=== PATIENT | female | born 1935 ===

== ENCOUNTER 2016-08-30 06:34 | Day surgery (SDC) | payer MEDICARE, BC ==
[2016-08-30 06:53] VITALS: BMI 18.1
[2016-08-30 07:32] VITALS: RESP 16; TEMP 98.9
[2016-08-30] MEDS ORDERED: Propofol 10 mg/ml Inj (20 ML) ONE (07:58)
--- NOTE | 2016-08-30 08:19 | CP.SDSHP ---
Same Day Surgery H & P - History Proposed Procedure: colonoscopy Pre-Op Diagnosis: change in bowels, wt loss - Previous Medical/Surgical History Cardiac: Hypertension Endocrine/Metabolic: Diabetes Comments: panc CA - Allergies Allergies: Allergies ciprofloxacin [From Cipro] Allergy (Severe, Verified 04/15/16 12:33) ANAPHYLAXIS ciprofloxacin HCl [From Cipro] Allergy (Severe, Verified 04/15/16 12:33) ANAPHYLAXIS Sulfa (Sulfonamide Antibiotics) Allergy (Severe, Verified 04/15/16 12:33) ANAPHYLAXIS - Physical Exam Vital Signs: Vital Signs 08/30/16 08/30/16 07:18 08:06 Temperature 98.9 F 98.9 F Pulse Rate 90 90 Respiratory 16 16 Rate Blood Pressure 160/89 H 160/89 H O2 Sat by Pulse 100 100 Oximetry Mental Status: Alert & Oriented x3 Neuro: WNL Heart: WNL Lungs: WNL GI: WNL - {Optional Preform as Required} Abdomen: WNL - Impression Impression: change in bowels, wt loss Pt. Evaluated Today:Candidate for Anesthesia & Procedure: Yes - Date & Time Date: 08/30/16 Time: 08:18 Short Stay Discharge - Short Stay Discharge Admitting Diagnosis/Reason for Visit: CHANGE IN BOWEL HABITS Disposition: HOME/ ROUTINE
[2016-08-30 09:19] VITALS: O2SAT 98
[2016-08-30 09:24] VITALS: BP 118/79; PULSE 76
== END 2016-08-30 09:50 | disposition home or self-care (01) ==
LOC: C.ENDO 06:34
PROVIDERS: ATTEND Internal Medicine Gastroenterology
DX: D12.7 Benign neoplasm of rectosigmoid junction (principal); D12.5 Benign neoplasm of sigmoid colon; K64.8 Other hemorrhoids
CPT/HCPCS: 45380; 45385; 82948; 87045; 87177; 87209; 87230; 88305; J2704

== ENCOUNTER 2017-03-11 19:42 | Inpatient (IN) | payer MEDICARE, BC ==
[2017-03-11 19:55] VITALS: BMI 20.3
[2017-03-11 20:23] LABS: BASO # 0.2 K/uL (0.0-0.2); BASO % 1.8 % (0.0-2.0); EOS # 0.2 K/uL (0.0-0.7); EOS % 1.5 % (0.0-4.0); HEMATOCRIT 35.8 % (34.0-47.0); LYMPH # 0.7 K/uL (1.0-4.3); LYMPH % 5.9 % (20.0-40.0); MEAN CELL VOLUME 97.8 fL (81.0-99.0); MEAN CORPUSCULAR HEMOGLOBIN 31.9 pg (27.0-31.0); MEAN CORPUSCULAR HGB CONC 32.7 g/dL (33.0-37.0); MEAN PLATELET VOLUME 9.8 fL (7.2-11.7); MONO # 0.5 K/uL (0.0-0.8); MONO % 3.7 % (0.0-10.0); PLATELET COUNT 234 K/uL (130-400); RED CELL DISTRIBUTION WIDTH 15.7 % (11.5-14.5); WHITE BLOOD COUNT 12.4 K/uL (4.8-10.8)
[2017-03-11 20:29] LABS: POTASSIUM 3.9 mmol/L (3.6-5.2)
[2017-03-11 20:31] LABS: ALB/GLOB RATIO 1.1 (1.0-2.1); BILIRUBIN,TOTAL 0.3 mg/dL (0.2-1.3); TOTAL PROTEIN 7.1 g/dL (6.3-8.3)
[2017-03-11 20:32] LABS: CALCIUM 9.2 mg/dl (8.6-10.4)
--- NOTE | 2017-03-11 20:32 | CT ---
EXAM: CT Head Without Intravenous Contrast EXAM DATE/TIME: 03/11/2017 7:55 PM CLINICAL HISTORY: 81 years old, female; Injury or trauma and signs and symptoms; Fall; Initial encounter; Abrasion; Head, generalized; Weakness, extremity; Left; Additional info: Stroke alert TECHNIQUE: Axial computed tomography images of the head/brain without intravenous contrast. All CT scans at this facility use one or more dose reduction techniques, viz.: automated exposure control; ma/kV adjustment per patient size (including targeted exams where dose is matched to indication; i.e. head); or iterative reconstruction technique. COMPARISON: MR - BRAIN WITHOUT CONTRAST 2013-08-28 13:14 FINDINGS: Brain: There is a right temporoparietal parenchymal hemorrhage with vasogenic edema in the temporal and parietal lobes.. Hemorrhage measures at least 6 x 3.5 cm. There is right subarachnoid and subdural hemorrhage. There is effacement of the right lateral ventricle. There is 12 mm midline shift to the left at the level of the third ventricle. Subdural hemorrhage measures 3.8 mm in the right frontal region, image 31 series 3 There is effacement of sulci and gyri on the right. There is prominence of the left lateral ventricle and fourth ventricles. There is prominence of the sulci and gyri in the cerebellum and left.There is decrease attenuation in periventricular white matter. There is decreased attenuation in left occipital white matter Ventricles: See above. Bones: Cranial vault is intact. Soft tissues: unremarkable Sinuses: There is no acute sinusitis. Ears and mastoids: Middle ears and mastoids are unremarkable. Orbits: There are no acute orbital abnormalities. IMPRESSION: Large right temporoparietal parenchymal hemorrhage with white matter/vasogenic edema, mass effect and 12 mm midline shift to the left; associated subarachnoid and subdural hemorrhage on the right; underlying atrophy and small vessel disease; probable ischemic changes in the left occipital lobe Followup suggested to exclude underlying neoplasm
[2017-03-11 20:33] LABS: INR 0.9
--- NOTE | 2017-03-11 20:45 | C.PDOC ---
History Of Present Illness 81 /yo female hx of pancreatic cancer and HTN (?), brought in by EMS awake with left sided weakness. As per patient her last known well time was yesterday morning after she got up for breakfast. Patient then recalled having a headache and falling, but was found in her closet at home. As per neighbor, patient was found lock in her closet door with the closet door having to be removed. Patient presents to the ER awake and speaking but with left sided weakness. Head CT shows a large parietal bleed on the right side with midline shift. Dr. Mckee contacted and recommends admitting the patient to ICU. Patient reports Right sided headache. Denies nausea or vomiting. No chest pain or SOB. Time Seen by Provider: 03/11/17 19:56 Chief Complaint (Nursing): Weakness/Neurological Deficit History Per: Patient, Other (Best friend ("better than family"). Neighbor) History/Exam Limitations: clinical condition Onset/Duration Of Symptoms: Hrs Current Symptoms Are (Timing): Still Present Fall Associated With With Symptoms: Yes Severity: Severe Recent travel outside of the [place]: No Additional History Per: EMS, Prior Records - Symptoms Of CVA Character Of Deficits: Left: Weakness, Arm: Weakness, Leg: Weakness Past Medical History Reviewed: Historical Data, Nursing Documentation, Vital Signs Vital Signs: Last Vital Signs Temp 98.3 F 03/11/17 19:53 Pulse 67 03/11/17 21:27 Resp 16 03/11/17 21:27 BP 166/81 H 03/11/17 21:27 Pulse Ox 100 03/11/17 21:32 - Medical History PMH: Cardia Arrhythmia (A FIB), Colonic Polyps, Fractures (LEFT ARM), Gall Bladder Disease, HTN, Hypothyroidism, Osteoporosis, Pancreatitis, Chronic Kidney Disease Surgical History: Cholecystectomy, Endoscopy - [facility] Procedures COLONOSCOPY (01/20/04) DX ULTRASOUND-HEART (09/09/12) DX ULTRASOUND-URINARY (11/04/12) ENDO RECTUM POLYPECTOMY (03/06/02) PERCUTAN NEEDLE BIOPSY OF KIDNEY (11/04/12) Family History: States: Unknown Family Hx - Social History Hx Alcohol Use: No Hx Substance Use: No - Immunization History Hx Tetanus Toxoid Vaccination: No Hx Influenza Vaccination: Yes Hx Pneumococcal Vaccination: No Review Of Systems Except As Marked, All Systems Reviewed And Found Negative. Cardiovascular: Negative for: Chest Pain Respiratory: Negative for: Shortness of Breath Gastrointestinal: Negative for: Nausea, Vomiting Neurological: Positive for: Weakness (left sided upper and lower extremity weakness), Headache (Right sided) Physical Exam - Physical Exam Appears: Non-toxic, Other (Elderly, frail, cachetic) Skin: Warm, Dry Eye(s): bilateral: PERRL Neck: Supple Respiratory: Normal Breath Sounds, No Rales, No Rhonchi, No Wheezing Gastrointestinal/Abdominal: Soft, Other (scaphoid abdomen. ) Neurological/Psych: No Normal Motor (Left upper and lower weakness 1/5. Right extremities normal.), Other (No facial droop.) ED Course And Treatment - Laboratory Results Result Diagrams: 03/11/17 20:16 03/11/17 20:16 ECG Rhythm: Sinus Rhythm Interpretation Of ECst degree AV Block Rate From EC O2 Sat by Pulse Oximetry: 100 (RA) Pulse Ox Interpretation: Normal NIHSS Stroke Scale - Date/Time Evaluation Performed Date Performed: 03/11/17 Time Performed: 19:45 When Was NIHSS Performed: Baseline - How Severe is the Stoke Level of Consciousness: 1=Drowsy LOC to Questions: 0=Both comments correct LOC to commands: 0=Obeys both correctly Best Gaze: 0=Normal Visual: 0=No visual loss Facial: 0=Normal Motor Arm - Left: 2=Falls before 10 sec Motor Arm - Right: 0=No drift Motor Leg - Left: 4=No movement Motor Leg - Right: 0=No drift Limb Ataxia: 0=Absent Sensory: 0=Normal Best Language: 0=No aphasia Dysarthia: 0=Normal articulation Extinction & Inattention (Neglect): 0=Normal, no object Score: 7 Severity Of Stroke: 5-15= Moderate Stroke (hemmorhagic) Medical Decision Making Medical Decision Making: Plans: * Blood labs * CT Head w/o contrast * EKG * IV fluids * Admit Disposition Discussed With : Jordi Bedolla Counseled Patient/Family Regarding: Studies Performed, Diagnosis - Disposition Disposition: HOSPITALIZED Disposition Time: 20:43 Condition: CRITICAL - Clinical Impression Clinical Impression: Intracranial hemorrhage - Scribe Statement The provider has reviewed the documentation as recorded by the Scribe Maycol eubanks All medical record entries made by the Scribe were at my direction and personally dictated by me. I have reviewed the chart and agree that the record accurately reflects my personal performance of the history, physical exam, medical decision making, and the department course for this patient. I have also personally directed, reviewed, and agree with the discharge instructions and disposition. Decision To Admit - Pt Status Changed To: Hospital Disposition Of: Inpatient - Admit Certification Admit to Inpatient:: After my assessment, the patient will require hospitalization for at least two midnights. This is because of the severity of symptoms shown, intensity of services needed, and/or the medical risk in this patient being treated as an outpatient. - InPatient: Physician Admission Certification: I certify that this patient requires 2 or more midnights of care for the following reason:: ICH - . Bed Request Type: ICU Patient Diagnosis: Intracranial hemorrhage
[2017-03-11 20:47] LABS: TROPONIN I 0.055 ng/mL (0.00-0.120)
--- NOTE | 2017-03-11 21:09 | CP.PCM.CON ---
History of Present Illness - History of Present Illness History of Present Illness: Attending: Gibran Wyatt MD PCP: Connor Stephenson MD Reason for Consult: Critical Care management Chief Complaint: Left side weakness The patient was seen and examined in the ED HPI: The hx was obtained partly from the patient and after review of the medical records. She is an 81 years old female who lives alone, with hx of Pancreatic Cancer, CKD and DM, brought awake and with left side weakness to the ED by EMS, after being found on the floor in her closet. The patient recalled having breakfast yesterday, developed headache and felt herself falling. She was found in a closed closet on the floor. In the ED the patient had clear speech referring right side headache. The Head CT showing a large intracraneal bleed with a midline shift to the left. PMH: HTN; A Fib; Colonic Polyps; Fx of the left Arm; Hypothyroidism; DM II; CKD ; Lung nodule; Ca of left kidney and pancreatic head; Pancreatitis; Cataract; Glaucoma PSH: Cholecystectomy; Cataract surgery; Partial Left Nephrectomy; Excision of head of Pancreas; SH: No illegal drug use; No alcohol; Never smoked; Live alone FH: States: Unknown Family Hx Allergies: Cipro; Sulfa Medication: Reviewed Review of Systems - Review of Systems Review of Systems: Review of system is limited because the patient is very lethargic. - Constitutional Constitutional: Headache, Lethargy. absent: Fever - EENT Nose/Mouth/Throat: absent: Epistaxis, Nasal Congestion - Cardiovascular Cardiovascular: Leg Edema. absent: Dyspnea - Respiratory Respiratory: absent: Dyspnea, Wheezing, Chest Congestion Past Patient History - Infectious Disease Hx of Infectious Diseases: None - Past Medical History & Family History Past Medical History?: Yes - Past Social History Smoking Status: Never Smoked Chewing Tobacco Use: No Cigar Use: No Alcohol: None Drugs: Denies Home Situation {Lives}: Alone - CARDIAC Hx Cardia Arrhythmia: Yes (A FIB) Hx Hypertension: Yes - PULMONARY Hx Respiratory Disorders: Yes (H/O LUNG NODULES) - NEUROLOGICAL Hx Neurological Disorder: No - HEENT Hx HEENT Problems: Yes Hx Cataracts: Yes Hx Glaucoma: Yes - RENAL Hx Chronic Kidney Disease: Yes - ENDOCRINE/METABOLIC Hx Hypothyroidism: Yes - HEMATOLOGICAL/ONCOLOGICAL Hx Blood Disorders: Yes Hx Cancer: Yes (L KIDNEY, HEAD OF PANCREAS) - INTEGUMENTARY Hx Dermatological Problems: No - MUSCULOSKELETAL/RHEUMATOLOGICAL Hx Fractures: Yes (LEFT ARM) Hx Osteoporosis: Yes - GASTROINTESTINAL Hx Gall Bladder Disease: Yes Hx Pancreatitis: Yes - GENITOURINARY/GYNECOLOGICAL Hx Genitourinary Disorders: No - PSYCHIATRIC Hx Substance Use: No - SURGICAL HISTORY Hx Cholecystectomy: Yes Other/Comment: Partial left nephrectomy and exision of head of pancreas - ANESTHESIA Hx Anesthesia: Yes Hx Anesthesia Reactions: No Hx Malignant Hyperthermia: No Meds Allergies/Adverse Reactions: Allergies Allergy/AdvReac Type Severity Reaction Status Date / Time ciprofloxacin [From Cipro] Allergy Severe ANAPHYLAXIS Verified 03/11/17 19:59 Sulfa (Sulfonamide Allergy Severe ANAPHYLAXIS Verified 03/11/17 19:59 Antibiotics) Physical Exam - Constitutional Appears: No Acute Distress - Head Exam Head Exam: ATRAUMATIC, NORMAL INSPECTION, NORMOCEPHALIC - Eye Exam Additional comments: Patient maintain eyes closed, Pupils 3cm responding sluggish to light - ENT Exam ENT Exam: Mucous Membranes Dry, Normal Exam, Normal External Ear Exam - Neck Exam Neck exam: Positive for: Full Rom, Normal Inspection. Negative for: Lymphadenopathy, Tenderness - Respiratory Exam Respiratory Exam: Clear to Auscultation Bilateral. absent: Rales, Rhonchi, Wheezes - Cardiovascular Exam Additional comments: S1 S2 regular with some irregularities. no gallops nor murmurs. - GI/Abdominal Exam GI & Abdominal Exam: Hypoactive Bowel Sounds, Normal Bowel Sounds, Soft. absent : Mass, Organomegaly, Tenderness - Rectal Exam Rectal Exam: Deferred - Extremities Exam Additional comments: Bilateral lower extremity edema 2+. pedal dorsalis full, palpable at both feet. - Back Exam Back exam: NORMAL INSPECTION. absent: CVA tenderness (L), CVA tenderness (R) - Neurological Exam Additional comments: Lethargic, answer questions with quiet Clear speech, Oriented, mild left facial droop, Motor strength 1/5 at left upper extremity with 0/5 at left lower extremity. Motor tone conserved at the left side of th4e body. - Psychiatric Exam Additional comments: Lethargic patient - Skin Skin Exam: Dry, Intact Additional comments: Right hip with hematoma 2cm th3e longest diameter. Results - Vital Signs Recent Vital Signs: Last Vital Signs Temp 98.3 F 03/11/17 19:53 Pulse 70 03/11/17 20:30 Resp 12 03/11/17 20:30 BP 158/82 H 10/30/17 20:30 Pulse Ox 100 03/11/17 21:00 - Labs Result Diagrams: 03/11/17 20:16 03/11/17 20:16 Labs: Laboratory Results - last 24 hr 03/11/17 03/11/17 03/11/17 20:16 20:16 20:16 WBC 12.4 H RBC 3.67 L Hgb 11.7 Hct 35.8 MCV 97.8 MCH 31.9 H MCHC 32.7 L RDW 15.7 H Plt Count 234 MPV 9.8 Neut % (Auto) 87.1 H Lymph % (Auto) 5.9 L [place] % (Auto) 3.7 Eos % (Auto) 1.5 Baso % (Auto) 1.8 Neut # 10.8 H Lymph # 0.7 L [place] # 0.5 Eos # 0.2 Baso # 0.2 PT 9.8 INR 0.9 APTT 29 Sodium 137 Potassium 3.9 Chloride 107 Carbon Dioxide 20 L Anion Gap 14 BUN 59 H Creatinine 2.4 H Est GFR ( Amer) 23 Est GFR (Non-Af Amer) 19 Random Glucose 189 H Hemoglobin A1c Calcium 9.2 Total Bilirubin 0.3 AST 59 H ALT 74 H Alkaline Phosphatase 115 Troponin I 0.0550 NT-Pro-B Natriuret Pep 3690 H Total Protein 7.1 Albumin 3.7 Globulin 3.4 Albumin/Globulin Ratio 1.1 Triglycerides 102 Cholesterol 143 LDL Cholesterol Direct 57 HDL Cholesterol 76 H 03/11/17 20:16 WBC RBC Hgb Hct MCV MCH MCHC RDW Plt Count MPV Neut % (Auto) Lymph % (Auto) [place] % (Auto) Eos % (Auto) Baso % (Auto) Neut # Lymph # [place] # Eos # Baso # PT INR APTT Sodium Potassium Chloride Carbon Dioxide Anion Gap BUN Creatinine Est GFR ( Amer) Est GFR (Non-Af Amer) Random Glucose Hemoglobin A1c 6.1 Calcium Total Bilirubin AST ALT Alkaline Phosphatase Troponin I NT-Pro-B Natriuret Pep Total Protein Albumin Globulin Albumin/Globulin Ratio Triglycerides Cholesterol LDL Cholesterol Direct HDL Cholesterol - EKG Data EKG comments: Sinus Rhythm 71/min with 1st degree AV block - Imaging and Cardiology Chest x-ray Status: Image reviewed by me Additional comment: No infiltrate No acute changes CT scan - head Status: Image reviewed by me, Report reviewed by me Additional comment: Large right Temperoparietal Parenchymal Hemorrhage with edema, mass effect and 12 cm midline shift to the left. Associated Subarachnoid and Subdural Hemorrhage Assessment & Plan - Assessment and Plan (Free Text) Assessment: #. Hemorrhagic CVA #. CKD #. Leukocytosis #. DM II with hyperglycemia #. HTN #. Hypothyroidism Plan: 81 years old female who lives alone, with hx of Pancreatic Cancer, CKD and DM, brought awake and with left side weakness to the ED by EMS, after being found on the floor in her closet. In the ED the patient had clear speech. The Head CT showing a large intracraneal bleed with a midline shift to the left. #. Hemorrhagic CVA CT Head Large right Temperoparietal Parenchymal Hemorrhage with edema, mass effect and 12 cm midline shift to the left. Associated Subarachnoid and Subdural Hemorrhage - Consult Neurosurgery Dr Mckee - Consult Dr Torres Neurology - Neuro checks - Elevate bed to 30degrees - Mannitol 20% 500mls Q6hrs - Repeat Head CT in 8 hours #. CKD - IV Fluid NS - Follow Renal labs #. Neutrophylic Leukocytosis reactive - Follow CBC #. DM II with hyperglycemia - Regular insulin sliding scale according to Accucheck - HbA1c #. HTN - Treat SBP>140 - IV Metoprolol #. Hypothyroidism - Synthroid IV #. Stress ulcer Prophylaxis with Pantoprazole #. DVT Prophylaxis with SCD #. Code Status: Full - Date & Time Date: 03/11/17 Time: 21:09
--- NOTE | 2017-03-11 23:42 | CP.PCM.HP ---
History of Present Illness - History of Present Illness History of Present Illness: 81 /yo female hx of pancreatic cancer and HTN (?), brought in by EMS awake with left sided weakness. As per patient her last known well time was yesterday morning after she got up for breakfast. Patient then recalled having a headache and falling, but was found in her closet at home. As per neighbor, patient was found lock in her closet door with the closet door having to be removed. Patient presents to the ER awake and speaking but with left sided weakness. Head CT shows a large parietal bleed on the right side with midline shift. Dr. Mckee contacted and recommends admitting the patient to ICU. Patient reports Right sided headache Present on Admission - Present on Admission Any Indicators Present on Admission: No Review of Systems - Review of Systems All systems: reviewed and no additional remarkable complaints except Past Patient History - Infectious Disease Hx of Infectious Diseases: None - Past Medical History & Family History Past Medical History?: Yes - Past Social History Smoking Status: Never Smoked Chewing Tobacco Use: No Cigar Use: No Alcohol: None Drugs: Denies Home Situation {Lives}: Alone - CARDIAC Hx Cardia Arrhythmia: Yes (A FIB) Hx Hypertension: Yes - PULMONARY Hx Respiratory Disorders: Yes (H/O LUNG NODULES) - NEUROLOGICAL Hx Neurological Disorder: No - HEENT Hx HEENT Problems: Yes Hx Cataracts: Yes Hx Glaucoma: Yes - RENAL Hx Chronic Kidney Disease: Yes - ENDOCRINE/METABOLIC Hx Hypothyroidism: Yes - HEMATOLOGICAL/ONCOLOGICAL Hx Blood Disorders: Yes Hx Cancer: Yes (L KIDNEY, HEAD OF PANCREAS) - INTEGUMENTARY Hx Dermatological Problems: No - MUSCULOSKELETAL/RHEUMATOLOGICAL Hx Fractures: Yes (LEFT ARM) Hx Osteoporosis: Yes - GASTROINTESTINAL Hx Gall Bladder Disease: Yes Hx Pancreatitis: Yes - GENITOURINARY/GYNECOLOGICAL Hx Genitourinary Disorders: No - PSYCHIATRIC Hx Substance Use: No - SURGICAL HISTORY Hx Cholecystectomy: Yes Other/Comment: Partial left nephrectomy and exision of head of pancreas - ANESTHESIA Hx Anesthesia: Yes Hx Anesthesia Reactions: No Hx Malignant Hyperthermia: No Meds Allergies/Adverse Reactions: Allergies Allergy/AdvReac Type Severity Reaction Status Date / Time ciprofloxacin [From Cipro] Allergy Severe ANAPHYLAXIS Verified 03/11/17 19:59 Sulfa (Sulfonamide Allergy Severe ANAPHYLAXIS Verified 03/11/17 19:59 Antibiotics) Physical Exam - Eye Exam Eye Exam: EOMI - ENT Exam ENT Exam: Mucous Membranes Dry - Neck Exam Neck exam: Positive for: Full Rom - Respiratory Exam Respiratory Exam: NORMAL BREATHING PATTERN - Cardiovascular Exam Cardiovascular Exam: +S1, +S2, +S4 - GI/Abdominal Exam GI & Abdominal Exam: Normal Bowel Sounds. absent: Tenderness - Extremities Exam Extremities exam: Negative for: calf tenderness, joint swelling - Neurological Exam Additional comments: [POWER 1/5 ON LEFT SIDE REFLEX DOWN Results - Vital Signs Recent Vital Signs: Last Vital Signs Temp 97.9 F 03/11/17 22:29 Pulse 80 03/11/17 23:00 Resp 13 03/11/17 23:00 BP 170/88 H 03/11/17 22:03 Pulse Ox 100 03/11/17 23:00 - Labs Result Diagrams: 03/12/17 06:20 03/12/17 06:20 Labs: Laboratory Results - last 24 hr 03/11/17 03/11/17 03/11/17 20:16 20:16 20:16 WBC 12.4 H RBC 3.67 L Hgb 11.7 Hct 35.8 MCV 97.8 MCH 31.9 H MCHC 32.7 L RDW 15.7 H Plt Count 234 MPV 9.8 Neut % (Auto) 87.1 H Lymph % (Auto) 5.9 L [place] % (Auto) 3.7 Eos % (Auto) 1.5 Baso % (Auto) 1.8 Neut # 10.8 H Lymph # 0.7 L [place] # 0.5 Eos # 0.2 Baso # 0.2 PT 9.8 INR 0.9 APTT 29 Sodium 137 Potassium 3.9 Chloride 107 Carbon Dioxide 20 L Anion Gap 14 BUN 59 H Creatinine 2.4 H Est GFR ( Amer) 23 Est GFR (Non-Af Amer) 19 Random Glucose 189 H Hemoglobin A1c Calcium 9.2 Total Bilirubin 0.3 AST 59 H ALT 74 H Alkaline Phosphatase 115 Troponin I 0.0550 NT-Pro-B Natriuret Pep 3690 H Total Protein 7.1 Albumin 3.7 Globulin 3.4 Albumin/Globulin Ratio 1.1 Triglycerides 102 Cholesterol 143 LDL Cholesterol Direct 57 HDL Cholesterol 76 H Blood Type Antibody Screen 03/11/17 03/11/17 20:16 20:16 WBC RBC Hgb Hct MCV MCH MCHC RDW Plt Count MPV Neut % (Auto) Lymph % (Auto) [place] % (Auto) Eos % (Auto) Baso % (Auto) Neut # Lymph # [place] # Eos # Baso # PT INR APTT Sodium Potassium Chloride Carbon Dioxide Anion Gap BUN Creatinine Est GFR ( Amer) Est GFR (Non-Af Amer) Random Glucose Hemoglobin A1c 6.1 Calcium Total Bilirubin AST ALT Alkaline Phosphatase Troponin I NT-Pro-B Natriuret Pep Total Protein Albumin Globulin Albumin/Globulin Ratio Triglycerides Cholesterol LDL Cholesterol Direct HDL Cholesterol Blood Type B POSITIVE Antibody Screen Negative Assessment & Plan (1) Intracranial hemorrhage Status: Acute
[2017-03-11] MEDS ORDERED: (Novolin R) Insulin Human Regular 100 units/ml vial SC SCH (23:45)
[2017-03-12 00:02] LABS: EOSINOPHIL 1 % (0-4); NEUTROPHIL 85 % (50-75); REACTIVE LYMPHOCYTES 5 % (0-0); TOTAL CELLS COUNTED 100
[2017-03-12] MEDS: (Novolin R) Insulin Human Regular 100 units/ml vial SC SCH ×4 (00:25→18:23)
[2017-03-12 06:28] LABS: BASO % 0.2 % (0.0-2.0); HEMATOCRIT 32.1 % (34.0-47.0); LYMPH # 0.4 K/uL (1.0-4.3); LYMPH % 2.7 % (20.0-40.0); MEAN CELL VOLUME 97.2 fL (81.0-99.0); MEAN CORPUSCULAR HEMOGLOBIN 31.9 pg (27.0-31.0); MEAN CORPUSCULAR HGB CONC 32.9 g/dL (33.0-37.0); MONO # 0.3 K/uL (0.0-0.8); MONO % 2.1 % (0.0-10.0); PLATELET COUNT 224 K/uL (130-400); RED CELL DISTRIBUTION WIDTH 15.5 % (11.5-14.5); WHITE BLOOD COUNT 13.6 K/uL (4.8-10.8)
[2017-03-12 06:36] LABS: INR 0.9
[2017-03-12] MEDS ORDERED: Metoprolol 1 mg/ml Inj IVP STA (06:37)
[2017-03-12 06:56] LABS: CALCIUM 8.1 mg/dl (8.6-10.4); PHOSPHOROUS 3.5 mg/dL (2.5-4.5)
[2017-03-12 06:58] LABS: POTASSIUM 3.5 mmol/L (3.6-5.2)
[2017-03-12] MEDS: SODIUM CHLORIDE 0.9% IVP SCH (06:59)
[2017-03-12] MEDS: LEVOTHYROXINE IVP SCH (06:59)
[2017-03-12 07:14] LABS: THYROID STIMULATING HORMONE 4.34 mIU/L (0.46-4.68)
[2017-03-12] MEDS ORDERED: niCARdipine IV 25 MG in Sodium Chloride 0.9% 240 ML IV SCH (07:45)
[2017-03-12] MEDS ORDERED: Labetalol 25mg/5ml Syringe IVP STA (07:45)
[2017-03-12] MEDS ORDERED: Labetalol 25mg/5ml Syringe ONE (07:49)
[2017-03-12] MEDS ORDERED: Etomidate 20 mg/10ml Inj IV ONE (08:16)
[2017-03-12] MEDS ORDERED: Propofol 10 mg/ml Inj (20 ML) IV ONE (08:22)
--- NOTE | 2017-03-12 08:24 | RAD ---
HISTORY: stroke COMPARISON: 02/23/2016 FINDINGS: LUNGS: Hyperinflation suggestive for COPD and or emphysematous changes. Biapical pleural thickening with upper lobe granulomatous changes. Scattered nodular densities throughout the right lung. No gross focal infiltrate or effusion. PLEURA: No significant pleural effusion identified, no pneumothorax apparent. CARDIOVASCULAR: Normal. OSSEOUS STRUCTURES: No significant abnormalities. VISUALIZED UPPER ABDOMEN: Normal. OTHER FINDINGS: None. IMPRESSION: Hyperinflation suggestive for COPD and or emphysematous changes. Biapical pleural thickening with upper lobe granulomatous changes. Scattered nodular densities throughout the right lung. No gross focal infiltrate or effusion.
[2017-03-12] MEDS ORDERED: Succinylcholine Chloride 20 mg/ml Syr (5 ml) IV ONE (08:30)
[2017-03-12] MEDS: Propofol 10 mg/ml 1,000 MG/100 ML VIAL IV PRN (08:35)
[2017-03-12 08:43] LABS: NEUTROPHIL 91 % (50-75); TOTAL CELLS COUNTED 100
--- NOTE | 2017-03-12 08:44 | RAD ---
HISTORY: intubated COMPARISON: 03/11/2017 FINDINGS: LUNGS: No active pulmonary disease. PLEURA: No significant pleural effusion identified, no pneumothorax apparent. CARDIOVASCULAR: Normal heart size. ET tube present with tip 2.0 cm above tracheal brooke. OSSEOUS STRUCTURES: No significant abnormalities. VISUALIZED UPPER ABDOMEN: Normal. OTHER FINDINGS: None. IMPRESSION: ET tube positioned 2.0 cm above tracheal brooke.
--- NOTE | 2017-03-12 08:47 | RAD ---
PROCEDURE: Right Hip Radiographs. HISTORY: Fall with right hip contusion COMPARISON: None. FINDINGS: BONES: Normal. No fracture. JOINTS: Normal. SOFT TISSUES: Normal. OTHER FINDINGS: None. IMPRESSION: Normal radiographs of right hip.
[2017-03-12] MEDS: niCARdipine IV 25 MG in Sodium Chloride 0.9% 240 ML IV SCH ×4 (09:02→23:57)
[2017-03-12 09:08] LABS: ABG MECHANICAL RATE 20; ARTERIAL BLOOD HGB O2 SAT 96.7 % (95.0-98.0); ATERIAL BLOOD GAS PEEP 5; CARBOXYHEMOGLOBIN 2.2 % (0.5-1.5); DRAW SITE LF; HHB 0.2 % (0.0-5.0)
[2017-03-12] MEDS ORDERED: Levothyroxine 200 mcg (0.2 mg) Inj IVP SCH (10:00)
[2017-03-12] MEDS ORDERED: Absorbable Gelatin Sponge Size 100 ONE (10:33)
[2017-03-12] MEDS ORDERED: Bacitracin Ointment 30 GM TUBE ONE (10:33)
[2017-03-12] MEDS ORDERED: Bacitracin 50,000 UNIT in Sodium Chloride 0.9% Irrig 1,000 ML IR SCH (10:35)
[2017-03-12] MEDS ORDERED: Thrombin Topical 5,000 IU Spray Kit ONE (10:48)
[2017-03-12] MEDS ORDERED: ceFAZolin IV 2 gm in Dextrose 0 GM/0 ML BAG IVPB ONE (10:48)
[2017-03-12] MEDS ORDERED: Lidocaine 1%/Epinephrine 1:100000 30 ml vial IJ ONE (10:54)
[2017-03-12] MEDS ORDERED: Sodium Chloride 0.9% 1,000 ML IV ONE (11:02)
[2017-03-12] MEDS ORDERED: Vancomycin 1 gm/D5W 200 ml 1 GM/200 ML BAG IVPB ONE (11:23)
--- NOTE | 2017-03-12 11:25 | CP.CCUPN ---
<Rosaura Paz - Last Filed: 03/12/17 15:52> CCU Subjective - Physician Review Subjective (Free Text): Patient seen and examined at bedside. Patient intubated this am and therefore ROS unobtainable. CCU Objective - Vital Signs / Intake & Output Vital Signs (Last 4 hours): Vital Signs Temp Pulse Resp BP Pulse Ox 03/12/17 10:30 82 18 146/85 99 03/12/17 10:00 84 18 108/53 L 100 03/12/17 09:00 86 19 170/89 H 100 03/12/17 08:00 96.4 F L 84 21 170/100 H 99 Intake and Output (Last 8hrs): Intake & Output 03/11/17 03/12/17 03/12/17 22:59 06:59 14:59 Intake Total 1100 295.3 Output Total 2530 400 Balance -1430 -104.7 Weight 97 lb 6 oz 87 lb 6.4 oz Intake: Intake, IV Amount 1100 295.3 Right Distal Port Forearm 600 225 Right Forearm 500 70.3 Output: Urine 2530 400 Urethral ([place]) 2530 400 Other: # Bowel Movements 1 - Physical Exam Head: Positive for: Normocephalic Pupils: Positive for: Sluggish Mouth: Positive for: Dry Respiratory/Chest: Positive for: Good Air Exchange Cardiovascular: Positive for: Normal S1, S2 Lower Extremity: Positive for: Edema - Medications Active Medications: Active Medications Generic Name Dose Route Start Last Admin Trade Name Freq PRN Reason Stop Dose Admin Mannitol 500 mls @ 500 mls/hr 03/11/17 22:30 03/12/17 05:07 Mannitol IV 500 mls/hr Q6H HALLE Administration Levothyroxine Sodium 25 mcg/ 2.5 mls @ 0 mls/hr 03/12/17 06:30 03/12/17 06:59 Sodium Chloride IVP 1.25 mls/hr DAILY@0630 HALLE Administration UD Propofol 1,000 mg in 100 mls @ 1.189 mls/hr 03/12/17 08:24 03/12/17 08:35 Diprivan IV 5 mcg/kg/min .Q24H PRN 1.189 mls/hr TITRATE PER MD ORDER Administration Protocol 5 MCG/KG/MIN Nicardipine HCl 25 mg/ Sodium 250 mls @ 50 mls/hr 10/31/17 08:49 03/12/17 09: 02 Chloride IV 5 mg/hr .Q5H HALLE 50 mls/hr Protocol Administration 5 MG/HR Potassium Chloride 20 meq in 100 mls @ 50 mls/hr 03/12/17 09:37 Potassium Chloride 20 Meq/100 Ml IVPB 03/12/17 11:36 ONCE ONE Bacitracin 50,000 unit/ Sodium 1,000 mls @ 1,000 mls/hr 03/12/17 10:35 Chloride IR 03/12/17 11:34 .Q1H HALLE Insulin Human Regular 0 unit 03/12/17 12:00 Novolin R SC Q6 HALLE Protocol Metoprolol Tartrate 5 mg 03/12/17 12:00 Lopressor IVP Q6 HALLE Pantoprazole Sodium 40 mg 03/12/17 10:00 03/12/17 09:41 Protonix Inj IVP 40 mg DAILY HALLE Administration - Patient Studies Lab Studies: Lab Studies 03/12/17 03/12/17 03/12/17 Range/Units 08:50 06:20 06:20 WBC (4.8-10.8) K/uL RBC (3.80-5.20) Mil/uL Hgb (11.0-16.0) g/dL Hct (34.0-47.0) % MCV (81.0-99.0) fL MCH (27.0-31.0) pg MCHC (33.0-37.0) g/dL RDW (11.5-14.5) % Plt Count (130-400) K/uL MPV (7.2-11.7) fL Neut % (Auto) (50.0-75.0) % Lymph % (Auto) (20.0-40.0) % [place] % (Auto) (0.0-10.0) % Eos % (Auto) (0.0-4.0) % Baso % (Auto) (0.0-2.0) % Neut # (1.8-7.0) K/uL Lymph # (1.0-4.3) K/uL [place] # (0.0-0.8) K/uL Eos # (0.0-0.7) K/uL Baso # (0.0-0.2) K/uL Neutrophils % (Manual) (50-75) % Band Neutrophils % (0-2) % Lymphocytes % (Manual) (20-40) % Reactive Lymphs % (0-0) % Monocytes % (Manual) (0-10) % Eosinophils % (Manual) (0-4) % Toxic Granulation Platelet Estimate (NORMAL) Anisocytosis (manual) Rouleaux PT 10.2 (9.7-12.2) SECONDS INR 0.9 APTT 27 (21-34) SECONDS Puncture Site Lf pCO2 25 L (35-45) mm/Hg pO2 501 H (80-100) mm/Hg HCO3 21.3 (21-28) mmol/L ABG pH 7.46 H (7.35-7.45) ABG Total CO2 18.6 L (22-28) mmol/L ABG O2 Saturation 99.8 H (95-98) % ABG Base Excess -4.6 L (-2.0-3.0) mmol/L ABG Hemoglobin 11.6 L (11.7-17.4) g/dL ABG Carboxyhemoglobin 2.2 H (0.5-1.5) % POC ABG HHb (Measured) 0.2 (0.0-5.0) % ABG Methemoglobin 1.0 (0.0-3.0) % Jean Test Na A-a O2 Difference 181.0 mm/Hg Respiratory Index 0.4 Hgb O2 Saturation 96.7 (95.0-98.0) % Mechanical Rate 20 FiO2 100.0 % Tidal Volume 450 PEEP 5 Sodium (132-148) mmol/L Potassium (3.6-5.2) mmol/L Chloride (98-107) mmol/L Carbon Dioxide (22-30) mmol/L Anion Gap (10-20) BUN (7-17) mg/dL Creatinine (0.7-1.2) mg/dL Est GFR ( Amer) Est GFR (Non-Af Amer) POC Glucose (mg/dL) (65-110) mg/dL Random Glucose (65-105) mg/dL Hemoglobin A1c (4.2-6.5) % Serum Osmolality 346 H (272-300) mosm/kg Calcium (8.6-10.4) mg/dl Phosphorus (2.5-4.5) mg/dL Magnesium (1.6-2.3) mg/dL Total Bilirubin (0.2-1.3) mg/dL AST (14-36) U/L ALT (9-52) U/L Alkaline Phosphatase (38-126) U/L Troponin I (0.00-0.120) ng/mL NT-Pro-B Natriuret Pep (0-900) pg/mL Total Protein (6.3-8.3) g/dL Albumin (3.5-5.0) g/dL Globulin (2.2-3.9) gm/dL Albumin/Globulin Ratio (1.0-2.1) Triglycerides (0-149) mg/dL Cholesterol (0-199) mg/dL LDL Cholesterol Direct (0-129) mg/dL HDL Cholesterol (30-70) mg/dL TSH 3rd Generation (0.46-4.68) mIU/L Blood Type Antibody Screen 03/12/17 03/12/17 03/12/17 Range/Units 06:20 06:20 06:20 WBC 13.6 H (4.8-10.8) K/uL RBC 3.30 L (3.80-5.20) Mil/uL Hgb 10.5 L (11.0-16.0) g/dL Hct 32.1 L (34.0-47.0) % MCV 97.2 (81.0-99.0) fL MCH 31.9 H (27.0-31.0) pg MCHC 32.9 L (33.0-37.0) g/dL RDW 15.5 H (11.5-14.5) % Plt Count 224 (130-400) K/uL MPV 10.0 (7.2-11.7) fL Neut % (Auto) 95.0 H (50.0-75.0) % Lymph % (Auto) 2.7 L (20.0-40.0) % [place] % (Auto) 2.1 (0.0-10.0) % Eos % (Auto) 0.0 (0.0-4.0) % Baso % (Auto) 0.2 (0.0-2.0) % Neut # 12.9 H (1.8-7.0) K/uL Lymph # 0.4 L (1.0-4.3) K/uL [place] # 0.3 (0.0-0.8) K/uL Eos # 0.0 (0.0-0.7) K/uL Baso # 0.0 (0.0-0.2) K/uL Neutrophils % (Manual) 91 H (50-75) % Band Neutrophils % 4 H (0-2) % Lymphocytes % (Manual) 4 L (20-40) % Reactive Lymphs % (0-0) % Monocytes % (Manual) 1 (0-10) % Eosinophils % (Manual) (0-4) % Toxic Granulation Platelet Estimate Normal (NORMAL) Anisocytosis (manual) Slight Rouleaux PT (9.7-12.2) SECONDS INR APTT (21-34) SECONDS Puncture Site pCO2 (35-45) mm/Hg pO2 (80-100) mm/Hg HCO3 (21-28) mmol/L ABG pH (7.35-7.45) ABG Total CO2 (22-28) mmol/L ABG O2 Saturation (95-98) % ABG Base Excess (-2.0-3.0) mmol/L ABG Hemoglobin (11.7-17.4) g/dL ABG Carboxyhemoglobin (0.5-1.5) % POC ABG HHb (Measured) (0.0-5.0) % ABG Methemoglobin (0.0-3.0) % Jean Test A-a O2 Difference mm/Hg Respiratory Index Hgb O2 Saturation (95.0-98.0) % Mechanical Rate FiO2 % Tidal Volume PEEP Sodium 130 L (132-148) mmol/L Potassium 3.5 L (3.6-5.2) mmol/L Chloride 101 (98-107) mmol/L Carbon Dioxide 17 L (22-30) mmol/L Anion Gap 16 (10-20) BUN 45 H (7-17) mg/dL Creatinine 2.2 H (0.7-1.2) mg/dL Est GFR ( Amer) 26 Est GFR (Non-Af Amer) 21 POC Glucose (mg/dL) (65-110) mg/dL Random Glucose 171 H (65-105) mg/dL Hemoglobin A1c 6.3 (4.2-6.5) % Serum Osmolality (272-300) mosm/kg Calcium 8.1 L (8.6-10.4) mg/dl Phosphorus 3.5 (2.5-4.5) mg/dL Magnesium 2.0 (1.6-2.3) mg/dL Total Bilirubin (0.2-1.3) mg/dL AST (14-36) U/L ALT (9-52) U/L Alkaline Phosphatase (38-126) U/L Troponin I (0.00-0.120) ng/mL NT-Pro-B Natriuret Pep (0-900) pg/mL Total Protein (6.3-8.3) g/dL Albumin (3.5-5.0) g/dL Globulin (2.2-3.9) gm/dL Albumin/Globulin Ratio (1.0-2.1) Triglycerides (0-149) mg/dL Cholesterol (0-199) mg/dL LDL Cholesterol Direct (0-129) mg/dL HDL Cholesterol (30-70) mg/dL TSH 3rd Generation 4.34 (0.46-4.68) mIU/L Blood Type Antibody Screen 03/12/17 03/12/17 03/11/17 Range/Units 05:41 00:18 20:16 WBC (4.8-10.8) K/uL RBC (3.80-5.20) Mil/uL Hgb (11.0-16.0) g/dL Hct (34.0-47.0) % MCV (81.0-99.0) fL MCH (27.0-31.0) pg MCHC (33.0-37.0) g/dL RDW (11.5-14.5) % Plt Count (130-400) K/uL MPV (7.2-11.7) fL Neut % (Auto) (50.0-75.0) % Lymph % (Auto) (20.0-40.0) % [place] % (Auto) (0.0-10.0) % Eos % (Auto) (0.0-4.0) % Baso % (Auto) (0.0-2.0) % Neut # (1.8-7.0) K/uL Lymph # (1.0-4.3) K/uL [place] # (0.0-0.8) K/uL Eos # (0.0-0.7) K/uL Baso # (0.0-0.2) K/uL Neutrophils % (Manual) (50-75) % Band Neutrophils % (0-2) % Lymphocytes % (Manual) (20-40) % Reactive Lymphs % (0-0) % Monocytes % (Manual) (0-10) % Eosinophils % (Manual) (0-4) % Toxic Granulation Platelet Estimate (NORMAL) Anisocytosis (manual) Rouleaux PT (9.7-12.2) SECONDS INR APTT (21-34) SECONDS Puncture Site pCO2 (35-45) mm/Hg pO2 (80-100) mm/Hg HCO3 (21-28) mmol/L ABG pH (7.35-7.45) ABG Total CO2 (22-28) mmol/L ABG O2 Saturation (95-98) % ABG Base Excess (-2.0-3.0) mmol/L ABG Hemoglobin (11.7-17.4) g/dL ABG Carboxyhemoglobin (0.5-1.5) % POC ABG HHb (Measured) (0.0-5.0) % ABG Methemoglobin (0.0-3.0) % Jean Test A-a O2 Difference mm/Hg Respiratory Index Hgb O2 Saturation (95.0-98.0) % Mechanical Rate FiO2 % Tidal Volume PEEP Sodium (132-148) mmol/L Potassium (3.6-5.2) mmol/L Chloride (98-107) mmol/L Carbon Dioxide (22-30) mmol/L Anion Gap (10-20) BUN (7-17) mg/dL Creatinine (0.7-1.2) mg/dL Est GFR ( Amer) Est GFR (Non-Af Amer) POC Glucose (mg/dL) 211 H 82 (65-110) mg/dL Random Glucose (65-105) mg/dL Hemoglobin A1c (4.2-6.5) % Serum Osmolality (272-300) mosm/kg Calcium (8.6-10.4) mg/dl Phosphorus (2.5-4.5) mg/dL Magnesium (1.6-2.3) mg/dL Total Bilirubin (0.2-1.3) mg/dL AST (14-36) U/L ALT (9-52) U/L Alkaline Phosphatase (38-126) U/L Troponin I (0.00-0.120) ng/mL NT-Pro-B Natriuret Pep (0-900) pg/mL Total Protein (6.3-8.3) g/dL Albumin (3.5-5.0) g/dL Globulin (2.2-3.9) gm/dL Albumin/Globulin Ratio (1.0-2.1) Triglycerides (0-149) mg/dL Cholesterol (0-199) mg/dL LDL Cholesterol Direct (0-129) mg/dL HDL Cholesterol (30-70) mg/dL TSH 3rd Generation (0.46-4.68) mIU/L Blood Type B POSITIVE Antibody Screen Negative 03/11/17 03/11/17 03/11/17 Range/Units 20:16 20:16 20:16 WBC (4.8-10.8) K/uL RBC (3.80-5.20) Mil/uL Hgb (11.0-16.0) g/dL Hct (34.0-47.0) % MCV (81.0-99.0) fL MCH (27.0-31.0) pg MCHC (33.0-37.0) g/dL RDW (11.5-14.5) % Plt Count (130-400) K/uL MPV (7.2-11.7) fL Neut % (Auto) (50.0-75.0) % Lymph % (Auto) (20.0-40.0) % [place] % (Auto) (0.0-10.0) % Eos % (Auto) (0.0-4.0) % Baso % (Auto) (0.0-2.0) % Neut # (1.8-7.0) K/uL Lymph # (1.0-4.3) K/uL [place] # (0.0-0.8) K/uL Eos # (0.0-0.7) K/uL Baso # (0.0-0.2) K/uL Neutrophils % (Manual) (50-75) % Band Neutrophils % (0-2) % Lymphocytes % (Manual) (20-40) % Reactive Lymphs % (0-0) % Monocytes % (Manual) (0-10) % Eosinophils % (Manual) (0-4) % Toxic Granulation Platelet Estimate (NORMAL) Anisocytosis (manual) Rouleaux PT 9.8 (9.7-12.2) SECONDS INR 0.9 APTT 29 (21-34) SECONDS Puncture Site pCO2 (35-45) mm/Hg pO2 (80-100) mm/Hg HCO3 (21-28) mmol/L ABG pH (7.35-7.45) ABG Total CO2 (22-28) mmol/L ABG O2 Saturation (95-98) % ABG Base Excess (-2.0-3.0) mmol/L ABG Hemoglobin (11.7-17.4) g/dL ABG Carboxyhemoglobin (0.5-1.5) % POC ABG HHb (Measured) (0.0-5.0) % ABG Methemoglobin (0.0-3.0) % Jean Test A-a O2 Difference mm/Hg Respiratory Index Hgb O2 Saturation (95.0-98.0) % Mechanical Rate FiO2 % Tidal Volume PEEP Sodium 137 (132-148) mmol/L Potassium 3.9 (3.6-5.2) mmol/L Chloride 107 (98-107) mmol/L Carbon Dioxide 20 L (22-30) mmol/L Anion Gap 14 (10-20) BUN 59 H (7-17) mg/dL Creatinine 2.4 H (0.7-1.2) mg/dL Est GFR ( Amer) 23 Est GFR (Non-Af Amer) 19 POC Glucose (mg/dL) (65-110) mg/dL Random Glucose 189 H (65-105) mg/dL Hemoglobin A1c 6.1 (4.2-6.5) % Serum Osmolality (272-300) mosm/kg Calcium 9.2 (8.6-10.4) mg/dl Phosphorus (2.5-4.5) mg/dL Magnesium (1.6-2.3) mg/dL Total Bilirubin 0.3 (0.2-1.3) mg/dL AST 59 H (14-36) U/L ALT 74 H (9-52) U/L Alkaline Phosphatase 115 (38-126) U/L Troponin I 0.0550 (0.00-0.120) ng/mL NT-Pro-B Natriuret Pep 3690 H (0-900) pg/mL Total Protein 7.1 (6.3-8.3) g/dL Albumin 3.7 (3.5-5.0) g/dL Globulin 3.4 (2.2-3.9) gm/dL Albumin/Globulin Ratio 1.1 (1.0-2.1) Triglycerides 102 (0-149) mg/dL Cholesterol 143 (0-199) mg/dL LDL Cholesterol Direct 57 (0-129) mg/dL HDL Cholesterol 76 H (30-70) mg/dL TSH 3rd Generation (0.46-4.68) mIU/L Blood Type Antibody Screen 03/11/17 Range/Units 20:16 WBC 12.4 H (4.8-10.8) K/uL RBC 3.67 L (3.80-5.20) Mil/uL Hgb 11.7 (11.0-16.0) g/dL Hct 35.8 (34.0-47.0) % MCV 97.8 (81.0-99.0) fL MCH 31.9 H (27.0-31.0) pg MCHC 32.7 L (33.0-37.0) g/dL RDW 15.7 H (11.5-14.5) % Plt Count 234 (130-400) K/uL MPV 9.8 (7.2-11.7) fL Neut % (Auto) 87.1 H (50.0-75.0) % Lymph % (Auto) 5.9 L (20.0-40.0) % [place] % (Auto) 3.7 (0.0-10.0) % Eos % (Auto) 1.5 (0.0-4.0) % Baso % (Auto) 1.8 (0.0-2.0) % Neut # 10.8 H (1.8-7.0) K/uL Lymph # 0.7 L (1.0-4.3) K/uL [place] # 0.5 (0.0-0.8) K/uL Eos # 0.2 (0.0-0.7) K/uL Baso # 0.2 (0.0-0.2) K/uL Neutrophils % (Manual) 85 H (50-75) % Band Neutrophils % 1 (0-2) % Lymphocytes % (Manual) 5 L (20-40) % Reactive Lymphs % 5 H (0-0) % Monocytes % (Manual) 3 (0-10) % Eosinophils % (Manual) 1 (0-4) % Toxic Granulation Present Platelet Estimate Normal (NORMAL) Anisocytosis (manual) Slight Rouleaux Slight PT (9.7-12.2) SECONDS INR APTT (21-34) SECONDS Puncture Site pCO2 (35-45) mm/Hg pO2 (80-100) mm/Hg HCO3 (21-28) mmol/L ABG pH (7.35-7.45) ABG Total CO2 (22-28) mmol/L ABG O2 Saturation (95-98) % ABG Base Excess (-2.0-3.0) mmol/L ABG Hemoglobin (11.7-17.4) g/dL ABG Carboxyhemoglobin (0.5-1.5) % POC ABG HHb (Measured) (0.0-5.0) % ABG Methemoglobin (0.0-3.0) % Jean Test A-a O2 Difference mm/Hg Respiratory Index Hgb O2 Saturation (95.0-98.0) % Mechanical Rate FiO2 % Tidal Volume PEEP Sodium (132-148) mmol/L Potassium (3.6-5.2) mmol/L Chloride (98-107) mmol/L Carbon Dioxide (22-30) mmol/L Anion Gap (10-20) BUN (7-17) mg/dL Creatinine (0.7-1.2) mg/dL Est GFR ( Amer) Est GFR (Non-Af Amer) POC Glucose (mg/dL) (65-110) mg/dL Random Glucose (65-105) mg/dL Hemoglobin A1c (4.2-6.5) % Serum Osmolality (272-300) mosm/kg Calcium (8.6-10.4) mg/dl Phosphorus (2.5-4.5) mg/dL Magnesium (1.6-2.3) mg/dL Total Bilirubin (0.2-1.3) mg/dL AST (14-36) U/L ALT (9-52) U/L Alkaline Phosphatase (38-126) U/L Troponin I (0.00-0.120) ng/mL NT-Pro-B Natriuret Pep (0-900) pg/mL Total Protein (6.3-8.3) g/dL Albumin (3.5-5.0) g/dL Globulin (2.2-3.9) gm/dL Albumin/Globulin Ratio (1.0-2.1) Triglycerides (0-149) mg/dL Cholesterol (0-199) mg/dL LDL Cholesterol Direct (0-129) mg/dL HDL Cholesterol (30-70) mg/dL TSH 3rd Generation (0.46-4.68) mIU/L Blood Type Antibody Screen Laboratory Results - last 24 hr 03/11/17 03/11/17 03/11/17 20:16 20:16 20:16 WBC 12.4 H RBC 3.67 L Hgb 11.7 Hct 35.8 MCV 97.8 MCH 31.9 H MCHC 32.7 L RDW 15.7 H Plt Count 234 MPV 9.8 Neut % (Auto) 87.1 H Lymph % (Auto) 5.9 L [place] % (Auto) 3.7 Eos % (Auto) 1.5 Baso % (Auto) 1.8 Neut # 10.8 H Lymph # 0.7 L [place] # 0.5 Eos # 0.2 Baso # 0.2 Neutrophils % (Manual) 85 H Band Neutrophils % 1 Lymphocytes % (Manual) 5 L Reactive Lymphs % 5 H Monocytes % (Manual) 3 Eosinophils % (Manual) 1 Toxic Granulation Present Platelet Estimate Normal Anisocytosis (manual) Slight Rouleaux Slight PT 9.8 INR 0.9 APTT 29 Puncture Site pCO2 pO2 HCO3 ABG pH ABG Total CO2 ABG O2 Saturation ABG Base Excess ABG Hemoglobin ABG Carboxyhemoglobin POC ABG HHb (Measured) ABG Methemoglobin Jean Test A-a O2 Difference Respiratory Index Hgb O2 Saturation Mechanical Rate FiO2 Tidal Volume PEEP Sodium 137 Potassium 3.9 Chloride 107 Carbon Dioxide 20 L Anion Gap 14 BUN 59 H Creatinine 2.4 H Est GFR ( Amer) 23 Est GFR (Non-Af Amer) 19 POC Glucose (mg/dL) Random Glucose 189 H Hemoglobin A1c Serum Osmolality Calcium 9.2 Phosphorus Magnesium Total Bilirubin 0.3 AST 59 H ALT 74 H Alkaline Phosphatase 115 Troponin I 0.0550 NT-Pro-B Natriuret Pep 3690 H Total Protein 7.1 Albumin 3.7 Globulin 3.4 Albumin/Globulin Ratio 1.1 Triglycerides 102 Cholesterol 143 LDL Cholesterol Direct 57 HDL Cholesterol 76 H TSH 3rd Generation Blood Type Antibody Screen 03/11/17 03/11/17 03/12/17 20:16 20:16 00:18 WBC RBC Hgb Hct MCV MCH MCHC RDW Plt Count MPV Neut % (Auto) Lymph % (Auto) [place] % (Auto) Eos % (Auto) Baso % (Auto) Neut # Lymph # [place] # Eos # Baso # Neutrophils % (Manual) Band Neutrophils % Lymphocytes % (Manual) Reactive Lymphs % Monocytes % (Manual) Eosinophils % (Manual) Toxic Granulation Platelet Estimate Anisocytosis (manual) Rouleaux PT INR APTT Puncture Site pCO2 pO2 HCO3 ABG pH ABG Total CO2 ABG O2 Saturation ABG Base Excess ABG Hemoglobin ABG Carboxyhemoglobin POC ABG HHb (Measured) ABG Methemoglobin Jean Test A-a O2 Difference Respiratory Index Hgb O2 Saturation Mechanical Rate FiO2 Tidal Volume PEEP Sodium Potassium Chloride Carbon Dioxide Anion Gap BUN Creatinine Est GFR ( Amer) Est GFR (Non-Af Amer) POC Glucose (mg/dL) 82 Random Glucose Hemoglobin A1c 6.1 Serum Osmolality Calcium Phosphorus Magnesium Total Bilirubin AST ALT Alkaline Phosphatase Troponin I NT-Pro-B Natriuret Pep Total Protein Albumin Globulin Albumin/Globulin Ratio Triglycerides Cholesterol LDL Cholesterol Direct HDL Cholesterol TSH 3rd Generation Blood Type B POSITIVE Antibody Screen Negative 03/12/17 03/12/17 03/12/17 05:41 06:20 06:20 WBC 13.6 H RBC 3.30 L Hgb 10.5 L Hct 32.1 L MCV 97.2 MCH 31.9 H MCHC 32.9 L RDW 15.5 H Plt Count 224 MPV 10.0 Neut % (Auto) 95.0 H Lymph % (Auto) 2.7 L [place] % (Auto) 2.1 Eos % (Auto) 0.0 Baso % (Auto) 0.2 Neut # 12.9 H Lymph # 0.4 L [place] # 0.3 Eos # 0.0 Baso # 0.0 Neutrophils % (Manual) 91 H Band Neutrophils % 4 H Lymphocytes % (Manual) 4 L Reactive Lymphs % Monocytes % (Manual) 1 Eosinophils % (Manual) Toxic Granulation Platelet Estimate Normal Anisocytosis (manual) Slight Rouleaux PT INR APTT Puncture Site pCO2 pO2 HCO3 ABG pH ABG Total CO2 ABG O2 Saturation ABG Base Excess ABG Hemoglobin ABG Carboxyhemoglobin POC ABG HHb (Measured) ABG Methemoglobin Jean Test A-a O2 Difference Respiratory Index Hgb O2 Saturation Mechanical Rate FiO2 Tidal Volume PEEP Sodium 130 L Potassium 3.5 L Chloride 101 Carbon Dioxide 17 L Anion Gap 16 BUN 45 H Creatinine 2.2 H Est GFR ( Amer) 26 Est GFR (Non-Af Amer) 21 POC Glucose (mg/dL) 211 H Random Glucose 171 H Hemoglobin A1c Serum Osmolality Calcium 8.1 L Phosphorus 3.5 Magnesium 2.0 Total Bilirubin AST ALT Alkaline Phosphatase Troponin I NT-Pro-B Natriuret Pep Total Protein Albumin Globulin Albumin/Globulin Ratio Triglycerides Cholesterol LDL Cholesterol Direct HDL Cholesterol TSH 3rd Generation 4.34 Blood Type Antibody Screen 03/12/17 03/12/17 03/12/17 06:20 06:20 06:20 WBC RBC Hgb Hct MCV MCH MCHC RDW Plt Count MPV Neut % (Auto) Lymph % (Auto) [place] % (Auto) Eos % (Auto) Baso % (Auto) Neut # Lymph # [place] # Eos # Baso # Neutrophils % (Manual) Band Neutrophils % Lymphocytes % (Manual) Reactive Lymphs % Monocytes % (Manual) Eosinophils % (Manual) Toxic Granulation Platelet Estimate Anisocytosis (manual) Rouleaux PT 10.2 INR 0.9 APTT 27 Puncture Site pCO2 pO2 HCO3 ABG pH ABG Total CO2 ABG O2 Saturation ABG Base Excess ABG Hemoglobin ABG Carboxyhemoglobin POC ABG HHb (Measured) ABG Methemoglobin Jean Test A-a O2 Difference Respiratory Index Hgb O2 Saturation Mechanical Rate FiO2 Tidal Volume PEEP Sodium Potassium Chloride Carbon Dioxide Anion Gap BUN Creatinine Est GFR ( Amer) Est GFR (Non-Af Amer) POC Glucose (mg/dL) Random Glucose Hemoglobin A1c 6.3 Serum Osmolality 346 H Calcium Phosphorus Magnesium Total Bilirubin AST ALT Alkaline Phosphatase Troponin I NT-Pro-B Natriuret Pep Total Protein Albumin Globulin Albumin/Globulin Ratio Triglycerides Cholesterol LDL Cholesterol Direct HDL Cholesterol TSH 3rd Generation Blood Type Antibody Screen 03/12/17 08:50 WBC RBC Hgb Hct MCV MCH MCHC RDW Plt Count MPV Neut % (Auto) Lymph % (Auto) [place] % (Auto) Eos % (Auto) Baso % (Auto) Neut # Lymph # [place] # Eos # Baso # Neutrophils % (Manual) Band Neutrophils % Lymphocytes % (Manual) Reactive Lymphs % Monocytes % (Manual) Eosinophils % (Manual) Toxic Granulation Platelet Estimate Anisocytosis (manual) Rouleaux PT INR APTT Puncture Site Lf pCO2 25 L pO2 501 H HCO3 21.3 ABG pH 7.46 H ABG Total CO2 18.6 L ABG O2 Saturation 99.8 H ABG Base Excess -4.6 L ABG Hemoglobin 11.6 L ABG Carboxyhemoglobin 2.2 H POC ABG HHb (Measured) 0.2 ABG Methemoglobin 1.0 Jean Test Na A-a O2 Difference 181.0 Respiratory Index 0.4 Hgb O2 Saturation 96.7 Mechanical Rate 20 FiO2 100.0 Tidal Volume 450 PEEP 5 Sodium Potassium Chloride Carbon Dioxide Anion Gap BUN Creatinine Est GFR ( Amer) Est GFR (Non-Af Amer) POC Glucose (mg/dL) Random Glucose Hemoglobin A1c Serum Osmolality Calcium Phosphorus Magnesium Total Bilirubin AST ALT Alkaline Phosphatase Troponin I NT-Pro-B Natriuret Pep Total Protein Albumin Globulin Albumin/Globulin Ratio Triglycerides Cholesterol LDL Cholesterol Direct HDL Cholesterol TSH 3rd Generation Blood Type Antibody Screen EKG/Cardiology Studies: Cardiology / EKG Studies 03/11/17 19:59 ELECTROCARDIOGRAM Stat Comment: Mode Of Transportation: PORTABLE Reason For Exam: left sided weakness Fingerstick Blood Sugar Results: 211 Review of Systems - Review of Systems Systems not reviewed;Unavailable: Intubated Critical Care Progress Note - Nutrition Nutrition: Nutrition Category Date Time Status NPO Diet [DIET] Diets 03/11/17 Dinner Active Assessment/Plan - Assessment and Plan (Free Text) Assessment: 81 years old female who lives alone, with hx of Pancreatic Cancer, CKD and DM, brought awake and with left side weakness to the ED by EMS, after being found on the floor in her closet. The Head CT showing a large intracranial bleed with a midline shift to the left. Patient intubated. Neuro: intracranial bleed, POD#0 s/p right parietal craniotomy evacuation of hematoma Head CT (03/11): large right temporoparietal parenchymal hemorrhage with white matter vasogenic edema, mass effect and 12 mm midline shift to left, associated subarachnoid and subdural hemorrhage on the right Dr. Torres, neurology consulted Propofol for intubation Dr. Mckee (neurosurg) performed right parietal craniotomy evacuation of hematoma today Cardio: htn Metoprolol 5mg ivp q6h 1 dose labetolol 10 mg ivp given Nicardipine drip Pulm: intubated Endo: hx DMII, hypothyroidism accuchecks HgA1C: 6.3 Lipid panel: Triglycerides; 102, cholesterol 143, LDL 57, HDL 76 R ISS Synthroid 25mcg Renal: CKD -monitor labs Heme: Hx pancreatic cancer Prophylaxis: DVT: SCDs, contraindication to chemical prophylaxis due to intracranial bleed GI: Protonix 40 mg daily <Matt Alexis S - Last Filed: 03/12/17 17:52> CCU Objective - Vital Signs / Intake & Output Vital Signs (Last 4 hours): Vital Signs Temp Pulse Resp BP Pulse Ox 03/12/17 17:00 80 19 177/87 H 99 03/12/17 16:00 99.4 F 79 19 168/87 H 98 03/12/17 15:00 88 21 166/83 H 99 03/12/17 14:16 87 19 165/89 H 98 Intake and Output (Last 8hrs): Intake & Output 03/12/17 03/12/17 03/12/17 06:59 14:59 22:59 Intake Total 1100 377.5 14.4 Output Total 2530 1100 Balance -1430 -722.5 14.4 Weight 87 lb 6.4 oz Intake: IV 0 0 Intake, IV Amount 1100 377.5 14.4 Left Forearm 75 Right Distal Port Forearm 600 225 Right Forearm 500 77.5 14.4 Output: Urine 2530 1100 Urethral ([place]) 2530 400 Other: # Bowel Movements 1 - Medications Active Medications: Active Medications Generic Name Dose Route Start Last Admin Trade Name Freq PRN Reason Stop Dose Admin Levothyroxine Sodium 25 mcg/ 2.5 mls @ 0 mls/hr 03/12/17 06:30 03/12/17 06:59 Sodium Chloride IVP 1.25 mls/hr DAILY@0630 HALLE Administration UD Propofol 1,000 mg in 100 mls @ 1.189 mls/hr 03/12/17 08:24 03/12/17 15:39 Diprivan IV 20.17 mcg/kg/min .Q24H PRN 4.8 mls/hr TITRATE PER MD ORDER Titration Protocol 5 MCG/KG/MIN Nicardipine HCl 25 mg/ Sodium 250 mls @ 50 mls/hr 03/12/17 08:49 03/12/17 14: 25 Chloride IV Not Given .Q5H HALLE Protocol 5 MG/HR Insulin Human Regular 0 unit 03/12/17 12:00 03/12/17 13:03 Novolin R SC 2 unit Q6 HALLE Administration Protocol Metoprolol Tartrate 5 mg 03/12/17 12:00 03/12/17 13:02 Lopressor IVP 5 mg Q6 HALLE Administration Pantoprazole Sodium 40 mg 03/12/17 10:00 03/12/17 09:41 Protonix Inj IVP 40 mg DAILY HALLE Administration - Patient Studies Lab Studies: Lab Studies 03/12/17 03/12/17 03/12/17 Range/Units 12:46 08:50 06:20 WBC (4.8-10.8) K/uL RBC (3.80-5.20) Mil/uL Hgb (11.0-16.0) g/dL Hct (34.0-47.0) % MCV (81.0-99.0) fL MCH (27.0-31.0) pg MCHC (33.0-37.0) g/dL RDW (11.5-14.5) % Plt Count (130-400) K/uL MPV (7.2-11.7) fL Neut % (Auto) (50.0-75.0) % Lymph % (Auto) (20.0-40.0) % [place] % (Auto) (0.0-10.0) % Eos % (Auto) (0.0-4.0) % Baso % (Auto) (0.0-2.0) % Neut # (1.8-7.0) K/uL Lymph # (1.0-4.3) K/uL [place] # (0.0-0.8) K/uL Eos # (0.0-0.7) K/uL Baso # (0.0-0.2) K/uL Neutrophils % (Manual) (50-75) % Band Neutrophils % (0-2) % Lymphocytes % (Manual) (20-40) % Reactive Lymphs % (0-0) % Monocytes % (Manual) (0-10) % Eosinophils % (Manual) (0-4) % Toxic Granulation Platelet Estimate (NORMAL) Anisocytosis (manual) Rouleaux PT 10.2 (9.7-12.2) SECONDS INR 0.9 APTT 27 (21-34) SECONDS Puncture Site Lf pCO2 25 L (35-45) mm/Hg pO2 501 H (80-100) mm/Hg HCO3 21.3 (21-28) mmol/L ABG pH 7.46 H (7.35-7.45) ABG Total CO2 18.6 L (22-28) mmol/L ABG O2 Saturation 99.8 H (95-98) % ABG Base Excess -4.6 L (-2.0-3.0) mmol/L ABG Hemoglobin 11.6 L (11.7-17.4) g/dL ABG Carboxyhemoglobin 2.2 H (0.5-1.5) % POC ABG HHb (Measured) 0.2 (0.0-5.0) % ABG Methemoglobin 1.0 (0.0-3.0) % Jean Test Na A-a O2 Difference 181.0 mm/Hg Respiratory Index 0.4 Hgb O2 Saturation 96.7 (95.0-98.0) % Mechanical Rate 20 FiO2 100.0 % Tidal Volume 450 PEEP 5 Sodium (132-148) mmol/L Potassium (3.6-5.2) mmol/L Chloride (98-107) mmol/L Carbon Dioxide (22-30) mmol/L Anion Gap (10-20) BUN (7-17) mg/dL Creatinine (0.7-1.2) mg/dL Est GFR ( Amer) Est GFR (Non-Af Amer) POC Glucose (mg/dL) 232 H (65-110) mg/dL Random Glucose (65-105) mg/dL Hemoglobin A1c (4.2-6.5) % Serum Osmolality (272-300) mosm/kg Calcium (8.6-10.4) mg/dl Phosphorus (2.5-4.5) mg/dL Magnesium (1.6-2.3) mg/dL Total Bilirubin (0.2-1.3) mg/dL AST (14-36) U/L ALT (9-52) U/L Alkaline Phosphatase (38-126) U/L Troponin I (0.00-0.120) ng/mL NT-Pro-B Natriuret Pep (0-900) pg/mL Total Protein (6.3-8.3) g/dL Albumin (3.5-5.0) g/dL Globulin (2.2-3.9) gm/dL Albumin/Globulin Ratio (1.0-2.1) Triglycerides (0-149) mg/dL Cholesterol (0-199) mg/dL LDL Cholesterol Direct (0-129) mg/dL HDL Cholesterol (30-70) mg/dL TSH 3rd Generation (0.46-4.68) mIU/L Blood Type Antibody Screen 03/12/17 03/12/17 03/12/17 Range/Units 06:20 06:20 06:20 WBC 13.6 H (4.8-10.8) K/uL RBC 3.30 L (3.80-5.20) Mil/uL Hgb 10.5 L (11.0-16.0) g/dL Hct 32.1 L (34.0-47.0) % MCV 97.2 (81.0-99.0) fL MCH 31.9 H (27.0-31.0) pg MCHC 32.9 L (33.0-37.0) g/dL RDW 15.5 H (11.5-14.5) % Plt Count 224 (130-400) K/uL MPV 10.0 (7.2-11.7) fL Neut % (Auto) 95.0 H (50.0-75.0) % Lymph % (Auto) 2.7 L (20.0-40.0) % [place] % (Auto) 2.1 (0.0-10.0) % Eos % (Auto) 0.0 (0.0-4.0) % Baso % (Auto) 0.2 (0.0-2.0) % Neut # 12.9 H (1.8-7.0) K/uL Lymph # 0.4 L (1.0-4.3) K/uL [place] # 0.3 (0.0-0.8) K/uL Eos # 0.0 (0.0-0.7) K/uL Baso # 0.0 (0.0-0.2) K/uL Neutrophils % (Manual) 91 H (50-75) % Band Neutrophils % 4 H (0-2) % Lymphocytes % (Manual) 4 L (20-40) % Reactive Lymphs % (0-0) % Monocytes % (Manual) 1 (0-10) % Eosinophils % (Manual) (0-4) % Toxic Granulation Platelet Estimate Normal (NORMAL) Anisocytosis (manual) Slight Rouleaux PT (9.7-12.2) SECONDS INR APTT (21-34) SECONDS Puncture Site pCO2 (35-45) mm/Hg pO2 (80-100) mm/Hg HCO3 (21-28) mmol/L ABG pH (7.35-7.45) ABG Total CO2 (22-28) mmol/L ABG O2 Saturation (95-98) % ABG Base Excess (-2.0-3.0) mmol/L ABG Hemoglobin (11.7-17.4) g/dL ABG Carboxyhemoglobin (0.5-1.5) % POC ABG HHb (Measured) (0.0-5.0) % ABG Methemoglobin (0.0-3.0) % Jean Test A-a O2 Difference mm/Hg Respiratory Index Hgb O2 Saturation (95.0-98.0) % Mechanical Rate FiO2 % Tidal Volume PEEP Sodium (132-148) mmol/L Potassium (3.6-5.2) mmol/L Chloride (98-107) mmol/L Carbon Dioxide (22-30) mmol/L Anion Gap (10-20) BUN (7-17) mg/dL Creatinine (0.7-1.2) mg/dL Est GFR ( Amer) Est GFR (Non-Af Amer) POC Glucose (mg/dL) (65-110) mg/dL Random Glucose (65-105) mg/dL Hemoglobin A1c 6.3 (4.2-6.5) % Serum Osmolality 346 H (272-300) mosm/kg Calcium (8.6-10.4) mg/dl Phosphorus (2.5-4.5) mg/dL Magnesium (1.6-2.3) mg/dL Total Bilirubin (0.2-1.3) mg/dL AST (14-36) U/L ALT (9-52) U/L Alkaline Phosphatase (38-126) U/L Troponin I (0.00-0.120) ng/mL NT-Pro-B Natriuret Pep (0-900) pg/mL Total Protein (6.3-8.3) g/dL Albumin (3.5-5.0) g/dL Globulin (2.2-3.9) gm/dL Albumin/Globulin Ratio (1.0-2.1) Triglycerides (0-149) mg/dL Cholesterol (0-199) mg/dL LDL Cholesterol Direct (0-129) mg/dL HDL Cholesterol (30-70) mg/dL TSH 3rd Generation (0.46-4.68) mIU/L Blood Type Antibody Screen 03/12/17 03/12/17 03/12/17 Range/Units 06:20 05:41 00:18 WBC (4.8-10.8) K/uL RBC (3.80-5.20) Mil/uL Hgb (11.0-16.0) g/dL Hct (34.0-47.0) % MCV (81.0-99.0) fL MCH (27.0-31.0) pg MCHC (33.0-37.0) g/dL RDW (11.5-14.5) % Plt Count (130-400) K/uL MPV (7.2-11.7) fL Neut % (Auto) (50.0-75.0) % Lymph % (Auto) (20.0-40.0) % [place] % (Auto) (0.0-10.0) % Eos % (Auto) (0.0-4.0) % Baso % (Auto) (0.0-2.0) % Neut # (1.8-7.0) K/uL Lymph # (1.0-4.3) K/uL [place] # (0.0-0.8) K/uL Eos # (0.0-0.7) K/uL Baso # (0.0-0.2) K/uL Neutrophils % (Manual) (50-75) % Band Neutrophils % (0-2) % Lymphocytes % (Manual) (20-40) % Reactive Lymphs % (0-0) % Monocytes % (Manual) (0-10) % Eosinophils % (Manual) (0-4) % Toxic Granulation Platelet Estimate (NORMAL) Anisocytosis (manual) Rouleaux PT (9.7-12.2) SECONDS INR APTT (21-34) SECONDS Puncture Site pCO2 (35-45) mm/Hg pO2 (80-100) mm/Hg HCO3 (21-28) mmol/L ABG pH (7.35-7.45) ABG Total CO2 (22-28) mmol/L ABG O2 Saturation (95-98) % ABG Base Excess (-2.0-3.0) mmol/L ABG Hemoglobin (11.7-17.4) g/dL ABG Carboxyhemoglobin (0.5-1.5) % POC ABG HHb (Measured) (0.0-5.0) % ABG Methemoglobin (0.0-3.0) % Jean Test A-a O2 Difference mm/Hg Respiratory Index Hgb O2 Saturation (95.0-98.0) % Mechanical Rate FiO2 % Tidal Volume PEEP Sodium 130 L (132-148) mmol/L Potassium 3.5 L (3.6-5.2) mmol/L Chloride 101 (98-107) mmol/L Carbon Dioxide 17 L (22-30) mmol/L Anion Gap 16 (10-20) BUN 45 H (7-17) mg/dL Creatinine 2.2 H (0.7-1.2) mg/dL Est GFR ( Amer) 26 Est GFR (Non-Af Amer) 21 POC Glucose (mg/dL) 211 H 82 (65-110) mg/dL Random Glucose 171 H (65-105) mg/dL Hemoglobin A1c (4.2-6.5) % Serum Osmolality (272-300) mosm/kg Calcium 8.1 L (8.6-10.4) mg/dl Phosphorus 3.5 (2.5-4.5) mg/dL Magnesium 2.0 (1.6-2.3) mg/dL Total Bilirubin (0.2-1.3) mg/dL AST (14-36) U/L ALT (9-52) U/L Alkaline Phosphatase (38-126) U/L Troponin I (0.00-0.120) ng/mL NT-Pro-B Natriuret Pep (0-900) pg/mL Total Protein (6.3-8.3) g/dL Albumin (3.5-5.0) g/dL Globulin (2.2-3.9) gm/dL Albumin/Globulin Ratio (1.0-2.1) Triglycerides (0-149) mg/dL Cholesterol (0-199) mg/dL LDL Cholesterol Direct (0-129) mg/dL HDL Cholesterol (30-70) mg/dL TSH 3rd Generation 4.34 (0.46-4.68) mIU/L Blood Type Antibody Screen 03/11/17 03/11/17 03/11/17 Range/Units 20:16 20:16 20:16 WBC (4.8-10.8) K/uL RBC (3.80-5.20) Mil/uL Hgb (11.0-16.0) g/dL Hct (34.0-47.0) % MCV (81.0-99.0) fL MCH (27.0-31.0) pg MCHC (33.0-37.0) g/dL RDW (11.5-14.5) % Plt Count (130-400) K/uL MPV (7.2-11.7) fL Neut % (Auto) (50.0-75.0) % Lymph % (Auto) (20.0-40.0) % [place] % (Auto) (0.0-10.0) % Eos % (Auto) (0.0-4.0) % Baso % (Auto) (0.0-2.0) % Neut # (1.8-7.0) K/uL Lymph # (1.0-4.3) K/uL [place] # (0.0-0.8) K/uL Eos # (0.0-0.7) K/uL Baso # (0.0-0.2) K/uL Neutrophils % (Manual) (50-75) % Band Neutrophils % (0-2) % Lymphocytes % (Manual) (20-40) % Reactive Lymphs % (0-0) % Monocytes % (Manual) (0-10) % Eosinophils % (Manual) (0-4) % Toxic Granulation Platelet Estimate (NORMAL) Anisocytosis (manual) Rouleaux PT (9.7-12.2) SECONDS INR APTT (21-34) SECONDS Puncture Site pCO2 (35-45) mm/Hg pO2 (80-100) mm/Hg HCO3 (21-28) mmol/L ABG pH (7.35-7.45) ABG Total CO2 (22-28) mmol/L ABG O2 Saturation (95-98) % ABG Base Excess (-2.0-3.0) mmol/L ABG Hemoglobin (11.7-17.4) g/dL ABG Carboxyhemoglobin (0.5-1.5) % POC ABG HHb (Measured) (0.0-5.0) % ABG Methemoglobin (0.0-3.0) % Jean Test A-a O2 Difference mm/Hg Respiratory Index Hgb O2 Saturation (95.0-98.0) % Mechanical Rate FiO2 % Tidal Volume PEEP Sodium 137 (132-148) mmol/L Potassium 3.9 (3.6-5.2) mmol/L Chloride 107 (98-107) mmol/L Carbon Dioxide 20 L (22-30) mmol/L Anion Gap 14 (10-20) BUN 59 H (7-17) mg/dL Creatinine 2.4 H (0.7-1.2) mg/dL Est GFR ( Amer) 23 Est GFR (Non-Af Amer) 19 POC Glucose (mg/dL) (65-110) mg/dL Random Glucose 189 H (65-105) mg/dL Hemoglobin A1c 6.1 (4.2-6.5) % Serum Osmolality (272-300) mosm/kg Calcium 9.2 (8.6-10.4) mg/dl Phosphorus (2.5-4.5) mg/dL Magnesium (1.6-2.3) mg/dL Total Bilirubin 0.3 (0.2-1.3) mg/dL AST 59 H (14-36) U/L ALT 74 H (9-52) U/L Alkaline Phosphatase 115 (38-126) U/L Troponin I 0.0550 (0.00-0.120) ng/mL NT-Pro-B Natriuret Pep 3690 H (0-900) pg/mL Total Protein 7.1 (6.3-8.3) g/dL Albumin 3.7 (3.5-5.0) g/dL Globulin 3.4 (2.2-3.9) gm/dL Albumin/Globulin Ratio 1.1 (1.0-2.1) Triglycerides 102 (0-149) mg/dL Cholesterol 143 (0-199) mg/dL LDL Cholesterol Direct 57 (0-129) mg/dL HDL Cholesterol 76 H (30-70) mg/dL TSH 3rd Generation (0.46-4.68) mIU/L Blood Type B POSITIVE Antibody Screen Negative 03/11/17 03/11/17 Range/Units 20:16 20:16 WBC 12.4 H (4.8-10.8) K/uL RBC 3.67 L (3.80-5.20) Mil/uL Hgb 11.7 (11.0-16.0) g/dL Hct 35.8 (34.0-47.0) % MCV 97.8 (81.0-99.0) fL MCH 31.9 H (27.0-31.0) pg MCHC 32.7 L (33.0-37.0) g/dL RDW 15.7 H (11.5-14.5) % Plt Count 234 (130-400) K/uL MPV 9.8 (7.2-11.7) fL Neut % (Auto) 87.1 H (50.0-75.0) % Lymph % (Auto) 5.9 L (20.0-40.0) % [place] % (Auto) 3.7 (0.0-10.0) % Eos % (Auto) 1.5 (0.0-4.0) % Baso % (Auto) 1.8 (0.0-2.0) % Neut # 10.8 H (1.8-7.0) K/uL Lymph # 0.7 L (1.0-4.3) K/uL [place] # 0.5 (0.0-0.8) K/uL Eos # 0.2 (0.0-0.7) K/uL Baso # 0.2 (0.0-0.2) K/uL Neutrophils % (Manual) 85 H (50-75) % Band Neutrophils % 1 (0-2) % Lymphocytes % (Manual) 5 L (20-40) % Reactive Lymphs % 5 H (0-0) % Monocytes % (Manual) 3 (0-10) % Eosinophils % (Manual) 1 (0-4) % Toxic Granulation Present Platelet Estimate Normal (NORMAL) Anisocytosis (manual) Slight Rouleaux Slight PT 9.8 (9.7-12.2) SECONDS INR 0.9 APTT 29 (21-34) SECONDS Puncture Site pCO2 (35-45) mm/Hg pO2 (80-100) mm/Hg HCO3 (21-28) mmol/L ABG pH (7.35-7.45) ABG Total CO2 (22-28) mmol/L ABG O2 Saturation (95-98) % ABG Base Excess (-2.0-3.0) mmol/L ABG Hemoglobin (11.7-17.4) g/dL ABG Carboxyhemoglobin (0.5-1.5) % POC ABG HHb (Measured) (0.0-5.0) % ABG Methemoglobin (0.0-3.0) % Jean Test A-a O2 Difference mm/Hg Respiratory Index Hgb O2 Saturation (95.0-98.0) % Mechanical Rate FiO2 % Tidal Volume PEEP Sodium (132-148) mmol/L Potassium (3.6-5.2) mmol/L Chloride (98-107) mmol/L Carbon Dioxide (22-30) mmol/L Anion Gap (10-20) BUN (7-17) mg/dL Creatinine (0.7-1.2) mg/dL Est GFR ( Amer) Est GFR (Non-Af Amer) POC Glucose (mg/dL) (65-110) mg/dL Random Glucose (65-105) mg/dL Hemoglobin A1c (4.2-6.5) % Serum Osmolality (272-300) mosm/kg Calcium (8.6-10.4) mg/dl Phosphorus (2.5-4.5) mg/dL Magnesium (1.6-2.3) mg/dL Total Bilirubin (0.2-1.3) mg/dL AST (14-36) U/L ALT (9-52) U/L Alkaline Phosphatase (38-126) U/L Troponin I (0.00-0.120) ng/mL NT-Pro-B Natriuret Pep (0-900) pg/mL Total Protein (6.3-8.3) g/dL Albumin (3.5-5.0) g/dL Globulin (2.2-3.9) gm/dL Albumin/Globulin Ratio (1.0-2.1) Triglycerides (0-149) mg/dL Cholesterol (0-199) mg/dL LDL Cholesterol Direct (0-129) mg/dL HDL Cholesterol (30-70) mg/dL TSH 3rd Generation (0.46-4.68) mIU/L Blood Type Antibody Screen Laboratory Results - last 24 hr 03/11/17 03/11/17 03/11/17 20:16 20:16 20:16 WBC 12.4 H RBC 3.67 L Hgb 11.7 Hct 35.8 MCV 97.8 MCH 31.9 H MCHC 32.7 L RDW 15.7 H Plt Count 234 MPV 9.8 Neut % (Auto) 87.1 H Lymph % (Auto) 5.9 L [place] % (Auto) 3.7 Eos % (Auto) 1.5 Baso % (Auto) 1.8 Neut # 10.8 H Lymph # 0.7 L [place] # 0.5 Eos # 0.2 Baso # 0.2 Neutrophils % (Manual) 85 H Band Neutrophils % 1 Lymphocytes % (Manual) 5 L Reactive Lymphs % 5 H Monocytes % (Manual) 3 Eosinophils % (Manual) 1 Toxic Granulation Present Platelet Estimate Normal Anisocytosis (manual) Slight Rouleaux Slight PT 9.8 INR 0.9 APTT 29 Puncture Site pCO2 pO2 HCO3 ABG pH ABG Total CO2 ABG O2 Saturation ABG Base Excess ABG Hemoglobin ABG Carboxyhemoglobin POC ABG HHb (Measured) ABG Methemoglobin Jean Test A-a O2 Difference Respiratory Index Hgb O2 Saturation Mechanical Rate FiO2 Tidal Volume PEEP Sodium 137 Potassium 3.9 Chloride 107 Carbon Dioxide 20 L Anion Gap 14 BUN 59 H Creatinine 2.4 H Est GFR ( Amer) 23 Est GFR (Non-Af Amer) 19 POC Glucose (mg/dL) Random Glucose 189 H Hemoglobin A1c Serum Osmolality Calcium 9.2 Phosphorus Magnesium Total Bilirubin 0.3 AST 59 H ALT 74 H Alkaline Phosphatase 115 Troponin I 0.0550 NT-Pro-B Natriuret Pep 3690 H Total Protein 7.1 Albumin 3.7 Globulin 3.4 Albumin/Globulin Ratio 1.1 Triglycerides 102 Cholesterol 143 LDL Cholesterol Direct 57 HDL Cholesterol 76 H TSH 3rd Generation Blood Type Antibody Screen 03/11/17 03/11/17 03/12/17 20:16 20:16 00:18 WBC RBC Hgb Hct MCV MCH MCHC RDW Plt Count MPV Neut % (Auto) Lymph % (Auto) [place] % (Auto) Eos % (Auto) Baso % (Auto) Neut # Lymph # [place] # Eos # Baso # Neutrophils % (Manual) Band Neutrophils % Lymphocytes % (Manual) Reactive Lymphs % Monocytes % (Manual) Eosinophils % (Manual) Toxic Granulation Platelet Estimate Anisocytosis (manual) Rouleaux PT INR APTT Puncture Site pCO2 pO2 HCO3 ABG pH ABG Total CO2 ABG O2 Saturation ABG Base Excess ABG Hemoglobin ABG Carboxyhemoglobin POC ABG HHb (Measured) ABG Methemoglobin Jean Test A-a O2 Difference Respiratory Index Hgb O2 Saturation Mechanical Rate FiO2 Tidal Volume PEEP Sodium Potassium Chloride Carbon Dioxide Anion Gap BUN Creatinine Est GFR ( Amer) Est GFR (Non-Af Amer) POC Glucose (mg/dL) 82 Random Glucose Hemoglobin A1c 6.1 Serum Osmolality Calcium Phosphorus Magnesium Total Bilirubin AST ALT Alkaline Phosphatase Troponin I NT-Pro-B Natriuret Pep Total Protein Albumin Globulin Albumin/Globulin Ratio Triglycerides Cholesterol LDL Cholesterol Direct HDL Cholesterol TSH 3rd Generation Blood Type B POSITIVE Antibody Screen Negative 03/12/17 03/12/17 03/12/17 05:41 06:20 06:20 WBC 13.6 H RBC 3.30 L Hgb 10.5 L Hct 32.1 L MCV 97.2 MCH 31.9 H MCHC 32.9 L RDW 15.5 H Plt Count 224 MPV 10.0 Neut % (Auto) 95.0 H Lymph % (Auto) 2.7 L [place] % (Auto) 2.1 Eos % (Auto) 0.0 Baso % (Auto) 0.2 Neut # 12.9 H Lymph # 0.4 L [place] # 0.3 Eos # 0.0 Baso # 0.0 Neutrophils % (Manual) 91 H Band Neutrophils % 4 H Lymphocytes % (Manual) 4 L Reactive Lymphs % Monocytes % (Manual) 1 Eosinophils % (Manual) Toxic Granulation Platelet Estimate Normal Anisocytosis (manual) Slight Rouleaux PT INR APTT Puncture Site pCO2 pO2 HCO3 ABG pH ABG Total CO2 ABG O2 Saturation ABG Base Excess ABG Hemoglobin ABG Carboxyhemoglobin POC ABG HHb (Measured) ABG Methemoglobin Jean Test A-a O2 Difference Respiratory Index Hgb O2 Saturation Mechanical Rate FiO2 Tidal Volume PEEP Sodium 130 L Potassium 3.5 L Chloride 101 Carbon Dioxide 17 L Anion Gap 16 BUN 45 H Creatinine 2.2 H Est GFR ( Amer) 26 Est GFR (Non-Af Amer) 21 POC Glucose (mg/dL) 211 H Random Glucose 171 H Hemoglobin A1c Serum Osmolality Calcium 8.1 L Phosphorus 3.5 Magnesium 2.0 Total Bilirubin AST ALT Alkaline Phosphatase Troponin I NT-Pro-B Natriuret Pep Total Protein Albumin Globulin Albumin/Globulin Ratio Triglycerides Cholesterol LDL Cholesterol Direct HDL Cholesterol TSH 3rd Generation 4.34 Blood Type Antibody Screen 03/12/17 03/12/17 03/12/17 06:20 06:20 06:20 WBC RBC Hgb Hct MCV MCH MCHC RDW Plt Count MPV Neut % (Auto) Lymph % (Auto) [place] % (Auto) Eos % (Auto) Baso % (Auto) Neut # Lymph # [place] # Eos # Baso # Neutrophils % (Manual) Band Neutrophils % Lymphocytes % (Manual) Reactive Lymphs % Monocytes % (Manual) Eosinophils % (Manual) Toxic Granulation Platelet Estimate Anisocytosis (manual) Rouleaux PT 10.2 INR 0.9 APTT 27 Puncture Site pCO2 pO2 HCO3 ABG pH ABG Total CO2 ABG O2 Saturation ABG Base Excess ABG Hemoglobin ABG Carboxyhemoglobin POC ABG HHb (Measured) ABG Methemoglobin Jean Test A-a O2 Difference Respiratory Index Hgb O2 Saturation Mechanical Rate FiO2 Tidal Volume PEEP Sodium Potassium Chloride Carbon Dioxide Anion Gap BUN Creatinine Est GFR ( Amer) Est GFR (Non-Af Amer) POC Glucose (mg/dL) Random Glucose Hemoglobin A1c 6.3 Serum Osmolality 346 H Calcium Phosphorus Magnesium Total Bilirubin AST ALT Alkaline Phosphatase Troponin I NT-Pro-B Natriuret Pep Total Protein Albumin Globulin Albumin/Globulin Ratio Triglycerides Cholesterol LDL Cholesterol Direct HDL Cholesterol TSH 3rd Generation Blood Type Antibody Screen 03/12/17 03/12/17 08:50 12:46 WBC RBC Hgb Hct MCV MCH MCHC RDW Plt Count MPV Neut % (Auto) Lymph % (Auto) [place] % (Auto) Eos % (Auto) Baso % (Auto) Neut # Lymph # [place] # Eos # Baso # Neutrophils % (Manual) Band Neutrophils % Lymphocytes % (Manual) Reactive Lymphs % Monocytes % (Manual) Eosinophils % (Manual) Toxic Granulation Platelet Estimate Anisocytosis (manual) Rouleaux PT INR APTT Puncture Site Lf pCO2 25 L pO2 501 H HCO3 21.3 ABG pH 7.46 H ABG Total CO2 18.6 L ABG O2 Saturation 99.8 H ABG Base Excess -4.6 L ABG Hemoglobin 11.6 L ABG Carboxyhemoglobin 2.2 H POC ABG HHb (Measured) 0.2 ABG Methemoglobin 1.0 Jean Test Na A-a O2 Difference 181.0 Respiratory Index 0.4 Hgb O2 Saturation 96.7 Mechanical Rate 20 FiO2 100.0 Tidal Volume 450 PEEP 5 Sodium Potassium Chloride Carbon Dioxide Anion Gap BUN Creatinine Est GFR ( Amer) Est GFR (Non-Af Amer) POC Glucose (mg/dL) 232 H Random Glucose Hemoglobin A1c Serum Osmolality Calcium Phosphorus Magnesium Total Bilirubin AST ALT Alkaline Phosphatase Troponin I NT-Pro-B Natriuret Pep Total Protein Albumin Globulin Albumin/Globulin Ratio Triglycerides Cholesterol LDL Cholesterol Direct HDL Cholesterol TSH 3rd Generation Blood Type Antibody Screen EKG/Cardiology Studies: Cardiology / EKG Studies 03/11/17 19:59 ELECTROCARDIOGRAM Stat Comment: Mode Of Transportation: PORTABLE Reason For Exam: left sided weakness Critical Care Progress Note - Nutrition Nutrition: Nutrition Category Date Time Status NPO Diet [DIET] Diets 03/11/17 Dinner Active Attending/Attestation - Attestation I have personally seen and examined this patient.: Yes I have fully participated in the care of the patient.: Yes I have reviewed all pertinent clinical information: Yes Notes (Text): 03/12/17 17:49 Patient seen and examined in the intensive care unit. Case discussed with house staff in the morning rounds. Patient intubated in the morning for worsening mental status large intracranial bleed, POD#0 s/p right parietal craniotomy evacuation of hematoma Continue patient on ventilatory support
[2017-03-12] MEDS: Thrombin Topical 5,000 IU Spray Kit ONE ×2 (11:49→13:07)
--- NOTE | 2017-03-12 12:22 | CT ---
PROCEDURE: CT HEAD WITHOUT CONTRAST. HISTORY: Follow up cerebrtal Hemorrhage COMPARISON: None available. TECHNIQUE: Axial computed tomography images were obtained through the head/brain without intravenous contrast. Radiation dose: Total exam DLP = 2014.67 mGy-cm. This CT exam was performed using one or more of the following dose reduction techniques: Automated exposure control, adjustment of the mA and/or kV according to patient size, and/or use of iterative reconstruction technique. FINDINGS: HEMORRHAGE: Large acute intracranial hemorrhage right temporal parietal occipital. This measures approximately 3.8 x 7.6 cm in the axial plane, comparing to 3.8 x 6.6 cm on examination of the previous day (03/11/2017). BRAIN: This measures 5.5 cm craniocaudal. There is extensive surrounding vasogenic edema. There is mass effect with midline shift towards the left by approximately 10-11 mm. This has increased slightly from the prior examination of 03/11/2017. On that examination, there was approximately 8 mm midline shift. There is minimal subarachnoid hemorrhage as on prior examination. There is probable subdural hemorrhage over the right tentorium. There is no evidence of downward herniation. The perimesencephalic cisterns are preserved. There is no tonsillar herniation. There is effacement of body of the right lateral ventricle. There is encephalomalacia in the medial left occipital lobe, likely the result of prior insult such as infarction. This is unchanged. There is no evidence of acute infarct. VENTRICLES: As above. No evidence of hydrocephalus. No change in size of left lateral ventricle. CALVARIUM: Unremarkable. PARANASAL SINUSES: Unremarkable as visualized. No significant inflammatory changes. MASTOID AIR CELLS: Unremarkable as visualized. No inflammatory changes. OTHER FINDINGS: None. IMPRESSION: Slight increase in size of right temporoparietal occipital acute hemorrhage. Minimal subarachnoid hemorrhage and subdural hemorrhage as on previous examination. Midline shift towards the left slightly increased from prior examination, now approximately 11 mm. No evidence of downward herniation. 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 Right
[2017-03-12] MEDS: Metoprolol 1 mg/ml Inj IVP SCH ×3 (13:02→23:08)
--- NOTE | 2017-03-12 14:24 | CP.PCM.PN ---
Subjective - Date & Time of Evaluation Date of Evaluation: 03/12/17 Time of Evaluation: 14:23 - Subjective Subjective: PT INTUBATED NO ROS EXAM SAME Objective - Vital Signs/Intake and Output Vital Signs (last 24 hours): Temp Pulse Resp BP Pulse Ox 95 F L 88 89 H 165/89 H 98 03/12/17 13:15 03/12/17 13:45 03/12/17 14:16 03/12/17 14:16 03/12/17 14:16 Intake and Output: 03/12/17 03/12/17 11:59 23:59 Intake Total 1395.3 82.2 Output Total 2580 700 Balance -1184.7 -617.8 - Medications Medications: Current Medications Mannitol (Mannitol) 500 mls @ 500 mls/hr IV Q6H [facility] Last Admin: 03/12/17 05:07 Dose: 500 mls/hr Levothyroxine Sodium 25 mcg/ (Sodium Chloride) 2.5 mls @ 0 mls/hr IVP DAILY@ 0630 [facility] PRN Reason: UD Last Admin: 03/12/17 06:59 Dose: 1.25 mls/hr Propofol (Diprivan) 1,000 mg in 100 mls @ 1.189 mls/hr IV .Q24H PRN; Protocol; 5 MCG/KG/MIN PRN Reason: TITRATE PER MD ORDER Last Titration: 03/12/17 13:04 Dose: 10.08 mcg/kg/min, 2.4 mls/hr Nicardipine HCl 25 mg/ Sodium (Chloride) 250 mls @ 50 mls/hr IV .Q5H [facility]; 5 MG/ HR PRN Reason: Protocol Last Admin: 03/12/17 09:02 Dose: 5 mg/hr, 50 mls/hr Insulin Human Regular (Novolin R) 0 unit SC Q6 [facility] PRN Reason: Protocol Last Admin: 03/12/17 13:03 Dose: 2 unit Metoprolol Tartrate (Lopressor) 5 mg IVP Q6 [facility] Last Admin: 03/12/17 13:02 Dose: 5 mg Pantoprazole Sodium (Protonix Inj) 40 mg IVP DAILY [facility] Last Admin: 03/12/17 09:41 Dose: 40 mg - Labs Labs: 03/12/17 06:20 03/12/17 06:20 PT 10.2 SECONDS (9.7-12.2) 03/12/17 06:20 INR 0.9 03/12/17 06:20 APTT 27 SECONDS (21-34) 03/12/17 06:20 Assessment and Plan (1) Intracranial hemorrhage Status: Acute
[2017-03-13] MEDS: (Novolin R) Insulin Human Regular 100 units/ml vial SC SCH ×4 (00:40→18:00)
--- NOTE | 2017-03-13 02:20 | CON ---
DATE: NEUROLOGY CONSULTATION REASON FOR CONSULTATION: Temporoparietal hemorrhage. HISTORY OF PRESENT ILLNESS: The patient is an 81-year-old female who has been asked for evaluation of temporoparietal hemorrhage. The patient was brought to the emergency room with left-sided weakness. The patient apparently was fine yesterday morning experiencing some headache and then fell. She was found inside the closet, the door was locked. The patient is unable to give history at the present because of the patient's current mental status. The patient had a CT scan of the head done which shows right temporoparietal hemorrhage with midline shift. The patient had repeat CT scan of the head done which shows worsening of the hemorrhage as well as the patient became lethargic that is why the patient had craniotomy done today. REVIEW OF SYSTEM: Unable to obtain because of the patient's current condition. However, there is no cough and no sputum production. PAST MEDICAL HISTORY: Includes hypertension and pancreatic cancer, hypothyroidism, depression, and diabetes mellitus. MEDICATIONS AT HOME: Include Carafate, Synthroid, Celexa, Lanoxin, and Januvia. ALLERGIES: CIPROFLOXACIN AND SULFA ANTIBIOTICS. SOCIAL HISTORY: The patient is a nonsmoker, nonalcoholic, and does not use any illicit drugs. FAMILY HISTORY: Noncontributory. PHYSICAL EXAMINATION: GENERAL: The patient is an elderly female, lying on the bed, in no acute distress. VITAL SIGNS: Her blood pressure is 165/89, heart rate is 88 per minute, breathing at a rate of 16 per minute and temperature is 95 degree Fahrenheit. HEENT: Head is normocephalic. A bandage is noted on the right parietal lesion at the site of craniotomy scar. NECK: Supple. There are no carotid bruits. LUNGS: Clear. CARDIOVASCULAR: S1 and S2 audible. No murmurs. ABDOMEN: Soft and nontender. Bowel sounds are present. NEUROLOGIC: Mental status: The patient is lethargic, opens eyes minimally. She is not following commands. Cranial nerve examination: Pupils are 3 mm bilaterally reactive to light. Positive doll's eye. There is no obvious facial asymmetry. Motor examination: Tone is decreased on the left side with left-sided hemiparesis. Power on the left arm 0/5 and power on the lower extremities 1/5. She is spontaneously moving her right side. Reflexes are 1+ and symmetrical. Plantars are upgoing on the left and downgoing on the right side. Gait is untested. LABORATORY DATA: Reviewed shows WBC of 13.6, hemoglobin 10.5, hematocrit of 32.1, and platelets of 224. Sodium is 130, potassium is 3.5, chloride is 101, carbon dioxide is 17, BUN of 45, creatinine of 2.2, and glucose of 171. DIAGNOSTIC DATA: She had CT scan of the head done last night, which showed large right temporoparietal parenchymal hemorrhage with white matter vasogenic edema mass effect and 12 mm midline shift to the left associated subarachnoid hemorrhage and subdural hemorrhage on the right underlying atrophy and small vessel disease. She had a repeat CT scan of the head done this morning, which showed slight increase in size of the right temporoparietal occipital acute hemorrhage, minimal subarachnoid hemorrhage and subdural hemorrhage as on previous exam. IMPRESSION: 1. Cerebrovascular accident with right temporal parietal hemorrhage, status post craniotomy for evacuation of hematoma. 2. Left-sided hemiparesis secondary to above. 3. Respiratory failure. RECOMMENDATIONS: 1. The patient to have an electroencephalogram once the bandage for craniotomy scar is removed. 2. The patient will require MRI of the brain with contrast once she is more stable to look for any underlying pathology responsible for the hemorrhage. 3. The patient's head of the bed to be kept elevated to 30 degrees. 4. The patient to be started on physical therapy. 5. Please continue supportive care and other treatment. Thank you for the opportunity to participate in the care of this patient. David Torres MD
[2017-03-13 06:11] LABS: ABG ALLEN TEST POS; ABG MECHANICAL RATE 20; ARTERIAL BLOOD GAS MODE PRVC; ARTERIAL BLOOD HGB O2 SAT 95.9 % (95.0-98.0); ATERIAL BLOOD GAS PEEP 5; CARBOXYHEMOGLOBIN 2.4 % (0.5-1.5); DRAW SITE RR; HHB 0.5 % (0.0-5.0); METHEMOGLOBIN 1.2 % (0.0-3.0)
[2017-03-13] MEDS: LEVOTHYROXINE IVP SCH (06:14)
[2017-03-13] MEDS: SODIUM CHLORIDE 0.9% IVP SCH (06:14)
[2017-03-13] MEDS: Metoprolol 1 mg/ml Inj IVP SCH ×4 (06:14→23:26)
[2017-03-13] MEDS: Propofol 10 mg/ml 1,000 MG/100 ML VIAL IV PRN (06:15)
[2017-03-13] MEDS: niCARdipine IV 25 MG in Sodium Chloride 0.9% 240 ML IV SCH (06:23)
--- NOTE | 2017-03-13 06:36 | OP ---
PROCEDURE DATE: 03/12/2017 PREOPERATIVE DIAGNOSIS: Large extending right frontoparietal intraparenchymal hemorrhage. POSTOPERATIVE DIAGNOSIS: Large extending right frontoparietal intraparenchymal hemorrhage. PROCEDURE: Right parietal craniotomy, subtotal evacuation of hematoma. SURGEON: Zach Allen MD TYPE OF ANESTHESIA: General endotracheal. ESTIMATED BLOOD LOSS: 75 mL. COMPLICATIONS: None. JUSTIFICATION: The patient presented to the hospital with a stroke, was found to have a moderate to large size deep intraparenchymal hemorrhage. She actually was talking, following commands, moving her left side. She worsened this morning, was required intubation. New CT showed significant expansion of the hematoma and she was brought urgently to the operating room. DESCRIPTION OF PROCEDURE: The right parietal temporal region was hair clipped, scrubbed, painted, and draped in the usual sterile fashion. The patient has been positioned with a donut, head elevated and turned maximally to the left. A lazy S type incision was traced out. This was infiltrated with 1% lidocaine. After prepping and draping, the incision was made with a #10 blade, knife and carried down to the level of the calvarium. Self-retaining retractors were placed. Regional Manager was used to make two mary holes in the anterior, posterior exposure. The flap was then elevated with a craniotome. A blue bulging dura was immediately encountered, this was opened in a cruciate fashion. The clot almost immediately delivered itself, some of them were collected in a Lukens trap. A significant amount of clots were removed with a suction technique. There was some copious arterial bleeding from the cortical surface, that was controlled with bipolar cautery. When I began to encounter normal white matter on most of the olson, I stopped the decompression. It was expected that nothing close to the entire hematoma would be removed. As the patient was still withdrawing her left side somewhat i.e. to give her the best chance recovering some left-sided function and not removing any normal brain tissue. The brain had bipolar relapsed at this point in time. Hemostasis within the cavity was assured with bipolar cautery followed by thrombinated Gelfoam and lining it with a Surgicel. It was filled with liquid thrombin, which was documented to be clear upon closure. The cortical surface was lying with Surgicel as well. No attempt was made to close the dura. A layer of solid Gelfoam was placed in the peridural space. The flap was re-fixated using CranioFix plates. The wound was irrigated with antibiotic solution. Galea was closed using interrupted inverted 3-0 Vicryl. The skin closed with harshil, bacitracin ointment and a self-adhering dressing was placed. No attempt was made to arouse or extubate the patient. She was brought in a stable fashion with 3 mm pupils to directly back to the ICU. Zach Allen MD
[2017-03-13 06:39] LABS: BASO # 0.1 K/uL (0.0-0.2); BASO % 0.2 % (0.0-2.0); HEMATOCRIT 35.1 % (34.0-47.0); LYMPH # 0.7 K/uL (1.0-4.3); LYMPH % 2.1 % (20.0-40.0); MEAN CORPUSCULAR HEMOGLOBIN 31.4 pg (27.0-31.0); MEAN CORPUSCULAR HGB CONC 31.6 g/dL (33.0-37.0); MEAN PLATELET VOLUME 10.6 fL (7.2-11.7); MONO # 2.4 K/uL (0.0-0.8); MONO % 7.5 % (0.0-10.0); PLATELET COUNT 219 K/uL (130-400)
[2017-03-13 06:50] LABS: POTASSIUM 3.7 mmol/L (3.6-5.2)
[2017-03-13 06:52] LABS: ALB/GLOB RATIO 1.1 (1.0-2.1); BILIRUBIN,TOTAL 0.7 mg/dL (0.2-1.3); PHOSPHOROUS 3.9 mg/dL (2.5-4.5); TOTAL PROTEIN 6.2 g/dL (6.3-8.3)
[2017-03-13 06:53] LABS: CALCIUM 8.5 mg/dl (8.6-10.4); MAGNESIUM 2.2 mg/dL (1.6-2.3)
[2017-03-13 06:54] LABS: MEAN CELL VOLUME 99.4 fL (81.0-99.0); WHITE BLOOD COUNT 32.4 K/uL (4.8-10.8)
[2017-03-13 08:23] LABS: NEUTROPHIL 77 % (50-75); TOTAL CELLS COUNTED 100
[2017-03-13] MEDS ORDERED: Vancomycin 1 gm/NS 200 ml 1 GM/200 ML BAG IVPB STA (08:49)
[2017-03-13] MEDS ORDERED: Cefepime IV 1 gm in Dextrose 1 GM/50 ML BAG IVPB SCH (09:00)
[2017-03-13] MEDS ORDERED: Sodium Chloride 0.9% 250 ML IV ONE ×2 (09:28→10:15)
--- NOTE | 2017-03-13 10:08 | RAD ---
HISTORY: intubated COMPARISON: 03/12/2017 FINDINGS: LUNGS: No active pulmonary disease. PLEURA: No significant pleural effusion identified, no pneumothorax apparent. CARDIOVASCULAR: Normal heart size. ET tube unchanged. OSSEOUS STRUCTURES: No significant abnormalities. VISUALIZED UPPER ABDOMEN: Normal. OTHER FINDINGS: None. IMPRESSION: No active disease.
[2017-03-13] MEDS: Cefepime IV 1 gm in Dextrose 1 GM/50 ML BAG IVPB SCH (10:29)
[2017-03-13] MEDS: Sodium Chloride 0.9% 1,000 ML IV SCH ×2 (10:30→19:37)
[2017-03-13] MEDS ORDERED: Digoxin 500 mcg/2ml (0.5 mg/2ml) Inj IVP ONE (10:37)
[2017-03-13 10:55] VITALS: PULSE 118
[2017-03-13 11:38] LABS: RBC URINE 8 /hpf (0-3); URINE BACTERIA RARE (<OCC); URINE BILIRUBIN NEGATIVE (NEGATIVE); URINE BLOOD 2+ (NEGATIVE); URINE COLOR Yellow (YELLOW); URINE GLUCOSE (UA) 1+ mg/dL (Normal); URINE KETONE NEGATIVE (NEGATIVE); URINE LEUKOCYTE ESTERASE NEG Leu/uL (Negative); URINE PROTEIN 3+ mg/dL (NEGATIVE); URINE UROBILINOGEN NORMAL mg/dL (0.2-1.0); WBC CLUMPS FEW /hpf; WBC URINE 103 /hpf (0-5)
[2017-03-13 12:06] LABS: VENOUS BLOOD GAS BASE EXCESS -6.8 mmol/L (0.0-2.0); VENOUS BLOOD GAS PCO2 31 mmHg (40-60); VENOUS BLOOD PH 7.36 (7.32-7.43)
[2017-03-13] MEDS ORDERED: Sodium Chloride 0.9% 500 ML IV ONE (12:09)
--- NOTE | 2017-03-13 12:53 | CARD ---
APPROVED REPORT EKG Measurement Heart [id number] <Conclusion> Sinus rhythm with 1st degree AV block ST & T wave abnormality, consider inferior ischemia Abnormal ECG
--- NOTE | 2017-03-13 12:57 | CP.CCUPN ---
<Rosaura Paz - Last Filed: 03/13/17 17:23> CCU Subjective - Physician Review Subjective (Free Text): Patient seen and examined at bedside. Patient intubated this am and therefore ROS unobtainable. POD#1 s/p right parietal craniotomy, subtotal evacuation of hematoma. CCU Objective - Vital Signs / Intake & Output Intake and Output (Last 8hrs): Intake & Output 03/12/17 03/13/17 03/13/17 22:59 06:59 14:59 Intake Total 62.5 197.8 2.4 Output Total 875 280 30 Balance -812.5 -82.2 -27.6 Weight 87 lb 8 oz Intake: IV 0 150 Intake, IV Amount 62.5 47.8 2.4 Right Forearm 62.5 47.8 2.4 Output: Urine 875 280 30 Urethral ([place]) 875 280 30 Other: # Bowel Movements 1 - Physical Exam Head: Positive for: Normocephalic Pupils: Positive for: Sluggish Mouth: Positive for: Dry Respiratory/Chest: Positive for: Good Air Exchange Cardiovascular: Positive for: Normal S1, S2 Lower Extremity: Positive for: Edema - Medications Active Medications: Active Medications Generic Name Dose Route Start Last Admin Trade Name Freq PRN Reason Stop Dose Admin Levothyroxine Sodium 25 mcg/ 2.5 mls @ 0 mls/hr 03/12/17 06:30 03/13/17 06:14 Sodium Chloride IVP 1.25 mls/hr DAILY@0630 HALLE Administration UD Propofol 1,000 mg in 100 mls @ 1.189 mls/hr 03/12/17 08:24 03/13/17 06:18 Diprivan IV 10 mcg/kg/min .Q24H PRN 2.379 mls/hr TITRATE PER MD ORDER Titration Protocol 5 MCG/KG/MIN Cefepime HCl 1 gm in 50 mls @ 100 mls/hr 03/13/17 10:30 03/13/17 10:29 Maxipime Iv 1 Gm Premix IVPB 100 mls/hr Q24H HALLE Administration Sodium Chloride 1,000 mls @ 125 mls/hr 03/13/17 09:30 Sodium Chloride 0.9% IV .Q8H HALLE Insulin Human Regular 0 unit 03/12/17 12:00 03/13/17 06:15 Novolin R SC Not Given Q6 [facility] Protocol Metoprolol Tartrate 5 mg 03/12/17 12:00 03/13/17 06:14 Lopressor IVP 5 mg Q6 HALLE Administration Pantoprazole Sodium 40 mg 03/12/17 10:00 03/13/17 10:08 Protonix Inj IVP 40 mg DAILY HALLE Administration - Patient Studies Lab Studies: Lab Studies 03/13/17 03/13/17 03/13/17 Range/Units 11:55 11:20 06:30 WBC (4.8-10.8) K/uL RBC (3.80-5.20) Mil/uL Hgb (11.0-16.0) g/dL Hct (34.0-47.0) % MCV (81.0-99.0) fL MCH (27.0-31.0) pg MCHC (33.0-37.0) g/dL RDW (11.5-14.5) % Plt Count (130-400) K/uL MPV (7.2-11.7) fL Neut % (Auto) (50.0-75.0) % Lymph % (Auto) (20.0-40.0) % [place] % (Auto) (0.0-10.0) % Eos % (Auto) (0.0-4.0) % Baso % (Auto) (0.0-2.0) % Neut # (1.8-7.0) K/uL Lymph # (1.0-4.3) K/uL [place] # (0.0-0.8) K/uL Eos # (0.0-0.7) K/uL Baso # (0.0-0.2) K/uL Neutrophils % (Manual) (50-75) % Band Neutrophils % (0-2) % Lymphocytes % (Manual) (20-40) % Monocytes % (Manual) (0-10) % Platelet Estimate (NORMAL) Anisocytosis (manual) Puncture Site pCO2 (35-45) mm/Hg pO2 24 L (80-100) mm/Hg HCO3 (21-28) mmol/L ABG pH (7.35-7.45) ABG Total CO2 (22-28) mmol/L ABG O2 Saturation (95-98) % ABG Base Excess (-2.0-3.0) mmol/L ABG Hemoglobin (11.7-17.4) g/dL ABG Carboxyhemoglobin (0.5-1.5) % POC ABG HHb (Measured) (0.0-5.0) % ABG Methemoglobin (0.0-3.0) % Jean Test VBG pH 7.36 (7.32-7.43) VBG pCO2 31 L (40-60) mmHg VBG HCO3 18.1 mmol/L VBG Total CO2 18.5 L (22-28) mmol/L VBG O2 Sat (Calc) 42.3 (40-65) % VBG Base Excess -6.8 L (0.0-2.0) mmol/L VBG Potassium 3.8 (3.6-5.2) mmol/L A-a O2 Difference mm/Hg Respiratory Index Hgb O2 Saturation (95.0-98.0) % Glucose 131 H (65-105) mg/dl Lactate 2.0 (0.7-2.1) mmol/L Vent Mode Mechanical Rate FiO2 40.0 % Tidal Volume PEEP 5 Crit Value Called To Dr salgado Crit Value Called By Zach da silva shooter's helper Crit Value Read Back Y Blood Gas Notified Time 1205 Sodium 142.0 137 (132-148) mmol/L Potassium 3.7 (3.6-5.2) mmol/L Chloride 112.0 H 106 (98-107) mmol/L Carbon Dioxide 17 L (22-30) mmol/L Anion Gap 18 (10-20) BUN 56 H (7-17) mg/dL Creatinine 4.6 H (0.7-1.2) mg/dL Est GFR ( Amer) 11 Est GFR (Non-Af Amer) 9 POC Glucose (mg/dL) (65-110) mg/dL Random Glucose 110 H (65-105) mg/dL Calcium 8.5 L (8.6-10.4) mg/dl Phosphorus 3.9 (2.5-4.5) mg/dL Magnesium 2.2 (1.6-2.3) mg/dL Total Bilirubin 0.7 (0.2-1.3) mg/dL AST 44 H D (14-36) U/L ALT 62 H (9-52) U/L Alkaline Phosphatase 128 H (38-126) U/L Total Protein 6.2 L (6.3-8.3) g/dL Albumin 3.2 L (3.5-5.0) g/dL Globulin 3.0 (2.2-3.9) gm/dL Albumin/Globulin Ratio 1.1 (1.0-2.1) Venous Blood Potassium 3.8 (3.6-5.2) mmol/L Urine Color Yellow (YELLOW) Urine Clarity Hazy (Clear) Urine pH 5.0 (5.0-8.0) Ur Specific [place] 1.030 (1.003-1.030) Urine Protein 3+ H (NEGATIVE) mg/dL Urine Glucose (UA) 1+ (Normal) mg/dL Urine Ketones Negative (NEGATIVE) mg/dL Urine Blood 2+ H (NEGATIVE) Urine Nitrate Negative (NEGATIVE) Urine Bilirubin Negative (NEGATIVE) Urine Urobilinogen Normal (0.2-1.0) mg/dL Ur Leukocyte Esterase Neg (Negative) Peter/uL Urine WBC (Auto) 103 H (0-5) /hpf Urine RBC (Auto) 8 H (0-3) /hpf Urine WBC Clumps (Auto) Few H (NONE) /hpf Ur Squamous Epith Cells 1 (0-5) /hpf Urine Bacteria Rare (<OCC) 03/13/17 03/13/17 03/13/17 Range/Units 06:30 05:20 04:56 WBC 32.4 H D (4.8-10.8) K/uL RBC 3.53 L (3.80-5.20) Mil/uL Hgb 11.1 (11.0-16.0) g/dL Hct 35.1 (34.0-47.0) % MCV 99.4 H D (81.0-99.0) fL MCH 31.4 H (27.0-31.0) pg MCHC 31.6 L (33.0-37.0) g/dL RDW 16.0 H (11.5-14.5) % Plt Count 219 (130-400) K/uL MPV 10.6 (7.2-11.7) fL Neut % (Auto) 90.2 H (50.0-75.0) % Lymph % (Auto) 2.1 L (20.0-40.0) % [place] % (Auto) 7.5 (0.0-10.0) % Eos % (Auto) 0.0 (0.0-4.0) % Baso % (Auto) 0.2 (0.0-2.0) % Neut # 29.2 H (1.8-7.0) K/uL Lymph # 0.7 L (1.0-4.3) K/uL [place] # 2.4 H (0.0-0.8) K/uL Eos # 0.0 (0.0-0.7) K/uL Baso # 0.1 (0.0-0.2) K/uL Neutrophils % (Manual) 77 H (50-75) % Band Neutrophils % 16 H* (0-2) % Lymphocytes % (Manual) 4 L (20-40) % Monocytes % (Manual) 3 (0-10) % Platelet Estimate Normal (NORMAL) Anisocytosis (manual) Slight Puncture Site Rr pCO2 23 L (35-45) mm/Hg pO2 181 H (80-100) mm/Hg HCO3 20.6 L (21-28) mmol/L ABG pH 7.47 H (7.35-7.45) ABG Total CO2 17.4 L (22-28) mmol/L ABG O2 Saturation 99.5 H (95-98) % ABG Base Excess -5.6 L (-2.0-3.0) mmol/L ABG Hemoglobin 10.0 L (11.7-17.4) g/dL ABG Carboxyhemoglobin 2.4 H (0.5-1.5) % POC ABG HHb (Measured) 0.5 (0.0-5.0) % ABG Methemoglobin 1.2 (0.0-3.0) % Jean Test Pos VBG pH (7.32-7.43) VBG pCO2 (40-60) mmHg VBG HCO3 mmol/L VBG Total CO2 (22-28) mmol/L VBG O2 Sat (Calc) (40-65) % VBG Base Excess (0.0-2.0) mmol/L VBG Potassium (3.6-5.2) mmol/L A-a O2 Difference 75.0 mm/Hg Respiratory Index 0.4 Hgb O2 Saturation 95.9 (95.0-98.0) % Glucose (65-105) mg/dl Lactate (0.7-2.1) mmol/L Vent Mode Prvc Mechanical Rate 20 FiO2 40.0 % Tidal Volume 450 PEEP 5 Crit Value Called To Crit Value Called By Crit Value Read Back Blood Gas Notified Time Sodium (132-148) mmol/L Potassium (3.6-5.2) mmol/L Chloride (98-107) mmol/L Carbon Dioxide (22-30) mmol/L Anion Gap (10-20) BUN (7-17) mg/dL Creatinine (0.7-1.2) mg/dL Est GFR ( Amer) Est GFR (Non-Af Amer) POC Glucose (mg/dL) 110 (65-110) mg/dL Random Glucose (65-105) mg/dL Calcium (8.6-10.4) mg/dl Phosphorus (2.5-4.5) mg/dL Magnesium (1.6-2.3) mg/dL Total Bilirubin (0.2-1.3) mg/dL AST (14-36) U/L ALT (9-52) U/L Alkaline Phosphatase (38-126) U/L Total Protein (6.3-8.3) g/dL Albumin (3.5-5.0) g/dL Globulin (2.2-3.9) gm/dL Albumin/Globulin Ratio (1.0-2.1) Venous Blood Potassium (3.6-5.2) mmol/L Urine Color (YELLOW) Urine Clarity (Clear) Urine pH (5.0-8.0) Ur Specific [place] (1.003-1.030) Urine Protein (NEGATIVE) mg/dL Urine Glucose (UA) (Normal) mg/dL Urine Ketones (NEGATIVE) mg/dL Urine Blood (NEGATIVE) Urine Nitrate (NEGATIVE) Urine Bilirubin (NEGATIVE) Urine Urobilinogen (0.2-1.0) mg/dL Ur Leukocyte Esterase (Negative) Peter/uL Urine WBC (Auto) (0-5) /hpf Urine RBC (Auto) (0-3) /hpf Urine WBC Clumps (Auto) (NONE) /hpf Ur Squamous Epith Cells (0-5) /hpf Urine Bacteria (<OCC) 03/12/17 03/12/17 03/12/17 Range/Units 23:57 18:23 12:46 WBC (4.8-10.8) K/uL RBC (3.80-5.20) Mil/uL Hgb (11.0-16.0) g/dL Hct (34.0-47.0) % MCV (81.0-99.0) fL MCH (27.0-31.0) pg MCHC (33.0-37.0) g/dL RDW (11.5-14.5) % Plt Count (130-400) K/uL MPV (7.2-11.7) fL Neut % (Auto) (50.0-75.0) % Lymph % (Auto) (20.0-40.0) % [place] % (Auto) (0.0-10.0) % Eos % (Auto) (0.0-4.0) % Baso % (Auto) (0.0-2.0) % Neut # (1.8-7.0) K/uL Lymph # (1.0-4.3) K/uL [place] # (0.0-0.8) K/uL Eos # (0.0-0.7) K/uL Baso # (0.0-0.2) K/uL Neutrophils % (Manual) (50-75) % Band Neutrophils % (0-2) % Lymphocytes % (Manual) (20-40) % Monocytes % (Manual) (0-10) % Platelet Estimate (NORMAL) Anisocytosis (manual) Puncture Site pCO2 (35-45) mm/Hg pO2 (80-100) mm/Hg HCO3 (21-28) mmol/L ABG pH (7.35-7.45) ABG Total CO2 (22-28) mmol/L ABG O2 Saturation (95-98) % ABG Base Excess (-2.0-3.0) mmol/L ABG Hemoglobin (11.7-17.4) g/dL ABG Carboxyhemoglobin (0.5-1.5) % POC ABG HHb (Measured) (0.0-5.0) % ABG Methemoglobin (0.0-3.0) % Jean Test VBG pH (7.32-7.43) VBG pCO2 (40-60) mmHg VBG HCO3 mmol/L VBG Total CO2 (22-28) mmol/L VBG O2 Sat (Calc) (40-65) % VBG Base Excess (0.0-2.0) mmol/L VBG Potassium (3.6-5.2) mmol/L A-a O2 Difference mm/Hg Respiratory Index Hgb O2 Saturation (95.0-98.0) % Glucose (65-105) mg/dl Lactate (0.7-2.1) mmol/L Vent Mode Mechanical Rate FiO2 % Tidal Volume PEEP Crit Value Called To Crit Value Called By Crit Value Read Back Blood Gas Notified Time Sodium (132-148) mmol/L Potassium (3.6-5.2) mmol/L Chloride (98-107) mmol/L Carbon Dioxide (22-30) mmol/L Anion Gap (10-20) BUN (7-17) mg/dL Creatinine (0.7-1.2) mg/dL Est GFR ( Amer) Est GFR (Non-Af Amer) POC Glucose (mg/dL) 129 H 153 H 232 H (65-110) mg/dL Random Glucose (65-105) mg/dL Calcium (8.6-10.4) mg/dl Phosphorus (2.5-4.5) mg/dL Magnesium (1.6-2.3) mg/dL Total Bilirubin (0.2-1.3) mg/dL AST (14-36) U/L ALT (9-52) U/L Alkaline Phosphatase (38-126) U/L Total Protein (6.3-8.3) g/dL Albumin (3.5-5.0) g/dL Globulin (2.2-3.9) gm/dL Albumin/Globulin Ratio (1.0-2.1) Venous Blood Potassium (3.6-5.2) mmol/L Urine Color (YELLOW) Urine Clarity (Clear) Urine pH (5.0-8.0) Ur Specific [place] (1.003-1.030) Urine Protein (NEGATIVE) mg/dL Urine Glucose (UA) (Normal) mg/dL Urine Ketones (NEGATIVE) mg/dL Urine Blood (NEGATIVE) Urine Nitrate (NEGATIVE) Urine Bilirubin (NEGATIVE) Urine Urobilinogen (0.2-1.0) mg/dL Ur Leukocyte Esterase (Negative) Peter/uL Urine WBC (Auto) (0-5) /hpf Urine RBC (Auto) (0-3) /hpf Urine WBC Clumps (Auto) (NONE) /hpf Ur Squamous Epith Cells (0-5) /hpf Urine Bacteria (<OCC) Laboratory Results - last 24 hr 03/12/17 03/12/17 03/12/17 12:46 18:23 23:57 WBC RBC Hgb Hct MCV MCH MCHC RDW Plt Count MPV Neut % (Auto) Lymph % (Auto) [place] % (Auto) Eos % (Auto) Baso % (Auto) Neut # Lymph # [place] # Eos # Baso # Neutrophils % (Manual) Band Neutrophils % Lymphocytes % (Manual) Monocytes % (Manual) Platelet Estimate Anisocytosis (manual) Puncture Site pCO2 pO2 HCO3 ABG pH ABG Total CO2 ABG O2 Saturation ABG Base Excess ABG Hemoglobin ABG Carboxyhemoglobin POC ABG HHb (Measured) ABG Methemoglobin Jean Test VBG pH VBG pCO2 VBG HCO3 VBG Total CO2 VBG O2 Sat (Calc) VBG Base Excess VBG Potassium A-a O2 Difference Respiratory Index Hgb O2 Saturation Glucose Lactate Vent Mode Mechanical Rate FiO2 Tidal Volume PEEP Crit Value Called To Crit Value Called By Crit Value Read Back Blood Gas Notified Time Sodium Potassium Chloride Carbon Dioxide Anion Gap BUN Creatinine Est GFR ( Amer) Est GFR (Non-Af Amer) POC Glucose (mg/dL) 232 H 153 H 129 H Random Glucose Calcium Phosphorus Magnesium Total Bilirubin AST ALT Alkaline Phosphatase Total Protein Albumin Globulin Albumin/Globulin Ratio Venous Blood Potassium Urine Color Urine Clarity Urine pH Ur Specific [place] Urine Protein Urine Glucose (UA) Urine Ketones Urine Blood Urine Nitrate Urine Bilirubin Urine Urobilinogen Ur Leukocyte Esterase Urine WBC (Auto) Urine RBC (Auto) Urine WBC Clumps (Auto) Ur Squamous Epith Cells Urine Bacteria 03/13/17 03/13/17 03/13/17 04:56 05:20 06:30 WBC 32.4 H D RBC 3.53 L Hgb 11.1 Hct 35.1 MCV 99.4 H D MCH 31.4 H MCHC 31.6 L RDW 16.0 H Plt Count 219 MPV 10.6 Neut % (Auto) 90.2 H Lymph % (Auto) 2.1 L [place] % (Auto) 7.5 Eos % (Auto) 0.0 Baso % (Auto) 0.2 Neut # 29.2 H Lymph # 0.7 L [place] # 2.4 H Eos # 0.0 Baso # 0.1 Neutrophils % (Manual) 77 H Band Neutrophils % 16 H* Lymphocytes % (Manual) 4 L Monocytes % (Manual) 3 Platelet Estimate Normal Anisocytosis (manual) Slight Puncture Site Rr pCO2 23 L pO2 181 H HCO3 20.6 L ABG pH 7.47 H ABG Total CO2 17.4 L ABG O2 Saturation 99.5 H ABG Base Excess -5.6 L ABG Hemoglobin 10.0 L ABG Carboxyhemoglobin 2.4 H POC ABG HHb (Measured) 0.5 ABG Methemoglobin 1.2 Ejan Test Pos VBG pH VBG pCO2 VBG HCO3 VBG Total CO2 VBG O2 Sat (Calc) VBG Base Excess VBG Potassium A-a O2 Difference 75.0 Respiratory Index 0.4 Hgb O2 Saturation 95.9 Glucose Lactate Vent Mode Prvc Mechanical Rate 20 FiO2 40.0 Tidal Volume 450 PEEP 5 Crit Value Called To Crit Value Called By Crit Value Read Back Blood Gas Notified Time Sodium Potassium Chloride Carbon Dioxide Anion Gap BUN Creatinine Est GFR ( Amer) Est GFR (Non-Af Amer) POC Glucose (mg/dL) 110 Random Glucose Calcium Phosphorus Magnesium Total Bilirubin AST ALT Alkaline Phosphatase Total Protein Albumin Globulin Albumin/Globulin Ratio Venous Blood Potassium Urine Color Urine Clarity Urine pH Ur Specific [place] Urine Protein Urine Glucose (UA) Urine Ketones Urine Blood Urine Nitrate Urine Bilirubin Urine Urobilinogen Ur Leukocyte Esterase Urine WBC (Auto) Urine RBC (Auto) Urine WBC Clumps (Auto) Ur Squamous Epith Cells Urine Bacteria 03/13/17 03/13/17 03/13/17 06:30 11:20 11:55 WBC RBC Hgb Hct MCV MCH MCHC RDW Plt Count MPV Neut % (Auto) Lymph % (Auto) [place] % (Auto) Eos % (Auto) Baso % (Auto) Neut # Lymph # [place] # Eos # Baso # Neutrophils % (Manual) Band Neutrophils % Lymphocytes % (Manual) Monocytes % (Manual) Platelet Estimate Anisocytosis (manual) Puncture Site pCO2 pO2 24 L HCO3 ABG pH ABG Total CO2 ABG O2 Saturation ABG Base Excess ABG Hemoglobin ABG Carboxyhemoglobin POC ABG HHb (Measured) ABG Methemoglobin Jean Test VBG pH 7.36 VBG pCO2 31 L VBG HCO3 18.1 VBG Total CO2 18.5 L VBG O2 Sat (Calc) 42.3 VBG Base Excess -6.8 L VBG Potassium 3.8 A-a O2 Difference Respiratory Index Hgb O2 Saturation Glucose 131 H Lactate 2.0 Vent Mode Mechanical Rate FiO2 40.0 Tidal Volume PEEP 5 Crit Value Called To Dr salgado Crit Value Called By Zach da silva shooter's helper Crit Value Read Back Y Blood Gas Notified Time 1205 Sodium 137 142.0 Potassium 3.7 Chloride 106 112.0 H Carbon Dioxide 17 L Anion Gap 18 BUN 56 H Creatinine 4.6 H Est GFR ( Amer) 11 Est GFR (Non-Af Amer) 9 POC Glucose (mg/dL) Random Glucose 110 H Calcium 8.5 L Phosphorus 3.9 Magnesium 2.2 Total Bilirubin 0.7 AST 44 H D ALT 62 H Alkaline Phosphatase 128 H Total Protein 6.2 L Albumin 3.2 L Globulin 3.0 Albumin/Globulin Ratio 1.1 Venous Blood Potassium 3.8 Urine Color Yellow Urine Clarity Hazy Urine pH 5.0 Ur Specific [place] 1.030 Urine Protein 3+ H Urine Glucose (UA) 1+ Urine Ketones Negative Urine Blood 2+ H Urine Nitrate Negative Urine Bilirubin Negative Urine Urobilinogen Normal Ur Leukocyte Esterase Neg Urine WBC (Auto) 103 H Urine RBC (Auto) 8 H Urine WBC Clumps (Auto) Few H Ur Squamous Epith Cells 1 Urine Bacteria Rare Fingerstick Blood Sugar Results: 110 Critical Care Progress Note - Nutrition Nutrition: Nutrition Category Date Time Status NPO Diet [DIET] Diets 03/11/17 Dinner Active Assessment/Plan - Assessment and Plan (Free Text) Assessment: 81 years old female who lives alone, with hx of Pancreatic Cancer, CKD and DM, brought awake and with left side weakness to the ED by EMS, after being found on the floor in her closet. The Head CT showing a large intracranial bleed with a midline shift to the left. Patient intubated. POD#1 s/p right parietal craniotomy, subtotal evacuation of hematoma. Neuro: intracranial bleed, POD#1 s/p right parietal craniotomy, subtotal evacuation of hematoma Head CT (03/11): large right temporoparietal parenchymal hemorrhage with white matter vasogenic edema, mass effect and 12 mm midline shift to left, associated subarachnoid and subdural hemorrhage on the right Head CT (03/12): slight increase in size of right temporoparietal occipital acute hemorrhage. Minimal subarachnoid hemorrhage and subdural hemorrhage as on previous exam. Midline shift towards the left slightly increase from prior examination, 11mm. No evidence of downward herniation. 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 Dr. Torres, neurology consulted Propofol for intubation left dense paralysis Dr. Mckee (neurosurg) performed right parietal craniotomy evacuation of hematoma yesterday Head CT (03/13): s/p right temporoparietal craniotomy with moderate residual intraparenchymal hemorrhage identified at the right temporal lobe predominantly and minimally involving the inferior right parietal lobe. Local edema remains prominent exerting mass effect causing 15mm leftward shift and effacement of the 3rd and right lateral ventricles as well as the right cerebral sulci. Mild to moderate right pneumocephaly identified. Minimal right subdural hematoma. Mild mass effect exerted at the right cerebral peduncle with the brainstem below this level unremarkable Cardio: htn Metoprolol 5mg ivp q6h 1 dose labetolol 10 mg ivp given Pulm: intubated Endo: hx DMII, hypothyroidism accuchecks HgA1C: 6.3 Lipid panel: Triglycerides; 102, cholesterol 143, LDL 57, HDL 76 R ISS Synthroid 25mcg Renal: PAXTON on CKD BUN/ Cr: 56/4.6 increased from 45/2.2 Dr. Odom consulted, help appreciated Heme: Hx pancreatic cancer ID: bands increased to 16, wbc 32.4 -f/u blood, urine, sputum cultures, u/a -Maxipime 1q q24h -Vanco 1gm 1 dose given today -Lactate: 2 -Dr. Torres consulted, help appreciated Prophylaxis: DVT: SCDs, contraindication to chemical prophylaxis due to intracranial bleed GI: Protonix 40 mg daily NS @ 125 cc/hr <Matt Salgado - Last Filed: 03/13/17 17:42> CCU Objective - Vital Signs / Intake & Output Intake and Output (Last 8hrs): Intake & Output 03/13/17 03/13/17 03/13/17 06:59 14:59 22:59 Intake Total 197.8 1147.0 127.4 Output Total 280 58 15 Balance -82.2 1089.0 112.4 Weight 87 lb 8 oz Intake: IV 150 Intake, IV Amount 47.8 1147.0 127.4 Right Distal Port Forearm 1135 125 Right Forearm 47.8 12.0 2.4 Output: Urine 280 58 15 Urethral ([place]) 280 58 15 Other: # Bowel Movements 1 - Medications Active Medications: Active Medications Generic Name Dose Route Start Last Admin Trade Name Freq PRN Reason Stop Dose Admin Levothyroxine Sodium 25 mcg/ 2.5 mls @ 0 mls/hr 03/12/17 06:30 03/13/17 06:14 Sodium Chloride IVP 1.25 mls/hr DAILY@0630 HALLE Administration UD Propofol 1,000 mg in 100 mls @ 1.189 mls/hr 03/12/17 08:24 03/13/17 06:18 Diprivan IV 10 mcg/kg/min .Q24H PRN 2.379 mls/hr TITRATE PER MD ORDER Titration Protocol 5 MCG/KG/MIN Cefepime HCl 1 gm in 50 mls @ 100 mls/hr 03/13/17 10:30 03/13/17 10:29 Maxipime Iv 1 Gm Premix IVPB 100 mls/hr Q24H HALLE Administration Sodium Chloride 1,000 mls @ 125 mls/hr 03/13/17 09:30 03/13/17 10:30 Sodium Chloride 0.9% IV 125 mls/hr .Q8H HALLE Administration Insulin Human Regular 0 unit 03/12/17 12:00 03/13/17 12:00 Novolin R SC Not Given Q6 HALLE Protocol Metoprolol Tartrate 5 mg 03/12/17 12:00 03/13/17 13:27 Lopressor IVP 5 mg Q6 HALLE Administration Pantoprazole Sodium 40 mg 03/12/17 10:00 03/13/17 10:08 Protonix Inj IVP 40 mg DAILY HALLE Administration - Patient Studies Lab Studies: Microbiology Studies 03/12/17 00:34 MRSA Culture (Admit) - Final Naris MRSA NOT DETECTED 03/13/17 11:30 Gram Stain - Final Trachasp Lab Studies 03/13/17 03/13/17 03/13/17 Range/Units 12:54 11:55 11:20 WBC (4.8-10.8) K/uL RBC (3.80-5.20) Mil/uL Hgb (11.0-16.0) g/dL Hct (34.0-47.0) % MCV (81.0-99.0) fL MCH (27.0-31.0) pg MCHC (33.0-37.0) g/dL RDW (11.5-14.5) % Plt Count (130-400) K/uL MPV (7.2-11.7) fL Neut % (Auto) (50.0-75.0) % Lymph % (Auto) (20.0-40.0) % [place] % (Auto) (0.0-10.0) % Eos % (Auto) (0.0-4.0) % Baso % (Auto) (0.0-2.0) % Neut # (1.8-7.0) K/uL Lymph # (1.0-4.3) K/uL [place] # (0.0-0.8) K/uL Eos # (0.0-0.7) K/uL Baso # (0.0-0.2) K/uL Neutrophils % (Manual) (50-75) % Band Neutrophils % (0-2) % Lymphocytes % (Manual) (20-40) % Monocytes % (Manual) (0-10) % Platelet Estimate (NORMAL) Anisocytosis (manual) Puncture Site pCO2 (35-45) mm/Hg pO2 24 L (80-100) mm/Hg HCO3 (21-28) mmol/L ABG pH (7.35-7.45) ABG Total CO2 (22-28) mmol/L ABG O2 Saturation (95-98) % ABG Base Excess (-2.0-3.0) mmol/L ABG Hemoglobin (11.7-17.4) g/dL ABG Carboxyhemoglobin (0.5-1.5) % POC ABG HHb (Measured) (0.0-5.0) % ABG Methemoglobin (0.0-3.0) % Jean Test VBG pH 7.36 (7.32-7.43) VBG pCO2 31 L (40-60) mmHg VBG HCO3 18.1 mmol/L VBG Total CO2 18.5 L (22-28) mmol/L VBG O2 Sat (Calc) 42.3 (40-65) % VBG Base Excess -6.8 L (0.0-2.0) mmol/L VBG Potassium 3.8 (3.6-5.2) mmol/L A-a O2 Difference mm/Hg Respiratory Index Hgb O2 Saturation (95.0-98.0) % Glucose 131 H (65-105) mg/dl Lactate 2.0 (0.7-2.1) mmol/L Vent Mode Mechanical Rate FiO2 40.0 % Tidal Volume PEEP 5 Crit Value Called To Dr salgado Crit Value Called By Zach da silva shooter's helper Crit Value Read Back Y Blood Gas Notified Time 1205 Sodium 142.0 (132-148) mmol/L Potassium (3.6-5.2) mmol/L Chloride 112.0 H (98-107) mmol/L Carbon Dioxide (22-30) mmol/L Anion Gap (10-20) BUN (7-17) mg/dL Creatinine (0.7-1.2) mg/dL Est GFR ( Amer) Est GFR (Non-Af Amer) POC Glucose (mg/dL) 143 H (65-110) mg/dL Random Glucose (65-105) mg/dL Calcium (8.6-10.4) mg/dl Phosphorus (2.5-4.5) mg/dL Magnesium (1.6-2.3) mg/dL Total Bilirubin (0.2-1.3) mg/dL AST (14-36) U/L ALT (9-52) U/L Alkaline Phosphatase (38-126) U/L Total Protein (6.3-8.3) g/dL Albumin (3.5-5.0) g/dL Globulin (2.2-3.9) gm/dL Albumin/Globulin Ratio (1.0-2.1) Venous Blood Potassium 3.8 (3.6-5.2) mmol/L Urine Color Yellow (YELLOW) Urine Clarity Hazy (Clear) Urine pH 5.0 (5.0-8.0) Ur Specific [place] 1.030 (1.003-1.030) Urine Protein 3+ H (NEGATIVE) mg/dL Urine Glucose (UA) 1+ (Normal) mg/dL Urine Ketones Negative (NEGATIVE) mg/dL Urine Blood 2+ H (NEGATIVE) Urine Nitrate Negative (NEGATIVE) Urine Bilirubin Negative (NEGATIVE) Urine Urobilinogen Normal (0.2-1.0) mg/dL Ur Leukocyte Esterase Neg (Negative) Peter/uL Urine WBC (Auto) 103 H (0-5) /hpf Urine RBC (Auto) 8 H (0-3) /hpf Urine WBC Clumps (Auto) Few H (NONE) /hpf Ur Squamous Epith Cells 1 (0-5) /hpf Urine Bacteria Rare (<OCC) 03/13/17 03/13/17 03/13/17 Range/Units 06:30 06:30 05:20 WBC 32.4 H D (4.8-10.8) K/uL RBC 3.53 L (3.80-5.20) Mil/uL Hgb 11.1 (11.0-16.0) g/dL Hct 35.1 (34.0-47.0) % MCV 99.4 H D (81.0-99.0) fL MCH 31.4 H (27.0-31.0) pg MCHC 31.6 L (33.0-37.0) g/dL RDW 16.0 H (11.5-14.5) % Plt Count 219 (130-400) K/uL MPV 10.6 (7.2-11.7) fL Neut % (Auto) 90.2 H (50.0-75.0) % Lymph % (Auto) 2.1 L (20.0-40.0) % [place] % (Auto) 7.5 (0.0-10.0) % Eos % (Auto) 0.0 (0.0-4.0) % Baso % (Auto) 0.2 (0.0-2.0) % Neut # 29.2 H (1.8-7.0) K/uL Lymph # 0.7 L (1.0-4.3) K/uL [place] # 2.4 H (0.0-0.8) K/uL Eos # 0.0 (0.0-0.7) K/uL Baso # 0.1 (0.0-0.2) K/uL Neutrophils % (Manual) 77 H (50-75) % Band Neutrophils % 16 H* (0-2) % Lymphocytes % (Manual) 4 L (20-40) % Monocytes % (Manual) 3 (0-10) % Platelet Estimate Normal (NORMAL) Anisocytosis (manual) Slight Puncture Site pCO2 (35-45) mm/Hg pO2 (80-100) mm/Hg HCO3 (21-28) mmol/L ABG pH (7.35-7.45) ABG Total CO2 (22-28) mmol/L ABG O2 Saturation (95-98) % ABG Base Excess (-2.0-3.0) mmol/L ABG Hemoglobin (11.7-17.4) g/dL ABG Carboxyhemoglobin (0.5-1.5) % POC ABG HHb (Measured) (0.0-5.0) % ABG Methemoglobin (0.0-3.0) % Jean Test VBG pH (7.32-7.43) VBG pCO2 (40-60) mmHg VBG HCO3 mmol/L VBG Total CO2 (22-28) mmol/L VBG O2 Sat (Calc) (40-65) % VBG Base Excess (0.0-2.0) mmol/L VBG Potassium (3.6-5.2) mmol/L A-a O2 Difference mm/Hg Respiratory Index Hgb O2 Saturation (95.0-98.0) % Glucose (65-105) mg/dl Lactate (0.7-2.1) mmol/L Vent Mode Mechanical Rate FiO2 % Tidal Volume PEEP Crit Value Called To Crit Value Called By Crit Value Read Back Blood Gas Notified Time Sodium 137 (132-148) mmol/L Potassium 3.7 (3.6-5.2) mmol/L Chloride 106 (98-107) mmol/L Carbon Dioxide 17 L (22-30) mmol/L Anion Gap 18 (10-20) BUN 56 H (7-17) mg/dL Creatinine 4.6 H (0.7-1.2) mg/dL Est GFR ( Amer) 11 Est GFR (Non-Af Amer) 9 POC Glucose (mg/dL) 110 (65-110) mg/dL Random Glucose 110 H (65-105) mg/dL Calcium 8.5 L (8.6-10.4) mg/dl Phosphorus 3.9 (2.5-4.5) mg/dL Magnesium 2.2 (1.6-2.3) mg/dL Total Bilirubin 0.7 (0.2-1.3) mg/dL AST 44 H D (14-36) U/L ALT 62 H (9-52) U/L Alkaline Phosphatase 128 H (38-126) U/L Total Protein 6.2 L (6.3-8.3) g/dL Albumin 3.2 L (3.5-5.0) g/dL Globulin 3.0 (2.2-3.9) gm/dL Albumin/Globulin Ratio 1.1 (1.0-2.1) Venous Blood Potassium (3.6-5.2) mmol/L Urine Color (YELLOW) Urine Clarity (Clear) Urine pH (5.0-8.0) Ur Specific [place] (1.003-1.030) Urine Protein (NEGATIVE) mg/dL Urine Glucose (UA) (Normal) mg/dL Urine Ketones (NEGATIVE) mg/dL Urine Blood (NEGATIVE) Urine Nitrate (NEGATIVE) Urine Bilirubin (NEGATIVE) Urine Urobilinogen (0.2-1.0) mg/dL Ur Leukocyte Esterase (Negative) Peter/uL Urine WBC (Auto) (0-5) /hpf Urine RBC (Auto) (0-3) /hpf Urine WBC Clumps (Auto) (NONE) /hpf Ur Squamous Epith Cells (0-5) /hpf Urine Bacteria (<OCC) 03/13/17 03/12/17 03/12/17 Range/Units 04:56 23:57 18:23 WBC (4.8-10.8) K/uL RBC (3.80-5.20) Mil/uL Hgb (11.0-16.0) g/dL Hct (34.0-47.0) % MCV (81.0-99.0) fL MCH (27.0-31.0) pg MCHC (33.0-37.0) g/dL RDW (11.5-14.5) % Plt Count (130-400) K/uL MPV (7.2-11.7) fL Neut % (Auto) (50.0-75.0) % Lymph % (Auto) (20.0-40.0) % [place] % (Auto) (0.0-10.0) % Eos % (Auto) (0.0-4.0) % Baso % (Auto) (0.0-2.0) % Neut # (1.8-7.0) K/uL Lymph # (1.0-4.3) K/uL [place] # (0.0-0.8) K/uL Eos # (0.0-0.7) K/uL Baso # (0.0-0.2) K/uL Neutrophils % (Manual) (50-75) % Band Neutrophils % (0-2) % Lymphocytes % (Manual) (20-40) % Monocytes % (Manual) (0-10) % Platelet Estimate (NORMAL) Anisocytosis (manual) Puncture Site Rr pCO2 23 L (35-45) mm/Hg pO2 181 H (80-100) mm/Hg HCO3 20.6 L (21-28) mmol/L ABG pH 7.47 H (7.35-7.45) ABG Total CO2 17.4 L (22-28) mmol/L ABG O2 Saturation 99.5 H (95-98) % ABG Base Excess -5.6 L (-2.0-3.0) mmol/L ABG Hemoglobin 10.0 L (11.7-17.4) g/dL ABG Carboxyhemoglobin 2.4 H (0.5-1.5) % POC ABG HHb (Measured) 0.5 (0.0-5.0) % ABG Methemoglobin 1.2 (0.0-3.0) % Jean Test Pos VBG pH (7.32-7.43) VBG pCO2 (40-60) mmHg VBG HCO3 mmol/L VBG Total CO2 (22-28) mmol/L VBG O2 Sat (Calc) (40-65) % VBG Base Excess (0.0-2.0) mmol/L VBG Potassium (3.6-5.2) mmol/L A-a O2 Difference 75.0 mm/Hg Respiratory Index 0.4 Hgb O2 Saturation 95.9 (95.0-98.0) % Glucose (65-105) mg/dl Lactate (0.7-2.1) mmol/L Vent Mode Prvc Mechanical Rate 20 FiO2 40.0 % Tidal Volume 450 PEEP 5 Crit Value Called To Crit Value Called By Crit Value Read Back Blood Gas Notified Time Sodium (132-148) mmol/L Potassium (3.6-5.2) mmol/L Chloride (98-107) mmol/L Carbon Dioxide (22-30) mmol/L Anion Gap (10-20) BUN (7-17) mg/dL Creatinine (0.7-1.2) mg/dL Est GFR ( Amer) Est GFR (Non-Af Amer) POC Glucose (mg/dL) 129 H 153 H (65-110) mg/dL Random Glucose (65-105) mg/dL Calcium (8.6-10.4) mg/dl Phosphorus (2.5-4.5) mg/dL Magnesium (1.6-2.3) mg/dL Total Bilirubin (0.2-1.3) mg/dL AST (14-36) U/L ALT (9-52) U/L Alkaline Phosphatase (38-126) U/L Total Protein (6.3-8.3) g/dL Albumin (3.5-5.0) g/dL Globulin (2.2-3.9) gm/dL Albumin/Globulin Ratio (1.0-2.1) Venous Blood Potassium (3.6-5.2) mmol/L Urine Color (YELLOW) Urine Clarity (Clear) Urine pH (5.0-8.0) Ur Specific [place] (1.003-1.030) Urine Protein (NEGATIVE) mg/dL Urine Glucose (UA) (Normal) mg/dL Urine Ketones (NEGATIVE) mg/dL Urine Blood (NEGATIVE) Urine Nitrate (NEGATIVE) Urine Bilirubin (NEGATIVE) Urine Urobilinogen (0.2-1.0) mg/dL Ur Leukocyte Esterase (Negative) [place]/uL Urine WBC (Auto) (0-5) /hpf Urine RBC (Auto) (0-3) /hpf Urine WBC Clumps (Auto) (NONE) /hpf Ur Squamous Epith Cells (0-5) /hpf Urine Bacteria (<OCC) Laboratory Results - last 24 hr 03/12/17 03/12/17 03/13/17 18:23 23:57 04:56 WBC RBC Hgb Hct MCV MCH MCHC RDW Plt Count MPV Neut % (Auto) Lymph % (Auto) [place] % (Auto) Eos % (Auto) Baso % (Auto) Neut # Lymph # [place] # Eos # Baso # Neutrophils % (Manual) Band Neutrophils % Lymphocytes % (Manual) Monocytes % (Manual) Platelet Estimate Anisocytosis (manual) Puncture Site Rr pCO2 23 L pO2 181 H HCO3 20.6 L ABG pH 7.47 H ABG Total CO2 17.4 L ABG O2 Saturation 99.5 H ABG Base Excess -5.6 L ABG Hemoglobin 10.0 L ABG Carboxyhemoglobin 2.4 H POC ABG HHb (Measured) 0.5 ABG Methemoglobin 1.2 Jean Test Pos VBG pH VBG pCO2 VBG HCO3 VBG Total CO2 VBG O2 Sat (Calc) VBG Base Excess VBG Potassium A-a O2 Difference 75.0 Respiratory Index 0.4 Hgb O2 Saturation 95.9 Glucose Lactate Vent Mode Prvc Mechanical Rate 20 FiO2 40.0 Tidal Volume 450 PEEP 5 Crit Value Called To Crit Value Called By Crit Value Read Back Blood Gas Notified Time Sodium Potassium Chloride Carbon Dioxide Anion Gap BUN Creatinine Est GFR ( Amer) Est GFR (Non-Af Amer) POC Glucose (mg/dL) 153 H 129 H Random Glucose Calcium Phosphorus Magnesium Total Bilirubin AST ALT Alkaline Phosphatase Total Protein Albumin Globulin Albumin/Globulin Ratio Venous Blood Potassium Urine Color Urine Clarity Urine pH Ur Specific [place] Urine Protein Urine Glucose (UA) Urine Ketones Urine Blood Urine Nitrate Urine Bilirubin Urine Urobilinogen Ur Leukocyte Esterase Urine WBC (Auto) Urine RBC (Auto) Urine WBC Clumps (Auto) Ur Squamous Epith Cells Urine Bacteria 03/13/17 03/13/17 03/13/17 05:20 06:30 06:30 WBC 32.4 H D RBC 3.53 L Hgb 11.1 Hct 35.1 MCV 99.4 H D MCH 31.4 H MCHC 31.6 L RDW 16.0 H Plt Count 219 MPV 10.6 Neut % (Auto) 90.2 H Lymph % (Auto) 2.1 L [place] % (Auto) 7.5 Eos % (Auto) 0.0 Baso % (Auto) 0.2 Neut # 29.2 H Lymph # 0.7 L [place] # 2.4 H Eos # 0.0 Baso # 0.1 Neutrophils % (Manual) 77 H Band Neutrophils % 16 H* Lymphocytes % (Manual) 4 L Monocytes % (Manual) 3 Platelet Estimate Normal Anisocytosis (manual) Slight Puncture Site pCO2 pO2 HCO3 ABG pH ABG Total CO2 ABG O2 Saturation ABG Base Excess ABG Hemoglobin ABG Carboxyhemoglobin POC ABG HHb (Measured) ABG Methemoglobin Jean Test VBG pH VBG pCO2 VBG HCO3 VBG Total CO2 VBG O2 Sat (Calc) VBG Base Excess VBG Potassium A-a O2 Difference Respiratory Index Hgb O2 Saturation Glucose Lactate Vent Mode Mechanical Rate FiO2 Tidal Volume PEEP Crit Value Called To Crit Value Called By Crit Value Read Back Blood Gas Notified Time Sodium 137 Potassium 3.7 Chloride 106 Carbon Dioxide 17 L Anion Gap 18 BUN 56 H Creatinine 4.6 H Est GFR ( Amer) 11 Est GFR (Non-Af Amer) 9 POC Glucose (mg/dL) 110 Random Glucose 110 H Calcium 8.5 L Phosphorus 3.9 Magnesium 2.2 Total Bilirubin 0.7 AST 44 H D ALT 62 H Alkaline Phosphatase 128 H Total Protein 6.2 L Albumin 3.2 L Globulin 3.0 Albumin/Globulin Ratio 1.1 Venous Blood Potassium Urine Color Urine Clarity Urine pH Ur Specific [place] Urine Protein Urine Glucose (UA) Urine Ketones Urine Blood Urine Nitrate Urine Bilirubin Urine Urobilinogen Ur Leukocyte Esterase Urine WBC (Auto) Urine RBC (Auto) Urine WBC Clumps (Auto) Ur Squamous Epith Cells Urine Bacteria 03/13/17 03/13/17 03/13/17 11:20 11:55 12:54 WBC RBC Hgb Hct MCV MCH MCHC RDW Plt Count MPV Neut % (Auto) Lymph % (Auto) [place] % (Auto) Eos % (Auto) Baso % (Auto) Neut # Lymph # [place] # Eos # Baso # Neutrophils % (Manual) Band Neutrophils % Lymphocytes % (Manual) Monocytes % (Manual) Platelet Estimate Anisocytosis (manual) Puncture Site pCO2 pO2 24 L HCO3 ABG pH ABG Total CO2 ABG O2 Saturation ABG Base Excess ABG Hemoglobin ABG Carboxyhemoglobin POC ABG HHb (Measured) ABG Methemoglobin Jean Test VBG pH 7.36 VBG pCO2 31 L VBG HCO3 18.1 VBG Total CO2 18.5 L VBG O2 Sat (Calc) 42.3 VBG Base Excess -6.8 L VBG Potassium 3.8 A-a O2 Difference Respiratory Index Hgb O2 Saturation Glucose 131 H Lactate 2.0 Vent Mode Mechanical Rate FiO2 40.0 Tidal Volume PEEP 5 Crit Value Called To Dr salgado Crit Value Called By Zach da silva shooter's helper Crit Value Read Back Y Blood Gas Notified Time 1205 Sodium 142.0 Potassium Chloride 112.0 H Carbon Dioxide Anion Gap BUN Creatinine Est GFR ( Amer) Est GFR (Non-Af Amer) POC Glucose (mg/dL) 143 H Random Glucose Calcium Phosphorus Magnesium Total Bilirubin AST ALT Alkaline Phosphatase Total Protein Albumin Globulin Albumin/Globulin Ratio Venous Blood Potassium 3.8 Urine Color Yellow Urine Clarity Hazy Urine pH 5.0 Ur Specific [place] 1.030 Urine Protein 3+ H Urine Glucose (UA) 1+ Urine Ketones Negative Urine Blood 2+ H Urine Nitrate Negative Urine Bilirubin Negative Urine Urobilinogen Normal Ur Leukocyte Esterase Neg Urine WBC (Auto) 103 H Urine RBC (Auto) 8 H Urine WBC Clumps (Auto) Few H Ur Squamous Epith Cells 1 Urine Bacteria Rare EKG/Cardiology Studies: Cardiology / EKG Studies 03/13/17 13:53 EKG [ELECTROCARDIOGRAM] Routine Comment: Mode Of Transportation: Reason For Exam: afib Critical Care Progress Note - Nutrition Nutrition: Nutrition Category Date Time Status NPO Diet [DIET] Diets 03/11/17 Dinner Active Attending/Attestation - Attestation I have personally seen and examined this patient.: Yes I have fully participated in the care of the patient.: Yes I have reviewed all pertinent clinical information: Yes Notes (Text): 03/13/17 17:41 Patient seen and examined in the intensive care unit. Case discussed with staff in the morning rounds. Started on IV antibiotics for elevated white count and bands s/p right parietal craniotomy, subtotal evacuation of hematoma. No change in mental status and patient is off sedation Continue ventilatory support
--- NOTE | 2017-03-13 12:58 | CT ---
PROCEDURE: CT HEAD WITHOUT CONTRAST. HISTORY: s/p hemorrhage evacuation COMPARISON: Unenhanced head CT 03/12/2017. TECHNIQUE: Axial computed tomography images were obtained through the head/brain without intravenous contrast. Radiation dose: Total exam DLP = 1429.36 mGy-cm. This CT exam was performed using one or more of the following dose reduction techniques: Automated exposure control, adjustment of the mA and/or kV according to patient size, and/or use of iterative reconstruction technique. FINDINGS: Interval right temporal parietal craniotomy is now identified with postop for pneumocephaly appreciated at the right side of the cranial vault. Residual hemorrhage is appreciated at the right temporal lobe as well as minimally at the right subdural space along the convexity. Trace residual is seen in the right parietal lobe. Local edema remains relatively prominent with a leftward midline shift slightly increased at approximately 15 mm compared to 11 mm on 03/12/2017. The right lateral ventricle remains predominantly efface as well as the 3rd ventricle and the vast majority of right cerebral sulci. The 4th ventricle appears unremarkable. No hydrocephalus at this time. BRAIN: Chronic left occipital infarct again evident with age related neuro degenerative changes reiterated comprised of atrophy and microangiopathy throughout the cerebrum. Posterior fossa contents appear unremarkable. Limited mass effect is exerted on the right cerebral peduncle from edema and residual hemorrhage described above. CALVARIUM: Prior craniotomy described above. PARANASAL SINUSES: Unremarkable as visualized. No significant inflammatory changes. MASTOID AIR CELLS: Unremarkable as visualized. No inflammatory changes. OTHER FINDINGS: None. IMPRESSION: Status post right temporoparietal craniotomy with moderate residual intraparenchymal hemorrhage identified at the right temporal lobe predominantly and minimally involving the inferior right parietal lobe. Local edema remains prominent exerting mass effect causing 15 mm leftward shift an effacement of the 3rd and right lateral ventricles as well as the right cerebral sulci once again. [id number] right pneumocephaly identified postoperatively. Minimal right subdural hematoma again evident. Mild mass effect is exerted at the right cerebral peduncle with the brainstem below this level unremarkable. Continued clinical and CT monitoring are advised.
--- NOTE | 2017-03-13 14:12 | CP.PCM.PN ---
Subjective - Date & Time of Evaluation Date of Evaluation: 03/13/17 Time of Evaluation: 14:09 - Subjective Subjective: INTUBATED S/P LEFT CRANIOTOMY WITH PARTIAL EVACUATION OF BLOOD CLOTS AFEBRILE WBC COUNT 32K CR DOUBLE UP TO 4.4 LEFT DENSE PARALYSIS PLAN ICU MANAGEMENT ID/NEPHRO CONSULT Objective - Vital Signs/Intake and Output Vital Signs (last 24 hours): Temp Pulse Resp BP Pulse Ox 97.4 F L 117 H 20 123/74 100 03/13/17 12:00 03/13/17 13:04 03/13/17 13:04 03/13/17 13:04 03/13/17 13:04 Intake and Output: 03/13/17 03/13/17 11:59 23:59 Intake Total 528.1 127.4 Output Total 278 5 Balance 250.1 122.4 - Medications Medications: Current Medications Levothyroxine Sodium 25 mcg/ (Sodium Chloride) 2.5 mls @ 0 mls/hr IVP DAILY@ 0630 [facility] PRN Reason: UD Last Admin: 03/13/17 06:14 Dose: 1.25 mls/hr Propofol (Diprivan) 1,000 mg in 100 mls @ 1.189 mls/hr IV .Q24H PRN; Protocol; 5 MCG/KG/MIN PRN Reason: TITRATE PER MD ORDER Last Titration: 03/13/17 06:18 Dose: 10 mcg/kg/min, 2.379 mls/hr Cefepime HCl (Maxipime Iv 1 Gm Premix) 1 gm in 50 mls @ 100 mls/hr IVPB Q24H [facility] Last Admin: 03/13/17 10:29 Dose: 100 mls/hr Sodium Chloride (Sodium Chloride 0.9%) 1,000 mls @ 125 mls/hr IV .Q8H [facility] Last Admin: 03/13/17 10:30 Dose: 125 mls/hr Insulin Human Regular (Novolin R) 0 unit SC Q6 [facility] PRN Reason: Protocol Last Admin: 03/13/17 12:00 Dose: Not Given Metoprolol Tartrate (Lopressor) 5 mg IVP Q6 [facility] Last Admin: 03/13/17 13:27 Dose: 5 mg Pantoprazole Sodium (Protonix Inj) 40 mg IVP DAILY [facility] Last Admin: 03/13/17 10:08 Dose: 40 mg - Labs Labs: 03/13/17 06:30 03/13/17 06:30 PT 10.2 SECONDS (9.7-12.2) 03/12/17 06:20 INR 0.9 03/12/17 06:20 APTT 27 SECONDS (21-34) 03/12/17 06:20 - Head Exam Additional comments: POST OP WOUND - Eye Exam Eye Exam: EOMI - ENT Exam Additional comments: INTUBATED - Respiratory Exam Respiratory Exam: Rhonchi - Cardiovascular Exam Cardiovascular Exam: +S1, +S2 - GI/Abdominal Exam GI & Abdominal Exam: Normal Bowel Sounds. absent: Tenderness - Neurological Exam Neuro motor strength exam: Left Upper Extremity: 0, Right Upper Extremity: 5, Left Lower Extremity: 0, Right Lower Extremity: 5 - Psychiatric Exam Psychiatric exam: Agitated Assessment and Plan (1) Intracranial hemorrhage Status: Acute (2) Renal failure Status: Acute (3) Sepsis Status: Acute
--- NOTE | 2017-03-13 18:15 | CP.PCM.CON ---
History of Present Illness - History of Present Illness History of Present Illness: pt is seen and examined, full consult is dictated #[id number] Past Patient History - Infectious Disease Hx of Infectious Diseases: None - Past Medical History & Family History Past Medical History?: Yes - Past Social History Smoking Status: Never Smoked Chewing Tobacco Use: No Cigar Use: No Alcohol: None Drugs: Denies Home Situation {Lives}: Alone - CARDIAC Hx Cardia Arrhythmia: Yes (A FIB) Hx Hypertension: Yes - PULMONARY Hx Respiratory Disorders: Yes (H/O LUNG NODULES) - NEUROLOGICAL Hx Neurological Disorder: No - HEENT Hx HEENT Problems: Yes Hx Cataracts: Yes Hx Glaucoma: Yes - RENAL Hx Chronic Kidney Disease: Yes - ENDOCRINE/METABOLIC Hx Hypothyroidism: Yes - HEMATOLOGICAL/ONCOLOGICAL Hx Blood Disorders: Yes Hx Cancer: Yes (L KIDNEY, HEAD OF PANCREAS) - INTEGUMENTARY Hx Dermatological Problems: No - MUSCULOSKELETAL/RHEUMATOLOGICAL Hx Fractures: Yes (LEFT ARM) Hx Osteoporosis: Yes - GASTROINTESTINAL Hx Gall Bladder Disease: Yes Hx Pancreatitis: Yes - GENITOURINARY/GYNECOLOGICAL Hx Genitourinary Disorders: No - PSYCHIATRIC Hx Substance Use: No - SURGICAL HISTORY Hx Cholecystectomy: Yes Other/Comment: Partial left nephrectomy and exision of head of pancreas - ANESTHESIA Hx Anesthesia: Yes Hx Anesthesia Reactions: No Hx Malignant Hyperthermia: No Meds Allergies/Adverse Reactions: Allergies Allergy/AdvReac Type Severity Reaction Status Date / Time ciprofloxacin [From Cipro] Allergy Severe ANAPHYLAXIS Verified 03/11/17 19:59 Sulfa (Sulfonamide Allergy Severe ANAPHYLAXIS Verified 03/11/17 19:59 Antibiotics) - Medications Medications: Current Medications Levothyroxine Sodium 25 mcg/ (Sodium Chloride) 2.5 mls @ 0 mls/hr IVP DAILY@ 0630 [facility] PRN Reason: UD Last Admin: 03/13/17 06:14 Dose: 1.25 mls/hr Propofol (Diprivan) 1,000 mg in 100 mls @ 1.189 mls/hr IV .Q24H PRN; Protocol; 5 MCG/KG/MIN PRN Reason: TITRATE PER MD ORDER Last Titration: 03/13/17 06:18 Dose: 10 mcg/kg/min, 2.379 mls/hr Cefepime HCl (Maxipime Iv 1 Gm Premix) 1 gm in 50 mls @ 100 mls/hr IVPB Q24H [facility] Last Admin: 03/13/17 10:29 Dose: 100 mls/hr Sodium Chloride (Sodium Chloride 0.9%) 1,000 mls @ 125 mls/hr IV .Q8H [facility] Last Admin: 03/13/17 10:30 Dose: 125 mls/hr Insulin Human Regular (Novolin R) 0 unit SC Q6 [facility] PRN Reason: Protocol Last Admin: 03/13/17 12:00 Dose: Not Given Metoprolol Tartrate (Lopressor) 5 mg IVP Q6 [facility] Last Admin: 03/13/17 13:27 Dose: 5 mg Pantoprazole Sodium (Protonix Inj) 40 mg IVP DAILY [facility] Last Admin: 03/13/17 10:08 Dose: 40 mg Results - Vital Signs Recent Vital Signs: Last Vital Signs Temp 97.4 F L 03/13/17 12:00 Pulse 117 H 03/13/17 13:04 Resp 20 03/13/17 13:04 BP 123/74 03/13/17 13:04 Pulse Ox 100 03/13/17 13:04 - Labs Result Diagrams: 03/13/17 06:30 03/13/17 06:30 Labs: Laboratory Results - last 24 hr 03/12/17 03/12/17 03/13/17 18:23 23:57 04:56 WBC RBC Hgb Hct MCV MCH MCHC RDW Plt Count MPV Neut % (Auto) Lymph % (Auto) [place] % (Auto) Eos % (Auto) Baso % (Auto) Neut # Lymph # [place] # Eos # Baso # Neutrophils % (Manual) Band Neutrophils % Lymphocytes % (Manual) Monocytes % (Manual) Platelet Estimate Anisocytosis (manual) Puncture Site Rr pCO2 23 L pO2 181 H HCO3 20.6 L ABG pH 7.47 H ABG Total CO2 17.4 L ABG O2 Saturation 99.5 H ABG Base Excess -5.6 L ABG Hemoglobin 10.0 L ABG Carboxyhemoglobin 2.4 H POC ABG HHb (Measured) 0.5 ABG Methemoglobin 1.2 Jean Test Pos VBG pH VBG pCO2 VBG HCO3 VBG Total CO2 VBG O2 Sat (Calc) VBG Base Excess VBG Potassium A-a O2 Difference 75.0 Respiratory Index 0.4 Hgb O2 Saturation 95.9 Glucose Lactate Vent Mode Prvc Mechanical Rate 20 FiO2 40.0 Tidal Volume 450 PEEP 5 Crit Value Called To Crit Value Called By Crit Value Read Back Blood Gas Notified Time Sodium Potassium Chloride Carbon Dioxide Anion Gap BUN Creatinine Est GFR ( Amer) Est GFR (Non-Af Amer) POC Glucose (mg/dL) 153 H 129 H Random Glucose Calcium Phosphorus Magnesium Total Bilirubin AST ALT Alkaline Phosphatase Total Protein Albumin Globulin Albumin/Globulin Ratio Venous Blood Potassium Urine Color Urine Clarity Urine pH Ur Specific [place] Urine Protein Urine Glucose (UA) Urine Ketones Urine Blood Urine Nitrate Urine Bilirubin Urine Urobilinogen Ur Leukocyte Esterase Urine WBC (Auto) Urine RBC (Auto) Urine WBC Clumps (Auto) Ur Squamous Epith Cells Urine Bacteria 03/13/17 03/13/17 03/13/17 05:20 06:30 06:30 WBC 32.4 H D RBC 3.53 L Hgb 11.1 Hct 35.1 MCV 99.4 H D MCH 31.4 H MCHC 31.6 L RDW 16.0 H Plt Count 219 MPV 10.6 Neut % (Auto) 90.2 H Lymph % (Auto) 2.1 L [place] % (Auto) 7.5 Eos % (Auto) 0.0 Baso % (Auto) 0.2 Neut # 29.2 H Lymph # 0.7 L [place] # 2.4 H Eos # 0.0 Baso # 0.1 Neutrophils % (Manual) 77 H Band Neutrophils % 16 H* Lymphocytes % (Manual) 4 L Monocytes % (Manual) 3 Platelet Estimate Normal Anisocytosis (manual) Slight Puncture Site pCO2 pO2 HCO3 ABG pH ABG Total CO2 ABG O2 Saturation ABG Base Excess ABG Hemoglobin ABG Carboxyhemoglobin POC ABG HHb (Measured) ABG Methemoglobin Jean Test VBG pH VBG pCO2 VBG HCO3 VBG Total CO2 VBG O2 Sat (Calc) VBG Base Excess VBG Potassium A-a O2 Difference Respiratory Index Hgb O2 Saturation Glucose Lactate Vent Mode Mechanical Rate FiO2 Tidal Volume PEEP Crit Value Called To Crit Value Called By Crit Value Read Back Blood Gas Notified Time Sodium 137 Potassium 3.7 Chloride 106 Carbon Dioxide 17 L Anion Gap 18 BUN 56 H Creatinine 4.6 H Est GFR ( Amer) 11 Est GFR (Non-Af Amer) 9 POC Glucose (mg/dL) 110 Random Glucose 110 H Calcium 8.5 L Phosphorus 3.9 Magnesium 2.2 Total Bilirubin 0.7 AST 44 H D ALT 62 H Alkaline Phosphatase 128 H Total Protein 6.2 L Albumin 3.2 L Globulin 3.0 Albumin/Globulin Ratio 1.1 Venous Blood Potassium Urine Color Urine Clarity Urine pH Ur Specific [place] Urine Protein Urine Glucose (UA) Urine Ketones Urine Blood Urine Nitrate Urine Bilirubin Urine Urobilinogen Ur Leukocyte Esterase Urine WBC (Auto) Urine RBC (Auto) Urine WBC Clumps (Auto) Ur Squamous Epith Cells Urine Bacteria 03/13/17 03/13/17 03/13/17 11:20 11:55 12:54 WBC RBC Hgb Hct MCV MCH MCHC RDW Plt Count MPV Neut % (Auto) Lymph % (Auto) [place] % (Auto) Eos % (Auto) Baso % (Auto) Neut # Lymph # [place] # Eos # Baso # Neutrophils % (Manual) Band Neutrophils % Lymphocytes % (Manual) Monocytes % (Manual) Platelet Estimate Anisocytosis (manual) Puncture Site pCO2 pO2 24 L HCO3 ABG pH ABG Total CO2 ABG O2 Saturation ABG Base Excess ABG Hemoglobin ABG Carboxyhemoglobin POC ABG HHb (Measured) ABG Methemoglobin Jean Test VBG pH 7.36 VBG pCO2 31 L VBG HCO3 18.1 VBG Total CO2 18.5 L VBG O2 Sat (Calc) 42.3 VBG Base Excess -6.8 L VBG Potassium 3.8 A-a O2 Difference Respiratory Index Hgb O2 Saturation Glucose 131 H Lactate 2.0 Vent Mode Mechanical Rate FiO2 40.0 Tidal Volume PEEP 5 Crit Value Called To Dr salgado Crit Value Called By Zach da silva administrative fellow Crit Value Read Back Y Blood Gas Notified Time 1205 Sodium 142.0 Potassium Chloride 112.0 H Carbon Dioxide Anion Gap BUN Creatinine Est GFR ( Amer) Est GFR (Non-Af Amer) POC Glucose (mg/dL) 143 H Random Glucose Calcium Phosphorus Magnesium Total Bilirubin AST ALT Alkaline Phosphatase Total Protein Albumin Globulin Albumin/Globulin Ratio Venous Blood Potassium 3.8 Urine Color Yellow Urine Clarity Hazy Urine pH 5.0 Ur Specific [place] 1.030 Urine Protein 3+ H Urine Glucose (UA) 1+ Urine Ketones Negative Urine Blood 2+ H Urine Nitrate Negative Urine Bilirubin Negative Urine Urobilinogen Normal Ur Leukocyte Esterase Neg Urine WBC (Auto) 103 H Urine RBC (Auto) 8 H Urine WBC Clumps (Auto) Few H Ur Squamous Epith Cells 1 Urine Bacteria Rare 03/13/17 17:51 WBC RBC Hgb Hct MCV MCH MCHC RDW Plt Count MPV Neut % (Auto) Lymph % (Auto) [place] % (Auto) Eos % (Auto) Baso % (Auto) Neut # Lymph # [place] # Eos # Baso # Neutrophils % (Manual) Band Neutrophils % Lymphocytes % (Manual) Monocytes % (Manual) Platelet Estimate Anisocytosis (manual) Puncture Site pCO2 pO2 HCO3 ABG pH ABG Total CO2 ABG O2 Saturation ABG Base Excess ABG Hemoglobin ABG Carboxyhemoglobin POC ABG HHb (Measured) ABG Methemoglobin Jean Test VBG pH VBG pCO2 VBG HCO3 VBG Total CO2 VBG O2 Sat (Calc) VBG Base Excess VBG Potassium A-a O2 Difference Respiratory Index Hgb O2 Saturation Glucose Lactate Vent Mode Mechanical Rate FiO2 Tidal Volume PEEP Crit Value Called To Crit Value Called By Crit Value Read Back Blood Gas Notified Time Sodium Potassium Chloride Carbon Dioxide Anion Gap BUN Creatinine Est GFR ( Amer) Est GFR (Non-Af Amer) POC Glucose (mg/dL) 134 H Random Glucose Calcium Phosphorus Magnesium Total Bilirubin AST ALT Alkaline Phosphatase Total Protein Albumin Globulin Albumin/Globulin Ratio Venous Blood Potassium Urine Color Urine Clarity Urine pH Ur Specific [place] Urine Protein Urine Glucose (UA) Urine Ketones Urine Blood Urine Nitrate Urine Bilirubin Urine Urobilinogen Ur Leukocyte Esterase Urine WBC (Auto) Urine RBC (Auto) Urine WBC Clumps (Auto) Ur Squamous Epith Cells Urine Bacteria
--- NOTE | 2017-03-13 19:12 | CP.PCM.CON ---
History of Present Illness - History of Present Illness History of Present Illness: INFECTIOUS DISEASE CONSULT; HPI: 81-year-old female with history of pancreatic cancer, atrial fibrillation, hypertension, hypothyroidism, type 2 diabetes mellitus, lung nodule, CA of the left kidney, colonic polyps, history of glaucoma, who was admitted on with left-sided weakness and a large parietal bleed on the right side with midline shift. As per neighbor patient was found in her closet at home with the closet door locked which had to be removed and patient brought here to the ER. Patient was seen by Dr. Mckee neurosurgery who recommended the patient to be admitted to ICU. Patient underwent right parietal craniotomy with subtotal evacuation of hematoma on . Patient presently in ICU, intubated and minimally responsive. Infectious disease consultation requested by PMD secondary to increasing leukocytosis of 32,000 and rising BUN and creatinine are 4.6 from 2.2/bun 46. History obtained mainly from the chart as well as from the staff cancellation clerk. PMH: Cardia Arrhythmia (A FIB), Colonic Polyps, Fractures (LEFT ARM), Gall Bladder Disease, HTN, Hypothyroidism, Osteoporosis, Pancreatitis, Chronic Kidney Disease Surgical History: Cholecystectomy, Endoscopy,PARTIAL LEFT NEPHRECTOMY, EXCISION OF THE HEAD OF THE PANCREAS, CATARACT SURGERY. - [facility] Procedures COLONOSCOPY (01/20/04) DX ULTRASOUND-HEART (09/09/12) DX ULTRASOUND-URINARY (11/04/12) ENDO RECTUM POLYPECTOMY (03/06/02) PERCUTAN NEEDLE BIOPSY OF KIDNEY (11/04/12) Family History: States: Unknown Family Hx - Social History Hx Alcohol Use: No Hx Substance Use: No HISTORY OF SMOKING; NEVER SMOKED IN HER LIFE. PATIENT LIVES ALONE. - Immunization History Hx Tetanus Toxoid Vaccination: No Hx Influenza Vaccination: Yes Hx Pneumococcal Vaccination: No ALLERGY; SULFONAMIDE ANTIBIOTICS., CIPROFLOXACIN. Review of Systems - Review of Systems Systems not reviewed;Unavailable: Altered Mental Status (INTUBATED.), Intubated Past Patient History - Infectious Disease Hx of Infectious Diseases: None - Past Medical History & Family History Past Medical History?: Yes - Past Social History Smoking Status: Never Smoked Chewing Tobacco Use: No Cigar Use: No Alcohol: None Drugs: Denies Home Situation {Lives}: Alone - CARDIAC Hx Cardia Arrhythmia: Yes (A FIB) Hx Hypertension: Yes - PULMONARY Hx Respiratory Disorders: Yes (H/O LUNG NODULES) - NEUROLOGICAL Hx Neurological Disorder: No - HEENT Hx HEENT Problems: Yes Hx Cataracts: Yes Hx Glaucoma: Yes - RENAL Hx Chronic Kidney Disease: Yes - ENDOCRINE/METABOLIC Hx Hypothyroidism: Yes - HEMATOLOGICAL/ONCOLOGICAL Hx Blood Disorders: Yes Hx Cancer: Yes (L KIDNEY, HEAD OF PANCREAS) - INTEGUMENTARY Hx Dermatological Problems: No - MUSCULOSKELETAL/RHEUMATOLOGICAL Hx Fractures: Yes (LEFT ARM) Hx Osteoporosis: Yes - GASTROINTESTINAL Hx Gall Bladder Disease: Yes Hx Pancreatitis: Yes - GENITOURINARY/GYNECOLOGICAL Hx Genitourinary Disorders: No - PSYCHIATRIC Hx Substance Use: No - SURGICAL HISTORY Hx Cholecystectomy: Yes Other/Comment: Partial left nephrectomy and exision of head of pancreas - ANESTHESIA Hx Anesthesia: Yes Hx Anesthesia Reactions: No Hx Malignant Hyperthermia: No Meds Allergies/Adverse Reactions: Allergies Allergy/AdvReac Type Severity Reaction Status Date / Time ciprofloxacin [From Cipro] Allergy Severe ANAPHYLAXIS Verified 03/11/17 19:59 Sulfa (Sulfonamide Allergy Severe ANAPHYLAXIS Verified 03/11/17 19:59 Antibiotics) - Medications Medications: Current Medications Levothyroxine Sodium 25 mcg/ (Sodium Chloride) 2.5 mls @ 0 mls/hr IVP DAILY@ 0630 [facility] PRN Reason: UD Last Admin: 03/13/17 06:14 Dose: 1.25 mls/hr Propofol (Diprivan) 1,000 mg in 100 mls @ 1.189 mls/hr IV .Q24H PRN; Protocol; 5 MCG/KG/MIN PRN Reason: TITRATE PER MD ORDER Last Titration: 03/13/17 06:18 Dose: 10 mcg/kg/min, 2.379 mls/hr Cefepime HCl (Maxipime Iv 1 Gm Premix) 1 gm in 50 mls @ 100 mls/hr IVPB Q24H [facility] Last Admin: 03/13/17 10:29 Dose: 100 mls/hr Sodium Chloride (Sodium Chloride 0.9%) 1,000 mls @ 125 mls/hr IV .Q8H [facility] Last Admin: 03/13/17 10:30 Dose: 125 mls/hr Insulin Human Regular (Novolin R) 0 unit SC Q6 [facility] PRN Reason: Protocol Last Admin: 03/13/17 12:00 Dose: Not Given Metoprolol Tartrate (Lopressor) 5 mg IVP Q6 [facility] Last Admin: 03/13/17 18:37 Dose: 5 mg Pantoprazole Sodium (Protonix Inj) 40 mg IVP DAILY [facility] Last Admin: 03/13/17 10:08 Dose: 40 mg Physical Exam - Constitutional Appears: No Acute Distress - Head Exam Head Exam: NORMAL INSPECTION - Eye Exam Eye Exam: PERRL Additional comments: RT CRANIOTOMY SCALP POSTOPERATIVE WOUND. WOUND DRY SCALP - ENT Exam ENT Exam: Normal Oropharynx - Respiratory Exam Respiratory Exam: Decreased Breath Sounds - Cardiovascular Exam Cardiovascular Exam: Tachycardia, Irregular Rhythm, +S1, +S2 - GI/Abdominal Exam GI & Abdominal Exam: Normal Bowel Sounds, Soft - Extremities Exam Extremities exam: Positive for: pedal pulses present. Negative for: calf tenderness, pedal edema (BILATERAL vENODYNE) - Neurological Exam Neurological exam: Altered Additional comments: LEFT-SIDED HEMIPARESIS. MOVES RIGHT SIDE INTERMITTENTLY. - Skin Skin Exam: Dry, Warm Results - Vital Signs Recent Vital Signs: Last Vital Signs Temp 97.4 F L 03/13/17 12:00 Pulse 117 H 03/13/17 13:04 Resp 20 03/13/17 13:04 BP 123/74 03/13/17 13:04 Pulse Ox 100 03/13/17 13:04 - Labs Result Diagrams: 03/13/17 06:30 03/13/17 06:30 Labs: Laboratory Results - last 24 hr 03/12/17 03/13/17 03/13/17 23:57 04:56 05:20 WBC RBC Hgb Hct MCV MCH MCHC RDW Plt Count MPV Neut % (Auto) Lymph % (Auto) [place] % (Auto) Eos % (Auto) Baso % (Auto) Neut # Lymph # [place] # Eos # Baso # Neutrophils % (Manual) Band Neutrophils % Lymphocytes % (Manual) Monocytes % (Manual) Platelet Estimate Anisocytosis (manual) Puncture Site Rr pCO2 23 L pO2 181 H HCO3 20.6 L ABG pH 7.47 H ABG Total CO2 17.4 L ABG O2 Saturation 99.5 H ABG Base Excess -5.6 L ABG Hemoglobin 10.0 L ABG Carboxyhemoglobin 2.4 H POC ABG HHb (Measured) 0.5 ABG Methemoglobin 1.2 Jean Test Pos VBG pH VBG pCO2 VBG HCO3 VBG Total CO2 VBG O2 Sat (Calc) VBG Base Excess VBG Potassium A-a O2 Difference 75.0 Respiratory Index 0.4 Hgb O2 Saturation 95.9 Glucose Lactate Vent Mode Prvc Mechanical Rate 20 FiO2 40.0 Tidal Volume 450 PEEP 5 Crit Value Called To Crit Value Called By Crit Value Read Back Blood Gas Notified Time Sodium Potassium Chloride Carbon Dioxide Anion Gap BUN Creatinine Est GFR ( Amer) Est GFR (Non-Af Amer) POC Glucose (mg/dL) 129 H 110 Random Glucose Calcium Phosphorus Magnesium Total Bilirubin AST ALT Alkaline Phosphatase Total Protein Albumin Globulin Albumin/Globulin Ratio Venous Blood Potassium Urine Color Urine Clarity Urine pH Ur Specific [place] Urine Protein Urine Glucose (UA) Urine Ketones Urine Blood Urine Nitrate Urine Bilirubin Urine Urobilinogen Ur Leukocyte Esterase Urine WBC (Auto) Urine RBC (Auto) Urine WBC Clumps (Auto) Ur Squamous Epith Cells Urine Bacteria 03/13/17 03/13/17 03/13/17 06:30 06:30 11:20 WBC 32.4 H D RBC 3.53 L Hgb 11.1 Hct 35.1 MCV 99.4 H D MCH 31.4 H MCHC 31.6 L RDW 16.0 H Plt Count 219 MPV 10.6 Neut % (Auto) 90.2 H Lymph % (Auto) 2.1 L [place] % (Auto) 7.5 Eos % (Auto) 0.0 Baso % (Auto) 0.2 Neut # 29.2 H Lymph # 0.7 L [place] # 2.4 H Eos # 0.0 Baso # 0.1 Neutrophils % (Manual) 77 H Band Neutrophils % 16 H* Lymphocytes % (Manual) 4 L Monocytes % (Manual) 3 Platelet Estimate Normal Anisocytosis (manual) Slight Puncture Site pCO2 pO2 HCO3 ABG pH ABG Total CO2 ABG O2 Saturation ABG Base Excess ABG Hemoglobin ABG Carboxyhemoglobin POC ABG HHb (Measured) ABG Methemoglobin Jean Test VBG pH VBG pCO2 VBG HCO3 VBG Total CO2 VBG O2 Sat (Calc) VBG Base Excess VBG Potassium A-a O2 Difference Respiratory Index Hgb O2 Saturation Glucose Lactate Vent Mode Mechanical Rate FiO2 Tidal Volume PEEP Crit Value Called To Crit Value Called By Crit Value Read Back Blood Gas Notified Time Sodium 137 Potassium 3.7 Chloride 106 Carbon Dioxide 17 L Anion Gap 18 BUN 56 H Creatinine 4.6 H Est GFR ( Amer) 11 Est GFR (Non-Af Amer) 9 POC Glucose (mg/dL) Random Glucose 110 H Calcium 8.5 L Phosphorus 3.9 Magnesium 2.2 Total Bilirubin 0.7 AST 44 H D ALT 62 H Alkaline Phosphatase 128 H Total Protein 6.2 L Albumin 3.2 L Globulin 3.0 Albumin/Globulin Ratio 1.1 Venous Blood Potassium Urine Color Yellow Urine Clarity Hazy Urine pH 5.0 Ur Specific [place] 1.030 Urine Protein 3+ H Urine Glucose (UA) 1+ Urine Ketones Negative Urine Blood 2+ H Urine Nitrate Negative Urine Bilirubin Negative Urine Urobilinogen Normal Ur Leukocyte Esterase Neg Urine WBC (Auto) 103 H Urine RBC (Auto) 8 H Urine WBC Clumps (Auto) Few H Ur Squamous Epith Cells 1 Urine Bacteria Rare 03/13/17 03/13/17 03/13/17 11:55 12:54 17:51 WBC RBC Hgb Hct MCV MCH MCHC RDW Plt Count MPV Neut % (Auto) Lymph % (Auto) [place] % (Auto) Eos % (Auto) Baso % (Auto) Neut # Lymph # [place] # Eos # Baso # Neutrophils % (Manual) Band Neutrophils % Lymphocytes % (Manual) Monocytes % (Manual) Platelet Estimate Anisocytosis (manual) Puncture Site pCO2 pO2 24 L HCO3 ABG pH ABG Total CO2 ABG O2 Saturation ABG Base Excess ABG Hemoglobin ABG Carboxyhemoglobin POC ABG HHb (Measured) ABG Methemoglobin Jean Test VBG pH 7.36 VBG pCO2 31 L VBG HCO3 18.1 VBG Total CO2 18.5 L VBG O2 Sat (Calc) 42.3 VBG Base Excess -6.8 L VBG Potassium 3.8 A-a O2 Difference Respiratory Index Hgb O2 Saturation Glucose 131 H Lactate 2.0 Vent Mode Mechanical Rate FiO2 40.0 Tidal Volume PEEP 5 Crit Value Called To Dr salgado Crit Value Called By Zach da silva automotive service consultant Crit Value Read Back Y Blood Gas Notified Time 1205 Sodium 142.0 Potassium Chloride 112.0 H Carbon Dioxide Anion Gap BUN Creatinine Est GFR ( Amer) Est GFR (Non-Af Amer) POC Glucose (mg/dL) 143 H 134 H Random Glucose Calcium Phosphorus Magnesium Total Bilirubin AST ALT Alkaline Phosphatase Total Protein Albumin Globulin Albumin/Globulin Ratio Venous Blood Potassium 3.8 Urine Color Urine Clarity Urine pH Ur Specific [place] Urine Protein Urine Glucose (UA) Urine Ketones Urine Blood Urine Nitrate Urine Bilirubin Urine Urobilinogen Ur Leukocyte Esterase Urine WBC (Auto) Urine RBC (Auto) Urine WBC Clumps (Auto) Ur Squamous Epith Cells Urine Bacteria - Imaging and Cardiology Chest x-ray Status: Report reviewed by me (no active disease.) Assessment & Plan (1) S/P craniotomy Status: Acute (2) SIRS (systemic inflammatory response syndrome) Status: Acute (3) Intracranial hemorrhage Status: Acute (4) Renal failure Status: Acute (5) Diabetes mellitus type 2 in nonobese Status: Acute (6) Hypertension Status: Acute - Assessment and Plan (Free Text) Plan: PLAN; PANCULTURES ESR, CRP. CONTINUE iv CEFEPIME 1 G ONCE A DAY DAILY. 03/13/17. PATIENT GOT 1 DOSE OF VANCOMYCIN 1 G IN ICU. VANCO RANDOM LEVEL IN A.M. START fLAGYL 500 MG iv PIGGYBACK EVERY 12 HOURLY. 03/13/17. FOLLOW-UP CULTURES TO ADJUST ANTIBIOTICS. MONITOR NEURO CHECKUPS . NEPHROLOGY ON BOARD ACUTE RENAL INSUFFICIENCY. WILL FOLLOW ALONG WITH YOU AND MAKE RECOMMENDATIONS NEEDED. THANK YOU FOR ALLOWING ME TO TAKE CARE OF YOUR PATIENT.
[2017-03-13] MEDS ORDERED: metroNIDAZOLE IV 500 mg/100 ml 500 MG/100 ML BAG IVPB SCH (21:00)
[2017-03-14] MEDS: (Novolin R) Insulin Human Regular 100 units/ml vial SC SCH ×4 (00:29→18:35)
[2017-03-14] MEDS: Sodium Chloride 0.9% 1,000 ML IV SCH ×2 (04:38→14:05)
[2017-03-14 05:50] LABS: BASO # 0.1 K/uL (0.0-0.2); BASO % 0.2 % (0.0-2.0); HEMATOCRIT 31.9 % (34.0-47.0); LYMPH # 0.7 K/uL (1.0-4.3); LYMPH % 2.3 % (20.0-40.0); MEAN CELL VOLUME 103.8 fL (81.0-99.0); MEAN CORPUSCULAR HEMOGLOBIN 31.7 pg (27.0-31.0); MEAN CORPUSCULAR HGB CONC 30.6 g/dL (33.0-37.0); MEAN PLATELET VOLUME 10.9 fL (7.2-11.7); MONO # 1.6 K/uL (0.0-0.8); PLATELET COUNT 211 K/uL (130-400); RED CELL DISTRIBUTION WIDTH 17.1 % (11.5-14.5); WHITE BLOOD COUNT 32.5 K/uL (4.8-10.8)
[2017-03-14 05:59] LABS: ABG MECHANICAL RATE 20; ARTERIAL BLOOD GAS MODE PRVC; ATERIAL BLOOD GAS PEEP 5; DRAW SITE RB
[2017-03-14 06:17] LABS: POTASSIUM 4.1 mmol/L (3.6-5.2)
[2017-03-14 06:19] LABS: BILIRUBIN,DIRECT 0.6 mg/dL (0.0-0.4); BILIRUBIN,TOTAL 0.7 mg/dL (0.2-1.3); CALCIUM 7.4 mg/dl (8.6-10.4); PHOSPHOROUS 5.4 mg/dL (2.5-4.5)
[2017-03-14 06:20] LABS: MAGNESIUM 2.2 mg/dL (1.6-2.3)
[2017-03-14 06:26] LABS: ALB/GLOB RATIO 0.8 (1.0-2.1)
[2017-03-14] MEDS: SODIUM CHLORIDE 0.9% IVP SCH (06:26)
[2017-03-14] MEDS: LEVOTHYROXINE IVP SCH (06:26)
[2017-03-14] MEDS: Metoprolol 1 mg/ml Inj IVP SCH ×3 (06:26→18:36)
--- NOTE | 2017-03-14 06:57 | PN ---
DATE: 03/13/2017 SUBJECTIVE: Ms. Watson today is at this point sedated. I was informed by the nurse that she was off sedation for 3 hours this morning and was doing some purposeful things, but not really eye opening or following commands. PHYSICAL EXAMINATION: She is purposefully moving the right side well. 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 There may be some withdrawal in the left leg. Her pupils are equal and reactive. Dressing is little bit stained, but no active bleeding at this time. IMPRESSION AND PLAN: I would advocate perhaps a weaning trial tomorrow morning. Obviously, her overall prognosis is very guarded. Zach Allen MD
[2017-03-14 08:01] LABS: NEUTROPHIL 94 % (50-75); TOTAL CELLS COUNTED 100
--- NOTE | 2017-03-14 08:28 | CON ---
RENAL CONSULTATION LOCATION: The patient is located in ICU bed 8. REQUESTED BY: Dr. Jordi Bedolla. REASON FOR EVALUATION: Acute renal failure, chronic kidney disease, status post fall and intracranial bleed and status post craniotomy. HISTORY OF PRESENT ILLNESS: Mrs. Watson is an 81 years old very thin-built elderly [place] female with history of questionable pancreatic CA, hypertension, cardiac arrhythmias, colonic polyps, fracture of the left arm, cholecystectomy, hypertension, hypothyroidism, osteoporosis, chronic kidney disease with a baseline creatinine about 2 to 2.2, was brought to the emergency room awake with left-sided weakness as per the patient on the day of admission, she was well the night before. Then, she after breakfast recalled having a headache and falling and the patient was found in her closet at home and as per the neighbor, the patient was found locked in her closet door with closet door having to be removed. The patient was presented to the emergency room awake, speaking, but with left-sided weakness and CT head shows large parietal bleed on the right side with midline shift and subsequently, the patient underwent a craniotomy. The patient was admitted to the ICU on ventilator, status post mannitol x2. The patient is on ventilator, not responding to verbal stimuli. Moving both right upper extremity, right lower extremity, left lower extremity and left upper extremity slightly for the painful stimuli. Unable to get any history from the patient. The chart reviewed and history obtained from the review of the chart. The patient's sister is at bedside. The patient is not in any acute distress. PAST MEDICAL HISTORY: Hypertension, hypothyroidism, osteoporosis, chronic kidney disease, cardiac arrhythmias and fracture of the left arm. PAST SURGICAL HISTORY: Status post cholecystectomy and endoscopy. FAMILY HISTORY: Not significant. She lives alone. SOCIAL HISTORY: No smoking. No alcohol. No drugs. ALLERGIES: ALLERGIC TO CIPRO AND SULFA. 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 CURRENT MEDICATIONS: Propofol IV and Flagyl 500 mg q. 12 hours and Synthroid 25 mcg IV daily and metoprolol 5 mg IV q.6 hours and cefepime 1 g q.24 hours, Novolin for sliding scale q.6 hours, Protonix 40 mg IV daily and IV fluids. Normal saline at 125 mL per hour. HOME MEDICATIONS: Demadex and Carafate, levothyroxine, Celexa and Toviaz and Januvia and levothyroxine. REVIEW OF SYSTEMS: Significant for left-sided weakness and headache and intracranial bleed, right parietal bleed. All other review of systems are reviewed as per HPI. PHYSICAL EXAMINATION GENERAL: Mrs. Watson is an 81 years old, very thin-built, very cachectic elderly female, on ventilator. VITAL SIGNS: Blood pressure 98/57, pulse 109, respirations 20, saturation 98% and temperature 98.6. Height 4 feet 10 inches. Weight is 87 pounds. HEENT: Status post right craniotomy. Pupils normal. Conjunctivae pink. Sclerae anicteric. On ventilator. LUNGS: Symmetric on both sides. Bilateral breath sounds present. Clear on auscultation. CARDIOVASCULAR SYSTEM: [place] at the fifth intercostal space, midclavicular line. S1 and S2 audible. Noted tachycardic. ABDOMEN: Normal in appearance, soft, tympanic. No guarding. No rigidity. No hepatosplenomegaly. CENTRAL NERVOUS SYSTEM: The patient is on ventilator, not responding to verbal stimuli. Moving right upper and lower extremity, left lower extremity for the painful stimuli and moving slightly the left upper extremity for the painful stimuli. LABORATORY DATA: Includes as follows, as of 03/13/2017: WBC 32.4, hemoglobin 11.1, hematocrit is 35.1, platelets 219. pH 7.36 and VBG pCO2 is 31 and bicarb is 18. Lactic acid 2.0. Other laboratory data: Sodium 137, potassium 3.7, chloride 106, CO2 of 17, BUN 56, creatinine 4.0, glucose 110, calcium 8.5, phosphorus 3.9, magnesium 2.2, total bili 0.7, AST 44, ALT 62, alkaline phosphatase 120, total protein 6.2, albumin 3.2. Urinalysis: Yellow, hazy, pH 5, specific gravity 1.030 and protein 3+ and glucose 1+, ketones negative, blood 2+, nitrites negative, bili negative, urobilinogen normal, leukocyte esterase negative, wbc 103, rbc 8, wbc clumps, bacteria rare. The MRSA screening is negative and sputum cultures are pending. CT of the head as of 03/13/2017, impression: Status post right temporoparietal craniotomy with moderate residual intraparenchymal hemorrhage identified at the right temporal lobe predominantly and minimally involving the inferior right parietal lobe. Local edema remains prominent exerting mass effect causing 15 mm leftward shift and effacement of the third and right lateral ventricles as well as the right cerebral sulci once again, mild to moderate right pneumocephaly identified postoperatively. Minimal right subdural hematoma again evident. Mild mass effect is exerted at the right cerebral peduncle with brainstem below this level unremarkable. Continued clinical and CT monitoring are advised. Creatinine as of 03/11/2017 of 2.4. As of 03/12/2017, creatinine 2.2. As of 03/13/2017, creatinine 4.6. As of 02/12/2013, creatinine is 1.3. Renal ultrasound as of 02/06/2017: Right kidney is 8.1 x 4.8 x 4.4 cm and multiple cysts, for example 3.8 x 3.2 x 2.9 cm lower pole cyst and 0.6 x 0.4 x cm probable mid pole cyst. Left kidney 8.2 x 4 x 4.2 cm. Previously demonstrated cortical defect appreciated in the mid left kidney indicating probable prior partial nephrectomy is not well assessed on submitted sonographic view. No obstructing calcification or hydronephrosis is identified. ASSESSMENT: In summary, Mrs. Watson is about 81 years old very elderly cachectic female with hypertension, hypothyroidism, chronic kidney disease, osteoporosis, was found in the closet with left-sided weakness and found to have a right-sided temporoparietal bleed with midline shift, status post craniotomy, on ventilator with worsening renal function. 1. Acute on chronic kidney disease secondary to intravascular depletion. 2. Intracranial bleed, status post right craniotomy with still midline shift and residual intracranial bleed as per the CT scan. 3. Respiratory failure. 4. Rule out urinary tract infection. PLAN: Continue IV antibiotics as per ID recommendations. Check urine lytes and osmolality. Continue IV fluids normal saline at 125 mL per hour. Discuss with channel marketing program manager, Dr. Bassem Cline. The overall prognosis is very poor. We will follow with you. If renal function continued to deteriorate, if the patient's conditions improve, we will consider hemodialysis. Check urine lytes, osmolality and urine creatinine and we will check FENa and urine cultures also. Thank you for allowing me to participate in your patient's care. Orlando Odom MD
--- NOTE | 2017-03-14 08:37 | RAD ---
Chest x-ray single frontal view History: Intubated. Comparison: 03/13/2017 Findings: Endotracheal tube extending into the midthoracic trachea. Biapical pleural thickening with upper lobe granulomatous changes. Hyperinflation suggestive for COPD and or emphysematous changes. Scattered nodular densities throughout both lung marcial. This may be better evaluated with chest CT. Calcification at the aortic knob. Degenerative changes in the spine and shoulders. Impression: Endotracheal tube extending into the midthoracic trachea. Biapical pleural thickening with upper lobe granulomatous changes. Hyperinflation suggestive for COPD and or emphysematous changes. Scattered nodular densities throughout both lung marcial. This may be better evaluated with chest CT. Calcification at the aortic knob.
[2017-03-14 09:05] LABS: ERYTHROCYTE SEDIMENTATION RATE 89 mm/hr (0-20)
--- NOTE | 2017-03-14 09:08 | CP.PCM.PN ---
Subjective - Date & Time of Evaluation Date of Evaluation: 03/14/17 Time of Evaluation: 09:08 - Subjective Subjective: pt is seen and examined, follow up consult is dictated #[id number] 1. kymberly on ckd, r/o ischemic ATN sec to relative hypotension and intravascular volume depletion change ivf to d5w with 3 amps hco3 in 1 lit at 70 ml/hr avoid hypotension Objective - Vital Signs/Intake and Output Vital Signs (last 24 hours): Temp Pulse Resp BP Pulse Ox 99.5 F 105 H 28 H 130/61 100 03/14/17 04:00 03/14/17 07:00 03/14/17 07:00 03/14/17 06:05 03/14/17 07:00 Intake and Output: 03/14/17 03/14/17 06:59 18:59 Intake Total 1503.8 127.4 Output Total 115 10 Balance 1388.8 117.4 - Medications Medications: Current Medications Calcium Acetate (Phoslo) 667 mg PO BIDCC [facility] Last Admin: 03/14/17 08:43 Dose: 667 mg Levothyroxine Sodium 25 mcg/ (Sodium Chloride) 2.5 mls @ 0 mls/hr IVP DAILY@ 0630 [facility] PRN Reason: UD Last Admin: 03/14/17 06:26 Dose: 1.25 mls/hr Propofol (Diprivan) 1,000 mg in 100 mls @ 1.189 mls/hr IV .Q24H PRN; Protocol; 5 MCG/KG/MIN PRN Reason: TITRATE PER MD ORDER Last Titration: 03/13/17 06:18 Dose: 10 mcg/kg/min, 2.379 mls/hr Cefepime HCl (Maxipime Iv 1 Gm Premix) 1 gm in 50 mls @ 100 mls/hr IVPB Q24H [facility] Last Admin: 03/13/17 10:29 Dose: 100 mls/hr Sodium Chloride (Sodium Chloride 0.9%) 1,000 mls @ 125 mls/hr IV .Q8H [facility] Last Admin: 03/14/17 04:38 Dose: 125 mls/hr Metronidazole (Flagyl) 500 mg in 100 mls @ 100 mls/hr IVPB Q12H [facility] Last Admin: 03/13/17 21:28 Dose: 100 mls/hr Insulin Human Regular (Novolin R) 0 unit SC Q6 [facility] PRN Reason: Protocol Last Admin: 03/14/17 06:27 Dose: Not Given Metoprolol Tartrate (Lopressor) 5 mg IVP Q6 [facility] Last Admin: 03/14/17 06:26 Dose: 5 mg Pantoprazole Sodium (Protonix Inj) 40 mg IVP DAILY [facility] Last Admin: 03/13/17 10:08 Dose: 40 mg - Labs Labs: 03/14/17 05:43 03/14/17 05:43 PT 10.2 SECONDS (9.7-12.2) 03/12/17 06:20 INR 0.9 03/12/17 06:20 APTT 27 SECONDS (21-34) 03/12/17 06:20
[2017-03-14] MEDS: metroNIDAZOLE IV 500 mg/100 ml 500 MG/100 ML BAG IVPB SCH ×2 (10:03→21:18)
[2017-03-14 10:07] LABS: CREATININE, RANDOM URINE 80.3 mg/dL
[2017-03-14] MEDS: Cefepime IV 1 gm in Dextrose 1 GM/50 ML BAG IVPB SCH (11:03)
--- NOTE | 2017-03-14 11:43 | CP.PCM.PN ---
Subjective - Date & Time of Evaluation Date of Evaluation: 03/14/17 Time of Evaluation: 11:41 - Subjective Subjective: POD 2 moving r side purposefully min L no eye opening command following off sedation wond clean p consider wean trial tmw prognosis poor Objective - Vital Signs/Intake and Output Vital Signs (last 24 hours): Temp Pulse Resp BP Pulse Ox 98.7 F 95 H 20 125/82 98 03/14/17 08:00 03/14/17 09:04 03/14/17 09:04 03/14/17 09:04 03/14/17 09:04 Intake and Output: 03/14/17 03/14/17 06:59 18:59 Intake Total 1503.8 504.8 Output Total 115 115 Balance 1388.8 389.8 - Medications Medications: Current Medications Calcium Acetate (Phoslo) 667 mg PO BIDCC [facility] Last Admin: 03/14/17 08:43 Dose: 667 mg Levothyroxine Sodium 25 mcg/ (Sodium Chloride) 2.5 mls @ 0 mls/hr IVP DAILY@ 0630 [facility] PRN Reason: UD Last Admin: 03/14/17 06:26 Dose: 1.25 mls/hr Propofol (Diprivan) 1,000 mg in 100 mls @ 1.189 mls/hr IV .Q24H PRN; Protocol; 5 MCG/KG/MIN PRN Reason: TITRATE PER MD ORDER Last Titration: 03/13/17 06:18 Dose: 10 mcg/kg/min, 2.379 mls/hr Cefepime HCl (Maxipime Iv 1 Gm Premix) 1 gm in 50 mls @ 100 mls/hr IVPB Q24H [facility] Last Admin: 03/14/17 11:03 Dose: 100 mls/hr Sodium Chloride (Sodium Chloride 0.9%) 1,000 mls @ 125 mls/hr IV .Q8H [facility] Last Admin: 03/14/17 04:38 Dose: 125 mls/hr Metronidazole (Flagyl) 500 mg in 100 mls @ 100 mls/hr IVPB Q12 [facility] Last Admin: 03/14/17 10:03 Dose: 100 mls/hr Insulin Human Regular (Novolin R) 0 unit SC Q6 [facility] PRN Reason: Protocol Last Admin: 03/14/17 06:27 Dose: Not Given Metoprolol Tartrate (Lopressor) 5 mg IVP Q6 [facility] Last Admin: 03/14/17 06:26 Dose: 5 mg Pantoprazole Sodium (Protonix Inj) 40 mg IVP DAILY [facility] Last Admin: 03/14/17 10:55 Dose: 40 mg - Labs Labs: 03/14/17 05:43 03/14/17 05:43 PT 10.2 SECONDS (9.7-12.2) 03/12/17 06:20 INR 0.9 03/12/17 06:20 APTT 27 SECONDS (21-34) 03/12/17 06:20
--- NOTE | 2017-03-14 11:48 | US ---
Renal ultrasound History: Worsening renal function. Comparison: None available. Technique: Real-time sonography was performed through the kidneys. Findings: Right kidney: 8.9 x 3.5 x 3.3 centimeters. Diminutive. Increased echogenicity of the renal parenchymal cortex suggestive for medical renal disease. Upper pole hypoechoic cyst measuring 3.4 x 2.9 x 3.0 centimeters with associated internal septation. No calculi or hydronephrosis. Left Kidney: 8.1 x 3.2 x 3.5 centimeters. Diminutive. Increased echogenicity of the renal parenchymal cortex suggestive for medical renal disease. Upper pole hypoechoic cyst measuring 1.4 x 1.6 x 1.3 centimeters. Upper pole hypoechoic cyst measuring 2.5 x 1.8 x 2.0 centimeters with associated internal septation. Lower pole hypoechoic cyst measuring 0.8 x 1.1 x 1.3 centimeters with associated septation and prominent peripheral nodular echogenic calcification. Forbes catheter in the visualized urinary bladder. Visualized aorta is grossly preserved with some atherosclerotic calcification and plaque noted within the aorta. Impression: Diminutive bilateral kidneys with increased echogenicity of the bilateral renal parenchymal cortices suggestive for medical renal disease. Bilateral renal cysts as described above.
[2017-03-14] MEDS ORDERED: Bacitracin 500 Units/gm Oint Foilpak UD TOP ONE (12:03)
--- NOTE | 2017-03-14 13:52 | CP.PCM.PN ---
Subjective - Date & Time of Evaluation Date of Evaluation: 03/14/17 Time of Evaluation: 13:50 - Subjective Subjective: PT REMAINS INTUBATED WITH LEFT HEMPLEGIA CR IS RISING TO 6.1 WBC UP ID/RENAL ON BOARD NEURO : NO IMPROVEMENT CONT ICU MANAGEMENT Objective - Vital Signs/Intake and Output Vital Signs (last 24 hours): Temp Pulse Resp BP Pulse Ox 98.5 F 112 H 21 126/69 96 03/14/17 12:00 03/14/17 12:04 03/14/17 12:04 03/14/17 12:04 03/14/17 12:04 Intake and Output: 03/14/17 03/14/17 11:59 23:59 Intake Total 1496.6 110 Output Total 220 40 Balance 1276.6 70 - Medications Medications: Current Medications Calcium Acetate (Phoslo) 667 mg PO BIDCC [facility] Last Admin: 03/14/17 08:43 Dose: 667 mg Levothyroxine Sodium 25 mcg/ (Sodium Chloride) 2.5 mls @ 0 mls/hr IVP DAILY@ 0630 [facility] PRN Reason: UD Last Admin: 03/14/17 06:26 Dose: 1.25 mls/hr Propofol (Diprivan) 1,000 mg in 100 mls @ 1.189 mls/hr IV .Q24H PRN; Protocol; 5 MCG/KG/MIN PRN Reason: TITRATE PER MD ORDER Last Titration: 03/13/17 06:18 Dose: 10 mcg/kg/min, 2.379 mls/hr Cefepime HCl (Maxipime Iv 1 Gm Premix) 1 gm in 50 mls @ 100 mls/hr IVPB Q24H [facility] Last Admin: 03/14/17 11:03 Dose: 100 mls/hr Sodium Chloride (Sodium Chloride 0.9%) 1,000 mls @ 125 mls/hr IV .Q8H [facility] Last Admin: 03/14/17 04:38 Dose: 125 mls/hr Metronidazole (Flagyl) 500 mg in 100 mls @ 100 mls/hr IVPB Q12 [facility] Last Admin: 03/14/17 10:03 Dose: 100 mls/hr Insulin Human Regular (Novolin R) 0 unit SC Q6 [facility] PRN Reason: Protocol Last Admin: 03/14/17 12:15 Dose: 1 unit Metoprolol Tartrate (Lopressor) 5 mg IVP Q6 [facility] Last Admin: 03/14/17 12:14 Dose: 5 mg Pantoprazole Sodium (Protonix Inj) 40 mg IVP DAILY [facility] Last Admin: 03/14/17 10:55 Dose: 40 mg - Labs Labs: 03/14/17 05:43 03/14/17 05:43 PT 10.2 SECONDS (9.7-12.2) 03/12/17 06:20 INR 0.9 03/12/17 06:20 APTT 27 SECONDS (21-34) 03/12/17 06:20 Assessment and Plan (1) Intracranial hemorrhage Status: Acute (2) Renal failure Status: Acute (3) Sepsis Status: Acute
[2017-03-14] MEDS ORDERED: Acetaminophen 160 mg/5 ml UD PO PRN (15:51)
--- NOTE | 2017-03-14 16:00 | CP.CCUPN ---
<Rosaura Paz - Last Filed: 03/14/17 18:26> CCU Subjective - Physician Review Subjective (Free Text): Patient seen and examined at bedside. Patient intubated this am and therefore ROS unobtainable. POD#2 s/p right parietal craniotomy, subtotal evacuation of hematoma. CCU Objective - Vital Signs / Intake & Output Vital Signs (Last 4 hours): Vital Signs Temp Pulse Resp BP Pulse Ox 03/14/17 12:04 112 H 21 126/69 96 03/14/17 12:00 98.5 F Intake and Output (Last 8hrs): Intake & Output 03/14/17 03/14/17 03/14/17 06:59 14:59 22:59 Intake Total 1019.2 714.8 Output Total 90 175 Balance 929.2 539.8 Weight 87 lb 6.4 oz Intake: Intake, IV Amount 1019.2 714.8 Right Distal Port Forearm 1000 710 Right Forearm 19.2 4.8 Output: Urine 90 175 Urethral (Forbes) 90 175 Other: # Bowel Movements 1 - Physical Exam Head: Positive for: Normocephalic, Other (dressing in place post craniotomy ) Pupils: Positive for: Sluggish Mouth: Positive for: Dry Respiratory/Chest: Positive for: Good Air Exchange Cardiovascular: Positive for: Normal S1, S2 Lower Extremity: Positive for: Edema Skin: Positive for: Warm Psychiatric: Negative for: Alert, Oriented x 3 - Medications Active Medications: Active Medications Generic Name Dose Route Start Last Admin Trade Name Freq PRN Reason Stop Dose Admin Acetaminophen 160 mg 03/14/17 15:51 Tylenol 160mg/5ml Oral Soln PO Q4H PRN Pain, moderate (4-7) Calcium Acetate 667 mg 03/14/17 08:00 03/14/17 08:43 Phoslo PO 667 mg BIDCC HALLE Administration Levothyroxine Sodium 25 mcg/ 2.5 mls @ 0 mls/hr 03/12/17 06:30 03/14/17 06:26 Sodium Chloride IVP 1.25 mls/hr DAILY@0630 HALLE Administration UD Propofol 1,000 mg in 100 mls @ 1.189 mls/hr 03/12/17 08:24 03/13/17 06:18 Diprivan IV 10 mcg/kg/min .Q24H PRN 2.379 mls/hr TITRATE PER MD ORDER Titration Protocol 5 MCG/KG/MIN Cefepime HCl 1 gm in 50 mls @ 100 mls/hr 03/13/17 10:30 03/14/17 11:03 Maxipime Iv 1 Gm Premix IVPB 100 mls/hr Q24H HALLE Administration Sodium Chloride 1,000 mls @ 125 mls/hr 03/13/17 09:30 03/14/17 14:05 Sodium Chloride 0.9% IV 125 mls/hr .Q8H HALLE Administration Metronidazole 500 mg in 100 mls @ 100 mls/hr 03/14/17 10:00 03/14/17 10:03 Flagyl IVPB 100 mls/hr Q12 HALLE Administration Insulin Human Regular 0 unit 03/12/17 12:00 03/14/17 12:15 Novolin R SC 1 unit Q6 HALLE Administration Protocol Metoprolol Tartrate 5 mg 03/12/17 12:00 03/14/17 12:14 Lopressor IVP 5 mg Q6 HALLE Administration Pantoprazole Sodium 40 mg 03/12/17 10:00 03/14/17 10:55 Protonix Inj IVP 40 mg DAILY HALLE Administration - Patient Studies Lab Studies: Microbiology Studies 03/13/17 09:30 Blood Culture - Preliminary Blood-Venous NO GROWTH AFTER 24 HOURS 03/13/17 09:00 Blood Culture - Preliminary Blood-Venous NO GROWTH AFTER 24 HOURS 03/13/17 11:30 Gram Stain - Final Trachasp Sputum Culture - Preliminary Gram Negative Aaron 03/12/17 00:34 MRSA Culture (Admit) - Final Naris MRSA NOT DETECTED Lab Studies 03/14/17 03/14/17 03/14/17 Range/Units 12:02 09:47 05:54 WBC (4.8-10.8) K/uL RBC (3.80-5.20) Mil/uL Hgb (11.0-16.0) g/dL Hct (34.0-47.0) % MCV (81.0-99.0) fL MCH (27.0-31.0) pg MCHC (33.0-37.0) g/dL RDW (11.5-14.5) % Plt Count (130-400) K/uL MPV (7.2-11.7) fL Neut % (Auto) (50.0-75.0) % Lymph % (Auto) (20.0-40.0) % Burt % (Auto) (0.0-10.0) % Eos % (Auto) (0.0-4.0) % Baso % (Auto) (0.0-2.0) % Neut # (1.8-7.0) K/uL Lymph # (1.0-4.3) K/uL Burt # (0.0-0.8) K/uL Eos # (0.0-0.7) K/uL Baso # (0.0-0.2) K/uL Neutrophils % (Manual) (50-75) % Band Neutrophils % (0-2) % Lymphocytes % (Manual) (20-40) % Monocytes % (Manual) (0-10) % Platelet Estimate (NORMAL) Poikilocytosis (manual Anisocytosis (manual) Macrocytosis (manual) ESR (0-20) mm/hr Puncture Site Rb pCO2 22 L (35-45) mm/Hg pO2 153 H (80-100) mm/Hg HCO3 14.8 L (21-28) mmol/L ABG pH 7.31 L (7.35-7.45) ABG Total CO2 11.8 L (22-28) mmol/L ABG O2 Saturation 98.3 H (95-98) % ABG Base Excess -13.1 L (-2.0-3.0) mmol/L Jean Test Na ABG Potassium 4.3 (3.6-5.2) mmol/L A-a O2 Difference 105.0 mm/Hg Respiratory Index 0.7 Glucose 140 H (65-105) mg/dl Lactate 1.3 (0.7-2.1) mmol/L Vent Mode Prvc Mechanical Rate 20 FiO2 40.0 % Tidal Volume 450 PEEP 5 Sodium 144.0 (132-148) mmol/L Potassium (3.6-5.2) mmol/L Chloride 114.0 H (98-107) mmol/L Carbon Dioxide (22-30) mmol/L Anion Gap (10-20) BUN (7-17) mg/dL Creatinine (0.7-1.2) mg/dL Est GFR ( Amer) Est GFR (Non-Af Amer) POC Glucose (mg/dL) 173 H (65-110) mg/dL Random Glucose (65-105) mg/dL Lactic Acid (0.7-2.1) mmol/L Calcium (8.6-10.4) mg/dl Phosphorus (2.5-4.5) mg/dL Magnesium (1.6-2.3) mg/dL Total Bilirubin (0.2-1.3) mg/dL Direct Bilirubin (0.0-0.4) mg/dL AST (14-36) U/L ALT (9-52) U/L Alkaline Phosphatase (38-126) U/L Total Creatine Kinase (30-135) U/L C-React Prot High Sens (1.00-3.00) mg/L Total Protein (6.3-8.3) g/dL Albumin (3.5-5.0) g/dL Globulin (2.2-3.9) gm/dL Albumin/Globulin Ratio (1.0-2.1) Arterial Blood Potassium 4.3 (3.6-5.2) mmol/L Urine Osmolality 373 (300-1000) mosm/kg Ur Random Creatinine 80.3 mg/dL Ur Random Sodium 6 mmol/L Random Vancomycin ug/mL 03/14/17 03/14/17 03/14/17 Range/Units 05:43 05:43 05:43 WBC (4.8-10.8) K/uL RBC (3.80-5.20) Mil/uL Hgb (11.0-16.0) g/dL Hct (34.0-47.0) % MCV (81.0-99.0) fL MCH (27.0-31.0) pg MCHC (33.0-37.0) g/dL RDW (11.5-14.5) % Plt Count (130-400) K/uL MPV (7.2-11.7) fL Neut % (Auto) (50.0-75.0) % Lymph % (Auto) (20.0-40.0) % Burt % (Auto) (0.0-10.0) % Eos % (Auto) (0.0-4.0) % Baso % (Auto) (0.0-2.0) % Neut # (1.8-7.0) K/uL Lymph # (1.0-4.3) K/uL Burt # (0.0-0.8) K/uL Eos # (0.0-0.7) K/uL Baso # (0.0-0.2) K/uL Neutrophils % (Manual) (50-75) % Band Neutrophils % (0-2) % Lymphocytes % (Manual) (20-40) % Monocytes % (Manual) (0-10) % Platelet Estimate (NORMAL) Poikilocytosis (manual Anisocytosis (manual) Macrocytosis (manual) ESR (0-20) mm/hr Puncture Site pCO2 (35-45) mm/Hg pO2 (80-100) mm/Hg HCO3 (21-28) mmol/L ABG pH (7.35-7.45) ABG Total CO2 (22-28) mmol/L ABG O2 Saturation (95-98) % ABG Base Excess (-2.0-3.0) mmol/L Jean Test ABG Potassium (3.6-5.2) mmol/L A-a O2 Difference mm/Hg Respiratory Index Glucose (65-105) mg/dl Lactate (0.7-2.1) mmol/L Vent Mode Mechanical Rate FiO2 % Tidal Volume PEEP Sodium (132-148) mmol/L Potassium (3.6-5.2) mmol/L Chloride (98-107) mmol/L Carbon Dioxide (22-30) mmol/L Anion Gap (10-20) BUN (7-17) mg/dL Creatinine (0.7-1.2) mg/dL Est GFR ( Amer) Est GFR (Non-Af Amer) POC Glucose (mg/dL) (65-110) mg/dL Random Glucose (65-105) mg/dL Lactic Acid 1.4 (0.7-2.1) mmol/L Calcium (8.6-10.4) mg/dl Phosphorus (2.5-4.5) mg/dL Magnesium (1.6-2.3) mg/dL Total Bilirubin (0.2-1.3) mg/dL Direct Bilirubin (0.0-0.4) mg/dL AST (14-36) U/L ALT (9-52) U/L Alkaline Phosphatase (38-126) U/L Total Creatine Kinase (30-135) U/L C-React Prot High Sens > 15.00 H (1.00-3.00) mg/L Total Protein (6.3-8.3) g/dL Albumin (3.5-5.0) g/dL Globulin (2.2-3.9) gm/dL Albumin/Globulin Ratio (1.0-2.1) Arterial Blood Potassium (3.6-5.2) mmol/L Urine Osmolality (300-1000) mosm/kg Ur Random Creatinine mg/dL Ur Random Sodium mmol/L Random Vancomycin 17.48 ug/mL 03/14/17 03/14/17 03/14/17 Range/Units 05:43 05:43 05:18 WBC 32.5 H (4.8-10.8) K/uL RBC 3.08 L (3.80-5.20) Mil/uL Hgb 9.8 L (11.0-16.0) g/dL Hct 31.9 L (34.0-47.0) % MCV 103.8 H D (81.0-99.0) fL MCH 31.7 H (27.0-31.0) pg MCHC 30.6 L (33.0-37.0) g/dL RDW 17.1 H (11.5-14.5) % Plt Count 211 (130-400) K/uL MPV 10.9 (7.2-11.7) fL Neut % (Auto) 92.5 H (50.0-75.0) % Lymph % (Auto) 2.3 L (20.0-40.0) % Burt % (Auto) 5.0 (0.0-10.0) % Eos % (Auto) 0.0 (0.0-4.0) % Baso % (Auto) 0.2 (0.0-2.0) % Neut # 30.0 H (1.8-7.0) K/uL Lymph # 0.7 L (1.0-4.3) K/uL Burt # 1.6 H (0.0-0.8) K/uL Eos # 0.0 (0.0-0.7) K/uL Baso # 0.1 (0.0-0.2) K/uL Neutrophils % (Manual) 94 H (50-75) % Band Neutrophils % 1 (0-2) % Lymphocytes % (Manual) 3 L (20-40) % Monocytes % (Manual) 2 (0-10) % Platelet Estimate Normal (NORMAL) Poikilocytosis (manual Slight Anisocytosis (manual) Slight Macrocytosis (manual) Moderate ESR 89 H (0-20) mm/hr Puncture Site pCO2 (35-45) mm/Hg pO2 (80-100) mm/Hg HCO3 (21-28) mmol/L ABG pH (7.35-7.45) ABG Total CO2 (22-28) mmol/L ABG O2 Saturation (95-98) % ABG Base Excess (-2.0-3.0) mmol/L Jean Test ABG Potassium (3.6-5.2) mmol/L A-a O2 Difference mm/Hg Respiratory Index Glucose (65-105) mg/dl Lactate (0.7-2.1) mmol/L Vent Mode Mechanical Rate FiO2 % Tidal Volume PEEP Sodium 142 (132-148) mmol/L Potassium 4.1 (3.6-5.2) mmol/L Chloride 116 H (98-107) mmol/L Carbon Dioxide 12 L (22-30) mmol/L Anion Gap 18 (10-20) BUN 77 H (7-17) mg/dL Creatinine 6.1 H (0.7-1.2) mg/dL Est GFR ( Amer) 8 Est GFR (Non-Af Amer) 7 POC Glucose (mg/dL) 128 H (65-110) mg/dL Random Glucose 120 H (65-105) mg/dL Lactic Acid (0.7-2.1) mmol/L Calcium 7.4 L (8.6-10.4) mg/dl Phosphorus 5.4 H (2.5-4.5) mg/dL Magnesium 2.2 (1.6-2.3) mg/dL Total Bilirubin 0.7 (0.2-1.3) mg/dL Direct Bilirubin 0.6 H (0.0-0.4) mg/dL AST 44 H (14-36) U/L ALT 59 H (9-52) U/L Alkaline Phosphatase 125 (38-126) U/L Total Creatine Kinase 174 H (30-135) U/L C-React Prot High Sens (1.00-3.00) mg/L Total Protein 6.0 L (6.3-8.3) g/dL Albumin 2.7 L (3.5-5.0) g/dL Globulin 3.2 (2.2-3.9) gm/dL Albumin/Globulin Ratio 0.8 L (1.0-2.1) Arterial Blood Potassium (3.6-5.2) mmol/L Urine Osmolality (300-1000) mosm/kg Ur Random Creatinine mg/dL Ur Random Sodium mmol/L Random Vancomycin ug/mL 03/14/17 03/13/17 Range/Units 00:05 17:51 WBC (4.8-10.8) K/uL RBC (3.80-5.20) Mil/uL Hgb (11.0-16.0) g/dL Hct (34.0-47.0) % MCV (81.0-99.0) fL MCH (27.0-31.0) pg MCHC (33.0-37.0) g/dL RDW (11.5-14.5) % Plt Count (130-400) K/uL MPV (7.2-11.7) fL Neut % (Auto) (50.0-75.0) % Lymph % (Auto) (20.0-40.0) % Burt % (Auto) (0.0-10.0) % Eos % (Auto) (0.0-4.0) % Baso % (Auto) (0.0-2.0) % Neut # (1.8-7.0) K/uL Lymph # (1.0-4.3) K/uL Burt # (0.0-0.8) K/uL Eos # (0.0-0.7) K/uL Baso # (0.0-0.2) K/uL Neutrophils % (Manual) (50-75) % Band Neutrophils % (0-2) % Lymphocytes % (Manual) (20-40) % Monocytes % (Manual) (0-10) % Platelet Estimate (NORMAL) Poikilocytosis (manual Anisocytosis (manual) Macrocytosis (manual) ESR (0-20) mm/hr Puncture Site pCO2 (35-45) mm/Hg pO2 (80-100) mm/Hg HCO3 (21-28) mmol/L ABG pH (7.35-7.45) ABG Total CO2 (22-28) mmol/L ABG O2 Saturation (95-98) % ABG Base Excess (-2.0-3.0) mmol/L Jean Test ABG Potassium (3.6-5.2) mmol/L A-a O2 Difference mm/Hg Respiratory Index Glucose (65-105) mg/dl Lactate (0.7-2.1) mmol/L Vent Mode Mechanical Rate FiO2 % Tidal Volume PEEP Sodium (132-148) mmol/L Potassium (3.6-5.2) mmol/L Chloride (98-107) mmol/L Carbon Dioxide (22-30) mmol/L Anion Gap (10-20) BUN (7-17) mg/dL Creatinine (0.7-1.2) mg/dL Est GFR ( Amer) Est GFR (Non-Af Amer) POC Glucose (mg/dL) 125 H 134 H (65-110) mg/dL Random Glucose (65-105) mg/dL Lactic Acid (0.7-2.1) mmol/L Calcium (8.6-10.4) mg/dl Phosphorus (2.5-4.5) mg/dL Magnesium (1.6-2.3) mg/dL Total Bilirubin (0.2-1.3) mg/dL Direct Bilirubin (0.0-0.4) mg/dL AST (14-36) U/L ALT (9-52) U/L Alkaline Phosphatase (38-126) U/L Total Creatine Kinase (30-135) U/L C-React Prot High Sens (1.00-3.00) mg/L Total Protein (6.3-8.3) g/dL Albumin (3.5-5.0) g/dL Globulin (2.2-3.9) gm/dL Albumin/Globulin Ratio (1.0-2.1) Arterial Blood Potassium (3.6-5.2) mmol/L Urine Osmolality (300-1000) mosm/kg Ur Random Creatinine mg/dL Ur Random Sodium mmol/L Random Vancomycin ug/mL Laboratory Results - last 24 hr 03/13/17 03/14/17 03/14/17 17:51 00:05 05:18 WBC RBC Hgb Hct MCV MCH MCHC RDW Plt Count MPV Neut % (Auto) Lymph % (Auto) Burt % (Auto) Eos % (Auto) Baso % (Auto) Neut # Lymph # Burt # Eos # Baso # Neutrophils % (Manual) Band Neutrophils % Lymphocytes % (Manual) Monocytes % (Manual) Platelet Estimate Poikilocytosis (manual Anisocytosis (manual) Macrocytosis (manual) ESR Puncture Site pCO2 pO2 HCO3 ABG pH ABG Total CO2 ABG O2 Saturation ABG Base Excess Jean Test ABG Potassium A-a O2 Difference Respiratory Index Glucose Lactate Vent Mode Mechanical Rate FiO2 Tidal Volume PEEP Sodium Potassium Chloride Carbon Dioxide Anion Gap BUN Creatinine Est GFR ( Amer) Est GFR (Non-Af Amer) POC Glucose (mg/dL) 134 H 125 H 128 H Random Glucose Lactic Acid Calcium Phosphorus Magnesium Total Bilirubin Direct Bilirubin AST ALT Alkaline Phosphatase Total Creatine Kinase C-React Prot High Sens Total Protein Albumin Globulin Albumin/Globulin Ratio Arterial Blood Potassium Urine Osmolality Ur Random Creatinine Ur Random Sodium Random Vancomycin 03/14/17 03/14/17 03/14/17 05:43 05:43 05:43 WBC 32.5 H RBC 3.08 L Hgb 9.8 L Hct 31.9 L MCV 103.8 H D MCH 31.7 H MCHC 30.6 L RDW 17.1 H Plt Count 211 MPV 10.9 Neut % (Auto) 92.5 H Lymph % (Auto) 2.3 L Burt % (Auto) 5.0 Eos % (Auto) 0.0 Baso % (Auto) 0.2 Neut # 30.0 H Lymph # 0.7 L Burt # 1.6 H Eos # 0.0 Baso # 0.1 Neutrophils % (Manual) 94 H Band Neutrophils % 1 Lymphocytes % (Manual) 3 L Monocytes % (Manual) 2 Platelet Estimate Normal Poikilocytosis (manual Slight Anisocytosis (manual) Slight Macrocytosis (manual) Moderate ESR 89 H Puncture Site pCO2 pO2 HCO3 ABG pH ABG Total CO2 ABG O2 Saturation ABG Base Excess Jena Test ABG Potassium A-a O2 Difference Respiratory Index Glucose Lactate Vent Mode Mechanical Rate FiO2 Tidal Volume PEEP Sodium 142 Potassium 4.1 Chloride 116 H Carbon Dioxide 12 L Anion Gap 18 BUN 77 H Creatinine 6.1 H Est GFR ( Amer) 8 Est GFR (Non-Af Amer) 7 POC Glucose (mg/dL) Random Glucose 120 H Lactic Acid Calcium 7.4 L Phosphorus 5.4 H Magnesium 2.2 Total Bilirubin 0.7 Direct Bilirubin 0.6 H AST 44 H ALT 59 H Alkaline Phosphatase 125 Total Creatine Kinase 174 H C-React Prot High Sens Total Protein 6.0 L Albumin 2.7 L Globulin 3.2 Albumin/Globulin Ratio 0.8 L Arterial Blood Potassium Urine Osmolality Ur Random Creatinine Ur Random Sodium Random Vancomycin 17.48 03/14/17 03/14/17 03/14/17 05:43 05:43 05:54 WBC RBC Hgb Hct MCV MCH MCHC RDW Plt Count MPV Neut % (Auto) Lymph % (Auto) Burt % (Auto) Eos % (Auto) Baso % (Auto) Neut # Lymph # Burt # Eos # Baso # Neutrophils % (Manual) Band Neutrophils % Lymphocytes % (Manual) Monocytes % (Manual) Platelet Estimate Poikilocytosis (manual Anisocytosis (manual) Macrocytosis (manual) ESR Puncture Site Rb pCO2 22 L pO2 153 H HCO3 14.8 L ABG pH 7.31 L ABG Total CO2 11.8 L ABG O2 Saturation 98.3 H ABG Base Excess -13.1 L Jean Test Na ABG Potassium 4.3 A-a O2 Difference 105.0 Respiratory Index 0.7 Glucose 140 H Lactate 1.3 Vent Mode Prvc Mechanical Rate 20 FiO2 40.0 Tidal Volume 450 PEEP 5 Sodium 144.0 Potassium Chloride 114.0 H Carbon Dioxide Anion Gap BUN Creatinine Est GFR ( Amer) Est GFR (Non-Af Amer) POC Glucose (mg/dL) Random Glucose Lactic Acid 1.4 Calcium Phosphorus Magnesium Total Bilirubin Direct Bilirubin AST ALT Alkaline Phosphatase Total Creatine Kinase C-React Prot High Sens > 15.00 H Total Protein Albumin Globulin Albumin/Globulin Ratio Arterial Blood Potassium 4.3 Urine Osmolality Ur Random Creatinine Ur Random Sodium Random Vancomycin 03/14/17 03/14/17 09:47 12:02 WBC RBC Hgb Hct MCV MCH MCHC RDW Plt Count MPV Neut % (Auto) Lymph % (Auto) Burt % (Auto) Eos % (Auto) Baso % (Auto) Neut # Lymph # Burt # Eos # Baso # Neutrophils % (Manual) Band Neutrophils % Lymphocytes % (Manual) Monocytes % (Manual) Platelet Estimate Poikilocytosis (manual Anisocytosis (manual) Macrocytosis (manual) ESR Puncture Site pCO2 pO2 HCO3 ABG pH ABG Total CO2 ABG O2 Saturation ABG Base Excess Jean Test ABG Potassium A-a O2 Difference Respiratory Index Glucose Lactate Vent Mode Mechanical Rate FiO2 Tidal Volume PEEP Sodium Potassium Chloride Carbon Dioxide Anion Gap BUN Creatinine Est GFR ( Amer) Est GFR (Non-Af Amer) POC Glucose (mg/dL) 173 H Random Glucose Lactic Acid Calcium Phosphorus Magnesium Total Bilirubin Direct Bilirubin AST ALT Alkaline Phosphatase Total Creatine Kinase C-React Prot High Sens Total Protein Albumin Globulin Albumin/Globulin Ratio Arterial Blood Potassium Urine Osmolality 373 Ur Random Creatinine 80.3 Ur Random Sodium 6 Random Vancomycin Fingerstick Blood Sugar Results: 173 Review of Systems - Review of Systems Systems not reviewed;Unavailable: Intubated Critical Care Progress Note - Nutrition Nutrition: Nutrition Category Date Time Status NPO Diet [DIET] Diets 03/11/ Dinner Active Assessment/Plan - Assessment and Plan (Free Text) Assessment: 81 years old female who lives alone, with hx of Pancreatic Cancer, CKD and DM, brought awake and with left side weakness to the ED by EMS, after being found on the floor in her closet. The Head CT showing a large intracranial bleed with a midline shift to the left. Patient intubated. POD#2 s/p right parietal craniotomy, subtotal evacuation of hematoma. Neuro: intracranial bleed, POD#2 s/p right parietal craniotomy, subtotal evacuation of hematoma Head CT (03/11): large right temporoparietal parenchymal hemorrhage with white matter vasogenic edema, mass effect and 12 mm midline shift to left, associated subarachnoid and subdural hemorrhage on the right Head CT (03/12): slight increase in size of right temporoparietal occipital acute hemorrhage. Minimal subarachnoid hemorrhage and subdural hemorrhage as on previous exam. Midline shift towards the left slightly increase from prior examination, 11mm. No evidence of downward herniation. 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 Dr. Torres, neurology consulted Propofol for intubation left dense paralysis Dr. Mckee (neurosurg) performed right parietal craniotomy evacuation of hematoma yesterday Head CT (03/13): s/p right temporoparietal craniotomy with moderate residual intraparenchymal hemorrhage identified at the right temporal lobe predominantly and minimally involving the inferior right parietal lobe. Local edema remains prominent exerting mass effect causing 15mm leftward shift and effacement of the 3rd and right lateral ventricles as well as the right cerebral sulci. Mild to moderate right pneumocephaly identified. Minimal right subdural hematoma. Mild mass effect exerted at the right cerebral peduncle with the brainstem below this level unremarkable As per Dr. Allen, these are expected post op findings Cardio: htn Metoprolol 5mg ivp q6h Pulm: intubated Cxray: 03/14/17: endotracheal tube extending into the midthoracic trachea. Biapical pleural thickening with upper lobe Endo: hx DMII, hypothyroidism accuchecks HgA1C: 6.3 Lipid panel: Triglycerides; 102, cholesterol 143, LDL 57, HDL 76 R ISS Synthroid 25mcg Renal: PAXTON on CKD BUN/ Cr: increased to 77/6.1 from 56/4.6 Dr. Odom consulted, help appreciated -changed ivf to D5W with 3amp bicarb @ 70 cc/ hr as per Dr. Odom Phos 5.4, phoslo started Renal u/s: diminutive bilateral kidneys with increased echogenicity of the bilateral renal parenchymal cortices suggestive for medical renal disease. Bilateral renal disease Heme: Hx pancreatic cancer ID: bands increased to 16, wbc 32.4 -blood cultures negative -sputum culture: gram negative aaron -f/u urine culture -Cefepime 1gm q24h -Metronidazole 500mg q12 -Lactate: 2 -Dr. Torres consulted, help appreciated Prophylaxis: DVT: SCDs, contraindication to chemical prophylaxis due to intracranial bleed GI: Protonix 40 mg daily D5W with 3amp bicarb @ 70 cc/ hr <Troy Zimmerman M - Last Filed: 03/14/17 18:50> CCU Objective - Vital Signs / Intake & Output Vital Signs (Last 4 hours): Vital Signs Pulse Resp BP Pulse Ox 03/14/17 16:05 99 H 22 138/72 03/14/17 15:04 99 H 20 115/61 98 Intake and Output (Last 8hrs): Intake & Output 03/14/17 03/14/17 03/14/17 06:59 14:59 22:59 Intake Total 1019.2 964.8 250 Output Total 90 250 80 Balance 929.2 714.8 170 Weight 87 lb 6.4 oz Intake: Intake, IV Amount 1019.2 964.8 250 Right Distal Port Forearm 1000 960 250 Right Forearm 19.2 4.8 Output: Urine 90 250 80 Urethral (Forbes) 90 250 80 Other: # Bowel Movements 1 - Medications Active Medications: Active Medications Generic Name Dose Route Start Last Admin Trade Name Freq PRN Reason Stop Dose Admin Acetaminophen 650 mg 03/14/17 17:15 03/14/17 17:23 Tylenol 650mg/20.3ml Solution Ud PO 650 mg Q4 PRN Administration Pain, moderate (4-7) Calcium Acetate 667 mg 03/14/17 08:00 03/14/17 18:34 Phoslo PO 667 mg BIDCC HALLE Administration Levothyroxine Sodium 25 mcg/ 2.5 mls @ 0 mls/hr 03/12/17 06:30 03/14/17 06:26 Sodium Chloride IVP 1.25 mls/hr DAILY@0630 HALLE Administration UD Propofol 1,000 mg in 100 mls @ 1.189 mls/hr 03/12/17 08:24 03/13/17 06:18 Diprivan IV 10 mcg/kg/min .Q24H PRN 2.379 mls/hr TITRATE PER MD ORDER Titration Protocol 5 MCG/KG/MIN Cefepime HCl 1 gm in 50 mls @ 100 mls/hr 03/13/17 10:30 03/14/17 11:03 Maxipime Iv 1 Gm Premix IVPB 100 mls/hr Q24H HALLE Administration Metronidazole 500 mg in 100 mls @ 100 mls/hr 03/14/17 10:00 03/14/17 10:03 Flagyl IVPB 100 mls/hr Q12 HALLE Administration Sodium Bicarbonate 150 meq/ 1,000 mls @ 70 mls/hr 03/14/17 19:30 Dextrose IV .[id number] HALLE Insulin Human Regular 0 unit 03/12/17 12:00 03/14/17 18:35 Novolin R SC 1 unit Q6 HALLE Administration Protocol Metoprolol Tartrate 5 mg 03/12/17 12:00 03/14/17 18:36 Lopressor IVP 5 mg Q6 HALLE Administration Pantoprazole Sodium 40 mg 03/12/17 10:00 03/14/17 10:55 Protonix Inj IVP 40 mg DAILY HALLE Administration - Patient Studies Lab Studies: Microbiology Studies 03/13/17 09:30 Blood Culture - Preliminary Blood-Venous NO GROWTH AFTER 24 HOURS 03/13/17 09:00 Blood Culture - Preliminary Blood-Venous NO GROWTH AFTER 24 HOURS 03/13/17 11:30 Gram Stain - Final Trachasp Sputum Culture - Preliminary Gram Negative Aaron 03/12/17 00:34 MRSA Culture (Admit) - Final Naris MRSA NOT DETECTED Lab Studies 03/14/17 03/14/17 03/14/17 Range/Units 17:35 12:02 09:47 WBC (4.8-10.8) K/uL RBC (3.80-5.20) Mil/uL Hgb (11.0-16.0) g/dL Hct (34.0-47.0) % MCV (81.0-99.0) fL MCH (27.0-31.0) pg MCHC (33.0-37.0) g/dL RDW (11.5-14.5) % Plt Count (130-400) K/uL MPV (7.2-11.7) fL Neut % (Auto) (50.0-75.0) % Lymph % (Auto) (20.0-40.0) % Burt % (Auto) (0.0-10.0) % Eos % (Auto) (0.0-4.0) % Baso % (Auto) (0.0-2.0) % Neut # (1.8-7.0) K/uL Lymph # (1.0-4.3) K/uL Burt # (0.0-0.8) K/uL Eos # (0.0-0.7) K/uL Baso # (0.0-0.2) K/uL Neutrophils % (Manual) (50-75) % Band Neutrophils % (0-2) % Lymphocytes % (Manual) (20-40) % Monocytes % (Manual) (0-10) % Platelet Estimate (NORMAL) Poikilocytosis (manual Anisocytosis (manual) Macrocytosis (manual) ESR (0-20) mm/hr Puncture Site pCO2 (35-45) mm/Hg pO2 (80-100) mm/Hg HCO3 (21-28) mmol/L ABG pH (7.35-7.45) ABG Total CO2 (22-28) mmol/L ABG O2 Saturation (95-98) % ABG Base Excess (-2.0-3.0) mmol/L Jean Test ABG Potassium (3.6-5.2) mmol/L A-a O2 Difference mm/Hg Respiratory Index Glucose (65-105) mg/dl Lactate (0.7-2.1) mmol/L Vent Mode Mechanical Rate FiO2 % Tidal Volume PEEP Sodium (132-148) mmol/L Potassium (3.6-5.2) mmol/L Chloride (98-107) mmol/L Carbon Dioxide (22-30) mmol/L Anion Gap (10-20) BUN (7-17) mg/dL Creatinine (0.7-1.2) mg/dL Est GFR ( Amer) Est GFR (Non-Af Amer) POC Glucose (mg/dL) 166 H 173 H (65-110) mg/dL Random Glucose (65-105) mg/dL Lactic Acid (0.7-2.1) mmol/L Calcium (8.6-10.4) mg/dl Phosphorus (2.5-4.5) mg/dL Magnesium (1.6-2.3) mg/dL Total Bilirubin (0.2-1.3) mg/dL Direct Bilirubin (0.0-0.4) mg/dL AST (14-36) U/L ALT (9-52) U/L Alkaline Phosphatase (38-126) U/L Total Creatine Kinase (30-135) U/L C-React Prot High Sens (1.00-3.00) mg/L Total Protein (6.3-8.3) g/dL Albumin (3.5-5.0) g/dL Globulin (2.2-3.9) gm/dL Albumin/Globulin Ratio (1.0-2.1) Arterial Blood Potassium (3.6-5.2) mmol/L Urine Osmolality 373 (300-1000) mosm/kg Ur Random Creatinine 80.3 mg/dL Ur Random Sodium 6 mmol/L Random Vancomycin ug/mL 03/14/17 03/14/17 03/14/17 Range/Units 05:54 05:43 05:43 WBC (4.8-10.8) K/uL RBC (3.80-5.20) Mil/uL Hgb (11.0-16.0) g/dL Hct (34.0-47.0) % MCV (81.0-99.0) fL MCH (27.0-31.0) pg MCHC (33.0-37.0) g/dL RDW (11.5-14.5) % Plt Count (130-400) K/uL MPV (7.2-11.7) fL Neut % (Auto) (50.0-75.0) % Lymph % (Auto) (20.0-40.0) % Burt % (Auto) (0.0-10.0) % Eos % (Auto) (0.0-4.0) % Baso % (Auto) (0.0-2.0) % Neut # (1.8-7.0) K/uL Lymph # (1.0-4.3) K/uL Burt # (0.0-0.8) K/uL Eos # (0.0-0.7) K/uL Baso # (0.0-0.2) K/uL Neutrophils % (Manual) (50-75) % Band Neutrophils % (0-2) % Lymphocytes % (Manual) (20-40) % Monocytes % (Manual) (0-10) % Platelet Estimate (NORMAL) Poikilocytosis (manual Anisocytosis (manual) Macrocytosis (manual) ESR (0-20) mm/hr Puncture Site Rb pCO2 22 L (35-45) mm/Hg pO2 153 H (80-100) mm/Hg HCO3 14.8 L (21-28) mmol/L ABG pH 7.31 L (7.35-7.45) ABG Total CO2 11.8 L (22-28) mmol/L ABG O2 Saturation 98.3 H (95-98) % ABG Base Excess -13.1 L (-2.0-3.0) mmol/L Jean Test Na ABG Potassium 4.3 (3.6-5.2) mmol/L A-a O2 Difference 105.0 mm/Hg Respiratory Index 0.7 Glucose 140 H (65-105) mg/dl Lactate 1.3 (0.7-2.1) mmol/L Vent Mode Prvc Mechanical Rate 20 FiO2 40.0 % Tidal Volume 450 PEEP 5 Sodium 144.0 (132-148) mmol/L Potassium (3.6-5.2) mmol/L Chloride 114.0 H (98-107) mmol/L Carbon Dioxide (22-30) mmol/L Anion Gap (10-20) BUN (7-17) mg/dL Creatinine (0.7-1.2) mg/dL Est GFR ( Amer) Est GFR (Non-Af Amer) POC Glucose (mg/dL) (65-110) mg/dL Random Glucose (65-105) mg/dL Lactic Acid 1.4 (0.7-2.1) mmol/L Calcium (8.6-10.4) mg/dl Phosphorus (2.5-4.5) mg/dL Magnesium (1.6-2.3) mg/dL Total Bilirubin (0.2-1.3) mg/dL Direct Bilirubin (0.0-0.4) mg/dL AST (14-36) U/L ALT (9-52) U/L Alkaline Phosphatase (38-126) U/L Total Creatine Kinase (30-135) U/L C-React Prot High Sens > 15.00 H (1.00-3.00) mg/L Total Protein (6.3-8.3) g/dL Albumin (3.5-5.0) g/dL Globulin (2.2-3.9) gm/dL Albumin/Globulin Ratio (1.0-2.1) Arterial Blood Potassium 4.3 (3.6-5.2) mmol/L Urine Osmolality (300-1000) mosm/kg Ur Random Creatinine mg/dL Ur Random Sodium mmol/L Random Vancomycin ug/mL 03/14/17 03/14/17 03/14/17 Range/Units 05:43 05:43 05:43 WBC 32.5 H (4.8-10.8) K/uL RBC 3.08 L (3.80-5.20) Mil/uL Hgb 9.8 L (11.0-16.0) g/dL Hct 31.9 L (34.0-47.0) % MCV 103.8 H D (81.0-99.0) fL MCH 31.7 H (27.0-31.0) pg MCHC 30.6 L (33.0-37.0) g/dL RDW 17.1 H (11.5-14.5) % Plt Count 211 (130-400) K/uL MPV 10.9 (7.2-11.7) fL Neut % (Auto) 92.5 H (50.0-75.0) % Lymph % (Auto) 2.3 L (20.0-40.0) % Burt % (Auto) 5.0 (0.0-10.0) % Eos % (Auto) 0.0 (0.0-4.0) % Baso % (Auto) 0.2 (0.0-2.0) % Neut # 30.0 H (1.8-7.0) K/uL Lymph # 0.7 L (1.0-4.3) K/uL Burt # 1.6 H (0.0-0.8) K/uL Eos # 0.0 (0.0-0.7) K/uL Baso # 0.1 (0.0-0.2) K/uL Neutrophils % (Manual) 94 H (50-75) % Band Neutrophils % 1 (0-2) % Lymphocytes % (Manual) 3 L (20-40) % Monocytes % (Manual) 2 (0-10) % Platelet Estimate Normal (NORMAL) Poikilocytosis (manual Slight Anisocytosis (manual) Slight Macrocytosis (manual) Moderate ESR 89 H (0-20) mm/hr Puncture Site pCO2 (35-45) mm/Hg pO2 (80-100) mm/Hg HCO3 (21-28) mmol/L ABG pH (7.35-7.45) ABG Total CO2 (22-28) mmol/L ABG O2 Saturation (95-98) % ABG Base Excess (-2.0-3.0) mmol/L Jean Test ABG Potassium (3.6-5.2) mmol/L A-a O2 Difference mm/Hg Respiratory Index Glucose (65-105) mg/dl Lactate (0.7-2.1) mmol/L Vent Mode Mechanical Rate FiO2 % Tidal Volume PEEP Sodium 142 (132-148) mmol/L Potassium 4.1 (3.6-5.2) mmol/L Chloride 116 H (98-107) mmol/L Carbon Dioxide 12 L (22-30) mmol/L Anion Gap 18 (10-20) BUN 77 H (7-17) mg/dL Creatinine 6.1 H (0.7-1.2) mg/dL Est GFR ( Amer) 8 Est GFR (Non-Af Amer) 7 POC Glucose (mg/dL) (65-110) mg/dL Random Glucose 120 H (65-105) mg/dL Lactic Acid (0.7-2.1) mmol/L Calcium 7.4 L (8.6-10.4) mg/dl Phosphorus 5.4 H (2.5-4.5) mg/dL Magnesium 2.2 (1.6-2.3) mg/dL Total Bilirubin 0.7 (0.2-1.3) mg/dL Direct Bilirubin 0.6 H (0.0-0.4) mg/dL AST 44 H (14-36) U/L ALT 59 H (9-52) U/L Alkaline Phosphatase 125 (38-126) U/L Total Creatine Kinase 174 H (30-135) U/L C-React Prot High Sens (1.00-3.00) mg/L Total Protein 6.0 L (6.3-8.3) g/dL Albumin 2.7 L (3.5-5.0) g/dL Globulin 3.2 (2.2-3.9) gm/dL Albumin/Globulin Ratio 0.8 L (1.0-2.1) Arterial Blood Potassium (3.6-5.2) mmol/L Urine Osmolality (300-1000) mosm/kg Ur Random Creatinine mg/dL Ur Random Sodium mmol/L Random Vancomycin 17.48 ug/mL 03/14/17 03/14/17 Range/Units 05:18 00:05 WBC (4.8-10.8) K/uL RBC (3.80-5.20) Mil/uL Hgb (11.0-16.0) g/dL Hct (34.0-47.0) % MCV (81.0-99.0) fL MCH (27.0-31.0) pg MCHC (33.0-37.0) g/dL RDW (11.5-14.5) % Plt Count (130-400) K/uL MPV (7.2-11.7) fL Neut % (Auto) (50.0-75.0) % Lymph % (Auto) (20.0-40.0) % Burt % (Auto) (0.0-10.0) % Eos % (Auto) (0.0-4.0) % Baso % (Auto) (0.0-2.0) % Neut # (1.8-7.0) K/uL Lymph # (1.0-4.3) K/uL Burt # (0.0-0.8) K/uL Eos # (0.0-0.7) K/uL Baso # (0.0-0.2) K/uL Neutrophils % (Manual) (50-75) % Band Neutrophils % (0-2) % Lymphocytes % (Manual) (20-40) % Monocytes % (Manual) (0-10) % Platelet Estimate (NORMAL) Poikilocytosis (manual Anisocytosis (manual) Macrocytosis (manual) ESR (0-20) mm/hr Puncture Site pCO2 (35-45) mm/Hg pO2 (80-100) mm/Hg HCO3 (21-28) mmol/L ABG pH (7.35-7.45) ABG Total CO2 (22-28) mmol/L ABG O2 Saturation (95-98) % ABG Base Excess (-2.0-3.0) mmol/L Jean Test ABG Potassium (3.6-5.2) mmol/L A-a O2 Difference mm/Hg Respiratory Index Glucose (65-105) mg/dl Lactate (0.7-2.1) mmol/L Vent Mode Mechanical Rate FiO2 % Tidal Volume PEEP Sodium (132-148) mmol/L Potassium (3.6-5.2) mmol/L Chloride (98-107) mmol/L Carbon Dioxide (22-30) mmol/L Anion Gap (10-20) BUN (7-17) mg/dL Creatinine (0.7-1.2) mg/dL Est GFR ( Amer) Est GFR (Non-Af Amer) POC Glucose (mg/dL) 128 H 125 H (65-110) mg/dL Random Glucose (65-105) mg/dL Lactic Acid (0.7-2.1) mmol/L Calcium (8.6-10.4) mg/dl Phosphorus (2.5-4.5) mg/dL Magnesium (1.6-2.3) mg/dL Total Bilirubin (0.2-1.3) mg/dL Direct Bilirubin (0.0-0.4) mg/dL AST (14-36) U/L ALT (9-52) U/L Alkaline Phosphatase (38-126) U/L Total Creatine Kinase (30-135) U/L C-React Prot High Sens (1.00-3.00) mg/L Total Protein (6.3-8.3) g/dL Albumin (3.5-5.0) g/dL Globulin (2.2-3.9) gm/dL Albumin/Globulin Ratio (1.0-2.1) Arterial Blood Potassium (3.6-5.2) mmol/L Urine Osmolality (300-1000) mosm/kg Ur Random Creatinine mg/dL Ur Random Sodium mmol/L Random Vancomycin ug/mL Laboratory Results - last 24 hr 03/14/17 03/14/17 03/14/17 00:05 05:18 05:43 WBC 32.5 H RBC 3.08 L Hgb 9.8 L Hct 31.9 L MCV 103.8 H D MCH 31.7 H MCHC 30.6 L RDW 17.1 H Plt Count 211 MPV 10.9 Neut % (Auto) 92.5 H Lymph % (Auto) 2.3 L Burt % (Auto) 5.0 Eos % (Auto) 0.0 Baso % (Auto) 0.2 Neut # 30.0 H Lymph # 0.7 L Burt # 1.6 H Eos # 0.0 Baso # 0.1 Neutrophils % (Manual) 94 H Band Neutrophils % 1 Lymphocytes % (Manual) 3 L Monocytes % (Manual) 2 Platelet Estimate Normal Poikilocytosis (manual Slight Anisocytosis (manual) Slight Macrocytosis (manual) Moderate ESR 89 H Puncture Site pCO2 pO2 HCO3 ABG pH ABG Total CO2 ABG O2 Saturation ABG Base Excess Jean Test ABG Potassium A-a O2 Difference Respiratory Index Glucose Lactate Vent Mode Mechanical Rate FiO2 Tidal Volume PEEP Sodium Potassium Chloride Carbon Dioxide Anion Gap BUN Creatinine Est GFR ( Amer) Est GFR (Non-Af Amer) POC Glucose (mg/dL) 125 H 128 H Random Glucose Lactic Acid Calcium Phosphorus Magnesium Total Bilirubin Direct Bilirubin AST ALT Alkaline Phosphatase Total Creatine Kinase C-React Prot High Sens Total Protein Albumin Globulin Albumin/Globulin Ratio Arterial Blood Potassium Urine Osmolality Ur Random Creatinine Ur Random Sodium Random Vancomycin 03/14/17 03/14/17 03/14/17 05:43 05:43 05:43 WBC RBC Hgb Hct MCV MCH MCHC RDW Plt Count MPV Neut % (Auto) Lymph % (Auto) Burt % (Auto) Eos % (Auto) Baso % (Auto) Neut # Lymph # Burt # Eos # Baso # Neutrophils % (Manual) Band Neutrophils % Lymphocytes % (Manual) Monocytes % (Manual) Platelet Estimate Poikilocytosis (manual Anisocytosis (manual) Macrocytosis (manual) ESR Puncture Site pCO2 pO2 HCO3 ABG pH ABG Total CO2 ABG O2 Saturation ABG Base Excess Jean Test ABG Potassium A-a O2 Difference Respiratory Index Glucose Lactate Vent Mode Mechanical Rate FiO2 Tidal Volume PEEP Sodium 142 Potassium 4.1 Chloride 116 H Carbon Dioxide 12 L Anion Gap 18 BUN 77 H Creatinine 6.1 H Est GFR ( Amer) 8 Est GFR (Non-Af Amer) 7 POC Glucose (mg/dL) Random Glucose 120 H Lactic Acid Calcium 7.4 L Phosphorus 5.4 H Magnesium 2.2 Total Bilirubin 0.7 Direct Bilirubin 0.6 H AST 44 H ALT 59 H Alkaline Phosphatase 125 Total Creatine Kinase 174 H C-React Prot High Sens > 15.00 H Total Protein 6.0 L Albumin 2.7 L Globulin 3.2 Albumin/Globulin Ratio 0.8 L Arterial Blood Potassium Urine Osmolality Ur Random Creatinine Ur Random Sodium Random Vancomycin 17.48 03/14/17 03/14/17 03/14/17 05:43 05:54 09:47 WBC RBC Hgb Hct MCV MCH MCHC RDW Plt Count MPV Neut % (Auto) Lymph % (Auto) Burt % (Auto) Eos % (Auto) Baso % (Auto) Neut # Lymph # Burt # Eos # Baso # Neutrophils % (Manual) Band Neutrophils % Lymphocytes % (Manual) Monocytes % (Manual) Platelet Estimate Poikilocytosis (manual Anisocytosis (manual) Macrocytosis (manual) ESR Puncture Site Rb pCO2 22 L pO2 153 H HCO3 14.8 L ABG pH 7.31 L ABG Total CO2 11.8 L ABG O2 Saturation 98.3 H ABG Base Excess -13.1 L Jean Test Na ABG Potassium 4.3 A-a O2 Difference 105.0 Respiratory Index 0.7 Glucose 140 H Lactate 1.3 Vent Mode Prvc Mechanical Rate 20 FiO2 40.0 Tidal Volume 450 PEEP 5 Sodium 144.0 Potassium Chloride 114.0 H Carbon Dioxide Anion Gap BUN Creatinine Est GFR ( Amer) Est GFR (Non-Af Amer) POC Glucose (mg/dL) Random Glucose Lactic Acid 1.4 Calcium Phosphorus Magnesium Total Bilirubin Direct Bilirubin AST ALT Alkaline Phosphatase Total Creatine Kinase C-React Prot High Sens Total Protein Albumin Globulin Albumin/Globulin Ratio Arterial Blood Potassium 4.3 Urine Osmolality 373 Ur Random Creatinine 80.3 Ur Random Sodium 6 Random Vancomycin 03/14/17 03/14/17 12:02 17:35 WBC RBC Hgb Hct MCV MCH MCHC RDW Plt Count MPV Neut % (Auto) Lymph % (Auto) Burt % (Auto) Eos % (Auto) Baso % (Auto) Neut # Lymph # Burt # Eos # Baso # Neutrophils % (Manual) Band Neutrophils % Lymphocytes % (Manual) Monocytes % (Manual) Platelet Estimate Poikilocytosis (manual Anisocytosis (manual) Macrocytosis (manual) ESR Puncture Site pCO2 pO2 HCO3 ABG pH ABG Total CO2 ABG O2 Saturation ABG Base Excess Jean Test ABG Potassium A-a O2 Difference Respiratory Index Glucose Lactate Vent Mode Mechanical Rate FiO2 Tidal Volume PEEP Sodium Potassium Chloride Carbon Dioxide Anion Gap BUN Creatinine Est GFR ( Amer) Est GFR (Non-Af Amer) POC Glucose (mg/dL) 173 H 166 H Random Glucose Lactic Acid Calcium Phosphorus Magnesium Total Bilirubin Direct Bilirubin AST ALT Alkaline Phosphatase Total Creatine Kinase C-React Prot High Sens Total Protein Albumin Globulin Albumin/Globulin Ratio Arterial Blood Potassium Urine Osmolality Ur Random Creatinine Ur Random Sodium Random Vancomycin Critical Care Progress Note - Nutrition Nutrition: Nutrition Category Date Time Status NPO Diet [DIET] Diets 03/11/17 Dinner Active Attending/Attestation - Attestation I have personally seen and examined this patient.: Yes I have fully participated in the care of the patient.: Yes I have reviewed all pertinent clinical information: Yes Notes (Text): 03/14/17 18:50 Today: March The Patient was seen and examined at the bedside, Medical records reviewed, and management issues were discussed and formulated with the house staff. I have reviewed all the relevant clinical, laboratory, hemodynamic, radiographic data and medications Events reviewed Pain issues, skin care, head of the bed elevation, glycemic control were addressed. I concur with resident's assessment and plan of care as transcribed in Dr. Paz note.
[2017-03-14] MEDS ORDERED: Acetaminophen 650mg/20.3ml solution UD PO PRN (17:15)
[2017-03-14] MEDS ORDERED: Sodium Bicarbonate 8.4% 150 MEQ in Dextrose 5% In Water 1,000 ML IV SCH (18:30)
[2017-03-14] MEDS: Sodium Bicarbonate 8.4% 150 MEQ in Dextrose 5% In Water 850 ML IV SCH (20:31)
--- NOTE | 2017-03-14 22:40 | CP.PCM.PN ---
Subjective - Date & Time of Evaluation Date of Evaluation: 03/14/17 Time of Evaluation: 22:39 - Subjective Subjective: AFEBRILE, INTUBATED THIS A.M. LEUKOCYTOSIS. SPUTUM +VE GNR increasing azotemia creatinine of 6.1/BUN 77. sister by her side. SEEN BY NEUROSURGERY. CHEST X-RAY 03/14/17 NOTED SCATTERED NODULES BILATERALLY SEE FULL REPORT. Ct HEAD 03/13/17; RIGHT TEMPOROPARIETAL CRANIOTOMY WITH MODERATE RESIDUAL INTRAPARENCHYMAL HEMORRHAGE. PROMINENT LOCAL EDEMA THE EFFACEMENT OF THE THIRD AND RIGHT LATERAL VENTRICLE ( SEE REPORT ) Objective - Vital Signs/Intake and Output Vital Signs (last 24 hours): Temp Pulse Resp BP Pulse Ox 98.4 F 86 20 113/57 L 98 03/14/17 16:00 03/14/17 19:04 03/14/17 19:04 03/14/17 19:04 03/14/17 18:04 Intake and Output: 03/14/17 03/15/17 18:59 06:59 Intake Total 1464.8 125 Output Total 430 20 Balance 1034.8 105 - Medications Medications: Current Medications Acetaminophen (Tylenol 650mg/20.3ml Solution Ud) 650 mg PO Q4 PRN PRN Reason: Pain, moderate (4-7) Last Admin: 03/14/17 17:23 Dose: 650 mg Calcium Acetate (Phoslo) 667 mg PO BIDCC [facility] Last Admin: 03/14/17 18:34 Dose: 667 mg Levothyroxine Sodium 25 mcg/ (Sodium Chloride) 2.5 mls @ 0 mls/hr IVP DAILY@ 0630 [facility] PRN Reason: UD Last Admin: 03/14/17 06:26 Dose: 1.25 mls/hr Propofol (Diprivan) 1,000 mg in 100 mls @ 1.189 mls/hr IV .Q24H PRN; Protocol; 5 MCG/KG/MIN PRN Reason: TITRATE PER MD ORDER Last Titration: 03/13/17 06:18 Dose: 10 mcg/kg/min, 2.379 mls/hr Cefepime HCl (Maxipime Iv 1 Gm Premix) 1 gm in 50 mls @ 100 mls/hr IVPB Q24H [facility] Last Admin: 03/14/17 11:03 Dose: 100 mls/hr Metronidazole (Flagyl) 500 mg in 100 mls @ 100 mls/hr IVPB Q12 [facility] Last Admin: 03/14/17 21:18 Dose: 100 mls/hr Sodium Bicarbonate 150 meq/ (Dextrose) 1,000 mls @ 70 mls/hr IV .[id number] [facility] Last Admin: 03/14/17 20:31 Dose: 70 mls/hr Insulin Human Regular (Novolin R) 0 unit SC Q6 [facility] PRN Reason: Protocol Last Admin: 03/14/17 18:35 Dose: 1 unit Metoprolol Tartrate (Lopressor) 5 mg IVP Q6 [facility] Last Admin: 03/14/17 18:36 Dose: 5 mg Pantoprazole Sodium (Protonix Inj) 40 mg IVP DAILY [facility] Last Admin: 03/14/17 10:55 Dose: 40 mg - Labs Labs: 03/14/17 05:43 03/14/17 05:43 PT 10.2 SECONDS (9.7-12.2) 03/12/17 06:20 INR 0.9 03/12/17 06:20 APTT 27 SECONDS (21-34) 03/12/17 06:20 - Constitutional Appears: No Acute Distress (intubated.) - Eye Exam Eye Exam: PERRL - ENT Exam ENT Exam: Mucous Membranes Dry (scalp wound. clean) - Neck Exam Neck Exam: Normal Inspection - Respiratory Exam Respiratory Exam: Rhonchi (bilaterally) - Cardiovascular Exam Cardiovascular Exam: Tachycardia, REGULAR RHYTHM, +S1, +S2 - GI/Abdominal Exam GI & Abdominal Exam: Soft, Normal Bowel Sounds - Extremities Exam Extremities Exam: absent: Calf Tenderness (moving right side spontaneously.) - Neurological Exam Neurological Exam: Altered - Skin Skin Exam: Warm Assessment and Plan (1) S/P craniotomy Status: Acute (2) SIRS (systemic inflammatory response syndrome) Status: Acute (3) Intracranial hemorrhage Status: Acute (4) Renal failure Status: Acute (5) Diabetes mellitus type 2 in nonobese Status: Acute (6) Hypertension Status: Acute (7) Pancreatic cancer Status: Acute - Assessment and Plan (Free Text) Plan: CONTINUE iv CEFEPIME 1 G ONCE A DAY DAILY. 03/13/17. PATIENT GOT 1 DOSE OF VANCOMYCIN 1 G IN ICU.03/13/17, START IV ZYVOX 600 MG EVERY 12 HOURLY FOR GRAM-POSITIVE COVERAGE.11/2/17. CONTINUE IV fLAGYL 500 MG iv PIGGYBACK EVERY 12 HOURLY. 03/13/17. FOLLOW-UP CULTURES TO ADJUST ANTIBIOTICS. MONITOR NEURO CHECKUPS . NEPHROLOGY ON BOARD ACUTE RENAL INSUFFICIENCY. PROGNOSIS GUARDED. cASE DISCUSSED WITH THE STAFF.
--- NOTE | 2017-03-14 23:25 | PN ---
NEUROLOGY PROGRESS NOTE DATE: SUBJECTIVE: The patient is lying on the bed, on the ventilator, in no acute distress. PHYSICAL EXAMINATION: VITAL SIGNS: Her blood pressure is 138/72, heart rate is 99 per minute, she is breathing at a rate of 20 per minute, temperature is 98.5 degree Fahrenheit. HEENT: Normocephalic, atraumatic. NECK: Supple. There are no carotid bruits. LUNGS: Clear. CARDIOVASCULAR SYSTEM: S1 and S2 audible. No murmur. ABDOMEN: Soft and nontender. Bowel sounds are present. NEUROLOGY: Mental status: The patient is lethargic, minimally opened her eyes, does not follow any commands. CRANIAL NERVE EXAMINATION: Pupils 3 mm bilaterally reactive to light. There is decreased nasolabial fold on the left side. Motor examination: She is spontaneously moving her right side. She withdraws her left lower extremity minimally. There is no withdrawal of the left upper extremity. Plantars are upgoing on the left and downgoing on the right side. LABORATORY DATA: Reviewed. CT scan of the head done on 03/13/2017, shows status post temporoparietal craniotomy with moderate residual intraparenchymal hemorrhage identified the right temporal lobe predominantly and minimally involving the inferior right parietal lobe. Local edema remains prominent, exerting mass effect causing 15 mm leftward shift and effacement of the third and right lateral ventricles as well as the right cerebral sulci once again. [id number] pneumocephaly identified postoperatively. IMPRESSION: Cerebrovascular accident with right temporoparietal hemorrhage, status post craniotomy. RECOMMENDATIONS: 1. The patient continues to have right hemiparesis and continues to be lethargic. 2. Once the patient's wound gets better, the patient have an electroencephalogram. 3. The patient is continued to have ventilatory support and once more alert may be extubated. 4. The patient to have supportive care and another treatment. Thank you for the opportunity to participate in the care of this patient. David Torres MD
[2017-03-15] MEDS: Linezolid 600 mg in D5W 300 ml 600 MG/300 ML BAG IVPB SCH ×3 (00:09→23:21)
[2017-03-15] MEDS: (Novolin R) Insulin Human Regular 100 units/ml vial SC SCH ×4 (00:13→18:04)
[2017-03-15] MEDS: Metoprolol 1 mg/ml Inj IVP SCH ×5 (00:14→23:14)
--- NOTE | 2017-03-15 03:59 | PN ---
FOLLOWUP RENAL CONSULTATION DATE: LOCATION: The patient is located in ICU, room 8. REQUESTED BY: Jordi Bedolla MD REASON FOR FOLLOWUP: Acute renal failure, chronic kidney disease, status post intracranial bleed, and status post craniotomy, on ventilator. HISTORY OF PRESENT ILLNESS: Mrs. Watson is an 81 years old elderly [place] female with past medical history significant for hypertension, chronic kidney disease, and hypothyroidism, who was found inside the closet, locked, and was found to have left-sided weakness and the patient was found to have large parietal bleed on the right side with a midline shift, subsequently the patient underwent craniotomy. The patient is on ventilator, moving right upper extremity, right lower extremity, and left lower extremity for painful stimuli. Less movement of the left upper extremity for painful stimuli. The patient is on ventilator, not in acute distress, on IV hydration. PHYSICAL EXAMINATION: VITAL SIGNS: This morning as follows: Blood pressure 125/82, pulse 114, respirations 21, saturation 98%, and temperature is 98.7. GENERAL: Mrs. Watson is an 81 years old elderly female, very cachectic, thin-built, on ventilator, status post craniotomy. HEENT: Pupils normal, reactive to light. Trachea is midline, on ventilator. LUNGS: Symmetric on both sides. Bilateral breath sounds present. Clear on auscultation. CARDIOVASCULAR: [place] at the fifth intercostal space, midclavicular line. S1 and S2 audible. No murmur. No gallops. ABDOMEN: Normal in appearance, soft, and tympanic. No guarding. No rigidity. No hepatosplenomegaly. CENTRAL NERVOUS SYSTEM: The patient is on ventilator. Moving right upper extremity, right lower extremity, and left lower extremity for painful stimuli. Less movement of the left upper extremity with a painful stimuli. EXTREMITIES: No cyanosis. No clubbing. No edema. CURRENT MEDICATIONS: Include as follows: Diprivan, Flagyl 500 mg q. 12 hours, levothyroxine 25 mcg daily, metoprolol 5 mg IV q. 6 hours, cefepime 1 g q. 24 hours, PhosLo 667 mg p.o. b.i.d., Protonix 40 mg IV daily, and sodium bicarbonate 70 mL/hour, IV drip, and Tylenol. LABORATORY DATA: Include as follows: WBC 32.5, hemoglobin 9.8, hematocrit is 31.5, and platelets 211. Neutrophils 94, bands 1, lymphocytes 3, and monocytes 2. ABG; pH of 7.31, pCO2 of 22, pO2 of 153, bicarb is 14.8, and saturation 98.3. Sodium is 142, potassium 4.1, chloride 116, CO2 of 12, BUN 77, creatinine 6.1, glucose 120, lactic acid 1.4, calcium 7.4, phosphorus , magnesium 2.2, total bilirubin 0.7, AST 44, ALT 59, alkaline phosphatase 125, CPK 174, and C-reactive protein 15. Urine osmolality 373, urine creatinine is 80.3, and urine sodium is 6. Vancomycin random level is 17.4. MRSA screening was negative and as of 03/13/2017, blood culture x2 negative day #1 and sputum culture positive for Gram-negative rods. ASSESSMENT AND PLAN: In summary, Mrs. Watson is an 81 years old elderly, [place] female with a history of hypertension, hypothyroidism, osteoporosis, cardiac arrhythmias, atrial fibrillation, chronic kidney disease, was admitted with intracranial bleed and status post craniotomy, on ventilator with worsening renal function. 1. Acute renal failure on chronic kidney disease secondary to intravascular volume depletion. Urine electrolytes consistent with prerenal picture. 2. Metabolic acidosis with respiratory alkalosis, hyperventilating secondary to intracranial bleed. 3. Hypertension. Blood pressure is on the low side. Continue IV fluids, D5W with 3 amps of bicarbonate at 70 mL per hour and followup BMP. Overall prognosis is very poor. We will check BMP in a.m., CBC in a.m., and continue IV antibiotics as per ID recommendations. We will follow with you. Thank you for allowing me to participate in your patient's care. Orlando Odom MD
[2017-03-15 05:50] LABS: ABG MECHANICAL RATE 20; ARTERIAL BLOOD GAS MODE PRVC; ARTERIAL BLOOD HGB O2 SAT 95.7 % (95.0-98.0); ATERIAL BLOOD GAS PEEP 5; CARBOXYHEMOGLOBIN 1.7 % (0.5-1.5); DRAW SITE RB; HHB 1.6 % (0.0-5.0)
[2017-03-15] MEDS: SODIUM CHLORIDE 0.9% IVP SCH (06:35)
[2017-03-15] MEDS: LEVOTHYROXINE IVP SCH (06:35)
[2017-03-15 06:43] LABS: LYMPH # 0.5 K/uL (1.0-4.3)
[2017-03-15 06:53] LABS: POTASSIUM 4.1 mmol/L (3.6-5.2)
[2017-03-15 06:55] LABS: ALB/GLOB RATIO 0.9 (1.0-2.1); BILIRUBIN,TOTAL 0.6 mg/dL (0.2-1.3); TOTAL PROTEIN 5.9 g/dL (6.3-8.3)
[2017-03-15 06:56] LABS: CALCIUM 7.4 mg/dl (8.6-10.4); MAGNESIUM 2.6 mg/dL (1.6-2.3); PHOSPHOROUS 7.2 mg/dL (2.5-4.5)
[2017-03-15 07:05] LABS: BASO # 0.3 K/uL (0.0-0.2); BASO % 0.9 % (0.0-2.0); EOS # 0.1 K/uL (0.0-0.7); EOS % 0.3 % (0.0-4.0); LYMPH % 1.8 % (20.0-40.0); MEAN CELL VOLUME 104.4 fL (81.0-99.0); MEAN CORPUSCULAR HEMOGLOBIN 32.1 pg (27.0-31.0); MEAN CORPUSCULAR HGB CONC 30.7 g/dL (33.0-37.0); MEAN PLATELET VOLUME 10.7 fL (7.2-11.7); MONO # 1.3 K/uL (0.0-0.8); MONO % 4.4 % (0.0-10.0); NRBC % 0.2 % (0.0-2.0); PLATELET COUNT 218 K/uL (130-400); RED CELL DISTRIBUTION WIDTH 16.8 % (11.5-14.5); WHITE BLOOD COUNT 28.9 K/uL (4.8-10.8)
[2017-03-15 08:36] LABS: NEUTROPHIL 81 % (50-75); NUCLEATED RED BLOOD CELL 1 % (0-0); TOTAL CELLS COUNTED 100
--- NOTE | 2017-03-15 08:58 | RAD ---
Chest x-ray single frontal view History: Intubated. Comparison: 03/14/2017 Findings: Endotracheal tube extending into the mid thoracic trachea. NG tube extending into the stomach. Biapical pleural thickening with upper lobe granulomatous changes. Scattered nodular densities throughout both lungs. Patchy increased consolidative changes at the left lung base. Heart size within normal limits. Degenerative changes within the spine and shoulders. Impression: Endotracheal tube extending into the mid thoracic trachea. NG tube extending into the stomach. Biapical pleural thickening with upper lobe granulomatous changes. Scattered nodular densities throughout both lungs. Patchy increased consolidative changes at the left lung base.
--- NOTE | 2017-03-15 09:14 | CP.CCUPN ---
<Rosaura Paz - Last Filed: 03/15/17 13:53> CCU Subjective - Physician Review Subjective (Free Text): Patient seen and examined at bedside. Patient intubated this am and therefore ROS unobtainable. POD#3 s/p right parietal craniotomy, subtotal evacuation of hematoma. CCU Objective - Vital Signs / Intake & Output Vital Signs (Last 4 hours): Vital Signs Pulse Resp BP Pulse Ox 03/15/17 07:04 81 23 143/80 99 03/15/17 07:00 78 20 99 03/15/17 06:59 130/68 03/15/17 06:04 105 H 21 130/68 96 03/15/17 06:00 102 H 20 97 Intake and Output (Last 8hrs): Intake & Output 03/14/17 03/15/17 03/15/17 22:59 06:59 14:59 Intake Total 895 1090 100 Output Total 285 270 45 Balance 610 820 55 Weight 92 lb 9.6 oz Intake: Intake, IV Amount 835 860 70 Left Forearm 300 Right Distal Port Forearm 835 560 70 Tube Feeding 60 230 30 Output: Urine 285 270 45 Urethral (Forbes) 285 270 45 Other: # Bowel Movements 1 0 0 - Physical Exam Head: Positive for: Normocephalic, Other (dressing in place post craniotomy ) Pupils: Positive for: Sluggish Mouth: Positive for: Dry Respiratory/Chest: Positive for: Good Air Exchange Cardiovascular: Positive for: Normal S1, S2 Lower Extremity: Positive for: Edema Skin: Positive for: Warm Psychiatric: Negative for: Alert, Oriented x 3 - Medications Active Medications: Active Medications Generic Name Dose Route Start Last Admin Trade Name Freq PRN Reason Stop Dose Admin Acetaminophen 650 mg 03/14/17 17:15 03/14/17 17:23 Tylenol 650mg/20.3ml Solution Ud PO 650 mg Q4 PRN Administration Pain, moderate (4-7) Calcium Acetate 667 mg 03/14/17 08:00 03/15/17 08:47 Phoslo PO 667 mg BIDCC HALLE Administration Levothyroxine Sodium 25 mcg/ 2.5 mls @ 0 mls/hr 03/12/17 06:30 03/15/17 06:35 Sodium Chloride IVP 1.25 mls/hr DAILY@0630 HALLE Administration UD Propofol 1,000 mg in 100 mls @ 1.189 mls/hr 03/12/17 08:24 03/13/17 06:18 Diprivan IV 10 mcg/kg/min .Q24H PRN 2.379 mls/hr TITRATE PER MD ORDER Titration Protocol 5 MCG/KG/MIN Cefepime HCl 1 gm in 50 mls @ 100 mls/hr 03/13/17 10:30 03/14/17 11:03 Maxipime Iv 1 Gm Premix IVPB 100 mls/hr Q24H HALLE Administration Metronidazole 500 mg in 100 mls @ 100 mls/hr 03/14/17 10:00 03/14/17 21:18 Flagyl IVPB 100 mls/hr Q12 HALLE Administration Sodium Bicarbonate 150 meq/ 1,000 mls @ 70 mls/hr 03/14/17 19:30 03/14/17 20: 31 Dextrose IV 70 mls/hr .[id number] HALLE Administration Linezolid 600 mg in 300 mls @ 200 mls/hr 03/14/17 23:45 03/15/17 00:09 Zyvox 600mg/300ml D5w IVPB 200 mls/hr Q12H HALLE Administration Insulin Human Regular 0 unit 03/12/17 12:00 03/15/17 06:39 Novolin R SC 4 unit Q6 HALLE Administration Protocol Metoprolol Tartrate 5 mg 03/12/17 12:00 03/15/17 06:36 Lopressor IVP 5 mg Q6 HALLE Administration Pantoprazole Sodium 40 mg 03/12/17 10:00 03/14/17 10:55 Protonix Inj IVP 40 mg DAILY HALLE Administration - Patient Studies Lab Studies: Microbiology Studies 03/14/17 08:00 MRSA Culture (Admit) - Final Naris MRSA NOT DETECTED 03/13/17 11:30 Gram Stain - Final Trachasp Sputum Culture - Final Klebsiella Pneumoniae Ssp Pneu 03/13/17 09:30 Blood Culture - Preliminary Blood-Venous NO GROWTH AFTER 24 HOURS 03/13/17 09:00 Blood Culture - Preliminary Blood-Venous NO GROWTH AFTER 24 HOURS Lab Studies 03/15/17 03/15/17 03/15/17 Range/Units 06:39 06:39 06:39 WBC 28.9 H (4.8-10.8) K/uL RBC 3.25 L (3.80-5.20) Mil/uL Hgb 10.4 L (11.0-16.0) g/dL Hct 34.0 (34.0-47.0) % MCV 104.4 H (81.0-99.0) fL MCH 32.1 H (27.0-31.0) pg MCHC 30.7 L (33.0-37.0) g/dL RDW 16.8 H (11.5-14.5) % Plt Count 218 (130-400) K/uL MPV 10.7 (7.2-11.7) fL Neut % (Auto) 92.6 H (50.0-75.0) % Lymph % (Auto) 1.8 L (20.0-40.0) % Avery % (Auto) 4.4 (0.0-10.0) % Eos % (Auto) 0.3 (0.0-4.0) % Baso % (Auto) 0.9 (0.0-2.0) % Neut # 26.8 H (1.8-7.0) K/uL Lymph # 0.5 L (1.0-4.3) K/uL Avery # 1.3 H (0.0-0.8) K/uL Eos # 0.1 (0.0-0.7) K/uL Baso # 0.3 H (0.0-0.2) K/uL Neutrophils % (Manual) 81 H (50-75) % Band Neutrophils % 13 H* (0-2) % Lymphocytes % (Manual) 2 L (20-40) % Monocytes % (Manual) 4 (0-10) % Nucleated RBC % 1 H (0-0) % Toxic Granulation Present Platelet Estimate Normal (NORMAL) Anisocytosis (manual) Slight Macrocytosis (manual) Moderate Arlyn Cells Slight ESR (0-20) mm/hr Puncture Site pCO2 (35-45) mm/Hg pO2 (80-100) mm/Hg HCO3 (21-28) mmol/L ABG pH (7.35-7.45) ABG Total CO2 (22-28) mmol/L ABG O2 Saturation (95-98) % ABG Base Excess (-2.0-3.0) mmol/L ABG Hemoglobin (11.7-17.4) g/dL ABG Carboxyhemoglobin (0.5-1.5) % POC ABG HHb (Measured) (0.0-5.0) % ABG Methemoglobin (0.0-3.0) % Jean Test A-a O2 Difference mm/Hg Respiratory Index Hgb O2 Saturation (95.0-98.0) % Vent Mode Mechanical Rate FiO2 % Tidal Volume PEEP Sodium 145 (132-148) mmol/L Potassium 4.1 (3.6-5.2) mmol/L Chloride 114 H (98-107) mmol/L Carbon Dioxide 12 L (22-30) mmol/L Anion Gap 23 H (10-20) BUN 103 H* D (7-17) mg/dL Creatinine 5.8 H (0.7-1.2) mg/dL Est GFR ( Amer) 8 Est GFR (Non-Af Amer) 7 POC Glucose (mg/dL) (65-110) mg/dL Random Glucose 291 H (65-105) mg/dL Calcium 7.4 L (8.6-10.4) mg/dl Phosphorus 7.2 H (2.5-4.5) mg/dL Magnesium 2.6 H (1.6-2.3) mg/dL Total Bilirubin 0.6 (0.2-1.3) mg/dL Direct Bilirubin (0.0-0.4) mg/dL AST 76 H D (14-36) U/L ALT 97 H D (9-52) U/L Alkaline Phosphatase 177 H D (38-126) U/L Total Creatine Kinase (30-135) U/L Total Protein 5.9 L (6.3-8.3) g/dL Albumin 2.8 L (3.5-5.0) g/dL Globulin 3.2 (2.2-3.9) gm/dL Albumin/Globulin Ratio 0.9 L (1.0-2.1) Urine Osmolality (300-1000) mosm/kg Ur Random Creatinine mg/dL Ur Random Sodium mmol/L Random Vancomycin 12.79 ug/mL 03/15/17 03/15/17 03/14/17 Range/Units 06:06 05:10 23:39 WBC (4.8-10.8) K/uL RBC (3.80-5.20) Mil/uL Hgb (11.0-16.0) g/dL Hct (34.0-47.0) % MCV (81.0-99.0) fL MCH (27.0-31.0) pg MCHC (33.0-37.0) g/dL RDW (11.5-14.5) % Plt Count (130-400) K/uL MPV (7.2-11.7) fL Neut % (Auto) (50.0-75.0) % Lymph % (Auto) (20.0-40.0) % Avery % (Auto) (0.0-10.0) % Eos % (Auto) (0.0-4.0) % Baso % (Auto) (0.0-2.0) % Neut # (1.8-7.0) K/uL Lymph # (1.0-4.3) K/uL Avery # (0.0-0.8) K/uL Eos # (0.0-0.7) K/uL Baso # (0.0-0.2) K/uL Neutrophils % (Manual) (50-75) % Band Neutrophils % (0-2) % Lymphocytes % (Manual) (20-40) % Monocytes % (Manual) (0-10) % Nucleated RBC % (0-0) % Toxic Granulation Platelet Estimate (NORMAL) Anisocytosis (manual) Macrocytosis (manual) Zarephath Cells ESR (0-20) mm/hr Puncture Site Rb pCO2 24 L (35-45) mm/Hg pO2 108 H (80-100) mm/Hg HCO3 17.4 L (21-28) mmol/L ABG pH 7.38 (7.35-7.45) ABG Total CO2 14.9 L (22-28) mmol/L ABG O2 Saturation 98.4 H (95-98) % ABG Base Excess -9.7 L (-2.0-3.0) mmol/L ABG Hemoglobin 8.6 L (11.7-17.4) g/dL ABG Carboxyhemoglobin 1.7 H (0.5-1.5) % POC ABG HHb (Measured) 1.6 (0.0-5.0) % ABG Methemoglobin 1.0 (0.0-3.0) % Jean Test Na A-a O2 Difference 147.0 mm/Hg Respiratory Index 1.4 Hgb O2 Saturation 95.7 (95.0-98.0) % Vent Mode Prvc Mechanical Rate 20 FiO2 40.0 % Tidal Volume 450 PEEP 5 Sodium (132-148) mmol/L Potassium (3.6-5.2) mmol/L Chloride (98-107) mmol/L Carbon Dioxide (22-30) mmol/L Anion Gap (10-20) BUN (7-17) mg/dL Creatinine (0.7-1.2) mg/dL Est GFR ( Amer) Est GFR (Non-Af Amer) POC Glucose (mg/dL) 312 H 221 H (65-110) mg/dL Random Glucose (65-105) mg/dL Calcium (8.6-10.4) mg/dl Phosphorus (2.5-4.5) mg/dL Magnesium (1.6-2.3) mg/dL Total Bilirubin (0.2-1.3) mg/dL Direct Bilirubin (0.0-0.4) mg/dL AST (14-36) U/L ALT (9-52) U/L Alkaline Phosphatase (38-126) U/L Total Creatine Kinase (30-135) U/L Total Protein (6.3-8.3) g/dL Albumin (3.5-5.0) g/dL Globulin (2.2-3.9) gm/dL Albumin/Globulin Ratio (1.0-2.1) Urine Osmolality (300-1000) mosm/kg Ur Random Creatinine mg/dL Ur Random Sodium mmol/L Random Vancomycin ug/mL 03/14/17 03/14/17 03/14/17 Range/Units 17:35 12:02 09:47 WBC (4.8-10.8) K/uL RBC (3.80-5.20) Mil/uL Hgb (11.0-16.0) g/dL Hct (34.0-47.0) % MCV (81.0-99.0) fL MCH (27.0-31.0) pg MCHC (33.0-37.0) g/dL RDW (11.5-14.5) % Plt Count (130-400) K/uL MPV (7.2-11.7) fL Neut % (Auto) (50.0-75.0) % Lymph % (Auto) (20.0-40.0) % Avery % (Auto) (0.0-10.0) % Eos % (Auto) (0.0-4.0) % Baso % (Auto) (0.0-2.0) % Neut # (1.8-7.0) K/uL Lymph # (1.0-4.3) K/uL Avery # (0.0-0.8) K/uL Eos # (0.0-0.7) K/uL Baso # (0.0-0.2) K/uL Neutrophils % (Manual) (50-75) % Band Neutrophils % (0-2) % Lymphocytes % (Manual) (20-40) % Monocytes % (Manual) (0-10) % Nucleated RBC % (0-0) % Toxic Granulation Platelet Estimate (NORMAL) Anisocytosis (manual) Macrocytosis (manual) Arlyn Cells ESR (0-20) mm/hr Puncture Site pCO2 (35-45) mm/Hg pO2 (80-100) mm/Hg HCO3 (21-28) mmol/L ABG pH (7.35-7.45) ABG Total CO2 (22-28) mmol/L ABG O2 Saturation (95-98) % ABG Base Excess (-2.0-3.0) mmol/L ABG Hemoglobin (11.7-17.4) g/dL ABG Carboxyhemoglobin (0.5-1.5) % POC ABG HHb (Measured) (0.0-5.0) % ABG Methemoglobin (0.0-3.0) % Jean Test A-a O2 Difference mm/Hg Respiratory Index Hgb O2 Saturation (95.0-98.0) % Vent Mode Mechanical Rate FiO2 % Tidal Volume PEEP Sodium (132-148) mmol/L Potassium (3.6-5.2) mmol/L Chloride (98-107) mmol/L Carbon Dioxide (22-30) mmol/L Anion Gap (10-20) BUN (7-17) mg/dL Creatinine (0.7-1.2) mg/dL Est GFR ( Amer) Est GFR (Non-Af Amer) POC Glucose (mg/dL) 166 H 173 H (65-110) mg/dL Random Glucose (65-105) mg/dL Calcium (8.6-10.4) mg/dl Phosphorus (2.5-4.5) mg/dL Magnesium (1.6-2.3) mg/dL Total Bilirubin (0.2-1.3) mg/dL Direct Bilirubin (0.0-0.4) mg/dL AST (14-36) U/L ALT (9-52) U/L Alkaline Phosphatase (38-126) U/L Total Creatine Kinase (30-135) U/L Total Protein (6.3-8.3) g/dL Albumin (3.5-5.0) g/dL Globulin (2.2-3.9) gm/dL Albumin/Globulin Ratio (1.0-2.1) Urine Osmolality 373 (300-1000) mosm/kg Ur Random Creatinine 80.3 mg/dL Ur Random Sodium 6 mmol/L Random Vancomycin ug/mL 03/14/17 03/14/17 Range/Units 05:43 05:43 WBC (4.8-10.8) K/uL RBC (3.80-5.20) Mil/uL Hgb (11.0-16.0) g/dL Hct (34.0-47.0) % MCV (81.0-99.0) fL MCH (27.0-31.0) pg MCHC (33.0-37.0) g/dL RDW (11.5-14.5) % Plt Count (130-400) K/uL MPV (7.2-11.7) fL Neut % (Auto) (50.0-75.0) % Lymph % (Auto) (20.0-40.0) % Avery % (Auto) (0.0-10.0) % Eos % (Auto) (0.0-4.0) % Baso % (Auto) (0.0-2.0) % Neut # (1.8-7.0) K/uL Lymph # (1.0-4.3) K/uL Avery # (0.0-0.8) K/uL Eos # (0.0-0.7) K/uL Baso # (0.0-0.2) K/uL Neutrophils % (Manual) (50-75) % Band Neutrophils % (0-2) % Lymphocytes % (Manual) (20-40) % Monocytes % (Manual) (0-10) % Nucleated RBC % (0-0) % Toxic Granulation Platelet Estimate (NORMAL) Anisocytosis (manual) Macrocytosis (manual) Zarephath Cells ESR 89 H (0-20) mm/hr Puncture Site pCO2 (35-45) mm/Hg pO2 (80-100) mm/Hg HCO3 (21-28) mmol/L ABG pH (7.35-7.45) ABG Total CO2 (22-28) mmol/L ABG O2 Saturation (95-98) % ABG Base Excess (-2.0-3.0) mmol/L ABG Hemoglobin (11.7-17.4) g/dL ABG Carboxyhemoglobin (0.5-1.5) % POC ABG HHb (Measured) (0.0-5.0) % ABG Methemoglobin (0.0-3.0) % Jean Test A-a O2 Difference mm/Hg Respiratory Index Hgb O2 Saturation (95.0-98.0) % Vent Mode Mechanical Rate FiO2 % Tidal Volume PEEP Sodium 142 (132-148) mmol/L Potassium 4.1 (3.6-5.2) mmol/L Chloride 116 H (98-107) mmol/L Carbon Dioxide 12 L (22-30) mmol/L Anion Gap 18 (10-20) BUN 77 H (7-17) mg/dL Creatinine 6.1 H (0.7-1.2) mg/dL Est GFR ( Amer) 8 Est GFR (Non-Af Amer) 7 POC Glucose (mg/dL) (65-110) mg/dL Random Glucose 120 H (65-105) mg/dL Calcium 7.4 L (8.6-10.4) mg/dl Phosphorus 5.4 H (2.5-4.5) mg/dL Magnesium 2.2 (1.6-2.3) mg/dL Total Bilirubin 0.7 (0.2-1.3) mg/dL Direct Bilirubin 0.6 H (0.0-0.4) mg/dL AST 44 H (14-36) U/L ALT 59 H (9-52) U/L Alkaline Phosphatase 125 (38-126) U/L Total Creatine Kinase 174 H (30-135) U/L Total Protein 6.0 L (6.3-8.3) g/dL Albumin 2.7 L (3.5-5.0) g/dL Globulin 3.2 (2.2-3.9) gm/dL Albumin/Globulin Ratio 0.8 L (1.0-2.1) Urine Osmolality (300-1000) mosm/kg Ur Random Creatinine mg/dL Ur Random Sodium mmol/L Random Vancomycin ug/mL Laboratory Results - last 24 hr 03/14/17 03/14/17 03/14/17 05:43 05:43 09:47 WBC RBC Hgb Hct MCV MCH MCHC RDW Plt Count MPV Neut % (Auto) Lymph % (Auto) Avery % (Auto) Eos % (Auto) Baso % (Auto) Neut # Lymph # Avery # Eos # Baso # Neutrophils % (Manual) Band Neutrophils % Lymphocytes % (Manual) Monocytes % (Manual) Nucleated RBC % Toxic Granulation Platelet Estimate Anisocytosis (manual) Macrocytosis (manual) Arlyn Cells ESR 89 H Puncture Site pCO2 pO2 HCO3 ABG pH ABG Total CO2 ABG O2 Saturation ABG Base Excess ABG Hemoglobin ABG Carboxyhemoglobin POC ABG HHb (Measured) ABG Methemoglobin Jean Test A-a O2 Difference Respiratory Index Hgb O2 Saturation Vent Mode Mechanical Rate FiO2 Tidal Volume PEEP Sodium 142 Potassium 4.1 Chloride 116 H Carbon Dioxide 12 L Anion Gap 18 BUN 77 H Creatinine 6.1 H Est GFR ( Amer) 8 Est GFR (Non-Af Amer) 7 POC Glucose (mg/dL) Random Glucose 120 H Calcium 7.4 L Phosphorus 5.4 H Magnesium 2.2 Total Bilirubin 0.7 Direct Bilirubin 0.6 H AST 44 H ALT 59 H Alkaline Phosphatase 125 Total Creatine Kinase 174 H Total Protein 6.0 L Albumin 2.7 L Globulin 3.2 Albumin/Globulin Ratio 0.8 L Urine Osmolality 373 Ur Random Creatinine 80.3 Ur Random Sodium 6 Random Vancomycin 03/14/17 03/14/17 03/14/17 12:02 17:35 23:39 WBC RBC Hgb Hct MCV MCH MCHC RDW Plt Count MPV Neut % (Auto) Lymph % (Auto) Avery % (Auto) Eos % (Auto) Baso % (Auto) Neut # Lymph # Avery # Eos # Baso # Neutrophils % (Manual) Band Neutrophils % Lymphocytes % (Manual) Monocytes % (Manual) Nucleated RBC % Toxic Granulation Platelet Estimate Anisocytosis (manual) Macrocytosis (manual) Zarephath Cells ESR Puncture Site pCO2 pO2 HCO3 ABG pH ABG Total CO2 ABG O2 Saturation ABG Base Excess ABG Hemoglobin ABG Carboxyhemoglobin POC ABG HHb (Measured) ABG Methemoglobin Jean Test A-a O2 Difference Respiratory Index Hgb O2 Saturation Vent Mode Mechanical Rate FiO2 Tidal Volume PEEP Sodium Potassium Chloride Carbon Dioxide Anion Gap BUN Creatinine Est GFR ( Amer) Est GFR (Non-Af Amer) POC Glucose (mg/dL) 173 H 166 H 221 H Random Glucose Calcium Phosphorus Magnesium Total Bilirubin Direct Bilirubin AST ALT Alkaline Phosphatase Total Creatine Kinase Total Protein Albumin Globulin Albumin/Globulin Ratio Urine Osmolality Ur Random Creatinine Ur Random Sodium Random Vancomycin 03/15/17 03/15/17 03/15/17 05:10 06:06 06:39 WBC RBC Hgb Hct MCV MCH MCHC RDW Plt Count MPV Neut % (Auto) Lymph % (Auto) Avery % (Auto) Eos % (Auto) Baso % (Auto) Neut # Lymph # Avery # Eos # Baso # Neutrophils % (Manual) Band Neutrophils % Lymphocytes % (Manual) Monocytes % (Manual) Nucleated RBC % Toxic Granulation Platelet Estimate Anisocytosis (manual) Macrocytosis (manual) Zarephath Cells ESR Puncture Site Rb pCO2 24 L pO2 108 H HCO3 17.4 L ABG pH 7.38 ABG Total CO2 14.9 L ABG O2 Saturation 98.4 H ABG Base Excess -9.7 L ABG Hemoglobin 8.6 L ABG Carboxyhemoglobin 1.7 H POC ABG HHb (Measured) 1.6 ABG Methemoglobin 1.0 Jean Test Na A-a O2 Difference 147.0 Respiratory Index 1.4 Hgb O2 Saturation 95.7 Vent Mode Prvc Mechanical Rate 20 FiO2 40.0 Tidal Volume 450 PEEP 5 Sodium Potassium Chloride Carbon Dioxide Anion Gap BUN Creatinine Est GFR ( Amer) Est GFR (Non-Af Amer) POC Glucose (mg/dL) 312 H Random Glucose Calcium Phosphorus Magnesium Total Bilirubin Direct Bilirubin AST ALT Alkaline Phosphatase Total Creatine Kinase Total Protein Albumin Globulin Albumin/Globulin Ratio Urine Osmolality Ur Random Creatinine Ur Random Sodium Random Vancomycin 12.79 03/15/17 03/15/17 06:39 06:39 WBC 28.9 H RBC 3.25 L Hgb 10.4 L Hct 34.0 MCV 104.4 H MCH 32.1 H MCHC 30.7 L RDW 16.8 H Plt Count 218 MPV 10.7 Neut % (Auto) 92.6 H Lymph % (Auto) 1.8 L Avery % (Auto) 4.4 Eos % (Auto) 0.3 Baso % (Auto) 0.9 Neut # 26.8 H Lymph # 0.5 L Avery # 1.3 H Eos # 0.1 Baso # 0.3 H Neutrophils % (Manual) 81 H Band Neutrophils % 13 H* Lymphocytes % (Manual) 2 L Monocytes % (Manual) 4 Nucleated RBC % 1 H Toxic Granulation Present Platelet Estimate Normal Anisocytosis (manual) Slight Macrocytosis (manual) Moderate Arlyn Cells Slight ESR Puncture Site pCO2 pO2 HCO3 ABG pH ABG Total CO2 ABG O2 Saturation ABG Base Excess ABG Hemoglobin ABG Carboxyhemoglobin POC ABG HHb (Measured) ABG Methemoglobin Jean Test A-a O2 Difference Respiratory Index Hgb O2 Saturation Vent Mode Mechanical Rate FiO2 Tidal Volume PEEP Sodium 145 Potassium 4.1 Chloride 114 H Carbon Dioxide 12 L Anion Gap 23 H BUN 103 H* D Creatinine 5.8 H Est GFR ( Amer) 8 Est GFR (Non-Af Amer) 7 POC Glucose (mg/dL) Random Glucose 291 H Calcium 7.4 L Phosphorus 7.2 H Magnesium 2.6 H Total Bilirubin 0.6 Direct Bilirubin AST 76 H D ALT 97 H D Alkaline Phosphatase 177 H D Total Creatine Kinase Total Protein 5.9 L Albumin 2.8 L Globulin 3.2 Albumin/Globulin Ratio 0.9 L Urine Osmolality Ur Random Creatinine Ur Random Sodium Random Vancomycin Fingerstick Blood Sugar Results: 312 Review of Systems - Review of Systems Systems not reviewed;Unavailable: Intubated Critical Care Progress Note - Nutrition Nutrition: Nutrition Category Date Time Status NPO Diet [DIET] Diets 03/11/17 Dinner Active Assessment/Plan - Assessment and Plan (Free Text) Assessment: Assessment: 81 years old female who lives alone, with hx of Pancreatic Cancer, CKD and DM, brought awake and with left side weakness to the ED by EMS, after being found on the floor in her closet. The Head CT showing a large intracranial bleed with a midline shift to the left. Patient intubated. POD#3 s/p right parietal craniotomy, subtotal evacuation of hematoma. Neuro: intracranial bleed, POD#3 s/p right parietal craniotomy, subtotal evacuation of hematoma Head CT (03/11): large right temporoparietal parenchymal hemorrhage with white matter vasogenic edema, mass effect and 12 mm midline shift to left, associated subarachnoid and subdural hemorrhage on the right Head CT (03/12): slight increase in size of right temporoparietal occipital acute hemorrhage. Minimal subarachnoid hemorrhage and subdural hemorrhage as on previous exam. Midline shift towards the left slightly increase from prior examination, 11mm. No evidence of downward herniation. 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 Dr. Torres, neurology consulted Propofol for intubation left dense paralysis Dr. Mckee (neurosurg) performed right parietal craniotomy evacuation of hematoma yesterday Head CT (03/13): s/p right temporoparietal craniotomy with moderate residual intraparenchymal hemorrhage identified at the right temporal lobe predominantly and minimally involving the inferior right parietal lobe. Local edema remains prominent exerting mass effect causing 15mm leftward shift and effacement of the 3rd and right lateral ventricles as well as the right cerebral sulci. Mild to moderate right pneumocephaly identified. Minimal right subdural hematoma. Mild mass effect exerted at the right cerebral peduncle with the brainstem below this level unremarkable As per Dr. Allen, these are expected post op findings Cardio: htn Metoprolol 5mg ivp q6h Pulm: intubated Cxray: 03/15/17: ET tube extending into the mid thoracic trachea. NG tube extending into stomach. Biapical pleural thickening with upper lobe granulomatous changes. Scattered nodular densities throughout both lungs. Patchy increased consolidative changes at the left lung base. Endo: hx DMII, hypothyroidism accuchecks HgA1C: 6.3 Lipid panel: Triglycerides; 102, cholesterol 143, LDL 57, HDL 76 R ISS Synthroid 25mcg Renal: PAXTON on CKD BUN/ Cr: 103/5.8 from 77/6.1 Dr. Odom consulted, help appreciated -changed ivf to D5W with 3amp bicarb @ 70 cc/ hr as per Dr. Odom Phos 5.4, phoslo started Renal u/s: diminutive bilateral kidneys with increased echogenicity of the bilateral renal parenchymal cortices suggestive for medical renal disease. Bilateral renal disease Monitor Sodium Heme: Hx pancreatic cancer ID: bands increased to 16, wbc 32.4 -blood cultures negative -sputum culture (03/13): klebsiella pneumoniae -urine culture (03/13): gram positive cocci -Flagyl 500 mg iv q12h -Cefepime 1gm q24h -Zyvox 600 mg q12h (started 03/14) -Dr. Torres consulted, help appreciated Prophylaxis: DVT: SCDs, contraindication to chemical prophylaxis due to intracranial bleed GI: Protonix 40 mg daily D5W with 3amp bicarb @ 70 cc/ hr <Chong Sorensen - Last Filed: 03/15/17 15:14> CCU Objective - Vital Signs / Intake & Output Vital Signs (Last 4 hours): Vital Signs Temp Pulse Resp BP Pulse Ox 03/15/17 12:00 97.8 F 106 H 20 134/69 96 03/15/17 11:04 92 H 22 140/76 03/15/17 11:00 87 20 99 Intake and Output (Last 8hrs): Intake & Output 03/14/17 03/15/17 03/15/17 22:59 06:59 14:59 Intake Total 895 1090 950 Output Total 285 270 515 Balance 610 820 435 Weight 92 lb 9.6 oz Intake: Intake, IV Amount 835 860 770 Left Forearm 300 350 Right Distal Port Forearm 835 560 70 Right Forearm 350 Tube Feeding 60 230 180 Output: Urine 285 270 515 Urethral (Forbes) 285 270 515 Other: # Bowel Movements 1 0 1 - Medications Active Medications: Active Medications Generic Name Dose Route Start Last Admin Trade Name Freq PRN Reason Stop Dose Admin Acetaminophen 650 mg 03/14/17 17:15 03/14/17 17:23 Tylenol 650mg/20.3ml Solution Ud PO 650 mg Q4 PRN Administration Pain, moderate (4-7) Calcium Acetate 667 mg 03/14/17 08:00 03/15/17 08:47 Phoslo PO 667 mg BIDCC HALLE Administration Heparin Sodium (Porcine) 5,000 units 03/15/17 22:00 Heparin SC Q12 HALLE Levothyroxine Sodium 25 mcg/ 2.5 mls @ 0 mls/hr 10/31/17 06:30 03/15/17 06:35 Sodium Chloride IVP 1.25 mls/hr DAILY@0630 HALLE Administration UD Propofol 1,000 mg in 100 mls @ 1.189 mls/hr 03/12/17 08:24 03/13/17 06:18 Diprivan IV 10 mcg/kg/min .Q24H PRN 2.379 mls/hr TITRATE PER MD ORDER Titration Protocol 5 MCG/KG/MIN Cefepime HCl 1 gm in 50 mls @ 100 mls/hr 03/13/17 10:30 03/15/17 10:17 Maxipime Iv 1 Gm Premix IVPB 100 mls/hr Q24H HALLE Administration Metronidazole 500 mg in 100 mls @ 100 mls/hr 03/14/17 10:00 03/15/17 09:26 Flagyl IVPB 100 mls/hr Q12 HALLE Administration Sodium Bicarbonate 150 meq/ 1,000 mls @ 70 mls/hr 03/14/17 19:30 03/15/17 10: 22 Dextrose IV 70 mls/hr .[id number] HALLE Administration Linezolid 600 mg in 300 mls @ 200 mls/hr 03/14/17 23:45 03/15/17 12:01 Zyvox 600mg/300ml D5w IVPB 200 mls/hr Q12H HALLE Administration Insulin Human Regular 0 unit 03/12/17 12:00 03/15/17 11:58 Novolin R SC 2 unit Q6 HALLE Administration Protocol Metoprolol Tartrate 5 mg 03/12/17 12:00 03/15/17 12:02 Lopressor IVP Not Given Q6 HALLE Pantoprazole Sodium 40 mg 03/12/17 10:00 03/15/17 09:26 Protonix Inj IVP 40 mg DAILY HALLE Administration - Patient Studies Lab Studies: Microbiology Studies 03/13/17 11:30 Urine Culture - Preliminary Urine Gram Positive Cocci 03/13/17 09:30 Blood Culture - Preliminary Blood-Venous NO GROWTH AFTER 48 HOURS 03/13/17 09:00 Blood Culture - Preliminary Blood-Venous NO GROWTH AFTER 48 HOURS 03/14/17 08:00 MRSA Culture (Admit) - Final Naris MRSA NOT DETECTED 03/13/17 11:30 Gram Stain - Final Trachasp Sputum Culture - Final Klebsiella Pneumoniae Ssp Pneu Lab Studies 03/15/17 03/15/17 03/15/17 Range/Units 11:08 06:39 06:39 WBC 28.9 H (4.8-10.8) K/uL RBC 3.25 L (3.80-5.20) Mil/uL Hgb 10.4 L (11.0-16.0) g/dL Hct 34.0 (34.0-47.0) % MCV 104.4 H (81.0-99.0) fL MCH 32.1 H (27.0-31.0) pg MCHC 30.7 L (33.0-37.0) g/dL RDW 16.8 H (11.5-14.5) % Plt Count 218 (130-400) K/uL MPV 10.7 (7.2-11.7) fL Neut % (Auto) 92.6 H (50.0-75.0) % Lymph % (Auto) 1.8 L (20.0-40.0) % Avery % (Auto) 4.4 (0.0-10.0) % Eos % (Auto) 0.3 (0.0-4.0) % Baso % (Auto) 0.9 (0.0-2.0) % Neut # 26.8 H (1.8-7.0) K/uL Lymph # 0.5 L (1.0-4.3) K/uL Avery # 1.3 H (0.0-0.8) K/uL Eos # 0.1 (0.0-0.7) K/uL Baso # 0.3 H (0.0-0.2) K/uL Neutrophils % (Manual) 81 H (50-75) % Band Neutrophils % 13 H* (0-2) % Lymphocytes % (Manual) 2 L (20-40) % Monocytes % (Manual) 4 (0-10) % Nucleated RBC % 1 H (0-0) % Toxic Granulation Present Platelet Estimate Normal (NORMAL) Anisocytosis (manual) Slight Macrocytosis (manual) Moderate [place] Cells Slight Puncture Site pCO2 (35-45) mm/Hg pO2 (80-100) mm/Hg HCO3 (21-28) mmol/L ABG pH (7.35-7.45) ABG Total CO2 (22-28) mmol/L ABG O2 Saturation (95-98) % ABG Base Excess (-2.0-3.0) mmol/L ABG Hemoglobin (11.7-17.4) g/dL ABG Carboxyhemoglobin (0.5-1.5) % POC ABG HHb (Measured) (0.0-5.0) % ABG Methemoglobin (0.0-3.0) % Jean Test A-a O2 Difference mm/Hg Respiratory Index Hgb O2 Saturation (95.0-98.0) % Vent Mode Mechanical Rate FiO2 % Tidal Volume PEEP Sodium 145 (132-148) mmol/L Potassium 4.1 (3.6-5.2) mmol/L Chloride 114 H (98-107) mmol/L Carbon Dioxide 12 L (22-30) mmol/L Anion Gap 23 H (10-20) BUN 103 H* D (7-17) mg/dL Creatinine 5.8 H (0.7-1.2) mg/dL Est GFR ( Amer) 8 Est GFR (Non-Af Amer) 7 POC Glucose (mg/dL) 238 H (65-110) mg/dL Random Glucose 291 H (65-105) mg/dL Calcium 7.4 L (8.6-10.4) mg/dl Phosphorus 7.2 H (2.5-4.5) mg/dL Magnesium 2.6 H (1.6-2.3) mg/dL Total Bilirubin 0.6 (0.2-1.3) mg/dL AST 76 H D (14-36) U/L ALT 97 H D (9-52) U/L Alkaline Phosphatase 177 H D (38-126) U/L Total Protein 5.9 L (6.3-8.3) g/dL Albumin 2.8 L (3.5-5.0) g/dL Globulin 3.2 (2.2-3.9) gm/dL Albumin/Globulin Ratio 0.9 L (1.0-2.1) Random Vancomycin ug/mL 03/15/17 03/15/17 03/15/17 Range/Units 06:39 06:06 05:10 WBC (4.8-10.8) K/uL RBC (3.80-5.20) Mil/uL Hgb (11.0-16.0) g/dL Hct (34.0-47.0) % MCV (81.0-99.0) fL MCH (27.0-31.0) pg MCHC (33.0-37.0) g/dL RDW (11.5-14.5) % Plt Count (130-400) K/uL MPV (7.2-11.7) fL Neut % (Auto) (50.0-75.0) % Lymph % (Auto) (20.0-40.0) % Avery % (Auto) (0.0-10.0) % Eos % (Auto) (0.0-4.0) % Baso % (Auto) (0.0-2.0) % Neut # (1.8-7.0) K/uL Lymph # (1.0-4.3) K/uL Avery # (0.0-0.8) K/uL Eos # (0.0-0.7) K/uL Baso # (0.0-0.2) K/uL Neutrophils % (Manual) (50-75) % Band Neutrophils % (0-2) % Lymphocytes % (Manual) (20-40) % Monocytes % (Manual) (0-10) % Nucleated RBC % (0-0) % Toxic Granulation Platelet Estimate (NORMAL) Anisocytosis (manual) Macrocytosis (manual) Arlyn Cells Puncture Site Rb pCO2 24 L (35-45) mm/Hg pO2 108 H (80-100) mm/Hg HCO3 17.4 L (21-28) mmol/L ABG pH 7.38 (7.35-7.45) ABG Total CO2 14.9 L (22-28) mmol/L ABG O2 Saturation 98.4 H (95-98) % ABG Base Excess -9.7 L (-2.0-3.0) mmol/L ABG Hemoglobin 8.6 L (11.7-17.4) g/dL ABG Carboxyhemoglobin 1.7 H (0.5-1.5) % POC ABG HHb (Measured) 1.6 (0.0-5.0) % ABG Methemoglobin 1.0 (0.0-3.0) % Jean Test Na A-a O2 Difference 147.0 mm/Hg Respiratory Index 1.4 Hgb O2 Saturation 95.7 (95.0-98.0) % Vent Mode Prvc Mechanical Rate 20 FiO2 40.0 % Tidal Volume 450 PEEP 5 Sodium (132-148) mmol/L Potassium (3.6-5.2) mmol/L Chloride (98-107) mmol/L Carbon Dioxide (22-30) mmol/L Anion Gap (10-20) BUN (7-17) mg/dL Creatinine (0.7-1.2) mg/dL Est GFR ( Amer) Est GFR (Non-Af Amer) POC Glucose (mg/dL) 312 H (65-110) mg/dL Random Glucose (65-105) mg/dL Calcium (8.6-10.4) mg/dl Phosphorus (2.5-4.5) mg/dL Magnesium (1.6-2.3) mg/dL Total Bilirubin (0.2-1.3) mg/dL AST (14-36) U/L ALT (9-52) U/L Alkaline Phosphatase (38-126) U/L Total Protein (6.3-8.3) g/dL Albumin (3.5-5.0) g/dL Globulin (2.2-3.9) gm/dL Albumin/Globulin Ratio (1.0-2.1) Random Vancomycin 12.79 ug/mL 03/14/17 03/14/17 Range/Units 23:39 17:35 WBC (4.8-10.8) K/uL RBC (3.80-5.20) Mil/uL Hgb (11.0-16.0) g/dL Hct (34.0-47.0) % MCV (81.0-99.0) fL MCH (27.0-31.0) pg MCHC (33.0-37.0) g/dL RDW (11.5-14.5) % Plt Count (130-400) K/uL MPV (7.2-11.7) fL Neut % (Auto) (50.0-75.0) % Lymph % (Auto) (20.0-40.0) % Avery % (Auto) (0.0-10.0) % Eos % (Auto) (0.0-4.0) % Baso % (Auto) (0.0-2.0) % Neut # (1.8-7.0) K/uL Lymph # (1.0-4.3) K/uL Avery # (0.0-0.8) K/uL Eos # (0.0-0.7) K/uL Baso # (0.0-0.2) K/uL Neutrophils % (Manual) (50-75) % Band Neutrophils % (0-2) % Lymphocytes % (Manual) (20-40) % Monocytes % (Manual) (0-10) % Nucleated RBC % (0-0) % Toxic Granulation Platelet Estimate (NORMAL) Anisocytosis (manual) Macrocytosis (manual) Arlyn Cells Puncture Site pCO2 (35-45) mm/Hg pO2 (80-100) mm/Hg HCO3 (21-28) mmol/L ABG pH (7.35-7.45) ABG Total CO2 (22-28) mmol/L ABG O2 Saturation (95-98) % ABG Base Excess (-2.0-3.0) mmol/L ABG Hemoglobin (11.7-17.4) g/dL ABG Carboxyhemoglobin (0.5-1.5) % POC ABG HHb (Measured) (0.0-5.0) % ABG Methemoglobin (0.0-3.0) % Jean Test A-a O2 Difference mm/Hg Respiratory Index Hgb O2 Saturation (95.0-98.0) % Vent Mode Mechanical Rate FiO2 % Tidal Volume PEEP Sodium (132-148) mmol/L Potassium (3.6-5.2) mmol/L Chloride (98-107) mmol/L Carbon Dioxide (22-30) mmol/L Anion Gap (10-20) BUN (7-17) mg/dL Creatinine (0.7-1.2) mg/dL Est GFR ( Amer) Est GFR (Non-Af Amer) POC Glucose (mg/dL) 221 H 166 H (65-110) mg/dL Random Glucose (65-105) mg/dL Calcium (8.6-10.4) mg/dl Phosphorus (2.5-4.5) mg/dL Magnesium (1.6-2.3) mg/dL Total Bilirubin (0.2-1.3) mg/dL AST (14-36) U/L ALT (9-52) U/L Alkaline Phosphatase (38-126) U/L Total Protein (6.3-8.3) g/dL Albumin (3.5-5.0) g/dL Globulin (2.2-3.9) gm/dL Albumin/Globulin Ratio (1.0-2.1) Random Vancomycin ug/mL Laboratory Results - last 24 hr 03/14/17 03/14/17 03/15/17 17:35 23:39 05:10 WBC RBC Hgb Hct MCV MCH MCHC RDW Plt Count MPV Neut % (Auto) Lymph % (Auto) Avery % (Auto) Eos % (Auto) Baso % (Auto) Neut # Lymph # Avery # Eos # Baso # Neutrophils % (Manual) Band Neutrophils % Lymphocytes % (Manual) Monocytes % (Manual) Nucleated RBC % Toxic Granulation Platelet Estimate Anisocytosis (manual) Macrocytosis (manual) Zarephath Cells Puncture Site Rb pCO2 24 L pO2 108 H HCO3 17.4 L ABG pH 7.38 ABG Total CO2 14.9 L ABG O2 Saturation 98.4 H ABG Base Excess -9.7 L ABG Hemoglobin 8.6 L ABG Carboxyhemoglobin 1.7 H POC ABG HHb (Measured) 1.6 ABG Methemoglobin 1.0 Jean Test Na A-a O2 Difference 147.0 Respiratory Index 1.4 Hgb O2 Saturation 95.7 Vent Mode Prvc Mechanical Rate 20 FiO2 40.0 Tidal Volume 450 PEEP 5 Sodium Potassium Chloride Carbon Dioxide Anion Gap BUN Creatinine Est GFR ( Amer) Est GFR (Non-Af Amer) POC Glucose (mg/dL) 166 H 221 H Random Glucose Calcium Phosphorus Magnesium Total Bilirubin AST ALT Alkaline Phosphatase Total Protein Albumin Globulin Albumin/Globulin Ratio Random Vancomycin 03/15/17 03/15/17 03/15/17 06:06 06:39 06:39 WBC 28.9 H RBC 3.25 L Hgb 10.4 L Hct 34.0 MCV 104.4 H MCH 32.1 H MCHC 30.7 L RDW 16.8 H Plt Count 218 MPV 10.7 Neut % (Auto) 92.6 H Lymph % (Auto) 1.8 L Avery % (Auto) 4.4 Eos % (Auto) 0.3 Baso % (Auto) 0.9 Neut # 26.8 H Lymph # 0.5 L Avery # 1.3 H Eos # 0.1 Baso # 0.3 H Neutrophils % (Manual) 81 H Band Neutrophils % 13 H* Lymphocytes % (Manual) 2 L Monocytes % (Manual) 4 Nucleated RBC % 1 H Toxic Granulation Present Platelet Estimate Normal Anisocytosis (manual) Slight Macrocytosis (manual) Moderate Zarephath Cells Slight Puncture Site pCO2 pO2 HCO3 ABG pH ABG Total CO2 ABG O2 Saturation ABG Base Excess ABG Hemoglobin ABG Carboxyhemoglobin POC ABG HHb (Measured) ABG Methemoglobin Jean Test A-a O2 Difference Respiratory Index Hgb O2 Saturation Vent Mode Mechanical Rate FiO2 Tidal Volume PEEP Sodium Potassium Chloride Carbon Dioxide Anion Gap BUN Creatinine Est GFR ( Amer) Est GFR (Non-Af Amer) POC Glucose (mg/dL) 312 H Random Glucose Calcium Phosphorus Magnesium Total Bilirubin AST ALT Alkaline Phosphatase Total Protein Albumin Globulin Albumin/Globulin Ratio Random Vancomycin 12.79 03/15/17 03/15/17 06:39 11:08 WBC RBC Hgb Hct MCV MCH MCHC RDW Plt Count MPV Neut % (Auto) Lymph % (Auto) Avery % (Auto) Eos % (Auto) Baso % (Auto) Neut # Lymph # Avery # Eos # Baso # Neutrophils % (Manual) Band Neutrophils % Lymphocytes % (Manual) Monocytes % (Manual) Nucleated RBC % Toxic Granulation Platelet Estimate Anisocytosis (manual) Macrocytosis (manual) Zarephath Cells Puncture Site pCO2 pO2 HCO3 ABG pH ABG Total CO2 ABG O2 Saturation ABG Base Excess ABG Hemoglobin ABG Carboxyhemoglobin POC ABG HHb (Measured) ABG Methemoglobin Jean Test A-a O2 Difference Respiratory Index Hgb O2 Saturation Vent Mode Mechanical Rate FiO2 Tidal Volume PEEP Sodium 145 Potassium 4.1 Chloride 114 H Carbon Dioxide 12 L Anion Gap 23 H BUN 103 H* D Creatinine 5.8 H Est GFR ( Amer) 8 Est GFR (Non-Af Amer) 7 POC Glucose (mg/dL) 238 H Random Glucose 291 H Calcium 7.4 L Phosphorus 7.2 H Magnesium 2.6 H Total Bilirubin 0.6 AST 76 H D ALT 97 H D Alkaline Phosphatase 177 H D Total Protein 5.9 L Albumin 2.8 L Globulin 3.2 Albumin/Globulin Ratio 0.9 L Random Vancomycin Critical Care Progress Note - Nutrition Nutrition: Nutrition Category Date Time Status NPO Diet [DIET] Diets 03/11/17 Dinner Active Attending/Attestation - Attestation I have personally seen and examined this patient.: Yes I have fully participated in the care of the patient.: Yes I have reviewed all pertinent clinical information: Yes Notes (Text): 03/15/17 14:59 I have seen and examined the patient. Medical records, lab studies, and imaging were reviewed by me and a management plan was formulated on multidisciplinary rounds with resident Dr. Paz. I agree with their documented assessment and plan. HAGMA, secondary to sepsis. Oliguric PAXTON, now improving. Patient becoming polyuric, must monitor sodiums for either central DI, or cerebral salt wasting/ SIADH. Sepsis from unknown source, patient is on broad spectrum coverage, Flagyl, Zyvox and Cefepime. WBC slight drop today, will monitor. Patient had large non-dominant side ICH, still has a chance for recovery with hemiparesis. Critical Care Time 35 minutes. Multi-disciplinary rounds were performed with house staff, nursing, speech therapy, respiratory therapy, pharmacy and nutrition with integrated input from the primary team/attending and other consulting services. The documented time is cumulative and includes review of patient data/exams/labs/chart review and examination of the patient on rounds and throughout the day; time is exclusive of any procedures or teaching time. 03/15/17 15:12 03/15/17 15:13
[2017-03-15] MEDS: metroNIDAZOLE IV 500 mg/100 ml 500 MG/100 ML BAG IVPB SCH ×2 (09:26→22:57)
[2017-03-15] MEDS: Sodium Bicarbonate 8.4% 150 MEQ in Dextrose 5% In Water 850 ML IV SCH ×2 (09:47→10:22)
[2017-03-15] MEDS: Cefepime IV 1 gm in Dextrose 1 GM/50 ML BAG IVPB SCH (10:17)
--- NOTE | 2017-03-15 13:32 | CP.PCM.PN ---
Subjective - Date & Time of Evaluation Date of Evaluation: 03/15/17 Time of Evaluation: 13:29 - Subjective Subjective: REMAINS CRITICALLY STABLE INTUBATED ON VENT VS STABLE P/E REMAINS SAME WITH LEFT HEMIPLEGIA CT HEAD POST OP CHANGES CXR , NODULAR CONSOLIDATIVE CHANGES , POS SPUTUM ON IV AB PER ID RENAL FUNCTION SAME , IV FLUIDS WITH BICARB Objective - Vital Signs/Intake and Output Vital Signs (last 24 hours): Temp Pulse Resp BP Pulse Ox 97.8 F 106 H 20 134/69 96 03/15/17 12:00 03/15/17 12:00 03/15/17 12:00 03/15/17 12:00 03/15/17 12:00 Intake and Output: 03/15/17 03/15/17 11:59 23:59 Intake Total 1650 300 Output Total 675 75 Balance 975 225 - Medications Medications: Current Medications Acetaminophen (Tylenol 650mg/20.3ml Solution Ud) 650 mg PO Q4 PRN PRN Reason: Pain, moderate (4-7) Last Admin: 03/14/17 17:23 Dose: 650 mg Calcium Acetate (Phoslo) 667 mg PO BIDCC [facility] Last Admin: 03/15/17 08:47 Dose: 667 mg Levothyroxine Sodium 25 mcg/ (Sodium Chloride) 2.5 mls @ 0 mls/hr IVP DAILY@ 0630 [facility] PRN Reason: UD Last Admin: 03/15/17 06:35 Dose: 1.25 mls/hr Propofol (Diprivan) 1,000 mg in 100 mls @ 1.189 mls/hr IV .Q24H PRN; Protocol; 5 MCG/KG/MIN PRN Reason: TITRATE PER MD ORDER Last Titration: 03/13/17 06:18 Dose: 10 mcg/kg/min, 2.379 mls/hr Cefepime HCl (Maxipime Iv 1 Gm Premix) 1 gm in 50 mls @ 100 mls/hr IVPB Q24H [facility] Last Admin: 03/15/17 10:17 Dose: 100 mls/hr Metronidazole (Flagyl) 500 mg in 100 mls @ 100 mls/hr IVPB Q12 [facility] Last Admin: 03/15/17 09:26 Dose: 100 mls/hr Sodium Bicarbonate 150 meq/ (Dextrose) 1,000 mls @ 70 mls/hr IV .[id number] [facility] Last Admin: 03/15/17 10:22 Dose: 70 mls/hr Linezolid (Zyvox 600mg/300ml D5w) 600 mg in 300 mls @ 200 mls/hr IVPB Q12H [facility] Last Admin: 03/15/17 12:01 Dose: 200 mls/hr Insulin Human Regular (Novolin R) 0 unit SC Q6 [facility] PRN Reason: Protocol Last Admin: 03/15/17 11:58 Dose: 2 unit Metoprolol Tartrate (Lopressor) 5 mg IVP Q6 [facility] Last Admin: 03/15/17 12:02 Dose: Not Given Pantoprazole Sodium (Protonix Inj) 40 mg IVP DAILY [facility] Last Admin: 03/15/17 09:26 Dose: 40 mg - Labs Labs: 03/15/17 06:39 03/15/17 06:39 PT 10.2 SECONDS (9.7-12.2) 03/12/17 06:20 INR 0.9 03/12/17 06:20 APTT 27 SECONDS (21-34) 03/12/17 06:20 Assessment and Plan (1) Intracranial hemorrhage Status: Acute (2) Renal failure Status: Acute (3) Sepsis Status: Acute
--- NOTE | 2017-03-15 13:57 | CT ---
PROCEDURE: CT HEAD WITHOUT CONTRAST. HISTORY: s/p craniotomy, intracerebral bleed COMPARISON: UNENHANCED HEAD CT 03/13/2017. TECHNIQUE: Axial computed tomography images were obtained through the head/brain without intravenous contrast. Radiation dose: Total exam DLP = 1511.16 mGy-cm. This CT exam was performed using one or more of the following dose reduction techniques: Automated exposure control, adjustment of the mA and/or kV according to patient size, and/or use of iterative reconstruction technique. FINDINGS: HEMORRHAGE: Residual intraparenchymal hemorrhage is unchanged at the right temporal lobe with extensive edema seen the periphery. Diminishing pneumocephaly is appreciated at the operative site as well as the right temporal and right frontal subdural spaces. Limited subdural hematoma remains of various stages of degradation but not increased in volume. Mild leftward midline shift is holding stable at 15 mm toward the left. Right cerebral sulci as well as right lateral ventricle remain effaced. BRAIN: Please see discussion above. Effacement of the right cerebral sulci, right lateral ventricle and 3rd ventricle is unchanged. 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 VENTRICLES: Please see discussion above. No hydrocephalus is developing at this time. Fourth ventricle and left lateral ventricle are stable in overall size. CALVARIUM: Right temporoparietal craniotomy site unchanged. PARANASAL SINUSES: Unremarkable as visualized. No significant inflammatory changes. MASTOID AIR CELLS: Unremarkable as visualized. No inflammatory changes. OTHER FINDINGS: None. IMPRESSION: Stable low residual hemorrhagic infarction, mass effect and leftward midline shift of 15 mm as well as subdural hemorrhage (minimal) at various stages of degradation). No interval change in local edema pattern related to the hemorrhagic infarction and no increased volume of hemorrhage is appreciated at this time either. Pneumocephaly is resolving postoperatively. Continued clinical and CT moderate are advised.
--- NOTE | 2017-03-15 14:03 | PN ---
DATE: 03/15/2017 NEUROLOGY PROGRESS NOTE SUBJECTIVE: The patient is lying on the bed on a ventilator. PHYSICAL EXAMINATION: VITAL SIGNS: Her blood pressure is 143/80, heart rate is 81 per minute, she is breathing at a rate of 20 per minute, her temperature is 98.2 degrees Fahrenheit. HEENT: Head is normocephalic. NECK: Supple. There are no carotid bruit. LUNGS: Clear. CARDIOVASCULAR: S1 and S2 audible. No murmur. ABDOMEN: Soft and nontender. Bowel sounds are present. NEUROLOGIC: Mental status: The patient is lethargic, minimally opens her eyes, feels noxious painful stimuli, does not follow any commands. CRANIAL NERVE EXAMINATION: Pupils 2 mm bilaterally, reactive to light. Positive doll's eye movement. Positive corneal reflex. She withdraws her right upper and lower extremities to noxious painful stimuli. There is minimal withdrawal of the left lower extremity to painful stimuli. No withdrawal of the left upper extremity to noxious painful stimuli. Plantars, no response. LABORATORY DATA: Reviewed shows WBC of 28.9, hemoglobin 10.4, hematocrit of 34.0, and platelets of 218. Sodium is 145, potassium 4.1, chloride of 114, carbon dioxide content of 12, BUN of 103, creatinine of 5.8, and glucose of 291. Her urine showed wbc of 103. IMPRESSION: 1. Right temporoparietal hemorrhage. 2. Toxic metabolic encephalopathy with uremia as well as sepsis. 3. Respiratory failure. RECOMMENDATIONS: 1. Continue to keep head of bed elevated to 30 degrees. 2. The patient to be continued on IV antibiotics for underlying sepsis. 3. The patient being followed by nephrology for her elevated BUN and creatinine. 4. Please continue supportive care and other treatment. Thank you for the opportunity to participate in the care of this patient. David Torres MD
--- NOTE | 2017-03-15 16:57 | CARD ---
APPROVED REPORT EKG Measurement Heart [id number] <Conclusion> Atrial fibrillation ST & T wave abnormality, nonspecific. Abnormal ECG
--- NOTE | 2017-03-15 20:17 | CP.PCM.PN ---
Subjective - Date & Time of Evaluation Date of Evaluation: 03/15/17 Time of Evaluation: 20:16 - Subjective Subjective: AFEBRILE, INTUBATED .ON VENTILATOR REMAINS CRITICALLY-STABLE TACHYCARDIC LEUKOCYTOSIS PERSISTS SPUTUM +VE [id number] PNEUMONIAE-PANSENSITIVE. URINE [id number] COCCI-identification pending STOOL c. DIFFICILE NEGATIVE. Azotemia creatinine of 5.8 /BUN [address] OF THE HEAD-NOTED: 03/15- stable low residual hemorrhagic infarction, mass effect and leftward midline shift of 15mm as well as subdural hemorrhage ( minimal) at various stages of degradation. No interval change in local edema pattern related to the hemorrhagic infarction and no increased volume of hemorrhage is appreciated at this time either. Pneumocephaly is resolving postoperatively. ROS; NOT APPLICABLE PATIENT INTUBATED PE; REMAINS UNCHANGED. COMOTOSE LEFT HEMIPARESIS PERSISTS Objective - Vital Signs/Intake and Output Vital Signs (last 24 hours): Temp Pulse Resp BP Pulse Ox 97.8 F 106 H 20 134/69 96 03/15/17 12:00 03/15/17 12:00 03/15/17 12:00 03/15/17 12:00 03/15/17 12:00 Intake and Output: 03/15/17 03/16/17 18:59 06:59 Intake Total 1550 Output Total 965 Balance 585 - Medications Medications: Current Medications Acetaminophen (Tylenol 650mg/20.3ml Solution Ud) 650 mg PO Q4 PRN PRN Reason: Pain, moderate (4-7) Last Admin: 03/14/17 17:23 Dose: 650 mg Calcium Acetate (Phoslo) 667 mg PO BIDCC [facility] Last Admin: 03/15/17 17:13 Dose: 667 mg Heparin Sodium (Porcine) (Heparin) 5,000 units SC Q12 [facility] Levothyroxine Sodium 25 mcg/ (Sodium Chloride) 2.5 mls @ 0 mls/hr IVP DAILY@ 0630 [facility] PRN Reason: UD Last Admin: 03/15/17 06:35 Dose: 1.25 mls/hr Propofol (Diprivan) 1,000 mg in 100 mls @ 1.189 mls/hr IV .Q24H PRN; Protocol; 5 MCG/KG/MIN PRN Reason: TITRATE PER MD ORDER Last Titration: 03/13/17 06:18 Dose: 10 mcg/kg/min, 2.379 mls/hr Cefepime HCl (Maxipime Iv 1 Gm Premix) 1 gm in 50 mls @ 100 mls/hr IVPB Q24H [facility] Last Admin: 03/15/17 10:17 Dose: 100 mls/hr Metronidazole (Flagyl) 500 mg in 100 mls @ 100 mls/hr IVPB Q12 [facility] Last Admin: 03/15/17 09:26 Dose: 100 mls/hr Sodium Bicarbonate 150 meq/ (Dextrose) 1,000 mls @ 70 mls/hr IV .[id number] [facility] Last Admin: 03/15/17 10:22 Dose: 70 mls/hr Linezolid (Zyvox 600mg/300ml D5w) 600 mg in 300 mls @ 200 mls/hr IVPB Q12H [facility] Last Admin: 03/15/17 12:01 Dose: 200 mls/hr Insulin Human Regular (Novolin R) 0 unit SC Q6 [facility] PRN Reason: Protocol Last Admin: 03/15/17 18:04 Dose: 4 unit Metoprolol Tartrate (Lopressor) 5 mg IVP Q6 [facility] Last Admin: 03/15/17 18:06 Dose: Not Given Pantoprazole Sodium (Protonix Inj) 40 mg IVP DAILY [facility] Last Admin: 03/15/17 09:26 Dose: 40 mg - Labs Labs: 03/15/17 06:39 03/15/17 06:39 PT 10.2 SECONDS (9.7-12.2) 03/12/17 06:20 INR 0.9 03/12/17 06:20 APTT 27 SECONDS (21-34) 03/12/17 06:20 - Constitutional Appears: No Acute Distress - Eye Exam Eye Exam: PERRL - ENT Exam ENT Exam: Normal Exam - Neck Exam Neck Exam: Normal Inspection - Respiratory Exam Respiratory Exam: Rhonchi - Cardiovascular Exam Cardiovascular Exam: Tachycardia, REGULAR RHYTHM, +S1, +S2 - GI/Abdominal Exam GI & Abdominal Exam: Soft, Normal Bowel Sounds - Extremities Exam Extremities Exam: Pedal Edema - Neurological Exam Neurological Exam: Altered - Skin Skin Exam: Dry, Warm Assessment and Plan (1) S/P craniotomy Status: Acute (2) SIRS (systemic inflammatory response syndrome) Status: Acute (3) Intracranial hemorrhage Status: Acute (4) Renal failure Status: Acute (5) Diabetes mellitus type 2 in nonobese Status: Acute (6) Hypertension Status: Acute (7) Pancreatic cancer Status: Acute - Assessment and Plan (Free Text) Plan: CONTINUE iv CEFEPIME 1 G ONCE A DAY DAILY. 03/13/17. PATIENT GOT 1 DOSE OF VANCOMYCIN 1 G IN ICU.03/13/17,PATIENT OFF VANCOMYCIN CONTINUE IV ZYVOX 600 MG EVERY 12 HOURLY FOR GRAM-POSITIVE COVERAGE.03/14/17. CONTINUE IV fLAGYL 500 MG iv PIGGYBACK EVERY 12 HOURLY. 03/13/17. FOLLOW-UP CULTURES TO ADJUST ANTIBIOTICS. MONITOR NEURO CHECKUPS . NEPHROLOGY ON BOARD ACUTE RENAL INSUFFICIENCY. PROGNOSIS GUARDED. CASE DISCUSSED WITH THE STAFF.
--- NOTE | 2017-03-15 20:43 | CP.PCM.PN ---
Subjective - Date & Time of Evaluation Date of Evaluation: 03/15/17 Time of Evaluation: 20:42 - Subjective Subjective: pt is seen and examined, follow up consult is dictated #[id number] Objective - Vital Signs/Intake and Output Vital Signs (last 24 hours): Temp Pulse Resp BP Pulse Ox 97.4 F L 113 H 21 145/72 96 03/15/17 20:00 03/15/17 20:33 03/15/17 20:33 03/15/17 20:33 03/15/17 20:33 Intake and Output: 03/15/17 03/16/17 18:59 06:59 Intake Total 1550 100 Output Total 965 55 Balance 585 45 - Medications Medications: Current Medications Acetaminophen (Tylenol 650mg/20.3ml Solution Ud) 650 mg PO Q4 PRN PRN Reason: Pain, moderate (4-7) Last Admin: 03/14/17 17:23 Dose: 650 mg Calcium Acetate (Phoslo) 667 mg PO BIDCC [facility] Last Admin: 03/15/17 17:13 Dose: 667 mg Heparin Sodium (Porcine) (Heparin) 5,000 units SC Q12 [facility] Levothyroxine Sodium 25 mcg/ (Sodium Chloride) 2.5 mls @ 0 mls/hr IVP DAILY@ 0630 [facility] PRN Reason: UD Last Admin: 03/15/17 06:35 Dose: 1.25 mls/hr Propofol (Diprivan) 1,000 mg in 100 mls @ 1.189 mls/hr IV .Q24H PRN; Protocol; 5 MCG/KG/MIN PRN Reason: TITRATE PER MD ORDER Last Titration: 03/13/17 06:18 Dose: 10 mcg/kg/min, 2.379 mls/hr Cefepime HCl (Maxipime Iv 1 Gm Premix) 1 gm in 50 mls @ 100 mls/hr IVPB Q24H [facility] Last Admin: 03/15/17 10:17 Dose: 100 mls/hr Metronidazole (Flagyl) 500 mg in 100 mls @ 100 mls/hr IVPB Q12 [facility] Last Admin: 03/15/17 09:26 Dose: 100 mls/hr Sodium Bicarbonate 150 meq/ (Dextrose) 1,000 mls @ 70 mls/hr IV .[id number] [facility] Last Admin: 03/15/17 10:22 Dose: 70 mls/hr Linezolid (Zyvox 600mg/300ml D5w) 600 mg in 300 mls @ 200 mls/hr IVPB Q12H [facility] Last Admin: 03/15/17 12:01 Dose: 200 mls/hr Insulin Human Regular (Novolin R) 0 unit SC Q6 [facility] PRN Reason: Protocol Last Admin: 03/15/17 18:04 Dose: 4 unit Metoprolol Tartrate (Lopressor) 5 mg IVP Q6 [facility] Last Admin: 03/15/17 18:06 Dose: Not Given Pantoprazole Sodium (Protonix Inj) 40 mg IVP DAILY [facility] Last Admin: 03/15/17 09:26 Dose: 40 mg - Labs Labs: 03/15/17 06:39 03/15/17 06:39 PT 10.2 SECONDS (9.7-12.2) 03/12/17 06:20 INR 0.9 03/12/17 06:20 APTT 27 SECONDS (21-34) 03/12/17 06:20
[2017-03-16] MEDS: (Novolin R) Insulin Human Regular 100 units/ml vial SC SCH ×4 (01:19→17:49)
[2017-03-16] MEDS: Sodium Bicarbonate 8.4% 150 MEQ in Dextrose 5% In Water 850 ML IV SCH (01:20)
[2017-03-16 05:47] LABS: ABG ALLEN TEST POS; ABG MECHANICAL RATE 16; ARTERIAL BLOOD GAS MODE PRVC; ATERIAL BLOOD GAS PEEP 5; CARBOXYHEMOGLOBIN 1.9 % (0.5-1.5); DRAW SITE RR; METHEMOGLOBIN 1.1 % (0.0-3.0)
[2017-03-16] MEDS: LEVOTHYROXINE IVP SCH (06:34)
[2017-03-16] MEDS: SODIUM CHLORIDE 0.9% IVP SCH (06:34)
[2017-03-16] MEDS: Metoprolol 1 mg/ml Inj IVP SCH (06:35)
--- NOTE | 2017-03-16 06:41 | PN ---
DATE: FOLLOWUP RENAL CONSULTATION LOCATION: The patient is located in ICU bed 8. REQUESTED BY: Jordi Bedolla MD REASON FOR FOLLOWUP: Acute renal failure on chronic kidney disease, status post intracranial bleed, status post craniotomy, on ventilator. SUBJECTIVE: Mrs. Watson is an 81-year-old very thin built elderly American female with past medical history significant for hypertension, hypothyroidism, osteoporosis, and chronic kidney disease, who was found to be on the floor allowing the closet locked and the patient was found to have left-sided weakness and also found to have intracranial bleed on the right side status post craniotomy and then the patient is on ventilator. The patient is not responding to verbal stimuli, moving the right upper extremity, right lower extremity, and left lower extremity to painful stimuli and less responsive to the left upper extremity. The patient remains intubated, not in distress. PHYSICAL EXAMINATION VITAL SIGNS: As follows; blood pressure 145/72, pulse 113, respirations 21, temperature 97.4, height 4 feet 10 inches, and weight 92 pounds. HEENT: Pupils normal and the patient has nystagmus horizontal. Conjunctivae pink, sclerae anicteric, on ventilator. Trachea is midline. LUNGS: Symmetric on both sides. Bilateral breath sounds present. No crackles. CARDIOVASCULAR: [place] at the fifth intercostal space, midclavicular line. S1 and S2 audible. No murmur or gallop. ABDOMEN: Normal in appearance, soft and tympanic. No guarding. No rigidity. No hepatosplenomegaly. CENTRAL NERVOUS SYSTEM: The patient is on ventilator, not responding to verbal stimuli and responding to deep painful stimuli moving right upper extremity, right lower extremity, and left lower extremity, and the patient is moving her left upper extremity very little with a painful stimuli. EXTREMITIES: No cyanosis, no clubbing, no edema. CURRENT MEDICATIONS: Include Diprivan, Flagyl 500 mg IV q. 12 hours, subcu heparin 5000 q. 12 hours, levothyroxine 25 mcg IV daily, metoprolol 5 mg IV q. 6 hours, cefepime 1 g daily, PhosLo 667 mg p.o. b.i.d., Protonix 40 mg IV daily, sodium bicarbonate drip at 70 mL per hour, Tylenol, and Zyvox 600 mg IV q. 12 hours. LABORATORY DATA: As follows: As of 03/15/2017, WBC 28.9, hemoglobin 10.4, hematocrit is 34, platelets 218, and neutrophils 81, bands 13, lymphs 2, monos 4, and nucleated rbc 1. ABG; pH 7.38, pCO2 of 24, pO2 of 108, bicarbonate is 17, and saturation 98.4%. Vent setting: AC 20, tidal volume 450, FiO2 of 40%, and PEEP of 5. CMP: Sodium 145, potassium 4.1, chloride 114, CO2 of 12, BUN is 103, creatinine 5.8, glucose 291, calcium 7.4, phosphorus 7.2, and magnesium 2.6. Total bilirubin 0.6, AST 76, ALT 97, alkaline phosphatase 177, total protein 5.9, albumin is 2.8. Random vancomycin level 12.7, and stool for C.diff toxin is negative. Microbiology and sputum culture is positive for Klebsiella pneumoniae, and urine culture is positive for gram-positive cocci. An MRSA screening was negative. Blood culture x2 negative from 03/13/2017, day 2. Other reports; chest x-ray, endotracheal tube extending into the mid thoracic trachea and NG tube extending into the stomach; bi-apical pleural thickening with upper lobe granulomatous changes; scattered nodular densities throughout both lungs; patchy increased consolidative changes at the left lung base; and heart size within normal limits. Degenerative changes within the spine and shoulders. A CT of the head without contrast, stable low residual hemorrhagic infarction, mass effect and leftward midline shift of 15 mm as well as subdural hemorrhage minimal at various stages of degradation. No interval change in the local pattern related to the hemorrhagic infarction and no increased volume of hemorrhage is appreciated at this time either. Pneumocephalus is resolving postoperatively. Continued clinical and are advised. ASSESSMENT: In summary, Mrs. Watson is an 81-year-old elderly American female with a history of hypertension, hypothyroidism, osteoporosis, and chronic kidney disease, who was found in the closet by neighbors with intracranial bleed and left-sided weakness and status post craniotomy with increasing BUN and creatinine. 1. Acute renal failure on chronic kidney disease, stage IV. 2. Intracranial bleed, status post craniotomy. 3. Respiratory failure. 4. Metabolic acidosis. 5. Pneumonia. 6. Urinary tract infection. PLAN: Continue IV fluids, D5W with 3 amps of bicarbonate at 70 mL per hour. Continue to monitor sugar Accu-Cheks and also continue IV antibiotics as per the ID recommendations. Overall prognosis is very poor. We will follow with you. Thank you for allowing me to participate in your patient's care. Orlando Odom MD
[2017-03-16 06:44] LABS: BASO # 0.1 K/uL (0.0-0.2); BASO % 0.4 % (0.0-2.0); HEMATOCRIT 31.1 % (34.0-47.0); LYMPH # 0.5 K/uL (1.0-4.3); LYMPH % 1.9 % (20.0-40.0); MEAN CELL VOLUME 100.2 fL (81.0-99.0); MEAN CORPUSCULAR HEMOGLOBIN 31.6 pg (27.0-31.0); MEAN CORPUSCULAR HGB CONC 31.5 g/dL (33.0-37.0); MEAN PLATELET VOLUME 10.7 fL (7.2-11.7); MONO # 1.1 K/uL (0.0-0.8); MONO % 4.5 % (0.0-10.0); NRBC % 0.1 % (0.0-2.0); PLATELET COUNT 178 K/uL (130-400); RED CELL DISTRIBUTION WIDTH 16.2 % (11.5-14.5); WHITE BLOOD COUNT 24.3 K/uL (4.8-10.8)
[2017-03-16 06:59] LABS: POTASSIUM 3.2 mmol/L (3.6-5.2)
[2017-03-16 07:01] LABS: ALB/GLOB RATIO 1.3 (1.0-2.1); BILIRUBIN,TOTAL 0.9 mg/dL (0.2-1.3); TOTAL PROTEIN 4.6 g/dL (6.3-8.3)
[2017-03-16 07:02] LABS: CALCIUM 6.9 mg/dl (8.6-10.4); MAGNESIUM 2.4 mg/dL (1.6-2.3); PHOSPHOROUS 4.3 mg/dL (2.5-4.5)
[2017-03-16 08:08] LABS: CHLORIDE URINE 29 mmol/L (32-290)
[2017-03-16 08:25] LABS: NEUTROPHIL 88 % (50-75); NUCLEATED RED BLOOD CELL 1 % (0-0); TOTAL CELLS COUNTED 100
[2017-03-16] MEDS: metroNIDAZOLE IV 500 mg/100 ml 500 MG/100 ML BAG IVPB SCH ×2 (09:51→21:00)
[2017-03-16] MEDS: Cefepime IV 1 gm in Dextrose 1 GM/50 ML BAG IVPB SCH (09:54)
--- NOTE | 2017-03-16 10:21 | RAD ---
HISTORY: intubated COMPARISON: Chest x-ray performed 03/15/17 TECHNIQUE: Chest, one view. FINDINGS: Endotracheal tube terminates approximately 3.8 cm above the bro[place]. Nasogastric tube extends expected location of the stomach with side hole residing at the level of the GE junction ; recommend advancement approximately 3 cm. Numerous external wires and leads are evident. LUNGS: Biapical pleural thickening with granulomatous changes. Scattered nodular densities throughout both lung marcial. Patchy consolidative changes re-identified at the left lung base. Please note that chest x-ray has limited sensitivity for the detection of pulmonary masses. PLEURA: No significant pleural effusion identified. No definite pneumothorax . CARDIOVASCULAR: Heart size appears within normal limits. Atherosclerotic calcifications of the aorta. OSSEOUS STRUCTURES: Degenerative changes. Osseous demineralization. VISUALIZED UPPER ABDOMEN: Unremarkable. OTHER FINDINGS: None. IMPRESSION: Nasogastric tube extends expected location of the stomach with side hole residing at the level of the GE junction ; recommend advancement approximately 3 cm. Endotracheal tube terminates approximately 3.8 cm above the [place]. Biapical pleural thickening with granulomatous changes. Scattered nodular densities throughout both lung marcial. Patchy consolidative changes re-identified at the left lung base.
[2017-03-16] MEDS: Linezolid 600 mg in D5W 300 ml 600 MG/300 ML BAG IVPB SCH ×2 (11:45→22:50)
[2017-03-16] MEDS ORDERED: Mannitol 12.5 gm/50 ml Inj IV ONE (11:51)
[2017-03-16] MEDS: Pantoprazole 20 mg EC Tab PO SCH (12:28)
--- NOTE | 2017-03-16 13:29 | PN ---
DATE: NEUROLOGY PROGRESS NOTE SUBJECTIVE: The patient is lying on the bed on a ventilator. PHYSICAL EXAMINATION: VITAL SIGNS: Blood pressure is 116/68, heart rate is 97 per minute, she is breathing at the rate of 16 per minute, temperature is 98.5 degrees Fahrenheit. HEENT: Normocephalic, atraumatic. NECK: Supple. There are no carotid bruits. LUNGS: Clear. CVS: S1 and S2 audible. No murmurs. ABDOMEN: Soft, nontender. Bowel sounds are minimally present. NEUROLOGIC: Mental status: The patient is comatose. Does not follow any commands. Cranial nerve examination: Pupils 4 mm, nonreactive to light. She has downward gaze with no movement in the eye on doll's eye movement. There is positive indre reflux. There is extensive posturing on the left side to noxious painful stimuli. She withdraws her right side to noxious painful stimuli. Plantars upgoing bilaterally. LABORATORY DATA: Labs reviewed. CT scan of the brain shows stable low residual hemorrhagic infarction, mass effect and leftward midline shift of 15 mm as well as subdural hemorrhage at various stages of degradation. No interval change in local edema pattern referred to hemorrhagic infarction. Pneumocephaly is resolving postoperatively. IMPRESSION: 1. Right temporoparietal hemorrhage with midline shift. 2. Respiratory failure. RECOMMENDATIONS: 1. The patient to be started on mannitol with significant edema. 2. The patient is on D5 saline, which is to be discontinued as all her fluids should be N saline. 3. The patient's head of the bed to be kept elevated to 30 degrees. 4. The patient's prognosis is guarded to poor. 5. Please continue supportive care and the treatment. Thank you for the opportunity to participate in the care of this patient. David Torres MD
--- NOTE | 2017-03-16 14:08 | CP.PCM.PN ---
Subjective - Date & Time of Evaluation Date of Evaluation: 03/16/17 Time of Evaluation: 14:06 - Subjective Subjective: CLINICALLY SAME , INTUBATED ON VENT WITH LITTLE PROGRESS IN THE NEURO STREP PNEUMONIA IN SPUTUM CT HEAD HEM INFARCT WITH INCREASED ICP Objective - Vital Signs/Intake and Output Vital Signs (last 24 hours): Temp Pulse Resp BP Pulse Ox 98.5 F 97 H 16 116/68 98 03/16/17 08:00 03/16/17 09:00 03/16/17 09:00 03/16/17 11:01 03/16/17 09:00 Intake and Output: 03/16/17 03/16/17 11:59 23:59 Intake Total 1700 Output Total 1115 Balance 585 - Medications Medications: Current Medications Acetaminophen (Tylenol 650mg/20.3ml Solution Ud) 650 mg PO Q4 PRN PRN Reason: Pain, moderate (4-7) Last Admin: 03/14/17 17:23 Dose: 650 mg Calcium Acetate (Phoslo) 667 mg PO BIDCC [facility] Last Admin: 03/16/17 08:00 Dose: 667 mg Heparin Sodium (Porcine) (Heparin) 5,000 units SC Q12 [facility] Last Admin: 03/16/17 11:01 Dose: 5,000 units Propofol (Diprivan) 1,000 mg in 100 mls @ 1.189 mls/hr IV .Q24H PRN; Protocol; 5 MCG/KG/MIN PRN Reason: TITRATE PER MD ORDER Last Titration: 03/13/17 06:18 Dose: 10 mcg/kg/min, 2.379 mls/hr Cefepime HCl (Maxipime Iv 1 Gm Premix) 1 gm in 50 mls @ 100 mls/hr IVPB Q24H [facility] Last Admin: 03/16/17 09:54 Dose: 100 mls/hr Metronidazole (Flagyl) 500 mg in 100 mls @ 100 mls/hr IVPB Q12 [facility] Last Admin: 03/16/17 09:51 Dose: 100 mls/hr Linezolid (Zyvox 600mg/300ml D5w) 600 mg in 300 mls @ 200 mls/hr IVPB Q12H [facility] Last Admin: 03/16/17 11:45 Dose: 200 mls/hr Insulin Human Regular (Novolin R) 0 unit SC Q6 [facility] PRN Reason: Protocol Last Admin: 03/16/17 12:26 Dose: 1 unit Levothyroxine Sodium (Synthroid) 25 mcg PO DAILY@0630 [facility] Metoprolol Tartrate (Lopressor) 25 mg PO BID [facility] Last Admin: 03/16/17 11:01 Dose: 25 mg Pantoprazole Sodium (Protonix Ec Tab) 20 mg PO DAILY [facility] Last Admin: 03/16/17 12:28 Dose: 20 mg - Labs Labs: 03/16/17 06:34 03/16/17 06:35 PT 10.2 SECONDS (9.7-12.2) 03/12/17 06:20 INR 0.9 03/12/17 06:20 APTT 27 SECONDS (21-34) 03/12/17 06:20 Assessment and Plan (1) Intracranial hemorrhage Status: Acute (2) Renal failure Status: Acute (3) Sepsis Status: Acute
--- NOTE | 2017-03-16 17:33 | CP.PCM.PN ---
Subjective - Date & Time of Evaluation Date of Evaluation: 03/16/17 Time of Evaluation: 17:33 - Subjective Subjective: pt is seen and examined, follow up consult is dictated #[id number] Objective - Vital Signs/Intake and Output Vital Signs (last 24 hours): Temp Pulse Resp BP Pulse Ox 97.6 F 89 16 113/66 97 03/16/17 12:00 03/16/17 15:00 03/16/17 15:00 03/16/17 15:00 03/16/17 15:00 Intake and Output: 03/16/17 03/16/17 06:59 18:59 Intake Total 1600 1120 Output Total 970 965 Balance 630 155 - Medications Medications: Current Medications Acetaminophen (Tylenol 650mg/20.3ml Solution Ud) 650 mg PO Q4 PRN PRN Reason: Pain, moderate (4-7) Last Admin: 03/14/17 17:23 Dose: 650 mg Calcium Acetate (Phoslo) 667 mg PO BIDCC [facility] Last Admin: 03/16/17 08:00 Dose: 667 mg Heparin Sodium (Porcine) (Heparin) 5,000 units SC Q12 [facility] Last Admin: 03/16/17 11:01 Dose: 5,000 units Propofol (Diprivan) 1,000 mg in 100 mls @ 1.189 mls/hr IV .Q24H PRN; Protocol; 5 MCG/KG/MIN PRN Reason: TITRATE PER MD ORDER Last Titration: 03/13/17 06:18 Dose: 10 mcg/kg/min, 2.379 mls/hr Cefepime HCl (Maxipime Iv 1 Gm Premix) 1 gm in 50 mls @ 100 mls/hr IVPB Q24H [facility] Last Admin: 03/16/17 09:54 Dose: 100 mls/hr Metronidazole (Flagyl) 500 mg in 100 mls @ 100 mls/hr IVPB Q12 [facility] Last Admin: 03/16/17 09:51 Dose: 100 mls/hr Linezolid (Zyvox 600mg/300ml D5w) 600 mg in 300 mls @ 200 mls/hr IVPB Q12H [facility] Last Admin: 03/16/17 11:45 Dose: 200 mls/hr Insulin Human Regular (Novolin R) 0 unit SC Q6 [facility] PRN Reason: Protocol Last Admin: 03/16/17 12:26 Dose: 1 unit Levothyroxine Sodium (Synthroid) 25 mcg PO DAILY@0630 [facility] Metoprolol Tartrate (Lopressor) 25 mg PO BID [facility] Last Admin: 03/16/17 11:01 Dose: 25 mg Pantoprazole Sodium (Protonix Ec Tab) 20 mg PO DAILY [facility] Last Admin: 03/16/17 12:28 Dose: 20 mg - Labs Labs: 03/16/17 06:34 03/16/17 06:35 PT 10.2 SECONDS (9.7-12.2) 03/12/17 06:20 INR 0.9 03/12/17 06:20 APTT 27 SECONDS (21-34) 03/12/17 06:20
--- NOTE | 2017-03-16 22:00 | CP.CCUPN ---
CCU Subjective - Physician Review Events Since Last Encounter (Free Text): 03/16/17 21:58 patient unresponsive. Seen by a neurologist today Yesterday CAT scan showing significant midline shift. Status post a craniotomy. But in spite of thatworsening IV fluids are managed. Received mannitol. Serum osmolality is more than 350 Critical Care Time Spent (in minutes): 45 CCU Objective - Vital Signs / Intake & Output Vital Signs (Last 4 hours): Vital Signs Pulse Resp BP Pulse Ox 03/16/17 19:00 102 H 16 108/61 97 03/16/17 18:00 100 H 15 104/57 L 96 Intake and Output (Last 8hrs): Intake & Output 03/16/17 03/16/17 03/16/17 06:59 14:59 22:59 Intake Total 1100 1060 150 Output Total 775 840 715 Balance 325 220 -565 Weight 91 lb 14.4 oz Intake: Intake, IV Amount 860 770 Left Forearm 560 420 Right Distal Port Forearm 300 Right Forearm 350 Tube Feeding 240 240 150 Other 50 Output: Urine 775 840 715 Urethral ([place]) 775 840 715 Other: # Bowel Movements 1 1 - Physical Exam Narrative Physical Exam (Free Text): 03/16/17 21:59 unresponsive. On ventilator. Blood pressure stable. The urine output is improving. Elevated beyond noted most likely diuretic related Head: Positive for: Normocephalic, Other (dressing in place post craniotomy ) Pupils: Positive for: Sluggish Mouth: Positive for: Dry Respiratory/Chest: Positive for: Good Air Exchange Cardiovascular: Positive for: Normal S1, S2 Lower Extremity: Positive for: Edema Skin: Positive for: Warm Psychiatric: Negative for: Alert, Oriented x 3 - Medications Active Medications: Active Medications Generic Name Dose Route Start Last Admin Trade Name Freq PRN Reason Stop Dose Admin Acetaminophen 650 mg 03/14/17 17:15 03/14/17 17:23 Tylenol 650mg/20.3ml Solution Ud PO 650 mg Q4 PRN Administration Pain, moderate (4-7) Calcium Acetate 667 mg 03/14/17 08:00 03/16/17 17:52 Phoslo PO 667 mg BIDCC [facility] Administration Heparin Sodium (Porcine) 5,000 units 03/15/17 22:00 03/16/17 11:01 Heparin SC 5,000 units Q12 [facility] Administration Propofol 1,000 mg in 100 mls @ 1.189 mls/hr 03/12/17 08:24 03/13/17 06:18 Diprivan IV 10 mcg/kg/min .Q24H PRN 2.379 mls/hr TITRATE PER MD ORDER Titration Protocol 5 MCG/KG/MIN Cefepime HCl 1 gm in 50 mls @ 100 mls/hr 03/13/17 10:30 03/16/17 09:54 Maxipime Iv 1 Gm Premix IVPB 100 mls/hr Q24H [facility] Administration Metronidazole 500 mg in 100 mls @ 100 mls/hr 03/14/17 10:00 03/16/17 09:51 Flagyl IVPB 100 mls/hr Q12 [facility] Administration Linezolid 600 mg in 300 mls @ 200 mls/hr 03/14/17 23:45 03/16/17 11:45 Zyvox 600mg/300ml D5w IVPB 200 mls/hr Q12H [facility] Administration Insulin Human Regular 0 unit 03/12/17 12:00 03/16/17 17:49 Novolin R SC 1 unit Q6 [facility]LE Administration Protocol Levothyroxine Sodium 25 mcg 03/17/17 06:30 Synthroid PO DAILY@0630 [facility] Metoprolol Tartrate 25 mg 03/16/17 10:00 03/16/17 17:52 Lopressor PO Not Given BID HALLE Pantoprazole Sodium 20 mg 03/16/17 10:00 03/16/17 12:28 Protonix Ec Tab PO 20 mg DAILY [facility] Administration Sodium Chloride 10 ml 03/16/17 21:57 Hypertonic Saline 3% IV 03/16/17 21:58 ONCE ONE - Patient Studies Lab Studies: Microbiology Studies 03/13/17 11:30 Urine Culture - Final Urine Enterococcus Faecalis 03/13/17 09:30 Blood Culture - Preliminary Blood-Venous NO GROWTH AFTER 3 DAYS 03/13/17 09:00 Blood Culture - Preliminary Blood-Venous NO GROWTH AFTER 3 DAYS Lab Studies 03/16/17 03/16/17 03/16/17 Range/Units 18:09 17:45 11:37 WBC (4.8-10.8) K/uL RBC (3.80-5.20) Mil/uL Hgb (11.0-16.0) g/dL Hct (34.0-47.0) % MCV (81.0-99.0) fL MCH (27.0-31.0) pg MCHC (33.0-37.0) g/dL RDW (11.5-14.5) % Plt Count (130-400) K/uL MPV (7.2-11.7) fL Neut % (Auto) (50.0-75.0) % Lymph % (Auto) (20.0-40.0) % [place] % (Auto) (0.0-10.0) % Eos % (Auto) (0.0-4.0) % Baso % (Auto) (0.0-2.0) % Neut # (1.8-7.0) K/uL Lymph # (1.0-4.3) K/uL [place] # (0.0-0.8) K/uL Eos # (0.0-0.7) K/uL Baso # (0.0-0.2) K/uL Neutrophils % (Manual) (50-75) % Band Neutrophils % (0-2) % Lymphocytes % (Manual) (20-40) % Monocytes % (Manual) (0-10) % Nucleated RBC % (0-0) % Platelet Estimate (NORMAL) Polychromasia Hypochromasia (manual) Anisocytosis (manual) Macrocytosis (manual) Puncture Site pCO2 (35-45) mm/Hg pO2 (80-100) mm/Hg HCO3 (21-28) mmol/L ABG pH (7.35-7.45) ABG Total CO2 (22-28) mmol/L ABG O2 Saturation (95-98) % ABG Base Excess (-2.0-3.0) mmol/L ABG Hemoglobin (11.7-17.4) g/dL ABG Carboxyhemoglobin (0.5-1.5) % POC ABG HHb (Measured) (0.0-5.0) % ABG Methemoglobin (0.0-3.0) % Jean Test A-a O2 Difference mm/Hg Respiratory Index Hgb O2 Saturation (95.0-98.0) % Vent Mode Mechanical Rate FiO2 % Tidal Volume PEEP Sodium (132-148) mmol/L Potassium (3.6-5.2) mmol/L Chloride (98-107) mmol/L Carbon Dioxide (22-30) mmol/L Anion Gap (10-20) BUN (7-17) mg/dL Creatinine (0.7-1.2) mg/dL Est GFR ( Amer) Est GFR (Non-Af Amer) POC Glucose (mg/dL) 175 H 290 H (65-110) mg/dL Random Glucose (65-105) mg/dL Serum Osmolality 381 H (272-300) mosm/kg Calcium (8.6-10.4) mg/dl Phosphorus (2.5-4.5) mg/dL Magnesium (1.6-2.3) mg/dL Total Bilirubin (0.2-1.3) mg/dL AST (14-36) U/L ALT (9-52) U/L Alkaline Phosphatase (38-126) U/L Total Protein (6.3-8.3) g/dL Albumin (3.5-5.0) g/dL Globulin (2.2-3.9) gm/dL Albumin/Globulin Ratio (1.0-2.1) Urine Chloride (32-290) mmol/L C. difficile Ag & Toxin (NEGATIVE) 03/16/17 03/16/17 03/16/17 Range/Units 08:00 06:47 06:35 WBC (4.8-10.8) K/uL RBC (3.80-5.20) Mil/uL Hgb (11.0-16.0) g/dL Hct (34.0-47.0) % MCV (81.0-99.0) fL MCH (27.0-31.0) pg MCHC (33.0-37.0) g/dL RDW (11.5-14.5) % Plt Count (130-400) K/uL MPV (7.2-11.7) fL Neut % (Auto) (50.0-75.0) % Lymph % (Auto) (20.0-40.0) % [place] % (Auto) (0.0-10.0) % Eos % (Auto) (0.0-4.0) % Baso % (Auto) (0.0-2.0) % Neut # (1.8-7.0) K/uL Lymph # (1.0-4.3) K/uL [place] # (0.0-0.8) K/uL Eos # (0.0-0.7) K/uL Baso # (0.0-0.2) K/uL Neutrophils % (Manual) (50-75) % Band Neutrophils % (0-2) % Lymphocytes % (Manual) (20-40) % Monocytes % (Manual) (0-10) % Nucleated RBC % (0-0) % Platelet Estimate (NORMAL) Polychromasia Hypochromasia (manual) Anisocytosis (manual) Macrocytosis (manual) Puncture Site pCO2 (35-45) mm/Hg pO2 (80-100) mm/Hg HCO3 (21-28) mmol/L ABG pH (7.35-7.45) ABG Total CO2 (22-28) mmol/L ABG O2 Saturation (95-98) % ABG Base Excess (-2.0-3.0) mmol/L ABG Hemoglobin (11.7-17.4) g/dL ABG Carboxyhemoglobin (0.5-1.5) % POC ABG HHb (Measured) (0.0-5.0) % ABG Methemoglobin (0.0-3.0) % Jean Test A-a O2 Difference mm/Hg Respiratory Index Hgb O2 Saturation (95.0-98.0) % Vent Mode Mechanical Rate FiO2 % Tidal Volume PEEP Sodium 146 (132-148) mmol/L Potassium 3.2 L (3.6-5.2) mmol/L Chloride 109 H (98-107) mmol/L Carbon Dioxide 23 (22-30) mmol/L Anion Gap 17 (10-20) BUN 104 H* (7-17) mg/dL Creatinine 4.5 H (0.7-1.2) mg/dL Est GFR ( Amer) 11 Est GFR (Non-Af Amer) 9 POC Glucose (mg/dL) 238 H (65-110) mg/dL Random Glucose 180 H (65-105) mg/dL Serum Osmolality (272-300) mosm/kg Calcium 6.9 L (8.6-10.4) mg/dl Phosphorus 4.3 (2.5-4.5) mg/dL Magnesium 2.4 H (1.6-2.3) mg/dL Total Bilirubin 0.9 (0.2-1.3) mg/dL AST 53 H D (14-36) U/L ALT 79 H (9-52) U/L Alkaline Phosphatase 241 H D (38-126) U/L Total Protein 4.6 L (6.3-8.3) g/dL Albumin 2.6 L (3.5-5.0) g/dL Globulin 2.0 L (2.2-3.9) gm/dL Albumin/Globulin Ratio 1.3 (1.0-2.1) Urine Chloride (32-290) mmol/L C. difficile Ag & Toxin Negative (NEGATIVE) 03/16/17 03/16/17 03/16/17 Range/Units 06:34 05:09 00:28 WBC 24.3 H (4.8-10.8) K/uL RBC 3.10 L (3.80-5.20) Mil/uL Hgb 9.8 L (11.0-16.0) g/dL Hct 31.1 L (34.0-47.0) % MCV 100.2 H D (81.0-99.0) fL MCH 31.6 H (27.0-31.0) pg MCHC 31.5 L (33.0-37.0) g/dL RDW 16.2 H (11.5-14.5) % Plt Count 178 (130-400) K/uL MPV 10.7 (7.2-11.7) fL Neut % (Auto) 93.2 H (50.0-75.0) % Lymph % (Auto) 1.9 L (20.0-40.0) % [place] % (Auto) 4.5 (0.0-10.0) % Eos % (Auto) 0.0 (0.0-4.0) % Baso % (Auto) 0.4 (0.0-2.0) % Neut # 22.7 H (1.8-7.0) K/uL Lymph # 0.5 L (1.0-4.3) K/uL [place] # 1.1 H (0.0-0.8) K/uL Eos # 0.0 (0.0-0.7) K/uL Baso # 0.1 (0.0-0.2) K/uL Neutrophils % (Manual) 88 H (50-75) % Band Neutrophils % 10 H (0-2) % Lymphocytes % (Manual) 1 L (20-40) % Monocytes % (Manual) 1 (0-10) % Nucleated RBC % 1 H (0-0) % Platelet Estimate Normal (NORMAL) Polychromasia Slight Hypochromasia (manual) Slight Anisocytosis (manual) Slight Macrocytosis (manual) Slight Puncture Site Rr pCO2 28 L (35-45) mm/Hg pO2 92 (80-100) mm/Hg HCO3 27.4 (21-28) mmol/L ABG pH 7.55 H (7.35-7.45) ABG Total CO2 25.4 (22-28) mmol/L ABG O2 Saturation 97.9 (95-98) % ABG Base Excess 3.3 H (-2.0-3.0) mmol/L ABG Hemoglobin 15.3 (11.7-17.4) g/dL ABG Carboxyhemoglobin 1.9 H (0.5-1.5) % POC ABG HHb (Measured) 2.0 (0.0-5.0) % ABG Methemoglobin 1.1 (0.0-3.0) % Jean Test Pos A-a O2 Difference 87.0 mm/Hg Respiratory Index 0.9 Hgb O2 Saturation 95.0 (95.0-98.0) % Vent Mode Prvc Mechanical Rate 16 FiO2 30.0 % Tidal Volume 450 PEEP 5 Sodium (132-148) mmol/L Potassium (3.6-5.2) mmol/L Chloride (98-107) mmol/L Carbon Dioxide (22-30) mmol/L Anion Gap (10-20) BUN (7-17) mg/dL Creatinine (0.7-1.2) mg/dL Est GFR ( Amer) Est GFR (Non-Af Amer) POC Glucose (mg/dL) 306 H (65-110) mg/dL Random Glucose (65-105) mg/dL Serum Osmolality (272-300) mosm/kg Calcium (8.6-10.4) mg/dl Phosphorus (2.5-4.5) mg/dL Magnesium (1.6-2.3) mg/dL Total Bilirubin (0.2-1.3) mg/dL AST (14-36) U/L ALT (9-52) U/L Alkaline Phosphatase (38-126) U/L Total Protein (6.3-8.3) g/dL Albumin (3.5-5.0) g/dL Globulin (2.2-3.9) gm/dL Albumin/Globulin Ratio (1.0-2.1) Urine Chloride (32-290) mmol/L C. difficile Ag & Toxin (NEGATIVE) 03/13/17 Range/Units 08:00 WBC (4.8-10.8) K/uL RBC (3.80-5.20) Mil/uL Hgb (11.0-16.0) g/dL Hct (34.0-47.0) % MCV (81.0-99.0) fL MCH (27.0-31.0) pg MCHC (33.0-37.0) g/dL RDW (11.5-14.5) % Plt Count (130-400) K/uL MPV (7.2-11.7) fL Neut % (Auto) (50.0-75.0) % Lymph % (Auto) (20.0-40.0) % [place] % (Auto) (0.0-10.0) % Eos % (Auto) (0.0-4.0) % Baso % (Auto) (0.0-2.0) % Neut # (1.8-7.0) K/uL Lymph # (1.0-4.3) K/uL [place] # (0.0-0.8) K/uL Eos # (0.0-0.7) K/uL Baso # (0.0-0.2) K/uL Neutrophils % (Manual) (50-75) % Band Neutrophils % (0-2) % Lymphocytes % (Manual) (20-40) % Monocytes % (Manual) (0-10) % Nucleated RBC % (0-0) % Platelet Estimate (NORMAL) Polychromasia Hypochromasia (manual) Anisocytosis (manual) Macrocytosis (manual) Puncture Site pCO2 (35-45) mm/Hg pO2 (80-100) mm/Hg HCO3 (21-28) mmol/L ABG pH (7.35-7.45) ABG Total CO2 (22-28) mmol/L ABG O2 Saturation (95-98) % ABG Base Excess (-2.0-3.0) mmol/L ABG Hemoglobin (11.7-17.4) g/dL ABG Carboxyhemoglobin (0.5-1.5) % POC ABG HHb (Measured) (0.0-5.0) % ABG Methemoglobin (0.0-3.0) % Jean Test A-a O2 Difference mm/Hg Respiratory Index Hgb O2 Saturation (95.0-98.0) % Vent Mode Mechanical Rate FiO2 % Tidal Volume PEEP Sodium (132-148) mmol/L Potassium (3.6-5.2) mmol/L Chloride (98-107) mmol/L Carbon Dioxide (22-30) mmol/L Anion Gap (10-20) BUN (7-17) mg/dL Creatinine (0.7-1.2) mg/dL Est GFR ( Amer) Est GFR (Non-Af Amer) POC Glucose (mg/dL) (65-110) mg/dL Random Glucose (65-105) mg/dL Serum Osmolality (272-300) mosm/kg Calcium (8.6-10.4) mg/dl Phosphorus (2.5-4.5) mg/dL Magnesium (1.6-2.3) mg/dL Total Bilirubin (0.2-1.3) mg/dL AST (14-36) U/L ALT (9-52) U/L Alkaline Phosphatase (38-126) U/L Total Protein (6.3-8.3) g/dL Albumin (3.5-5.0) g/dL Globulin (2.2-3.9) gm/dL Albumin/Globulin Ratio (1.0-2.1) Urine Chloride 29 L (32-290) mmol/L C. difficile Ag & Toxin (NEGATIVE) Laboratory Results - last 24 hr 03/13/17 03/16/17 03/16/17 08:00 00:28 05:09 WBC RBC Hgb Hct MCV MCH MCHC RDW Plt Count MPV Neut % (Auto) Lymph % (Auto) [place] % (Auto) Eos % (Auto) Baso % (Auto) Neut # Lymph # [place] # Eos # Baso # Neutrophils % (Manual) Band Neutrophils % Lymphocytes % (Manual) Monocytes % (Manual) Nucleated RBC % Platelet Estimate Polychromasia Hypochromasia (manual) Anisocytosis (manual) Macrocytosis (manual) Puncture Site Rr pCO2 28 L pO2 92 HCO3 27.4 ABG pH 7.55 H ABG Total CO2 25.4 ABG O2 Saturation 97.9 ABG Base Excess 3.3 H ABG Hemoglobin 15.3 ABG Carboxyhemoglobin 1.9 H POC ABG HHb (Measured) 2.0 ABG Methemoglobin 1.1 Jean Test Pos A-a O2 Difference 87.0 Respiratory Index 0.9 Hgb O2 Saturation 95.0 Vent Mode Prvc Mechanical Rate 16 FiO2 30.0 Tidal Volume 450 PEEP 5 Sodium Potassium Chloride Carbon Dioxide Anion Gap BUN Creatinine Est GFR ( Amer) Est GFR (Non-Af Amer) POC Glucose (mg/dL) 306 H Random Glucose Serum Osmolality Calcium Phosphorus Magnesium Total Bilirubin AST ALT Alkaline Phosphatase Total Protein Albumin Globulin Albumin/Globulin Ratio Urine Chloride 29 L C. difficile Ag & Toxin 03/16/17 03/16/17 03/16/17 06:34 06:35 06:47 WBC 24.3 H RBC 3.10 L Hgb 9.8 L Hct 31.1 L MCV 100.2 H D MCH 31.6 H MCHC 31.5 L RDW 16.2 H Plt Count 178 MPV 10.7 Neut % (Auto) 93.2 H Lymph % (Auto) 1.9 L [place] % (Auto) 4.5 Eos % (Auto) 0.0 Baso % (Auto) 0.4 Neut # 22.7 H Lymph # 0.5 L [place] # 1.1 H Eos # 0.0 Baso # 0.1 Neutrophils % (Manual) 88 H Band Neutrophils % 10 H Lymphocytes % (Manual) 1 L Monocytes % (Manual) 1 Nucleated RBC % 1 H Platelet Estimate Normal Polychromasia Slight Hypochromasia (manual) Slight Anisocytosis (manual) Slight Macrocytosis (manual) Slight Puncture Site pCO2 pO2 HCO3 ABG pH ABG Total CO2 ABG O2 Saturation ABG Base Excess ABG Hemoglobin ABG Carboxyhemoglobin POC ABG HHb (Measured) ABG Methemoglobin Jean Test A-a O2 Difference Respiratory Index Hgb O2 Saturation Vent Mode Mechanical Rate FiO2 Tidal Volume PEEP Sodium 146 Potassium 3.2 L Chloride 109 H Carbon Dioxide 23 Anion Gap 17 BUN 104 H* Creatinine 4.5 H Est GFR ( Amer) 11 Est GFR (Non-Af Amer) 9 POC Glucose (mg/dL) 238 H Random Glucose 180 H Serum Osmolality Calcium 6.9 L Phosphorus 4.3 Magnesium 2.4 H Total Bilirubin 0.9 AST 53 H D ALT 79 H Alkaline Phosphatase 241 H D Total Protein 4.6 L Albumin 2.6 L Globulin 2.0 L Albumin/Globulin Ratio 1.3 Urine Chloride C. difficile Ag & Toxin 03/16/17 03/16/17 03/16/17 08:00 11:37 17:45 WBC RBC Hgb Hct MCV MCH MCHC RDW Plt Count MPV Neut % (Auto) Lymph % (Auto) [place] % (Auto) Eos % (Auto) Baso % (Auto) Neut # Lymph # [place] # Eos # Baso # Neutrophils % (Manual) Band Neutrophils % Lymphocytes % (Manual) Monocytes % (Manual) Nucleated RBC % Platelet Estimate Polychromasia Hypochromasia (manual) Anisocytosis (manual) Macrocytosis (manual) Puncture Site pCO2 pO2 HCO3 ABG pH ABG Total CO2 ABG O2 Saturation ABG Base Excess ABG Hemoglobin ABG Carboxyhemoglobin POC ABG HHb (Measured) ABG Methemoglobin Jean Test A-a O2 Difference Respiratory Index Hgb O2 Saturation Vent Mode Mechanical Rate FiO2 Tidal Volume PEEP Sodium Potassium Chloride Carbon Dioxide Anion Gap BUN Creatinine Est GFR ( Amer) Est GFR (Non-Af Amer) POC Glucose (mg/dL) 290 H 175 H Random Glucose Serum Osmolality Calcium Phosphorus Magnesium Total Bilirubin AST ALT Alkaline Phosphatase Total Protein Albumin Globulin Albumin/Globulin Ratio Urine Chloride C. difficile Ag & Toxin Negative 03/16/17 18:09 WBC RBC Hgb Hct MCV MCH MCHC RDW Plt Count MPV Neut % (Auto) Lymph % (Auto) [place] % (Auto) Eos % (Auto) Baso % (Auto) Neut # Lymph # [place] # Eos # Baso # Neutrophils % (Manual) Band Neutrophils % Lymphocytes % (Manual) Monocytes % (Manual) Nucleated RBC % Platelet Estimate Polychromasia Hypochromasia (manual) Anisocytosis (manual) Macrocytosis (manual) Puncture Site pCO2 pO2 HCO3 ABG pH ABG Total CO2 ABG O2 Saturation ABG Base Excess ABG Hemoglobin ABG Carboxyhemoglobin POC ABG HHb (Measured) ABG Methemoglobin Jean Test A-a O2 Difference Respiratory Index Hgb O2 Saturation Vent Mode Mechanical Rate FiO2 Tidal Volume PEEP Sodium Potassium Chloride Carbon Dioxide Anion Gap BUN Creatinine Est GFR ( Amer) Est GFR (Non-Af Amer) POC Glucose (mg/dL) Random Glucose Serum Osmolality 381 H Calcium Phosphorus Magnesium Total Bilirubin AST ALT Alkaline Phosphatase Total Protein Albumin Globulin Albumin/Globulin Ratio Urine Chloride C. difficile Ag & Toxin Fingerstick Blood Sugar Results: 175 Review of Systems - Review of Systems All systems: reviewed and no additional remarkable complaints except Critical Care Progress Note - Ventilator Checklist Head of Bed 30 Degrees: Yes Daily Sedation Vacation: Yes Daily Assessment of Readiness to Wean: Yes Daily Spontaneous Breathing Trial: Yes PUD Prophalyxis: Yes DVT Prophylaxis: Yes Oral Care with Chlorhexidine Gluconate {CHG}: Yes - Nutrition Nutrition: Nutrition Category Date Time Status NPO Diet [DIET] Diets 03/11/17 Dinner Active Assessment/Plan (1) Diabetes mellitus type 2 in nonobese Current Visit: Yes Status: Acute (2) Hypertension Current Visit: Yes Status: Acute (3) Intracranial hemorrhage Assessment and plan: patient with intracranial hemorrhage, with the midline shift, neurological damage Overall prognosis very poor On ventilatory support. Renal insufficiency. Current Visit: Yes Status: Acute
[2017-03-16] MEDS ORDERED: Sodium Chloride 3% 500 ML IV SCH (22:15)
--- NOTE | 2017-03-16 23:27 | CP.PCM.PN ---
Subjective - Date & Time of Evaluation Date of Evaluation: 03/16/17 Time of Evaluation: 23:27 - Subjective Subjective: temperature 99.5 CLINICALLY SAME ,. INTUBATED ON VENT WITH LITTLE PROGRESS IN THE NEURO SPUTUM +ve Klebsiella pneumoniae .Urine culture +ve Enterococcus faecalis. CT HEAD HEM INFARCT WITH INCREASED ICP /midline shift. Objective - Vital Signs/Intake and Output Vital Signs (last 24 hours): Temp Pulse Resp BP Pulse Ox 99.5 F 102 H 16 108/61 97 03/16/17 16:00 03/16/17 19:00 03/16/17 19:00 03/16/17 19:00 03/16/17 19:00 Intake and Output: 03/16/17 03/17/17 18:59 05:59 Intake Total 1180 30 Output Total 1455 100 Balance -275 -70 - Medications Medications: Current Medications Acetaminophen (Tylenol 650mg/20.3ml Solution Ud) 650 mg PO Q4 PRN PRN Reason: Pain, moderate (4-7) Last Admin: 03/14/17 17:23 Dose: 650 mg Calcium Acetate (Phoslo) 667 mg PO BIDCC [facility] Last Admin: 03/16/17 17:52 Dose: 667 mg Heparin Sodium (Porcine) (Heparin) 5,000 units SC Q12 [facility] Last Admin: 03/16/17 21:59 Dose: 5,000 units Propofol (Diprivan) 1,000 mg in 100 mls @ 1.189 mls/hr IV .Q24H PRN; Protocol; 5 MCG/KG/MIN PRN Reason: TITRATE PER MD ORDER Last Titration: 03/13/17 06:18 Dose: 10 mcg/kg/min, 2.379 mls/hr Cefepime HCl (Maxipime Iv 1 Gm Premix) 1 gm in 50 mls @ 100 mls/hr IVPB Q24H [facility] Last Admin: 03/16/17 09:54 Dose: 100 mls/hr Metronidazole (Flagyl) 500 mg in 100 mls @ 100 mls/hr IVPB Q12 [facility] Last Admin: 03/16/17 21:00 Dose: 100 mls/hr Linezolid (Zyvox 600mg/300ml D5w) 600 mg in 300 mls @ 200 mls/hr IVPB Q12H [facility] Last Admin: 03/16/17 22:50 Dose: 200 mls/hr Sodium Chloride (Hypertonic Saline 3%) 500 mls @ 10 mls/hr IV .Q24H [facility] Stop: 03/17/17 05:00 Last Admin: 03/16/17 22:30 Dose: 10 mls/hr Insulin Human Regular (Novolin R) 0 unit SC Q6 [facility] PRN Reason: Protocol Last Admin: 03/16/17 17:49 Dose: 1 unit Levothyroxine Sodium (Synthroid) 25 mcg PO DAILY@0630 [facility] Metoprolol Tartrate (Lopressor) 25 mg PO BID [facility] Last Admin: 03/16/17 17:52 Dose: Not Given Pantoprazole Sodium (Protonix Ec Tab) 20 mg PO DAILY [facility] Last Admin: 03/16/17 12:28 Dose: 20 mg - Labs Labs: 03/16/17 06:34 03/16/17 06:35 PT 10.2 SECONDS (9.7-12.2) 03/12/17 06:20 INR 0.9 03/12/17 06:20 APTT 27 SECONDS (21-34) 03/12/17 06:20 - Constitutional Appears: No Acute Distress - Head Exam Head Exam: NORMAL INSPECTION - Eye Exam Pupil Exam: PERRL - ENT Exam ENT Exam: Mucous Membranes Dry - Neck Exam Neck Exam: Normal Inspection - Respiratory Exam Respiratory Exam: Clear to Ausculation Bilateral - Cardiovascular Exam Cardiovascular Exam: Tachycardia, +S1, +S2 - GI/Abdominal Exam GI & Abdominal Exam: Soft, Normal Bowel Sounds - Extremities Exam Extremities Exam: absent: Calf Tenderness, Pedal Edema - Neurological Exam Neurological Exam: Altered - Skin Skin Exam: Dry, Warm Assessment and Plan (1) S/P craniotomy Status: Acute (2) SIRS (systemic inflammatory response syndrome) Status: Acute (3) Intracranial hemorrhage Status: Acute (4) Renal failure Status: Acute (5) Diabetes mellitus type 2 in nonobese Status: Acute (6) Hypertension Status: Acute (7) Pancreatic cancer Status: Acute - Assessment and Plan (Free Text) Plan: CONTINUE iv CEFEPIME 1 G ONCE A DAY DAILY. 03/13/17. CONTINUE IV ZYVOX 600 MG EVERY 12 HOURLY FOR GRAM-POSITIVE COVERAGE.03/14/17. CONTINUE IV fLAGYL 500 MG iv PIGGYBACK EVERY 12 HOURLY. 03/13/17. MONITOR NEURO CHECKUPS . NEPHROLOGY ON BOARD -ACUTE RENAL INSUFFICIENCY. PROGNOSIS GUARDED.
--- NOTE | 2017-03-17 01:58 | PN ---
DATE: FOLLOWUP RENAL CONSULTATION LOCATION: The patient is located in the ICU, bed 8. REQUESTING PHYSICIAN: Dr. Jordi Bedolla. REASON FOR FOLLOWUP: Acute renal failure, chronic kidney disease. SUBJECTIVE: Mrs. Watson is an 81-year-old elderly female from [place] with a past medical history significant for hypertension, osteoporosis and chronic arrhythmia, AFib, chronic kidney disease and he was found in the closet locked by neighbor and the patient was admitted with left-sided weakness and found to have intracranial bleed and status post craniotomy. The patient is on ventilator, responding to painful stimuli by moving right upper extremity, lower extremity and left lower extremity and very little left upper extremity movement with painful stimuli and the patient urine output is picking up, not in distress, on ventilator. PHYSICAL EXAMINATION VITAL SIGNS: As follows; blood pressure 104/57, pulse 100, respirations 15, temperature is 99.5. HEENT: Pupils normal, conjunctivae pink. Sclerae anicteric. Slight horizontal nystagmus present, on ventilator. NECK: No thyroid enlargement. LUNGS: Symmetric on both sides. Bilateral breath sounds present. CARDIOVASCULAR: [place] at the fifth intercostal space, midclavicular line. S1 and S2 audible. Slightly tachycardic. No murmur or no gallop. ABDOMEN: Normal in appearance, soft, and tympanic. No guarding. No rigidity. No hepatosplenomegaly. CENTRAL NERVOUS SYSTEM: The patient is on ventilator, responding to painful stimuli by moving the right upper extremity, lower extremity, left lower extremity, very little left upper extremity. EXTREMITIES: No cyanosis, no clubbing, no edema. CURRENT MEDICATIONS: Include as follows; propofol, Flagyl, subcu heparin, hypotonic saline 10 mL/hour and metoprolol 25 mg p.o. b.i.d. and cefepime 1 g q. 24 hours, Novolin, PhosLo 667 mg p.o. b.i.d. Protonix 20 mg p.o. daily, Synthroid 25 mcg p.o. daily, and Tylenol and Zyvox 600 mg q. 12 hours. LABORATORY DATA: As follows: As of 03/16/2017, WBC 24.3, hemoglobin 9.8, hematocrit is 31.1, platelets 178. PH 7.55, pCO2 of 28, pO2 of 92, bicarbonate is 27.4, and saturation 97.9%. Vent setting: AC 16, FiO2 of 30%, tidal volume 450, and PEEP of 5. Sodium 146, potassium 3.2, chloride 109, CO2 of 23, BUN is 104, creatinine 4.5, glucose 180, calcium 6.9, phosphorus 4.3, and magnesium 2.4. AST 43, ALT 79, alkaline phosphatase 241, total protein 4.6, albumin is 2.6. Sputum culture as of 03/13/2017, positive for Klebsiella pneumonia and urine culture positive for enterococcus fecalis. MRSA screen is negative. Her blood culture negative day 3, x2 as of 03/13/2017. ASSESSMENT: In summary, Mrs. Watson is an 81-year-old elderly female with hypertension, osteoporosis, chronic kidney disease, atrial fibrillation, who was found on the floor in the closet by the patient's neighbor and found intracranial bleed status post craniotomy with elevated WBC count on ventilator. 1. Acute renal failure on chronic kidney disease. Renal function is slowly improving. The patient is on ventilator. 2. Intracranial bleed status post craniotomy. Continue hypertonic saline as per the Neurology and Mannitol 20%, 500 mL IV, x1 as per the Neurology recommendations. 3. Urinary tract infection. 4. Rule out pneumonia. Continue antibiotics as per ID recommendation. We will follow with you. Thank you for allowing me to participate in your patient's care. Overall prognosis is very poor. Continue to monitor urine output. Orlando Odom MD
[2017-03-17] MEDS: (Novolin R) Insulin Human Regular 100 units/ml vial SC SCH ×4 (06:12→17:22)
[2017-03-17] MEDS: Levothyroxine 25 MCG TAB PO SCH (06:13)
[2017-03-17 06:25] LABS: ABG ALLEN TEST POS; ABG MECHANICAL RATE 16; ARTERIAL BLOOD GAS MODE PRVC; ARTERIAL BLOOD HGB O2 SAT 96.2 % (95.0-98.0); ATERIAL BLOOD GAS PEEP 5; CARBOXYHEMOGLOBIN 2.1 % (0.5-1.5); DRAW SITE RRADIAL; HHB 0.9 % (0.0-5.0); METHEMOGLOBIN 0.8 % (0.0-3.0)
[2017-03-17 06:58] LABS: BASO % 0.1 % (0.0-2.0); HEMATOCRIT 31.2 % (34.0-47.0); LYMPH # 0.6 K/uL (1.0-4.3); LYMPH % 2.8 % (20.0-40.0); MEAN CORPUSCULAR HEMOGLOBIN 31.7 pg (27.0-31.0); MEAN CORPUSCULAR HGB CONC 30.9 g/dL (33.0-37.0); MEAN PLATELET VOLUME 11.6 fL (7.2-11.7); MONO # 1.2 K/uL (0.0-0.8); MONO % 5.3 % (0.0-10.0); NRBC % 0.1 % (0.0-2.0); PLATELET COUNT 173 K/uL (130-400); RED CELL DISTRIBUTION WIDTH 16.3 % (11.5-14.5); WHITE BLOOD COUNT 22.7 K/uL (4.8-10.8)
[2017-03-17 07:14] LABS: POTASSIUM 3.5 mmol/L (3.6-5.2)
[2017-03-17 07:15] LABS: MEAN CELL VOLUME 102.4 fL (81.0-99.0)
[2017-03-17 07:16] LABS: ALB/GLOB RATIO 0.8 (1.0-2.1); BILIRUBIN,TOTAL 0.7 mg/dL (0.2-1.3); TOTAL PROTEIN 5.4 g/dL (6.3-8.3)
[2017-03-17 07:17] LABS: MAGNESIUM 2.8 mg/dL (1.6-2.3)
[2017-03-17 08:39] LABS: NEUTROPHIL 92 % (50-75); TOTAL CELLS COUNTED 100
[2017-03-17 08:40] LABS: LARGE PLATELETS PRESENT
--- NOTE | 2017-03-17 08:51 | CP.CCUPN ---
CCU Subjective - Physician Review Events Since Last Encounter (Free Text): 03/17/17 08:48 Patient is now poorly responding. Minimal gag cough reflex is noted. Weakness. Urine output is okay, renal function is worsening CCU Objective - Vital Signs / Intake & Output Vital Signs (Last 4 hours): Vital Signs Pulse Resp BP Pulse Ox 03/17/17 08:00 97 H 16 116/73 98 03/17/17 07:00 106 H 16 136/83 97 03/17/17 06:00 98 H 16 105/60 97 03/17/17 05:00 111 H 16 119/68 Intake and Output (Last 8hrs): Intake & Output 03/16/17 03/17/17 03/17/17 23:59 06:59 14:59 Intake Total 40 Output Total 70 Balance -30 Weight Intake: Intake, IV Amount 10 Right Forearm 10 Tube Feeding 30 Output: Urine 70 Urethral (Forbes) 70 - Physical Exam Narrative Physical Exam (Free Text): 03/17/17 08:49 Chest good air entry, on ventilator, FiO2 30% 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, 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, Nevin Coma Scale 4 Head: Positive for: Normocephalic, Other (dressing in place post craniotomy ) Pupils: Positive for: Sluggish Mouth: Positive for: Dry Respiratory/Chest: Positive for: Good Air Exchange Cardiovascular: Positive for: Normal S1, S2 Lower Extremity: Positive for: Edema Skin: Positive for: Warm Psychiatric: Negative for: Alert, Oriented x 3 - Medications Active Medications: Active Medications Generic Name Dose Route Start Last Admin Trade Name Freq PRN Reason Stop Dose Admin Acetaminophen 650 mg 03/14/17 17:15 03/14/17 17:23 Tylenol 650mg/20.3ml Solution Ud PO 650 mg Q4 PRN Administration Pain, moderate (4-7) Calcium Acetate 667 mg 03/14/17 08:00 03/17/17 07:40 Phoslo PO 667 mg BIDCC [facility]LE Administration Heparin Sodium (Porcine) 5,000 units 03/15/17 22:00 03/16/17 21:59 Heparin SC 5,000 units Q12 [facility]LE Administration Propofol 1,000 mg in 100 mls @ 1.189 mls/hr 03/12/17 08:24 03/13/17 06:18 Diprivan IV 10 mcg/kg/min .Q24H PRN 2.379 mls/hr TITRATE PER MD ORDER Titration Protocol 5 MCG/KG/MIN Cefepime HCl 1 gm in 50 mls @ 100 mls/hr 03/13/17 10:30 03/16/17 09:54 Maxipime Iv 1 Gm Premix IVPB 100 mls/hr Q24H [facility]LE Administration Metronidazole 500 mg in 100 mls @ 100 mls/hr 03/14/17 10:00 03/16/17 21:00 Flagyl IVPB 100 mls/hr Q12 [facility] Administration Linezolid 600 mg in 300 mls @ 200 mls/hr 03/14/17 23:45 03/16/17 22:50 Zyvox 600mg/300ml D5w IVPB 200 mls/hr Q12H [facility] Administration Insulin Human Regular 0 unit 03/12/17 12:00 03/17/17 06:12 Novolin R SC 1 unit Q6 [facility]LE Administration Protocol Levothyroxine Sodium 25 mcg 03/17/17 06:30 03/17/17 06:13 Synthroid PO 25 mcg DAILY@0630 [facility] Administration Metoprolol Tartrate 25 mg 03/16/17 10:00 03/16/17 17:52 Lopressor PO Not Given BID [facility] Pantoprazole Sodium 20 mg 03/16/17 10:00 03/16/17 12:28 Protonix Ec Tab PO 20 mg DAILY HALLE Administration - Patient Studies Lab Studies: Microbiology Studies 03/13/17 11:30 Urine Culture - Final Urine Enterococcus Faecalis 03/13/17 09:30 Blood Culture - Preliminary Blood-Venous NO GROWTH AFTER 3 DAYS 03/13/17 09:00 Blood Culture - Preliminary Blood-Venous NO GROWTH AFTER 3 DAYS Lab Studies 03/17/17 03/17/17 03/17/17 Range/Units 06:45 06:45 06:03 WBC 22.7 H (4.8-10.8) K/uL RBC 3.05 L (3.80-5.20) Mil/uL Hgb 9.7 L (11.0-16.0) g/dL Hct 31.2 L (34.0-47.0) % MCV 102.4 H D (81.0-99.0) fL MCH 31.7 H (27.0-31.0) pg MCHC 30.9 L (33.0-37.0) g/dL RDW 16.3 H (11.5-14.5) % Plt Count 173 (130-400) K/uL MPV 11.6 (7.2-11.7) fL Neut % (Auto) 91.8 H (50.0-75.0) % Lymph % (Auto) 2.8 L (20.0-40.0) % [place] % (Auto) 5.3 (0.0-10.0) % Eos % (Auto) 0.0 (0.0-4.0) % Baso % (Auto) 0.1 (0.0-2.0) % Neut # 20.8 H (1.8-7.0) K/uL Lymph # 0.6 L (1.0-4.3) K/uL [place] # 1.2 H (0.0-0.8) K/uL Eos # 0.0 (0.0-0.7) K/uL Baso # 0.0 (0.0-0.2) K/uL Neutrophils % (Manual) 92 H (50-75) % Band Neutrophils % 2 (0-2) % Lymphocytes % (Manual) 1 L (20-40) % Monocytes % (Manual) 5 (0-10) % Toxic Granulation Present Platelet Estimate Normal (NORMAL) Large Platelets Present Hypochromasia (manual) Slight Poikilocytosis (manual Slight Anisocytosis (manual) Slight Tear Drop Cells Slight [place] Cells Slight Puncture Site pCO2 (35-45) mm/Hg pO2 (80-100) mm/Hg HCO3 (21-28) mmol/L ABG pH (7.35-7.45) ABG Total CO2 (22-28) mmol/L ABG O2 Saturation (95-98) % ABG Base Excess (-2.0-3.0) mmol/L ABG Hemoglobin (11.7-17.4) g/dL ABG Carboxyhemoglobin (0.5-1.5) % POC ABG HHb (Measured) (0.0-5.0) % ABG Methemoglobin (0.0-3.0) % Jean Test A-a O2 Difference mm/Hg Respiratory Index Hgb O2 Saturation (95.0-98.0) % Vent Mode Mechanical Rate FiO2 % Tidal Volume PEEP Crit Value Called To Crit Value Called By Crit Value Read Back Blood Gas Notified Time Sodium 147 (132-148) mmol/L Potassium 3.5 L (3.6-5.2) mmol/L Chloride 111 H (98-107) mmol/L Carbon Dioxide 26 (22-30) mmol/L Anion Gap 14 (10-20) BUN 107 H* (7-17) mg/dL Creatinine 3.9 H (0.7-1.2) mg/dL Est GFR ( Amer) 13 Est GFR (Non-Af Amer) 11 POC Glucose (mg/dL) 198 H (65-110) mg/dL Random Glucose 160 H (65-105) mg/dL Serum Osmolality (272-300) mosm/kg Calcium 7.0 L (8.6-10.4) mg/dl Phosphorus 5.0 H (2.5-4.5) mg/dL Magnesium 2.8 H (1.6-2.3) mg/dL Total Bilirubin 0.7 (0.2-1.3) mg/dL AST 52 H (14-36) U/L ALT 83 H (9-52) U/L Alkaline Phosphatase 261 H (38-126) U/L Total Protein 5.4 L (6.3-8.3) g/dL Albumin 2.4 L (3.5-5.0) g/dL Globulin 3.0 (2.2-3.9) gm/dL Albumin/Globulin Ratio 0.8 L (1.0-2.1) 03/17/17 03/17/17 03/16/17 Range/Units 05:40 00:18 18:09 WBC (4.8-10.8) K/uL RBC (3.80-5.20) Mil/uL Hgb (11.0-16.0) g/dL Hct (34.0-47.0) % MCV (81.0-99.0) fL MCH (27.0-31.0) pg MCHC (33.0-37.0) g/dL RDW (11.5-14.5) % Plt Count (130-400) K/uL MPV (7.2-11.7) fL Neut % (Auto) (50.0-75.0) % Lymph % (Auto) (20.0-40.0) % [place] % (Auto) (0.0-10.0) % Eos % (Auto) (0.0-4.0) % Baso % (Auto) (0.0-2.0) % Neut # (1.8-7.0) K/uL Lymph # (1.0-4.3) K/uL [place] # (0.0-0.8) K/uL Eos # (0.0-0.7) K/uL Baso # (0.0-0.2) K/uL Neutrophils % (Manual) (50-75) % Band Neutrophils % (0-2) % Lymphocytes % (Manual) (20-40) % Monocytes % (Manual) (0-10) % Toxic Granulation Platelet Estimate (NORMAL) Large Platelets Hypochromasia (manual) Poikilocytosis (manual Anisocytosis (manual) Tear Drop Cells [place] Cells Puncture Site Rradial pCO2 26 L (35-45) mm/Hg pO2 171 H (80-100) mm/Hg HCO3 29.3 H (21-28) mmol/L ABG pH 7.62 H* (7.35-7.45) ABG Total CO2 27.5 (22-28) mmol/L ABG O2 Saturation 99.1 H (95-98) % ABG Base Excess 5.6 H (-2.0-3.0) mmol/L ABG Hemoglobin 8.7 L (11.7-17.4) g/dL ABG Carboxyhemoglobin 2.1 H (0.5-1.5) % POC ABG HHb (Measured) 0.9 (0.0-5.0) % ABG Methemoglobin 0.8 (0.0-3.0) % Jean Test Pos A-a O2 Difference 10.0 mm/Hg Respiratory Index 0.1 Hgb O2 Saturation 96.2 (95.0-98.0) % Vent Mode Prvc Mechanical Rate 16 FiO2 30.0 % Tidal Volume 450 PEEP 5 Crit Value Called To Dr. alexander Crit Value Called By Ana Maria seaman rcp Crit Value Read Back Y Blood Gas Notified Time 625 Sodium (132-148) mmol/L Potassium (3.6-5.2) mmol/L Chloride (98-107) mmol/L Carbon Dioxide (22-30) mmol/L Anion Gap (10-20) BUN (7-17) mg/dL Creatinine (0.7-1.2) mg/dL Est GFR ( Amer) Est GFR (Non-Af Amer) POC Glucose (mg/dL) 181 H (65-110) mg/dL Random Glucose (65-105) mg/dL Serum Osmolality 381 H (272-300) mosm/kg Calcium (8.6-10.4) mg/dl Phosphorus (2.5-4.5) mg/dL Magnesium (1.6-2.3) mg/dL Total Bilirubin (0.2-1.3) mg/dL AST (14-36) U/L ALT (9-52) U/L Alkaline Phosphatase (38-126) U/L Total Protein (6.3-8.3) g/dL Albumin (3.5-5.0) g/dL Globulin (2.2-3.9) gm/dL Albumin/Globulin Ratio (1.0-2.1) 03/16/17 03/16/17 Range/Units 17:45 11:37 WBC (4.8-10.8) K/uL RBC (3.80-5.20) Mil/uL Hgb (11.0-16.0) g/dL Hct (34.0-47.0) % MCV (81.0-99.0) fL MCH (27.0-31.0) pg MCHC (33.0-37.0) g/dL RDW (11.5-14.5) % Plt Count (130-400) K/uL MPV (7.2-11.7) fL Neut % (Auto) (50.0-75.0) % Lymph % (Auto) (20.0-40.0) % [place] % (Auto) (0.0-10.0) % Eos % (Auto) (0.0-4.0) % Baso % (Auto) (0.0-2.0) % Neut # (1.8-7.0) K/uL Lymph # (1.0-4.3) K/uL [place] # (0.0-0.8) K/uL Eos # (0.0-0.7) K/uL Baso # (0.0-0.2) K/uL Neutrophils % (Manual) (50-75) % Band Neutrophils % (0-2) % Lymphocytes % (Manual) (20-40) % Monocytes % (Manual) (0-10) % Toxic Granulation Platelet Estimate (NORMAL) Large Platelets Hypochromasia (manual) Poikilocytosis (manual Anisocytosis (manual) Tear Drop Cells [place] Cells Puncture Site pCO2 (35-45) mm/Hg pO2 (80-100) mm/Hg HCO3 (21-28) mmol/L ABG pH (7.35-7.45) ABG Total CO2 (22-28) mmol/L ABG O2 Saturation (95-98) % ABG Base Excess (-2.0-3.0) mmol/L ABG Hemoglobin (11.7-17.4) g/dL ABG Carboxyhemoglobin (0.5-1.5) % POC ABG HHb (Measured) (0.0-5.0) % ABG Methemoglobin (0.0-3.0) % Jean Test A-a O2 Difference mm/Hg Respiratory Index Hgb O2 Saturation (95.0-98.0) % Vent Mode Mechanical Rate FiO2 % Tidal Volume PEEP Crit Value Called To Crit Value Called By Crit Value Read Back Blood Gas Notified Time Sodium (132-148) mmol/L Potassium (3.6-5.2) mmol/L Chloride (98-107) mmol/L Carbon Dioxide (22-30) mmol/L Anion Gap (10-20) BUN (7-17) mg/dL Creatinine (0.7-1.2) mg/dL Est GFR ( Amer) Est GFR (Non-Af Amer) POC Glucose (mg/dL) 175 H 290 H (65-110) mg/dL Random Glucose (65-105) mg/dL Serum Osmolality (272-300) mosm/kg Calcium (8.6-10.4) mg/dl Phosphorus (2.5-4.5) mg/dL Magnesium (1.6-2.3) mg/dL Total Bilirubin (0.2-1.3) mg/dL AST (14-36) U/L ALT (9-52) U/L Alkaline Phosphatase (38-126) U/L Total Protein (6.3-8.3) g/dL Albumin (3.5-5.0) g/dL Globulin (2.2-3.9) gm/dL Albumin/Globulin Ratio (1.0-2.1) Laboratory Results - last 24 hr 03/16/17 03/16/17 03/16/17 11:37 17:45 18:09 WBC RBC Hgb Hct MCV MCH MCHC RDW Plt Count MPV Neut % (Auto) Lymph % (Auto) [place] % (Auto) Eos % (Auto) Baso % (Auto) Neut # Lymph # [place] # Eos # Baso # Neutrophils % (Manual) Band Neutrophils % Lymphocytes % (Manual) Monocytes % (Manual) Toxic Granulation Platelet Estimate Large Platelets Hypochromasia (manual) Poikilocytosis (manual Anisocytosis (manual) Tear Drop Cells [place] Cells Puncture Site pCO2 pO2 HCO3 ABG pH ABG Total CO2 ABG O2 Saturation ABG Base Excess ABG Hemoglobin ABG Carboxyhemoglobin POC ABG HHb (Measured) ABG Methemoglobin Jean Test A-a O2 Difference Respiratory Index Hgb O2 Saturation Vent Mode Mechanical Rate FiO2 Tidal Volume PEEP Crit Value Called To Crit Value Called By Crit Value Read Back Blood Gas Notified Time Sodium Potassium Chloride Carbon Dioxide Anion Gap BUN Creatinine Est GFR ( Amer) Est GFR (Non-Af Amer) POC Glucose (mg/dL) 290 H 175 H Random Glucose Serum Osmolality 381 H Calcium Phosphorus Magnesium Total Bilirubin AST ALT Alkaline Phosphatase Total Protein Albumin Globulin Albumin/Globulin Ratio 03/17/17 03/17/17 03/17/17 00:18 05:40 06:03 WBC RBC Hgb Hct MCV MCH MCHC RDW Plt Count MPV Neut % (Auto) Lymph % (Auto) [place] % (Auto) Eos % (Auto) Baso % (Auto) Neut # Lymph # [place] # Eos # Baso # Neutrophils % (Manual) Band Neutrophils % Lymphocytes % (Manual) Monocytes % (Manual) Toxic Granulation Platelet Estimate Large Platelets Hypochromasia (manual) Poikilocytosis (manual Anisocytosis (manual) Tear Drop Cells [place] Cells Puncture Site Rradial pCO2 26 L pO2 171 H HCO3 29.3 H ABG pH 7.62 H* ABG Total CO2 27.5 ABG O2 Saturation 99.1 H ABG Base Excess 5.6 H ABG Hemoglobin 8.7 L ABG Carboxyhemoglobin 2.1 H POC ABG HHb (Measured) 0.9 ABG Methemoglobin 0.8 Jean Test Pos A-a O2 Difference 10.0 Respiratory Index 0.1 Hgb O2 Saturation 96.2 Vent Mode Prvc Mechanical Rate 16 FiO2 30.0 Tidal Volume 450 PEEP 5 Crit Value Called To Dr. alexander Crit Value Called By Ana Maria seaman rcp Crit Value Read Back Y Blood Gas Notified Time 625 Sodium Potassium Chloride Carbon Dioxide Anion Gap BUN Creatinine Est GFR ( Amer) Est GFR (Non-Af Amer) POC Glucose (mg/dL) 181 H 198 H Random Glucose Serum Osmolality Calcium Phosphorus Magnesium Total Bilirubin AST ALT Alkaline Phosphatase Total Protein Albumin Globulin Albumin/Globulin Ratio 03/17/17 03/17/17 06:45 06:45 WBC 22.7 H RBC 3.05 L Hgb 9.7 L Hct 31.2 L MCV 102.4 H D MCH 31.7 H MCHC 30.9 L RDW 16.3 H Plt Count 173 MPV 11.6 Neut % (Auto) 91.8 H Lymph % (Auto) 2.8 L [place] % (Auto) 5.3 Eos % (Auto) 0.0 Baso % (Auto) 0.1 Neut # 20.8 H Lymph # 0.6 L [place] # 1.2 H Eos # 0.0 Baso # 0.0 Neutrophils % (Manual) 92 H Band Neutrophils % 2 Lymphocytes % (Manual) 1 L Monocytes % (Manual) 5 Toxic Granulation Present Platelet Estimate Normal Large Platelets Present Hypochromasia (manual) Slight Poikilocytosis (manual Slight Anisocytosis (manual) Slight Tear Drop Cells Slight [place] Cells Slight Puncture Site pCO2 pO2 HCO3 ABG pH ABG Total CO2 ABG O2 Saturation ABG Base Excess ABG Hemoglobin ABG Carboxyhemoglobin POC ABG HHb (Measured) ABG Methemoglobin Jean Test A-a O2 Difference Respiratory Index Hgb O2 Saturation Vent Mode Mechanical Rate FiO2 Tidal Volume PEEP Crit Value Called To Crit Value Called By Crit Value Read Back Blood Gas Notified Time Sodium 147 Potassium 3.5 L Chloride 111 H Carbon Dioxide 26 Anion Gap 14 BUN 107 H* Creatinine 3.9 H Est GFR ( Amer) 13 Est GFR (Non-Af Amer) 11 POC Glucose (mg/dL) Random Glucose 160 H Serum Osmolality Calcium 7.0 L Phosphorus 5.0 H Magnesium 2.8 H Total Bilirubin 0.7 AST 52 H ALT 83 H Alkaline Phosphatase 261 H Total Protein 5.4 L Albumin 2.4 L Globulin 3.0 Albumin/Globulin Ratio 0.8 L Fingerstick Blood Sugar Results: 198 Review of Systems - Review of Systems All systems: reviewed and no additional remarkable complaints except Critical Care Progress Note - Ventilator Checklist Head of Bed 30 Degrees: Yes Daily Sedation Vacation: Yes Daily Assessment of Readiness to Wean: Yes Daily Spontaneous Breathing Trial: Yes PUD Prophalyxis: Yes DVT Prophylaxis: Yes Oral Care with Chlorhexidine Gluconate {CHG}: Yes - Nutrition Nutrition: Nutrition Category Date Time Status NPO Diet [DIET] Diets 03/11/17 Dinner Active Assessment/Plan (1) Diabetes mellitus type 2 in nonobese Current Visit: Yes Status: Acute (2) Hypertension Current Visit: Yes Status: Acute (3) Intracranial hemorrhage Assessment and plan: patient with intracranial hemorrhage, with the midline shift, neurological damage Overall prognosis very poor On ventilatory support. Renal insufficiency. Worsening neurological status Patient's overall prognosis is very bad, will speak to the family regarding the advanced directives, DNR/DNI Current Visit: Yes Status: Acute
[2017-03-17] MEDS: metroNIDAZOLE IV 500 mg/100 ml 500 MG/100 ML BAG IVPB SCH ×2 (09:22→21:10)
[2017-03-17] MEDS: Pantoprazole 20 mg EC Tab PO SCH (09:25)
[2017-03-17] MEDS: Cefepime IV 1 gm in Dextrose 1 GM/50 ML BAG IVPB SCH (10:00)
[2017-03-17] MEDS: Linezolid 600 mg in D5W 300 ml 600 MG/300 ML BAG IVPB SCH (11:00)
--- NOTE | 2017-03-17 12:05 | PN ---
NEUROLOGY PROGRESS NOTE DATE: SUBJECTIVE: The patient is lying on the bed on a ventilator in no acute distress. PHYSICAL EXAMINATION VITAL SIGNS: Blood pressure 116/73, heart rate is 97 per minute, breathing at a rate of 16 per minute and her temperature 98.8 degree Fahrenheit. HEENT: Head is normocephalic. NECK: Supple. There are no carotid bruit. LUNGS: Clear. CARDIOVASCULAR: S1 and S2 audible. No murmur. ABDOMEN: Soft and nontender. Bowel sounds are minimally present. NEUROLOGIC: Mental status: The patient is comatose, does not follow any commands. No opening of eyes to noxious stimuli. CRANIAL NERVE EXAMINATION: Pupils 2 mm, nonreactive. Eyes are deviated downwards. There is no doll's eye movements. There is positive inder reflux and positive gag reflux. MOTOR EXAMINATION: There is extensive posturing on the left upper extremity on noxious stimuli. No withdraws of right upper extremity. Minimal withdrawal of lower extremity to noxious stimuli. LABORATORY DATA: Reviewed shows WBC of 22.7, hemoglobin of 9.7, hematocrit 31.2 and platelets of 173. Sodium is 147, potassium 3.5, chloride 111, carbon dioxide content of 26, BUN of 107, creatinine 3.9 and glucose of 160. IMPRESSION: 1. Right temporoparietal hemorrhage. 2. Respiratory failure. 3. Sepsis. 4. Renal failure. RECOMMENDATIONS: 1. The patient was given one dose of mannitol yesterday. Her serum osmolality was 381, so no further mannitol was given. 2. The patient has been started on 3% saline for increased edema and midline shift. 3. There is no improvement in the patient's neurologic status since yesterday. Neurologic status is a combination of the patient's hemorrhage along with her sepsis and renal failure. 4. The patient to be continued on antibiotics. 5. The patient to have ventilator support. 6. The patient's prognosis is guarded to poor. 7. I have discussed the patient's case with the ICU team. 8. Please continue considering discussing DNR with the patient's family. 9. Continue supportive care and treatment. Thank you for the opportunity to participate in the care of this patient. David Torres MD
--- NOTE | 2017-03-17 14:19 | CP.PCM.PN ---
Subjective - Date & Time of Evaluation Date of Evaluation: 03/17/17 Time of Evaluation: 14:19 - Subjective Subjective: REMAINS Objective - Vital Signs/Intake and Output Vital Signs (last 24 hours): Temp Pulse Resp BP Pulse Ox 97.4 F L 92 H 16 92/56 L 98 03/17/17 08:00 03/17/17 12:00 03/17/17 12:00 03/17/17 12:00 03/17/17 12:00 Intake and Output: 03/17/17 03/17/17 11:59 23:59 Intake Total 190 Output Total 50 Balance 140 - Medications Medications: Current Medications Acetaminophen (Tylenol 650mg/20.3ml Solution Ud) 650 mg PO Q4 PRN PRN Reason: Pain, moderate (4-7) Last Admin: 03/14/17 17:23 Dose: 650 mg Calcium Acetate (Phoslo) 667 mg PO BIDCC [facility] Last Admin: 03/17/17 07:40 Dose: 667 mg Heparin Sodium (Porcine) (Heparin) 5,000 units SC Q12 [facility] Last Admin: 03/17/17 09:12 Dose: 5,000 units Propofol (Diprivan) 1,000 mg in 100 mls @ 1.189 mls/hr IV .Q24H PRN; Protocol; 5 MCG/KG/MIN PRN Reason: TITRATE PER MD ORDER Last Titration: 03/13/17 06:18 Dose: 10 mcg/kg/min, 2.379 mls/hr Cefepime HCl (Maxipime Iv 1 Gm Premix) 1 gm in 50 mls @ 100 mls/hr IVPB Q24H [facility] Last Admin: 03/17/17 10:00 Dose: 100 mls/hr Metronidazole (Flagyl) 500 mg in 100 mls @ 100 mls/hr IVPB Q12 [facility] Last Admin: 03/17/17 09:22 Dose: 100 mls/hr Linezolid (Zyvox 600mg/300ml D5w) 600 mg in 300 mls @ 200 mls/hr IVPB Q12H [facility] Last Admin: 03/17/17 11:00 Dose: 200 mls/hr Insulin Human Regular (Novolin R) 0 unit SC Q6 [facility] PRN Reason: Protocol Last Admin: 03/17/17 12:43 Dose: 2 unit Levothyroxine Sodium (Synthroid) 25 mcg PO DAILY@0630 [facility] Last Admin: 03/17/17 06:13 Dose: 25 mcg Metoprolol Tartrate (Lopressor) 25 mg PO BID [facility] Last Admin: 03/17/17 09:11 Dose: 25 mg Pantoprazole Sodium (Protonix Ec Tab) 20 mg PO DAILY [facility] Last Admin: 03/17/17 09:25 Dose: 20 mg - Labs Labs: 03/17/17 06:45 03/17/17 06:45 PT 10.2 SECONDS (9.7-12.2) 03/12/17 06:20 INR 0.9 03/12/17 06:20 APTT 27 SECONDS (21-34) 03/12/17 06:20 Assessment and Plan (1) Intracranial hemorrhage Status: Acute (2) Renal failure Status: Acute (3) Sepsis Status: Acute
--- NOTE | 2017-03-17 14:34 | CP.PCM.PN ---
Subjective - Date & Time of Evaluation Date of Evaluation: 03/17/17 Time of Evaluation: 14:34 - Subjective Subjective: pt is seen and examined, follow up consult is dictated #[id number] Objective - Vital Signs/Intake and Output Vital Signs (last 24 hours): Temp Pulse Resp BP Pulse Ox 97.4 F L 92 H 16 92/56 L 98 03/17/17 08:00 03/17/17 12:00 03/17/17 12:00 03/17/17 12:00 03/17/17 12:00 Intake and Output: 03/17/17 03/17/17 06:59 18:59 Intake Total 640 Output Total 445 Balance 195 - Medications Medications: Current Medications Acetaminophen (Tylenol 650mg/20.3ml Solution Ud) 650 mg PO Q4 PRN PRN Reason: Pain, moderate (4-7) Last Admin: 03/14/17 17:23 Dose: 650 mg Calcium Acetate (Phoslo) 667 mg PO BIDCC [facility] Last Admin: 03/17/17 07:40 Dose: 667 mg Heparin Sodium (Porcine) (Heparin) 5,000 units SC Q12 [facility] Last Admin: 03/17/17 09:12 Dose: 5,000 units Propofol (Diprivan) 1,000 mg in 100 mls @ 1.189 mls/hr IV .Q24H PRN; Protocol; 5 MCG/KG/MIN PRN Reason: TITRATE PER MD ORDER Last Titration: 03/13/17 06:18 Dose: 10 mcg/kg/min, 2.379 mls/hr Cefepime HCl (Maxipime Iv 1 Gm Premix) 1 gm in 50 mls @ 100 mls/hr IVPB Q24H [facility] Last Admin: 03/17/17 10:00 Dose: 100 mls/hr Metronidazole (Flagyl) 500 mg in 100 mls @ 100 mls/hr IVPB Q12 [facility] Last Admin: 03/17/17 09:22 Dose: 100 mls/hr Linezolid (Zyvox 600mg/300ml D5w) 600 mg in 300 mls @ 200 mls/hr IVPB Q12H [facility] Last Admin: 03/17/17 11:00 Dose: 200 mls/hr Insulin Human Regular (Novolin R) 0 unit SC Q6 [facility] PRN Reason: Protocol Last Admin: 03/17/17 12:43 Dose: 2 unit Levothyroxine Sodium (Synthroid) 25 mcg PO DAILY@0630 [facility] Last Admin: 03/17/17 06:13 Dose: 25 mcg Metoprolol Tartrate (Lopressor) 25 mg PO BID [facility] Last Admin: 03/17/17 09:11 Dose: 25 mg Pantoprazole Sodium (Protonix Ec Tab) 20 mg PO DAILY [facility] Last Admin: 03/17/17 09:25 Dose: 20 mg - Labs Labs: 03/17/17 06:45 03/17/17 06:45 PT 10.2 SECONDS (9.7-12.2) 03/12/17 06:20 INR 0.9 03/12/17 06:20 APTT 27 SECONDS (21-34) 03/12/17 06:20
--- NOTE | 2017-03-17 14:39 | RAD ---
HISTORY: intubated COMPARISON: Chest x-ray performed 03/16/17. TECHNIQUE: Chest, one view. FINDINGS: Endotracheal tube and nasogastric tube appear in satisfactory position. Numerous external wires and leads obscure evaluation of the underlying parenchyma. LUNGS: Biapical pleural thickening with granulomatous changes. Nonspecific scattered nodular densities bilaterally. No focal consolidation. Please note that chest x-ray has limited sensitivity for the detection of pulmonary masses. PLEURA: No significant pleural effusion identified. No definite pneumothorax . CARDIOVASCULAR: Heart size appears within normal limits. Dense atherosclerotic calcifications of the aortic knob. OSSEOUS STRUCTURES: Degenerative changes. Osseous demineralization. VISUALIZED UPPER ABDOMEN: Unremarkable. OTHER FINDINGS: None. IMPRESSION: ET tube and NG tube appear in satisfactory position. Biapical pleural thickening with granulomatous changes. Nonspecific scattered nodular densities bilaterally.
[2017-03-17 15:49] LABS: CREATININE, RANDOM URINE 34.2 mg/dL
[2017-03-18] MEDS: (Novolin R) Insulin Human Regular 100 units/ml vial SC SCH ×4 (00:38→18:05)
[2017-03-18 04:55] LABS: ABG ALLEN TEST POS; ABG MECHANICAL RATE 16; ARTERIAL BLOOD GAS MODE PRVC; ARTERIAL BLOOD HGB O2 SAT 95.9 % (95.0-98.0); ATERIAL BLOOD GAS PEEP 5; CARBOXYHEMOGLOBIN 1.6 % (0.5-1.5); DRAW SITE RR; HHB 1.5 % (0.0-5.0)
[2017-03-18 06:20] LABS: BASO % 0.2 % (0.0-2.0); EOS # 0.1 K/uL (0.0-0.7); EOS % 0.3 % (0.0-4.0); HEMATOCRIT 32.2 % (34.0-47.0); LYMPH # 0.6 K/uL (1.0-4.3); MEAN CELL VOLUME 104.1 fL (81.0-99.0); MEAN CORPUSCULAR HGB CONC 30.7 g/dL (33.0-37.0); MEAN PLATELET VOLUME 11.5 fL (7.2-11.7); MONO # 0.8 K/uL (0.0-0.8); MONO % 3.7 % (0.0-10.0); NRBC % 0.1 % (0.0-2.0); PLATELET COUNT 198 K/uL (130-400); RED CELL DISTRIBUTION WIDTH 16.5 % (11.5-14.5); WHITE BLOOD COUNT 20.8 K/uL (4.8-10.8)
[2017-03-18 06:33] LABS: POTASSIUM 3.5 mmol/L (3.6-5.2)
[2017-03-18 06:35] LABS: ALB/GLOB RATIO 0.8 (1.0-2.1); BILIRUBIN,TOTAL 0.6 mg/dL (0.2-1.3); TOTAL PROTEIN 5.2 g/dL (6.3-8.3)
[2017-03-18 06:36] LABS: CALCIUM 6.8 mg/dl (8.6-10.4); MAGNESIUM 3.1 mg/dL (1.6-2.3); PHOSPHOROUS 5.2 mg/dL (2.5-4.5)
[2017-03-18] MEDS: Levothyroxine 25 MCG TAB PO SCH (06:43)
[2017-03-18 06:58] LABS: NEUTROPHIL 92 % (50-75); TOTAL CELLS COUNTED 100
--- NOTE | 2017-03-18 09:09 | PN ---
DATE: LOCATION: The patient is located in ICU, bed 8. REQUESTED BY: Jordi Bedolla MD REASON FOR FOLLOWUP: Acute renal failure, chronic kidney disease status post intracranial bleed. SUBJECTIVE: The patient is about 81-year-old elderly female with a past medical history significant for hypertension, osteoporosis, chronic kidney disease, cardiac arrhythmias, who was found in the closet locked, and the patient was found to have left-sided weakness and found to have intracranial bleed status post craniotomy, on ventilator, not responding to verbal stimuli, moving both right upper extremity, right lower extremity and also left lower extremity, remains intubated. PHYSICAL EXAMINATION: GENERAL: Ms. Watson is an 81-year-old elderly female, moderately built, moderately nourished, not in distress. VITAL SIGNS: Include as follows. Blood pressure 103/58, pulse 95, respirations 16, saturation 98% and temperature 98.3. HEENT: Conjunctivae pink. Sclerae anicteric. Trachea is midline. LUNGS: Symmetric on both sides. Bilateral breath sounds present. No crackles. CARDIOVASCULAR: [place] at the fifth intercostal space, midclavicular line. S1 and S2 audible. No murmur, no gallop. ABDOMEN: Normal in appearance. Soft and tympanic. No guarding. No rigidity. No hepatosplenomegaly. CENTRAL NERVOUS SYSTEM: The patient is on ventilator, not responding to verbal stimuli. Moving both right upper extremity, right lower extremity and also left lower extremity, and slightly moving left upper extremity. CURRENT MEDICATIONS: Include as follows. Propofol, Flagyl, subcu heparin, metoprolol, cefepime, insulin, potassium acetate, Protonix, levothyroxine, acetaminophen, and Zyvox. LABORATORY DATA: Includes as follows. WBC 22.7, hemoglobin 9.7, hematocrit is 31.2, platelets 173, neutrophils 92, bands 2, lymphs 1 and monos 5, and pH 7.62, pCO2 of 26, pO2 of 171, bicarbonate is 29.3, saturation 99.1. Sodium 147, potassium 3.5, chloride 111, CO2 of 26, BUN 107, creatinine 3.9, and glucose 160. Calcium is 7, phosphorus is , magnesium 2.8. Urine osmolality 430, urine creatinine is 34.2, urine sodium is 16, urine potassium is 28. ASSESSMENT: In summary, Mrs. Watson is an 81-year-old elderly female with a history of hypertension, osteoporosis, chronic kidney disease, status post intracranial bleed, status post craniotomy and evacuation of hematoma, being treated for sepsis, status post Mannitol and status post hypertonic saline yesterday. 1. Acute renal failure, chronic kidney disease. 2. Sepsis. 3. Respiratory failure. 4. Intracranial bleed, status post craniotomy. PLAN: Continue her current management and repeat BMP in a.m. Consider to followup CAT scan repeat and no need for any emergency dialysis at this time. We will follow with you. Overall prognosis is poor. Thank you for allowing me to participate in your patient's care. Orlando Odom MD
[2017-03-18] MEDS: Pantoprazole 20 mg EC Tab PO SCH (09:46)
[2017-03-18] MEDS: metroNIDAZOLE IV 500 mg/100 ml 500 MG/100 ML BAG IVPB SCH ×2 (09:53→21:47)
[2017-03-18] MEDS: Cefepime IV 1 gm in Dextrose 1 GM/50 ML BAG IVPB SCH ×2 (11:34→14:30)
--- NOTE | 2017-03-18 11:35 | CT ---
PROCEDURE: CT HEAD WITHOUT CONTRAST. HISTORY: s/p intracranial hemorrhage COMPARISON: 03/15/2017 TECHNIQUE: Axial computed tomography images were obtained through the head/brain without intravenous contrast. Radiation dose: Total exam DLP = 1511.16 mGy-cm. This CT exam was performed using one or more of the following dose reduction techniques: Automated exposure control, adjustment of the mA and/or kV according to patient size, and/or use of iterative reconstruction technique. FINDINGS: HEMORRHAGE: Since the prior examination, there has been no significant interval change in the size of a known evolving parenchymal hematoma in the right parietal and temporal lobes. 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 BRAIN: There is redemonstration of a mixed density right convexity subdural hematoma and postoperative air in the right temporal extra-axial space. There is also air along the surgical tract in the right temporal lobe. There is no evidence of uncal herniation. VENTRICLES: Complete effacement of the right lateral ventricle. Stable appearance of the left lateral ventricle. No evidence of hydrocephalus. CALVARIUM: Status post right temporal and parietal craniotomy. PARANASAL SINUSES: Unremarkable as visualized. No significant inflammatory changes. MASTOID AIR CELLS: Unremarkable as visualized. No inflammatory changes. OTHER FINDINGS: None. IMPRESSION: Little interval change involving in the appearance of large right the MCA territory hemorrhagic infarction in the right parietal and temporal lobes with vasogenic edema, significant local and regional mass effect with effacement of the right lateral ventricle and 18 mm midline shift from right to left. No evidence of uncal herniation or obstructive hydrocephalus. Stable mixed density right convexity subdural collection.
[2017-03-18] MEDS: Linezolid 600 mg in D5W 300 ml 600 MG/300 ML BAG IVPB SCH ×3 (12:16→23:19)
--- NOTE | 2017-03-18 12:17 | CP.PCM.PN ---
Subjective - Date & Time of Evaluation Date of Evaluation: 03/18/17 Time of Evaluation: 12:17 - Subjective Subjective: pt is seen and examined, follow up consult is dictated #[id number] Objective - Vital Signs/Intake and Output Vital Signs (last 24 hours): Temp Pulse Resp BP Pulse Ox 98.5 F 105 H 16 110/70 100 03/18/17 08:00 03/18/17 10:00 03/18/17 10:00 03/18/17 10:00 03/18/17 10:00 Intake and Output: 03/18/17 03/18/17 06:59 18:59 Intake Total 760 470 Output Total 970 155 Balance -210 315 - Medications Medications: Current Medications Acetaminophen (Tylenol 650mg/20.3ml Solution Ud) 650 mg PO Q4 PRN PRN Reason: Pain, moderate (4-7) Last Admin: 03/14/17 17:23 Dose: 650 mg Calcium Acetate (Phoslo) 667 mg PO BIDCC [facility] Last Admin: 03/17/17 16:27 Dose: 667 mg Heparin Sodium (Porcine) (Heparin) 5,000 units SC Q12 [facility] Last Admin: 03/18/17 09:45 Dose: 5,000 units Propofol (Diprivan) 1,000 mg in 100 mls @ 1.189 mls/hr IV .Q24H PRN; Protocol; 5 MCG/KG/MIN PRN Reason: TITRATE PER MD ORDER Last Titration: 03/13/17 06:18 Dose: 10 mcg/kg/min, 2.379 mls/hr Metronidazole (Flagyl) 500 mg in 100 mls @ 100 mls/hr IVPB Q12 [facility] Last Admin: 03/18/17 09:53 Dose: 100 mls/hr Linezolid (Zyvox 600mg/300ml D5w) 600 mg in 300 mls @ 200 mls/hr IVPB Q12H [facility] Last Admin: 03/18/17 12:16 Dose: 200 mls/hr Insulin Human Regular (Novolin R) 0 unit SC Q6 [facility] PRN Reason: Protocol Last Admin: 03/18/17 06:48 Dose: 2 unit Levothyroxine Sodium (Synthroid) 25 mcg PO DAILY@0630 [facility] Last Admin: 03/18/17 06:43 Dose: 25 mcg Metoprolol Tartrate (Lopressor) 25 mg PO BID [facility] Last Admin: 03/18/17 09:52 Dose: 25 mg Pantoprazole Sodium (Protonix Ec Tab) 20 mg PO DAILY [facility] Last Admin: 03/18/17 09:46 Dose: 20 mg - Labs Labs: 03/18/17 06:13 03/18/17 06:13 PT 10.2 SECONDS (9.7-12.2) 03/12/17 06:20 INR 0.9 03/12/17 06:20 APTT 27 SECONDS (21-34) 03/12/17 06:20
--- NOTE | 2017-03-18 12:51 | PN ---
DATE: NEUROLOGY PROGRESS NOTE SUBJECTIVE: The patient is lying on the bed in no acute distress on a ventilator. PHYSICAL EXAMINATION VITAL SIGNS: Her blood pressure is 110/70, heart rate is 105 per minute, she is breathing at a rate of 16 per minute and her temperature is 98.5 degree Fahrenheit. HEENT: Head is normocephalic, atraumatic. NECK: Supple. There are no carotid bruits. LUNGS: Clear. CVS: S1 and S2 audible. No murmurs. ABDOMEN: Soft, nontender. Bowel sounds are present. NEUROLOGIC: Mental status: The patient minimally opens eyes to noxious painful stimuli. She does not follow any commands. Cranial nerve examination: Pupils are 4 mm, oval, nonreactive to light. Positive doll's eye movement. Positive corneal reflex. Positive gag reflex. She withdraws her left upper extremity to noxious painful stimuli. Minimal withdrawal of both lower extremities to noxious stimuli. LABORATORY DATA: Reviewed shows WBC of 20.8, hemoglobin of 9.9, hematocrit of 32.2 and platelets of 198. Her sodium is 152, potassium 3.5, chloride 116, carbon dioxide content of 26, BUN of 113, creatinine of 3.7 and glucose of 241. IMPRESSION: 1. Right temporoparietal hemorrhage. 2. Respiratory failure. 3. Sepsis. 4. Renal failure. RECOMMENDATIONS: 1. The patient's 3% saline was stopped as the patient's sodium was getting elevated. 2. The patient has shown minimal improvement in her neurologic status. 3. The patient to be continued to on IV antibiotics. 4. The patient to have ventilatory support. 5. The patient was seen by nephrology and they are not recommending dialysis at the moment. 6. Please continue support care and treatment. Thank you for the opportunity to participate in the care of this patient. David Torres MD
--- NOTE | 2017-03-18 12:55 | CP.CCUPN ---
<Rosaura Paz - Last Filed: 03/18/17 13:05> CCU Subjective - Physician Review Subjective (Free Text): Patient seen and examined at bedside. Patient intubated is intubated and therefore ROS unobtainable. POD#6 s/p right parietal craniotomy, subtotal evacuation of hematoma. Patient spontaneously opens eyes some. No acute events overnight. CCU Objective - Vital Signs / Intake & Output Vital Signs (Last 4 hours): Vital Signs Temp Pulse Resp BP Pulse Ox 03/18/17 12:00 97.5 F L 83 16 87/51 L 99 03/18/17 11:32 88 16 85/56 L 99 03/18/17 10:00 105 H 16 110/70 100 03/18/17 09:52 103/60 03/18/17 09:46 103 H 16 103/60 99 03/18/17 09:00 95 H 16 99/60 L 99 Intake and Output (Last 8hrs): Intake & Output 03/17/17 03/18/17 03/18/17 22:59 06:59 14:59 Intake Total 340 540 670 Output Total 575 555 175 Balance -235 -15 495 Weight 101 lb 14.4 oz Intake: Intake, IV Amount 100 300 350 Right Forearm 0 350 Right Upper arm 100 300 Tube Feeding 240 240 120 Other 200 Output: Urine 375 455 175 Urethral (Forbes) 375 455 175 Stool 200 100 Other: # Bowel Movements 1 1 1 - Physical Exam Head: Positive for: Normocephalic, Other (dressing in place post craniotomy ) Pupils: Positive for: Sluggish Mouth: Positive for: Dry Respiratory/Chest: Positive for: Good Air Exchange Cardiovascular: Positive for: Normal S1, S2 Lower Extremity: Positive for: Edema Skin: Positive for: Warm Psychiatric: Negative for: Alert, Oriented x 3 - Medications Active Medications: Active Medications Generic Name Dose Route Start Last Admin Trade Name Freq PRN Reason Stop Dose Admin Acetaminophen 650 mg 03/14/17 17:15 03/14/17 17:23 Tylenol 650mg/20.3ml Solution Ud PO 650 mg Q4 PRN Administration Pain, moderate (4-7) Calcium Acetate 667 mg 03/14/17 08:00 03/17/17 16:27 Phoslo PO 667 mg BIDCC HALLE Administration Heparin Sodium (Porcine) 5,000 units 03/15/17 22:00 03/18/17 09:45 Heparin SC 5,000 units Q12 HALLE Administration Propofol 1,000 mg in 100 mls @ 1.189 mls/hr 03/12/17 08:24 03/13/17 06:18 Diprivan IV 10 mcg/kg/min .Q24H PRN 2.379 mls/hr TITRATE PER MD ORDER Titration Protocol 5 MCG/KG/MIN Metronidazole 500 mg in 100 mls @ 100 mls/hr 03/14/17 10:00 03/18/17 09:53 Flagyl IVPB 100 mls/hr Q12 HALLE Administration Linezolid 600 mg in 300 mls @ 200 mls/hr 03/14/17 23:45 03/18/17 12:16 Zyvox 600mg/300ml D5w IVPB 200 mls/hr Q12H HALLE Administration Insulin Human Regular 0 unit 03/12/17 12:00 03/18/17 12:17 Novolin R SC Not Given Q6 [facility] Protocol Levothyroxine Sodium 25 mcg 03/17/17 06:30 03/18/17 06:43 Synthroid PO 25 mcg DAILY@0630 HALLE Administration Metoprolol Tartrate 25 mg 03/16/17 10:00 03/18/17 09:52 Lopressor PO 25 mg BID HALLE Administration Pantoprazole Sodium 20 mg 03/16/17 10:00 03/18/17 09:46 Protonix Ec Tab PO 20 mg DAILY HALLE Administration - Patient Studies Lab Studies: Microbiology Studies 03/13/17 09:30 Blood Culture - Final Blood-Venous NO GROWTH AFTER 5 DAYS Gram Stain - Final TEST NOT PERFORMED 03/13/17 09:00 Blood Culture - Final Blood-Venous NO GROWTH AFTER 5 DAYS Gram Stain - Final TEST NOT PERFORMED Lab Studies 03/18/17 03/18/17 03/18/17 Range/Units 12:10 06:13 06:13 WBC 20.8 H (4.8-10.8) K/uL RBC 3.10 L (3.80-5.20) Mil/uL Hgb 9.9 L (11.0-16.0) g/dL Hct 32.2 L (34.0-47.0) % MCV 104.1 H (81.0-99.0) fL MCH 32.0 H (27.0-31.0) pg MCHC 30.7 L (33.0-37.0) g/dL RDW 16.5 H (11.5-14.5) % Plt Count 198 (130-400) K/uL MPV 11.5 (7.2-11.7) fL Neut % (Auto) 92.8 H (50.0-75.0) % Lymph % (Auto) 3.0 L (20.0-40.0) % Posey % (Auto) 3.7 (0.0-10.0) % Eos % (Auto) 0.3 (0.0-4.0) % Baso % (Auto) 0.2 (0.0-2.0) % Neut # 19.3 H (1.8-7.0) K/uL Lymph # 0.6 L (1.0-4.3) K/uL Posey # 0.8 (0.0-0.8) K/uL Eos # 0.1 (0.0-0.7) K/uL Baso # 0.0 (0.0-0.2) K/uL Neutrophils % (Manual) 92 H (50-75) % Lymphocytes % (Manual) 5 L (20-40) % Monocytes % (Manual) 3 (0-10) % Platelet Estimate Normal (NORMAL) Polychromasia Slight Anisocytosis (manual) Slight Rouleaux Slight Puncture Site pCO2 (35-45) mm/Hg pO2 (80-100) mm/Hg HCO3 (21-28) mmol/L ABG pH (7.35-7.45) ABG Total CO2 (22-28) mmol/L ABG O2 Saturation (95-98) % ABG Base Excess (-2.0-3.0) mmol/L ABG Hemoglobin (11.7-17.4) g/dL ABG Carboxyhemoglobin (0.5-1.5) % POC ABG HHb (Measured) (0.0-5.0) % ABG Methemoglobin (0.0-3.0) % Jean Test A-a O2 Difference mm/Hg Respiratory Index Hgb O2 Saturation (95.0-98.0) % Vent Mode Mechanical Rate FiO2 % Tidal Volume PEEP Sodium 152 H (132-148) mmol/L Potassium 3.5 L (3.6-5.2) mmol/L Chloride 116 H (98-107) mmol/L Carbon Dioxide 26 (22-30) mmol/L Anion Gap 14 (10-20) BUN 113 H* (7-17) mg/dL Creatinine 3.7 H (0.7-1.2) mg/dL Est GFR ( Amer) 14 Est GFR (Non-Af Amer) 12 POC Glucose (mg/dL) 144 H (65-110) mg/dL Random Glucose 241 H (65-105) mg/dL Calcium 6.8 L (8.6-10.4) mg/dl Phosphorus 5.2 H (2.5-4.5) mg/dL Magnesium 3.1 H (1.6-2.3) mg/dL Total Bilirubin 0.6 (0.2-1.3) mg/dL AST 88 H D (14-36) U/L ALT 96 H (9-52) U/L Alkaline Phosphatase 319 H D (38-126) U/L Total Protein 5.2 L (6.3-8.3) g/dL Albumin 2.3 L (3.5-5.0) g/dL Globulin 2.9 (2.2-3.9) gm/dL Albumin/Globulin Ratio 0.8 L (1.0-2.1) Urine Osmolality (300-1000) mosm/kg Ur Random Creatinine mg/dL Ur Random Sodium mmol/L Ur Random Potassium mmol/L 03/18/17 03/18/17 03/18/17 Range/Units 05:15 04:40 00:11 WBC (4.8-10.8) K/uL RBC (3.80-5.20) Mil/uL Hgb (11.0-16.0) g/dL Hct (34.0-47.0) % MCV (81.0-99.0) fL MCH (27.0-31.0) pg MCHC (33.0-37.0) g/dL RDW (11.5-14.5) % Plt Count (130-400) K/uL MPV (7.2-11.7) fL Neut % (Auto) (50.0-75.0) % Lymph % (Auto) (20.0-40.0) % Posey % (Auto) (0.0-10.0) % Eos % (Auto) (0.0-4.0) % Baso % (Auto) (0.0-2.0) % Neut # (1.8-7.0) K/uL Lymph # (1.0-4.3) K/uL Posey # (0.0-0.8) K/uL Eos # (0.0-0.7) K/uL Baso # (0.0-0.2) K/uL Neutrophils % (Manual) (50-75) % Lymphocytes % (Manual) (20-40) % Monocytes % (Manual) (0-10) % Platelet Estimate (NORMAL) Polychromasia Anisocytosis (manual) Rouleaux Puncture Site Rr pCO2 32 L (35-45) mm/Hg pO2 142 H (80-100) mm/Hg HCO3 27.4 (21-28) mmol/L ABG pH 7.51 H (7.35-7.45) ABG Total CO2 26.5 (22-28) mmol/L ABG O2 Saturation 98.5 H (95-98) % ABG Base Excess 3.2 H (-2.0-3.0) mmol/L ABG Hemoglobin 16.3 (11.7-17.4) g/dL ABG Carboxyhemoglobin 1.6 H (0.5-1.5) % POC ABG HHb (Measured) 1.5 (0.0-5.0) % ABG Methemoglobin 1.0 (0.0-3.0) % Jean Test Pos A-a O2 Difference 32.0 mm/Hg Respiratory Index 0.2 Hgb O2 Saturation 95.9 (95.0-98.0) % Vent Mode Prvc Mechanical Rate 16 FiO2 30.0 % Tidal Volume 450 PEEP 5 Sodium (132-148) mmol/L Potassium (3.6-5.2) mmol/L Chloride (98-107) mmol/L Carbon Dioxide (22-30) mmol/L Anion Gap (10-20) BUN (7-17) mg/dL Creatinine (0.7-1.2) mg/dL Est GFR ( Amer) Est GFR (Non-Af Amer) POC Glucose (mg/dL) 204 H 246 H (65-110) mg/dL Random Glucose (65-105) mg/dL Calcium (8.6-10.4) mg/dl Phosphorus (2.5-4.5) mg/dL Magnesium (1.6-2.3) mg/dL Total Bilirubin (0.2-1.3) mg/dL AST (14-36) U/L ALT (9-52) U/L Alkaline Phosphatase (38-126) U/L Total Protein (6.3-8.3) g/dL Albumin (3.5-5.0) g/dL Globulin (2.2-3.9) gm/dL Albumin/Globulin Ratio (1.0-2.1) Urine Osmolality (300-1000) mosm/kg Ur Random Creatinine mg/dL Ur Random Sodium mmol/L Ur Random Potassium mmol/L 03/17/17 03/17/17 Range/Units 17:22 15:23 WBC (4.8-10.8) K/uL RBC (3.80-5.20) Mil/uL Hgb (11.0-16.0) g/dL Hct (34.0-47.0) % MCV (81.0-99.0) fL MCH (27.0-31.0) pg MCHC (33.0-37.0) g/dL RDW (11.5-14.5) % Plt Count (130-400) K/uL MPV (7.2-11.7) fL Neut % (Auto) (50.0-75.0) % Lymph % (Auto) (20.0-40.0) % Posey % (Auto) (0.0-10.0) % Eos % (Auto) (0.0-4.0) % Baso % (Auto) (0.0-2.0) % Neut # (1.8-7.0) K/uL Lymph # (1.0-4.3) K/uL Posey # (0.0-0.8) K/uL Eos # (0.0-0.7) K/uL Baso # (0.0-0.2) K/uL Neutrophils % (Manual) (50-75) % Lymphocytes % (Manual) (20-40) % Monocytes % (Manual) (0-10) % Platelet Estimate (NORMAL) Polychromasia Anisocytosis (manual) Rouleaux Puncture Site pCO2 (35-45) mm/Hg pO2 (80-100) mm/Hg HCO3 (21-28) mmol/L ABG pH (7.35-7.45) ABG Total CO2 (22-28) mmol/L ABG O2 Saturation (95-98) % ABG Base Excess (-2.0-3.0) mmol/L ABG Hemoglobin (11.7-17.4) g/dL ABG Carboxyhemoglobin (0.5-1.5) % POC ABG HHb (Measured) (0.0-5.0) % ABG Methemoglobin (0.0-3.0) % Jean Test A-a O2 Difference mm/Hg Respiratory Index Hgb O2 Saturation (95.0-98.0) % Vent Mode Mechanical Rate FiO2 % Tidal Volume PEEP Sodium (132-148) mmol/L Potassium (3.6-5.2) mmol/L Chloride (98-107) mmol/L Carbon Dioxide (22-30) mmol/L Anion Gap (10-20) BUN (7-17) mg/dL Creatinine (0.7-1.2) mg/dL Est GFR ( Amer) Est GFR (Non-Af Amer) POC Glucose (mg/dL) 240 H (65-110) mg/dL Random Glucose (65-105) mg/dL Calcium (8.6-10.4) mg/dl Phosphorus (2.5-4.5) mg/dL Magnesium (1.6-2.3) mg/dL Total Bilirubin (0.2-1.3) mg/dL AST (14-36) U/L ALT (9-52) U/L Alkaline Phosphatase (38-126) U/L Total Protein (6.3-8.3) g/dL Albumin (3.5-5.0) g/dL Globulin (2.2-3.9) gm/dL Albumin/Globulin Ratio (1.0-2.1) Urine Osmolality 430 (300-1000) mosm/kg Ur Random Creatinine 34.2 mg/dL Ur Random Sodium 16 mmol/L Ur Random Potassium 28.0 mmol/L Laboratory Results - last 24 hr 03/17/17 03/17/17 03/18/17 15:23 17:22 00:11 WBC RBC Hgb Hct MCV MCH MCHC RDW Plt Count MPV Neut % (Auto) Lymph % (Auto) Posey % (Auto) Eos % (Auto) Baso % (Auto) Neut # Lymph # Posey # Eos # Baso # Neutrophils % (Manual) Lymphocytes % (Manual) Monocytes % (Manual) Platelet Estimate Polychromasia Anisocytosis (manual) Rouleaux Puncture Site pCO2 pO2 HCO3 ABG pH ABG Total CO2 ABG O2 Saturation ABG Base Excess ABG Hemoglobin ABG Carboxyhemoglobin POC ABG HHb (Measured) ABG Methemoglobin Jean Test A-a O2 Difference Respiratory Index Hgb O2 Saturation Vent Mode Mechanical Rate FiO2 Tidal Volume PEEP Sodium Potassium Chloride Carbon Dioxide Anion Gap BUN Creatinine Est GFR ( Amer) Est GFR (Non-Af Amer) POC Glucose (mg/dL) 240 H 246 H Random Glucose Calcium Phosphorus Magnesium Total Bilirubin AST ALT Alkaline Phosphatase Total Protein Albumin Globulin Albumin/Globulin Ratio Urine Osmolality 430 Ur Random Creatinine 34.2 Ur Random Sodium 16 Ur Random Potassium 28.0 03/18/17 03/18/17 03/18/17 04:40 05:15 06:13 WBC 20.8 H RBC 3.10 L Hgb 9.9 L Hct 32.2 L MCV 104.1 H MCH 32.0 H MCHC 30.7 L RDW 16.5 H Plt Count 198 MPV 11.5 Neut % (Auto) 92.8 H Lymph % (Auto) 3.0 L Posey % (Auto) 3.7 Eos % (Auto) 0.3 Baso % (Auto) 0.2 Neut # 19.3 H Lymph # 0.6 L Posey # 0.8 Eos # 0.1 Baso # 0.0 Neutrophils % (Manual) 92 H Lymphocytes % (Manual) 5 L Monocytes % (Manual) 3 Platelet Estimate Normal Polychromasia Slight Anisocytosis (manual) Slight Rouleaux Slight Puncture Site Rr pCO2 32 L pO2 142 H HCO3 27.4 ABG pH 7.51 H ABG Total CO2 26.5 ABG O2 Saturation 98.5 H ABG Base Excess 3.2 H ABG Hemoglobin 16.3 ABG Carboxyhemoglobin 1.6 H POC ABG HHb (Measured) 1.5 ABG Methemoglobin 1.0 Jean Test Pos A-a O2 Difference 32.0 Respiratory Index 0.2 Hgb O2 Saturation 95.9 Vent Mode Prvc Mechanical Rate 16 FiO2 30.0 Tidal Volume 450 PEEP 5 Sodium Potassium Chloride Carbon Dioxide Anion Gap BUN Creatinine Est GFR ( Amer) Est GFR (Non-Af Amer) POC Glucose (mg/dL) 204 H Random Glucose Calcium Phosphorus Magnesium Total Bilirubin AST ALT Alkaline Phosphatase Total Protein Albumin Globulin Albumin/Globulin Ratio Urine Osmolality Ur Random Creatinine Ur Random Sodium Ur Random Potassium 03/18/17 03/18/17 06:13 12:10 WBC RBC Hgb Hct MCV MCH MCHC RDW Plt Count MPV Neut % (Auto) Lymph % (Auto) Posey % (Auto) Eos % (Auto) Baso % (Auto) Neut # Lymph # Posey # Eos # Baso # Neutrophils % (Manual) Lymphocytes % (Manual) Monocytes % (Manual) Platelet Estimate Polychromasia Anisocytosis (manual) Rouleaux Puncture Site pCO2 pO2 HCO3 ABG pH ABG Total CO2 ABG O2 Saturation ABG Base Excess ABG Hemoglobin ABG Carboxyhemoglobin POC ABG HHb (Measured) ABG Methemoglobin Jean Test A-a O2 Difference Respiratory Index Hgb O2 Saturation Vent Mode Mechanical Rate FiO2 Tidal Volume PEEP Sodium 152 H Potassium 3.5 L Chloride 116 H Carbon Dioxide 26 Anion Gap 14 BUN 113 H* Creatinine 3.7 H Est GFR ( Amer) 14 Est GFR (Non-Af Amer) 12 POC Glucose (mg/dL) 144 H Random Glucose 241 H Calcium 6.8 L Phosphorus 5.2 H Magnesium 3.1 H Total Bilirubin 0.6 AST 88 H D ALT 96 H Alkaline Phosphatase 319 H D Total Protein 5.2 L Albumin 2.3 L Globulin 2.9 Albumin/Globulin Ratio 0.8 L Urine Osmolality Ur Random Creatinine Ur Random Sodium Ur Random Potassium Fingerstick Blood Sugar Results: 144 Review of Systems - Review of Systems Systems not reviewed;Unavailable: Intubated Critical Care Progress Note - Nutrition Nutrition: Nutrition Category Date Time Status NPO Diet [DIET] Diets 03/11/17 Dinner Active Assessment/Plan - Assessment and Plan (Free Text) Assessment: 81 years old female who lives alone, with hx of Pancreatic Cancer, CKD and DM, brought awake and with left side weakness to the ED by EMS, after being found on the floor in her closet. The Head CT showing a large intracranial bleed with a midline shift to the left. Patient intubated. POD#3 s/p right parietal craniotomy, subtotal evacuation of hematoma. Neuro: intracranial bleed, POD#3 s/p right parietal craniotomy, subtotal evacuation of hematoma Head CT (03/11): large right temporoparietal parenchymal hemorrhage with white matter vasogenic edema, mass effect and 12 mm midline shift to left, associated subarachnoid and subdural hemorrhage on the right Head CT (03/12): slight increase in size of right temporoparietal occipital acute hemorrhage. Minimal subarachnoid hemorrhage and subdural hemorrhage as on previous exam. Midline shift towards the left slightly increase from prior examination, 11mm. No evidence of downward herniation. 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 Dr. Torres, neurology consulted Propofol for intubation left dense paralysis Dr. Mckee (neurosurg) performed right parietal craniotomy evacuation of hematoma yesterday Head CT (03/13): s/p right temporoparietal craniotomy with moderate residual intraparenchymal hemorrhage identified at the right temporal lobe predominantly and minimally involving the inferior right parietal lobe. Local edema remains prominent exerting mass effect causing 15mm leftward shift and effacement of the 3rd and right lateral ventricles as well as the right cerebral sulci. Mild to moderate right pneumocephaly identified. Minimal right subdural hematoma. Mild mass effect exerted at the right cerebral peduncle with the brainstem below this level unremarkable As per Dr. Allen, these are expected post op findings Head CT (03/18): little interval change involving in the appearance of large right MCA territory hemorrhagic infarction in the right parietal and temporal lobes with vasogenic edema, significant local and regional mass effect with effacement of the right lateral ventricle and 18mm midline shift from right to left. No evidence of uncal herniation or obstructive hydrocephalus. Stable mixed density right convexity subdural collection. Cardio: htn Metoprolol 5mg ivp q6h Pulm: intubated Cxray: 03/15/17: ET tube extending into the mid thoracic trachea. NG tube extending into stomach. Biapical pleural thickening with upper lobe granulomatous changes. Scattered nodular densities throughout both lungs. Patchy increased consolidative changes at the left lung base. Endo: hx DMII, hypothyroidism accuchecks HgA1C: 6.3 Lipid panel: Triglycerides; 102, cholesterol 143, LDL 57, HDL 76 R ISS Synthroid 25mcg Renal: PAXTON on CKD, electrolyte imbalance BUN/ Cr: 113/3.7 Dr. Odom consulted, help appreciated -changed ivf to D5W with 3amp bicarb @ 70 cc/ hr as per Dr. Odom Phos 5.2, phoslo TID Renal u/s: diminutive bilateral kidneys with increased echogenicity of the bilateral renal parenchymal cortices suggestive for medical renal disease. Bilateral renal disease Monitor Sodium Heme: Hx pancreatic cancer ID: bands increased to 16, wbc 32.4 -blood cultures negative -sputum culture (03/13): klebsiella pneumoniae -urine culture (03/13): gram positive cocci -Flagyl 500 mg iv q12h -Cefepime 1gm q24h -Zyvox 600 mg q12h (started 03/14) -Dr. Torres consulted, help appreciated Prophylaxis: DVT: SCDs, Heparin 5000 sc q12h GI: Protonix 20 mg daily palliative care consulted, help appreciated <Stacie Singh - Last Filed: 03/25/17 14:04> CCU Objective - Vital Signs / Intake & Output Vital Signs (Last 4 hours): Vital Signs Pulse Resp BP Pulse Ox 03/25/17 12:29 75 20 105/67 100 03/25/17 11:29 63 20 91/51 L 100 03/25/17 11:04 65 20 96/56 L 100 03/25/17 11:00 64 20 100 03/25/17 10:29 66 20 90/50 L 100 03/25/17 10:26 67 20 86/48 L 100 Intake and Output (Last 8hrs): Intake & Output 03/24/17 03/25/17 03/25/17 22:59 06:59 14:59 Intake Total 704.4 552 396 Output Total 10 165 30 Balance 694.4 387 366 Weight 125 lb 6.4 oz Intake: IV 83 66 Intake, IV Amount 561.4 452 230 Right Medial Port 61 52 30 Internal Jugular Right Proximal Port 400 200 Internal Jugular Right Proximal Port 100.4 400 Internal Jugular #2 Tube Feeding 60 100 0 Other 100 Output: Urine 10 15 30 Urethral (Forbes) 10 15 30 Stool 150 - Medications Active Medications: Active Medications Generic Name Dose Route Start Last Admin Trade Name Freq PRN Reason Stop Dose Admin Acetaminophen 650 mg 03/14/17 17:15 03/14/17 17:23 Tylenol 650mg/20.3ml Solution Ud PO 650 mg Q4 PRN Administration Pain, moderate (4-7) Calcium Acetate 667 mg 03/18/17 14:00 03/25/17 13:49 Phoslo PO 667 mg TID HALLE Administration Famotidine 20 mg 03/20/17 10:30 03/25/17 09:43 Pepcid PO 20 mg DAILY HALLE Administration Heparin Sodium (Porcine) 5,000 units 03/15/17 22:00 03/25/17 09:43 Heparin SC 5,000 units Q12 HALLE Administration Hydrocortisone Sodium Succinate 25 mg 03/24/17 18:17 03/25/17 09:50 Solu-Cortef IV 25 mg Q8H HALLE Administration Linezolid 600 mg in 300 mls @ 200 mls/hr 03/14/17 23:45 03/25/17 11:48 Zyvox 600mg/300ml D5w IVPB 200 mls/hr Q12H HALLE Administration Phenylephrine HCl 30 mg/ 253 mls @ 10.12 mls/hr 03/21/17 20:17 03/25/17 12:02 Sodium Chloride IV 11.85 mcg/min .Q24H PRN 6 mls/hr TITRATE PER MD ORDER Titration Protocol 20 MCG/MIN Meropenem 500 mg/ Sodium 100 mls @ 100 mls/hr 03/25/17 22:00 Chloride IVPB Q8 HALLE Insulin Aspart 0 unit 03/24/17 00:15 03/25/17 11:46 Novolog IV 10 unit Q6H HALLE Administration Protocol Levothyroxine Sodium 25 mcg 03/17/17 06:30 03/25/17 05:51 Synthroid PO 25 mcg DAILY@0630 HALLE Administration Sodium Bicarbonate 1,300 mg 03/23/17 12:00 03/25/17 11:46 Sodium Bicarbonate Tab NG 1,300 mg Q6 HALLE Administration - Patient Studies Lab Studies: Microbiology Studies 03/21/17 23:00 Blood Culture - Preliminary Blood-Thru Central Line NO GROWTH AFTER 3 DAYS 03/21/17 22:30 Blood Culture - Preliminary Blood-Thru Central Line NO GROWTH AFTER 3 DAYS Lab Studies 03/25/17 03/25/17 03/24/17 Range/Units 11:09 06:04 23:35 POC Glucose (mg/dL) 352 H 355 H 419 H* (65-110) mg/dL 03/24/17 03/24/17 Range/Units 17:59 11:24 POC Glucose (mg/dL) 485 H* 464 H* (65-110) mg/dL Laboratory Results - last 24 hr 03/24/17 03/24/17 03/24/17 11:24 17:59 23:35 POC Glucose (mg/dL) 464 H* 485 H* 419 H* 03/25/17 03/25/17 06:04 11:09 POC Glucose (mg/dL) 355 H 352 H Critical Care Progress Note - Nutrition Nutrition: Nutrition Category Date Time Status NPO Diet [DIET] Diets 03/11/17 Dinner Active Assessment/Plan (1) Diabetes mellitus type 2 in nonobese Current Visit: Yes Status: Acute (2) Hypertension Current Visit: Yes Status: Acute (3) Intracranial hemorrhage Current Visit: Yes Status: Acute Attending/Attestation - Attestation I have personally seen and examined this patient.: Yes I have fully participated in the care of the patient.: Yes I have reviewed all pertinent clinical information: Yes Notes (Text): 03/25/17 14:04 In the intensive care unit rounds patient was examined Clinical information was discussed. Imaging studies reviewed I spoke to patient's sister Family members supposed to be coming to see her. Overall prognosis is very poor Will continue the current treatment. Awaiting for the family about the DNR
--- NOTE | 2017-03-18 13:56 | CP.PCM.PN ---
Subjective - Date & Time of Evaluation Date of Evaluation: 03/18/17 Time of Evaluation: 13:54 - Subjective Subjective: CLINICALLY REMAINS SAME RENAL FAILURE WITH LOW OUT PUT 1430 CC , BUN STILL UP 103 , CR DOWN TO 3.[address] HEAD , MASS EFFECT WITH HEMORRHAGIC INFARCT WITH MIDLINE SHIFT ON IV AB CONT ICU MANAGEMENT Objective - Vital Signs/Intake and Output Vital Signs (last 24 hours): Temp Pulse Resp BP Pulse Ox 97.5 F L 83 16 87/51 L 99 03/18/17 12:00 03/18/17 12:00 03/18/17 12:00 03/18/17 12:00 03/18/17 12:00 Intake and Output: 03/18/17 03/18/17 11:59 23:59 Intake Total 680 200 Output Total 655 20 Balance 25 180 - Medications Medications: Current Medications Acetaminophen (Tylenol 650mg/20.3ml Solution Ud) 650 mg PO Q4 PRN PRN Reason: Pain, moderate (4-7) Last Admin: 03/14/17 17:23 Dose: 650 mg Calcium Acetate (Phoslo) 667 mg PO TID [facility] Heparin Sodium (Porcine) (Heparin) 5,000 units SC Q12 HALLE Last Admin: 03/18/17 09:45 Dose: 5,000 units Propofol (Diprivan) 1,000 mg in 100 mls @ 1.189 mls/hr IV .Q24H PRN; Protocol; 5 MCG/KG/MIN PRN Reason: TITRATE PER MD ORDER Last Titration: 03/13/17 06:18 Dose: 10 mcg/kg/min, 2.379 mls/hr Metronidazole (Flagyl) 500 mg in 100 mls @ 100 mls/hr IVPB Q12 [facility] Last Admin: 03/18/17 09:53 Dose: 100 mls/hr Linezolid (Zyvox 600mg/300ml D5w) 600 mg in 300 mls @ 200 mls/hr IVPB Q12H [facility] Last Admin: 03/18/17 12:16 Dose: 200 mls/hr Cefepime HCl (Maxipime Iv 1 Gm Premix) 1 gm in 50 mls @ 100 mls/hr IVPB Q24H [facility] Insulin Human Regular (Novolin R) 0 unit SC Q6 HALLE PRN Reason: Protocol Last Admin: 03/18/17 12:17 Dose: Not Given Levothyroxine Sodium (Synthroid) 25 mcg PO DAILY@0630 [facility] Last Admin: 03/18/17 06:43 Dose: 25 mcg Metoprolol Tartrate (Lopressor) 25 mg PO BID [facility] Last Admin: 03/18/17 09:52 Dose: 25 mg Pantoprazole Sodium (Protonix Ec Tab) 20 mg PO DAILY [facility] Last Admin: 03/18/17 09:46 Dose: 20 mg - Labs Labs: 03/18/17 06:13 03/18/17 06:13 PT 10.2 SECONDS (9.7-12.2) 03/12/17 06:20 INR 0.9 03/12/17 06:20 APTT 27 SECONDS (21-34) 03/12/17 06:20 Assessment and Plan (1) Intracranial hemorrhage Status: Acute (2) Renal failure Status: Acute (3) Sepsis Status: Acute
--- NOTE | 2017-03-18 14:11 | RAD ---
PROCEDURE: CHEST RADIOGRAPH, 1 VIEW HISTORY: Intubated. COMPARISON: March 16, 2017, March 17, 2017. FINDINGS: LUNGS: Clear. PLEURA: No pneumothorax or pleural fluid seen. CARDIOVASCULAR: Normal. OSSEOUS STRUCTURES: No significant abnormalities. VISUALIZED UPPER ABDOMEN: Normal. OTHER FINDINGS: Stable position of support apparatus including endotracheal tube and nasogastric tube. IMPRESSION: No significant interval change compared to the prior examination(s).
--- NOTE | 2017-03-18 21:26 | CP.PCM.PN ---
Subjective - Date & Time of Evaluation Date of Evaluation: 03/18/17 Time of Evaluation: 21:26 - Subjective Subjective: AFEBRILE. Patient intubated. POD#6 s/p right parietal craniotomy, subtotal evacuation of hematoma. Patient spontaneously opens eyes sometimes. No acute events overnight. REPEAT CT SCAN HEAD NOTED . MASS EFFECT. LABS REVIEWED. WBC -IMPROVING, RENAL FUNCTIONS POOR . Objective - Vital Signs/Intake and Output Vital Signs (last 24 hours): Temp Pulse Resp BP Pulse Ox 97.5 F L 83 16 90/49 L 99 03/18/17 16:00 03/18/17 19:00 03/18/17 19:00 03/18/17 19:00 03/18/17 17:00 Intake and Output: 03/18/17 03/19/17 18:59 06:59 Intake Total 1150 Output Total 350 Balance 800 - Medications Medications: Current Medications Acetaminophen (Tylenol 650mg/20.3ml Solution Ud) 650 mg PO Q4 PRN PRN Reason: Pain, moderate (4-7) Last Admin: 03/14/17 17:23 Dose: 650 mg Calcium Acetate (Phoslo) 667 mg PO TID [facility] Last Admin: 03/18/17 18:04 Dose: 667 mg Heparin Sodium (Porcine) (Heparin) 5,000 units SC Q12 [facility] Last Admin: 03/18/17 09:45 Dose: 5,000 units Propofol (Diprivan) 1,000 mg in 100 mls @ 1.189 mls/hr IV .Q24H PRN; Protocol; 5 MCG/KG/MIN PRN Reason: TITRATE PER MD ORDER Last Titration: 03/13/17 06:18 Dose: 10 mcg/kg/min, 2.379 mls/hr Metronidazole (Flagyl) 500 mg in 100 mls @ 100 mls/hr IVPB Q12 [facility] Last Admin: 03/18/17 09:53 Dose: 100 mls/hr Linezolid (Zyvox 600mg/300ml D5w) 600 mg in 300 mls @ 200 mls/hr IVPB Q12H [facility] Last Admin: 03/18/17 12:16 Dose: 200 mls/hr Cefepime HCl (Maxipime Iv 1 Gm Premix) 1 gm in 50 mls @ 100 mls/hr IVPB Q24H [facility] Last Admin: 03/18/17 14:30 Dose: Not Given Insulin Human Regular (Novolin R) 0 unit SC Q6 [facility] PRN Reason: Protocol Last Admin: 03/18/17 18:05 Dose: 3 unit Levothyroxine Sodium (Synthroid) 25 mcg PO DAILY@0630 [facility] Last Admin: 03/18/17 06:43 Dose: 25 mcg Metoprolol Tartrate (Lopressor) 25 mg PO BID [facility] Last Admin: 03/18/17 18:04 Dose: 25 mg Pantoprazole Sodium (Protonix Ec Tab) 20 mg PO DAILY [facility] Last Admin: 03/18/17 09:46 Dose: 20 mg - Labs Labs: 03/18/17 06:13 03/18/17 06:13 PT 10.2 SECONDS (9.7-12.2) 03/12/17 06:20 INR 0.9 03/12/17 06:20 APTT 27 SECONDS (21-34) 03/12/17 06:20 - Constitutional Appears: No Acute Distress - Head Exam Head Exam: NORMAL INSPECTION - Eye Exam Eye Exam: PERRL - ENT Exam ENT Exam: Normal Exam - Neck Exam Neck Exam: Normal Inspection - Respiratory Exam Respiratory Exam: Decreased Breath Sounds - Cardiovascular Exam Cardiovascular Exam: REGULAR RHYTHM, +S1, +S2 - GI/Abdominal Exam GI & Abdominal Exam: Soft, Normal Bowel Sounds - Extremities Exam Extremities Exam: absent: Calf Tenderness, Pedal Edema - Neurological Exam Neurological Exam: Altered - Skin Skin Exam: Dry, Warm Assessment and Plan (1) S/P craniotomy Status: Acute (2) SIRS (systemic inflammatory response syndrome) Status: Acute (3) Intracranial hemorrhage Status: Acute (4) Renal failure Status: Acute (5) Diabetes mellitus type 2 in nonobese Status: Acute (6) Hypertension Status: Acute (7) Pancreatic cancer Status: Acute - Assessment and Plan (Free Text) Plan: CONTINUE iv CEFEPIME 1 G ONCE A DAY DAILY. 03/13/17. CONTINUE IV ZYVOX 600 MG EVERY 12 HOURLY FOR GRAM-POSITIVE COVERAGE.03/14/17. CONTINUE IV fLAGYL 500 MG iv PIGGYBACK EVERY 12 HOURLY. 03/13/17. MONITOR NEURO CHECKUPS . NEPHROLOGY ON BOARD -ACUTE RENAL INSUFFICIENCY. PROGNOSIS GUARDED.
[2017-03-19] MEDS: (Novolin R) Insulin Human Regular 100 units/ml vial SC SCH ×5 (01:18→23:48)
--- NOTE | 2017-03-19 04:21 | PN ---
FOLLOWUP RENAL CONSULTATION DATE: LOCATION: The patient is located in ICU, bed 8. REQUESTING PHYSICIAN: Jordi Bedolla MD REASON FOR FOLLOWUP: Acute renal failure, chronic kidney disease, intracranial bleed on ventilator. SUBJECTIVE: Mrs. 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 The patient is being treated for the cerebral edema and status post hypotonic saline and IV mannitol. The patient is also on ventilator and hyperventilating. The patient is not in distress on ventilator. Barely tried to open eyes for deep painful stimuli. PHYSICAL EXAMINATION: GENERAL: Mrs. Watson is an 81-year-old elderly, thin-built, very cachectic female on ventilator, not responding to verbal stimuli. VITAL SIGNS: This morning blood pressure 99/60, pulse 95, respirations about 16 and temperature above 98.5. Height 4 feet 10 inches and weight is 101 pounds. HEENT: Pupils normal. Conjunctivae pink. Sclerae anicteric. On ventilator. LUNGS: Symmetric on both sides. Bilateral breath sounds present. No crackles. CARDIOVASCULAR: [place] at the fifth intercostal space, midclavicular line. S1 and S2 audible. No murmur or gallop. ABDOMEN: Normal in appearance, soft, tympanic. No guarding. No hepatosplenomegaly. CENTRAL NERVOUS SYSTEM: The patient is on ventilator, not responding to verbal stimuli. Moving right upper extremity, right lower extremity, left lower extremity for the deep painful stimuli and moving slightly on the left upper extremity. CURRENT MEDICATIONS: Include as follows; propofol and Flagyl 500 mg and subcu heparin 4000 q. 12 hours, Lopressor 25 mg p.o. b.i.d., cefepime 1 g q. 24 hours, calcium acetate 667 mg p.o. t.i.d., Protonix 20 mg p.o. daily and Synthroid 25 mcg daily, Tylenol and Zyvox 600 mg q. 12 hours. LABORATORY DATA: Includes as follows. As of 03/18/2017; WBC 20.8, hemoglobin 9.9, hematocrit is 32.2, platelets 198, neutrophils 92, lymph 5, monos 3. ABG, pH of 7.51, pCO2 is 32, pO2 is 142, bicarb is 27.4 and saturation 98.5. Vent settings; AC 16, tidal volume 450 and FiO2 of 30% and PEEP of 5. Sodium 152, potassium 3.5, chloride 116, CO2 of 26, BUN 113, creatinine 3.7, glucose is 241, calcium 6.8, phosphorus 5.2 and magnesium 3.1. Total bili 0.6, AST is 88, ALT is 96, alkaline phosphatase 319, total protein 5.2 and albumin is 2.3. CT of the head as of 03/18/2017, impression; little interval change involving in appearance of large right MCA territory hemorrhage infarction in the right parietal and temporal lobes with vasogenic edema. Significant local and regional mass effect with effacement of the right lateral ventricle and 18 mm midline shift from the right to left. No evidence of uncal herniation or obstructive hydrocephalus. Stable mixed density right convexity subdural collection. Chest x-ray as of 03/18/2017, impression, no significant interval change compared to the previous examination. In summary, Mrs. Watson is an 81-year-old elderly female with a history of hypertension, osteoporosis and chronic kidney disease, found on the floor by neighbor with left-sided weakness and found massive intracranial bleed in MCA territory status post craniotomy and evacuation of the hematoma on ventilator with repeat CAT scan consistent with vasogenic edema and midline shift 18 mm with no interval change; increased sodium and increased BUN and creatinine and increased WBC count. 1. Acute renal failure on chronic kidney disease secondary to intravascular depletion. 2. Hyponatremia. 3. Anemia. 4. Respiratory failure. 5. Intracranial bleed status post craniotomy. 6. Pneumonia. PLAN: Continue IV antibiotics as per ID recommendations. Now continue to follow with Neurology. Consider gentle IV hydration if it is okay with Neurology. Overall prognosis is very poor. We will follow with you. Thank you for allowing me to participate in your patient's care. Case discussed with the parts manager Dr. Singh in rounds. Overall prognosis is very poor. Orlando Odom MD
[2017-03-19 05:26] LABS: ABG ALLEN TEST POS; ABG MECHANICAL RATE 16; ARTERIAL BLOOD GAS MODE PRVC; ARTERIAL BLOOD HGB O2 SAT 96.2 % (95.0-98.0); ATERIAL BLOOD GAS PEEP 5; CARBOXYHEMOGLOBIN 1.7 % (0.5-1.5); DRAW SITE RR; HHB 1.3 % (0.0-5.0); METHEMOGLOBIN 0.9 % (0.0-3.0)
[2017-03-19] MEDS: Levothyroxine 25 MCG TAB PO SCH (06:31)
[2017-03-19 06:52] LABS: BASO % 0.2 % (0.0-2.0); EOS # 0.1 K/uL (0.0-0.7); EOS % 0.5 % (0.0-4.0); HEMATOCRIT 34.6 % (34.0-47.0); LYMPH # 1.1 K/uL (1.0-4.3); LYMPH % 4.6 % (20.0-40.0); MEAN CELL VOLUME 103.9 fL (81.0-99.0); MEAN CORPUSCULAR HEMOGLOBIN 31.6 pg (27.0-31.0); MEAN CORPUSCULAR HGB CONC 30.4 g/dL (33.0-37.0); MEAN PLATELET VOLUME 11.9 fL (7.2-11.7); MONO % 4.5 % (0.0-10.0); NRBC % 0.4 % (0.0-2.0); PLATELET COUNT 214 K/uL (130-400); RED CELL DISTRIBUTION WIDTH 16.3 % (11.5-14.5); WHITE BLOOD COUNT 22.9 K/uL (4.8-10.8)
[2017-03-19 07:06] LABS: POTASSIUM 3.6 mmol/L (3.6-5.2)
[2017-03-19 07:08] LABS: BILIRUBIN,TOTAL 0.8 mg/dL (0.2-1.3); TOTAL PROTEIN 4.5 g/dL (6.3-8.3)
[2017-03-19 07:09] LABS: CALCIUM 7.2 mg/dl (8.6-10.4); MAGNESIUM 3.2 mg/dL (1.6-2.3)
[2017-03-19 07:12] LABS: ALB/GLOB RATIO 1.1 (1.0-2.1)
--- NOTE | 2017-03-19 07:43 | CP.CCUPN ---
<Rosaura Paz - Last Filed: 03/19/17 11:46> CCU Subjective - Physician Review Subjective (Free Text): Patient seen and examined at bedside. Patient intubated is intubated and therefore ROS unobtainable. POD#7 s/p right parietal craniotomy, subtotal evacuation of hematoma. Patient spontaneously opens eyes some. No acute events overnight. No change in patient's clinical status. 03/19/17 07:43 03/19/17 11:46 CCU Objective - Vital Signs / Intake & Output Vital Signs (Last 4 hours): Vital Signs Temp Pulse Resp BP Pulse Ox 03/19/17 06:00 103 H 16 121/69 100 03/19/17 05:00 113 H 17 102/56 L 98 03/19/17 04:00 98.7 F 103 H 16 96/54 L 98 Intake and Output (Last 8hrs): Intake & Output 03/18/17 03/19/17 03/19/17 22:59 06:59 14:59 Intake Total 410 540 Output Total 205 300 Balance 205 240 Weight 84 lb 8 oz Intake: Intake, IV Amount 100 300 Right Forearm 100 300 Tube Feeding 210 240 Other 100 Output: Urine 205 250 Urethral (Forbes) 205 250 Stool 50 Other: # Bowel Movements 1 - Physical Exam Head: Positive for: Normocephalic, Other (dressing in place post craniotomy ) Pupils: Positive for: Sluggish Mouth: Positive for: Dry Respiratory/Chest: Positive for: Good Air Exchange Cardiovascular: Positive for: Normal S1, S2 Lower Extremity: Positive for: Edema Skin: Positive for: Warm Psychiatric: Negative for: Alert, Oriented x 3 - Medications Active Medications: Active Medications Generic Name Dose Route Start Last Admin Trade Name Freq PRN Reason Stop Dose Admin Acetaminophen 650 mg 03/14/17 17:15 03/14/17 17:23 Tylenol 650mg/20.3ml Solution Ud PO 650 mg Q4 PRN Administration Pain, moderate (4-7) Calcium Acetate 667 mg 03/18/17 14:00 03/18/17 18:04 Phoslo PO 667 mg TID HALLE Administration Heparin Sodium (Porcine) 5,000 units 03/15/17 22:00 03/18/17 21:46 Heparin SC 5,000 units Q12 HALLE Administration Propofol 1,000 mg in 100 mls @ 1.189 mls/hr 03/12/17 08:24 03/13/17 06:18 Diprivan IV 10 mcg/kg/min .Q24H PRN 2.379 mls/hr TITRATE PER MD ORDER Titration Protocol 5 MCG/KG/MIN Metronidazole 500 mg in 100 mls @ 100 mls/hr 03/14/17 10:00 03/18/17 21:47 Flagyl IVPB 100 mls/hr Q12 HALLE Administration Linezolid 600 mg in 300 mls @ 200 mls/hr 03/14/17 23:45 03/18/17 23:19 Zyvox 600mg/300ml D5w IVPB 200 mls/hr Q12H HALLE Administration Cefepime HCl 1 gm in 50 mls @ 100 mls/hr 03/18/17 14:30 03/18/17 14:30 Maxipime Iv 1 Gm Premix IVPB Not Given Q24H [facility] Insulin Human Regular 0 unit 03/12/17 12:00 03/19/17 06:31 Novolin R SC 1 unit Q6 HALLE Administration Protocol Levothyroxine Sodium 25 mcg 03/17/17 06:30 03/19/17 06:31 Synthroid PO 25 mcg DAILY@0630 HALLE Administration Metoprolol Tartrate 25 mg 03/16/17 10:00 03/18/17 18:04 Lopressor PO 25 mg BID HALLE Administration Pantoprazole Sodium 20 mg 03/16/17 10:00 03/18/17 09:46 Protonix Ec Tab PO 20 mg DAILY HALLE Administration - Patient Studies Lab Studies: Microbiology Studies 03/13/17 09:30 Blood Culture - Final Blood-Venous NO GROWTH AFTER 5 DAYS Gram Stain - Final TEST NOT PERFORMED 03/13/17 09:00 Blood Culture - Final Blood-Venous NO GROWTH AFTER 5 DAYS Gram Stain - Final TEST NOT PERFORMED Lab Studies 03/19/17 03/19/17 03/19/17 Range/Units 06:38 06:38 05:26 WBC 22.9 H (4.8-10.8) K/uL RBC 3.32 L (3.80-5.20) Mil/uL Hgb 10.5 L (11.0-16.0) g/dL Hct 34.6 (34.0-47.0) % MCV 103.9 H (81.0-99.0) fL MCH 31.6 H (27.0-31.0) pg MCHC 30.4 L (33.0-37.0) g/dL RDW 16.3 H (11.5-14.5) % Plt Count 214 (130-400) K/uL MPV 11.9 H (7.2-11.7) fL Neut % (Auto) 90.2 H (50.0-75.0) % Lymph % (Auto) 4.6 L (20.0-40.0) % [place] % (Auto) 4.5 (0.0-10.0) % Eos % (Auto) 0.5 (0.0-4.0) % Baso % (Auto) 0.2 (0.0-2.0) % Neut # 20.6 H (1.8-7.0) K/uL Lymph # 1.1 (1.0-4.3) K/uL [place] # 1.0 H (0.0-0.8) K/uL Eos # 0.1 (0.0-0.7) K/uL Baso # 0.0 (0.0-0.2) K/uL Puncture Site pCO2 (35-45) mm/Hg pO2 (80-100) mm/Hg HCO3 (21-28) mmol/L ABG pH (7.35-7.45) ABG Total CO2 (22-28) mmol/L ABG O2 Saturation (95-98) % ABG Base Excess (-2.0-3.0) mmol/L ABG Hemoglobin (11.7-17.4) g/dL ABG Carboxyhemoglobin (0.5-1.5) % POC ABG HHb (Measured) (0.0-5.0) % ABG Methemoglobin (0.0-3.0) % Jean Test A-a O2 Difference mm/Hg Respiratory Index Hgb O2 Saturation (95.0-98.0) % Vent Mode Mechanical Rate FiO2 % Tidal Volume PEEP Sodium 150 H (132-148) mmol/L Potassium 3.6 (3.6-5.2) mmol/L Chloride 115 H (98-107) mmol/L Carbon Dioxide 22 (22-30) mmol/L Anion Gap 17 (10-20) BUN 138 H* D (7-17) mg/dL Creatinine 3.9 H (0.7-1.2) mg/dL Est GFR ( Amer) 13 Est GFR (Non-Af Amer) 11 POC Glucose (mg/dL) 172 H (65-110) mg/dL Random Glucose 169 H (65-105) mg/dL Calcium 7.2 L (8.6-10.4) mg/dl Phosphorus 5.0 H (2.5-4.5) mg/dL Magnesium 3.2 H (1.6-2.3) mg/dL Total Bilirubin 0.8 (0.2-1.3) mg/dL AST 53 H D (14-36) U/L ALT 84 H (9-52) U/L Alkaline Phosphatase 301 H (38-126) U/L Total Protein 4.5 L (6.3-8.3) g/dL Albumin 2.4 L (3.5-5.0) g/dL Globulin 2.1 L (2.2-3.9) gm/dL Albumin/Globulin Ratio 1.1 (1.0-2.1) 03/19/17 03/19/17 03/18/17 Range/Units 05:12 00:14 17:43 WBC (4.8-10.8) K/uL RBC (3.80-5.20) Mil/uL Hgb (11.0-16.0) g/dL Hct (34.0-47.0) % MCV (81.0-99.0) fL MCH (27.0-31.0) pg MCHC (33.0-37.0) g/dL RDW (11.5-14.5) % Plt Count (130-400) K/uL MPV (7.2-11.7) fL Neut % (Auto) (50.0-75.0) % Lymph % (Auto) (20.0-40.0) % [place] % (Auto) (0.0-10.0) % Eos % (Auto) (0.0-4.0) % Baso % (Auto) (0.0-2.0) % Neut # (1.8-7.0) K/uL Lymph # (1.0-4.3) K/uL [place] # (0.0-0.8) K/uL Eos # (0.0-0.7) K/uL Baso # (0.0-0.2) K/uL Puncture Site Rr pCO2 33 L (35-45) mm/Hg pO2 138 H (80-100) mm/Hg HCO3 27.7 (21-28) mmol/L ABG pH 7.51 H (7.35-7.45) ABG Total CO2 27.3 (22-28) mmol/L ABG O2 Saturation 98.7 H (95-98) % ABG Base Excess 3.6 H (-2.0-3.0) mmol/L ABG Hemoglobin 13.5 (11.7-17.4) g/dL ABG Carboxyhemoglobin 1.7 H (0.5-1.5) % POC ABG HHb (Measured) 1.3 (0.0-5.0) % ABG Methemoglobin 0.9 (0.0-3.0) % Jean Test Pos A-a O2 Difference 35.0 mm/Hg Respiratory Index 0.3 Hgb O2 Saturation 96.2 (95.0-98.0) % Vent Mode Prvc Mechanical Rate 16 FiO2 30.0 % Tidal Volume 450 PEEP 5 Sodium (132-148) mmol/L Potassium (3.6-5.2) mmol/L Chloride (98-107) mmol/L Carbon Dioxide (22-30) mmol/L Anion Gap (10-20) BUN (7-17) mg/dL Creatinine (0.7-1.2) mg/dL Est GFR ( Amer) Est GFR (Non-Af Amer) POC Glucose (mg/dL) 268 H 284 H (65-110) mg/dL Random Glucose (65-105) mg/dL Calcium (8.6-10.4) mg/dl Phosphorus (2.5-4.5) mg/dL Magnesium (1.6-2.3) mg/dL Total Bilirubin (0.2-1.3) mg/dL AST (14-36) U/L ALT (9-52) U/L Alkaline Phosphatase (38-126) U/L Total Protein (6.3-8.3) g/dL Albumin (3.5-5.0) g/dL Globulin (2.2-3.9) gm/dL Albumin/Globulin Ratio (1.0-2.1) 03/18/17 Range/Units 12:10 WBC (4.8-10.8) K/uL RBC (3.80-5.20) Mil/uL Hgb (11.0-16.0) g/dL Hct (34.0-47.0) % MCV (81.0-99.0) fL MCH (27.0-31.0) pg MCHC (33.0-37.0) g/dL RDW (11.5-14.5) % Plt Count (130-400) K/uL MPV (7.2-11.7) fL Neut % (Auto) (50.0-75.0) % Lymph % (Auto) (20.0-40.0) % [place] % (Auto) (0.0-10.0) % Eos % (Auto) (0.0-4.0) % Baso % (Auto) (0.0-2.0) % Neut # (1.8-7.0) K/uL Lymph # (1.0-4.3) K/uL [place] # (0.0-0.8) K/uL Eos # (0.0-0.7) K/uL Baso # (0.0-0.2) K/uL Puncture Site pCO2 (35-45) mm/Hg pO2 (80-100) mm/Hg HCO3 (21-28) mmol/L ABG pH (7.35-7.45) ABG Total CO2 (22-28) mmol/L ABG O2 Saturation (95-98) % ABG Base Excess (-2.0-3.0) mmol/L ABG Hemoglobin (11.7-17.4) g/dL ABG Carboxyhemoglobin (0.5-1.5) % POC ABG HHb (Measured) (0.0-5.0) % ABG Methemoglobin (0.0-3.0) % Jean Test A-a O2 Difference mm/Hg Respiratory Index Hgb O2 Saturation (95.0-98.0) % Vent Mode Mechanical Rate FiO2 % Tidal Volume PEEP Sodium (132-148) mmol/L Potassium (3.6-5.2) mmol/L Chloride (98-107) mmol/L Carbon Dioxide (22-30) mmol/L Anion Gap (10-20) BUN (7-17) mg/dL Creatinine (0.7-1.2) mg/dL Est GFR ( Amer) Est GFR (Non-Af Amer) POC Glucose (mg/dL) 144 H (65-110) mg/dL Random Glucose (65-105) mg/dL Calcium (8.6-10.4) mg/dl Phosphorus (2.5-4.5) mg/dL Magnesium (1.6-2.3) mg/dL Total Bilirubin (0.2-1.3) mg/dL AST (14-36) U/L ALT (9-52) U/L Alkaline Phosphatase (38-126) U/L Total Protein (6.3-8.3) g/dL Albumin (3.5-5.0) g/dL Globulin (2.2-3.9) gm/dL Albumin/Globulin Ratio (1.0-2.1) Laboratory Results - last 24 hr 03/18/17 03/18/17 03/19/17 12:10 17:43 00:14 WBC RBC Hgb Hct MCV MCH MCHC RDW Plt Count MPV Neut % (Auto) Lymph % (Auto) [place] % (Auto) Eos % (Auto) Baso % (Auto) Neut # Lymph # [place] # Eos # Baso # Puncture Site pCO2 pO2 HCO3 ABG pH ABG Total CO2 ABG O2 Saturation ABG Base Excess ABG Hemoglobin ABG Carboxyhemoglobin POC ABG HHb (Measured) ABG Methemoglobin Jean Test A-a O2 Difference Respiratory Index Hgb O2 Saturation Vent Mode Mechanical Rate FiO2 Tidal Volume PEEP Sodium Potassium Chloride Carbon Dioxide Anion Gap BUN Creatinine Est GFR ( Amer) Est GFR (Non-Af Amer) POC Glucose (mg/dL) 144 H 284 H 268 H Random Glucose Calcium Phosphorus Magnesium Total Bilirubin AST ALT Alkaline Phosphatase Total Protein Albumin Globulin Albumin/Globulin Ratio 03/19/17 03/19/17 03/19/17 05:12 05:26 06:38 WBC 22.9 H RBC 3.32 L Hgb 10.5 L Hct 34.6 MCV 103.9 H MCH 31.6 H MCHC 30.4 L RDW 16.3 H Plt Count 214 MPV 11.9 H Neut % (Auto) 90.2 H Lymph % (Auto) 4.6 L [place] % (Auto) 4.5 Eos % (Auto) 0.5 Baso % (Auto) 0.2 Neut # 20.6 H Lymph # 1.1 [place] # 1.0 H Eos # 0.1 Baso # 0.0 Puncture Site Rr pCO2 33 L pO2 138 H HCO3 27.7 ABG pH 7.51 H ABG Total CO2 27.3 ABG O2 Saturation 98.7 H ABG Base Excess 3.6 H ABG Hemoglobin 13.5 ABG Carboxyhemoglobin 1.7 H POC ABG HHb (Measured) 1.3 ABG Methemoglobin 0.9 Jean Test Pos A-a O2 Difference 35.0 Respiratory Index 0.3 Hgb O2 Saturation 96.2 Vent Mode Prvc Mechanical Rate 16 FiO2 30.0 Tidal Volume 450 PEEP 5 Sodium Potassium Chloride Carbon Dioxide Anion Gap BUN Creatinine Est GFR ( Amer) Est GFR (Non-Af Amer) POC Glucose (mg/dL) 172 H Random Glucose Calcium Phosphorus Magnesium Total Bilirubin AST ALT Alkaline Phosphatase Total Protein Albumin Globulin Albumin/Globulin Ratio 03/19/17 06:38 WBC RBC Hgb Hct MCV MCH MCHC RDW Plt Count MPV Neut % (Auto) Lymph % (Auto) [place] % (Auto) Eos % (Auto) Baso % (Auto) Neut # Lymph # [place] # Eos # Baso # Puncture Site pCO2 pO2 HCO3 ABG pH ABG Total CO2 ABG O2 Saturation ABG Base Excess ABG Hemoglobin ABG Carboxyhemoglobin POC ABG HHb (Measured) ABG Methemoglobin Jean Test A-a O2 Difference Respiratory Index Hgb O2 Saturation Vent Mode Mechanical Rate FiO2 Tidal Volume PEEP Sodium 150 H Potassium 3.6 Chloride 115 H Carbon Dioxide 22 Anion Gap 17 BUN 138 H* D Creatinine 3.9 H Est GFR ( Amer) 13 Est GFR (Non-Af Amer) 11 POC Glucose (mg/dL) Random Glucose 169 H Calcium 7.2 L Phosphorus 5.0 H Magnesium 3.2 H Total Bilirubin 0.8 AST 53 H D ALT 84 H Alkaline Phosphatase 301 H Total Protein 4.5 L Albumin 2.4 L Globulin 2.1 L Albumin/Globulin Ratio 1.1 Fingerstick Blood Sugar Results: 172 Review of Systems - Review of Systems Systems not reviewed;Unavailable: Intubated Critical Care Progress Note - Nutrition Nutrition: Nutrition Category Date Time Status NPO Diet [DIET] Diets 03/11/ Dinner Active Assessment/Plan - Assessment and Plan (Free Text) Assessment: 81 years old female who lives alone, with hx of Pancreatic Cancer, CKD and DM, brought awake and with left side weakness to the ED by EMS, after being found on the floor in her closet. The Head CT showing a large intracranial bleed with a midline shift to the left. Patient intubated. POD#7 s/p right parietal craniotomy, subtotal evacuation of hematoma. Today's Plan: Family meeting with palliative care at 2pm today to discuss goal' s of care. Neuro: intracranial bleed, POD#7 s/p right parietal craniotomy, subtotal evacuation of hematoma Head CT (03/11): large right temporoparietal parenchymal hemorrhage with white matter vasogenic edema, mass effect and 12 mm midline shift to left, associated subarachnoid and subdural hemorrhage on the right Head CT (03/12): slight increase in size of right temporoparietal occipital acute hemorrhage. Minimal subarachnoid hemorrhage and subdural hemorrhage as on previous exam. Midline shift towards the left slightly increase from prior examination, 11mm. No evidence of downward herniation. 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 Dr. Torres, neurology consulted left dense paralysis Dr. Mckee (neurosurg) performed right parietal craniotomy evacuation of hematoma yesterday Head CT (03/13): s/p right temporoparietal craniotomy with moderate residual intraparenchymal hemorrhage identified at the right temporal lobe predominantly and minimally involving the inferior right parietal lobe. Local edema remains prominent exerting mass effect causing 15mm leftward shift and effacement of the 3rd and right lateral ventricles as well as the right cerebral sulci. Mild to moderate right pneumocephaly identified. Minimal right subdural hematoma. Mild mass effect exerted at the right cerebral peduncle with the brainstem below this level unremarkable As per Dr. Allen, these are expected post op findings Head CT (03/18): little interval change involving in the appearance of large right MCA territory hemorrhagic infarction in the right parietal and temporal lobes with vasogenic edema, significant local and regional mass effect with effacement of the right lateral ventricle and 18mm midline shift from right to left. No evidence of uncal herniation or obstructive hydrocephalus. Stable mixed density right convexity subdural collection. Propofol for intubation Cardio: htn Metoprolol 25mg po BID Pulm: intubated Cxray: 03/15/17: ET tube extending into the mid thoracic trachea. NG tube extending into stomach. Biapical pleural thickening with upper lobe granulomatous changes. Scattered nodular densities throughout both lungs. Patchy increased consolidative changes at the left lung base. Endo: hx DMII, hypothyroidism accuchecks HgA1C: 6.3 Lipid panel: Triglycerides; 102, cholesterol 143, LDL 57, HDL 76 R ISS Synthroid 25mcg Renal: PAXTON on CKD, electrolyte imbalance BUN/ Cr: 138/3.9 Dr. Odom consulted, help appreciated -changed ivf to D5W with 3amp bicarb @ 70 cc/ hr as per Dr. Odom Phos 5.2, phoslo TID Renal u/s: diminutive bilateral kidneys with increased echogenicity of the bilateral renal parenchymal cortices suggestive for medical renal disease. Bilateral renal disease Monitor Sodium Heme: Hx pancreatic cancer ID: bands increased to 16, wbc 32.4 -blood cultures negative -sputum culture (03/13): klebsiella pneumoniae -urine culture (03/13): gram positive cocci -Flagyl 500 mg iv q12h -Cefepime 1gm q24h -Zyvox 600 mg q12h (started 03/14) -Dr. Torres consulted, help appreciated Prophylaxis: DVT: SCDs, Heparin 5000 sc q12h GI: Protonix 20 mg daily palliative care consulted, help appreciated <Matt Alexis - Last Filed: 03/19/17 18:13> CCU Objective - Vital Signs / Intake & Output Vital Signs (Last 4 hours): Vital Signs Temp Pulse Resp BP Pulse Ox 03/19/17 17:49 109/72 03/19/17 17:00 124 H 18 109/72 100 03/19/17 16:00 97.3 F L 103 H 16 88/49 L 99 03/19/17 15:00 124 H 17 118/60 99 Intake and Output (Last 8hrs): Intake & Output 03/19/17 03/19/17 03/19/17 06:59 14:59 22:59 Intake Total 540 660 90 Output Total 300 180 85 Balance 240 480 5 Weight 84 lb 8 oz Intake: Intake, IV Amount 300 450 Right Forearm 300 Right Upper arm 450 Tube Feeding 240 210 90 Output: Urine 250 180 85 Urethral (Forbes) 250 180 85 Stool 50 Other: # Bowel Movements 1 - Medications Active Medications: Active Medications Generic Name Dose Route Start Last Admin Trade Name Freq PRN Reason Stop Dose Admin Acetaminophen 650 mg 03/14/17 17:15 03/14/17 17:23 Tylenol 650mg/20.3ml Solution Ud PO 650 mg Q4 PRN Administration Pain, moderate (4-7) Calcium Acetate 667 mg 03/18/17 14:00 03/19/17 17:49 Phoslo PO 667 mg TID HALLE Administration Heparin Sodium (Porcine) 5,000 units 03/15/17 22:00 03/19/17 09:32 Heparin SC 5,000 units Q12 HALLE Administration Metronidazole 500 mg in 100 mls @ 100 mls/hr 03/14/17 10:00 03/19/17 09:33 Flagyl IVPB 100 mls/hr Q12 HALLE Administration Linezolid 600 mg in 300 mls @ 200 mls/hr 03/14/17 23:45 03/19/17 11:05 Zyvox 600mg/300ml D5w IVPB 200 mls/hr Q12H HALLE Administration Cefepime HCl 1 gm in 50 mls @ 100 mls/hr 03/18/17 14:30 03/19/17 14:02 Maxipime Iv 1 Gm Premix IVPB 100 mls/hr Q24H HALLE Administration Insulin Human Regular 0 unit 03/12/17 12:00 03/19/17 18:03 Novolin R SC 2 unit Q6 HALLE Administration Protocol Levothyroxine Sodium 25 mcg 03/17/17 06:30 03/19/17 06:31 Synthroid PO 25 mcg DAILY@0630 HALLE Administration Metoprolol Tartrate 25 mg 03/16/17 10:00 03/19/17 17:49 Lopressor PO 25 mg BID HALLE Administration Pantoprazole Sodium 20 mg 03/16/17 10:00 03/19/17 09:32 Protonix Ec Tab PO 20 mg DAILY HALLE Administration - Patient Studies Lab Studies: Lab Studies 03/19/17 03/19/17 03/19/17 Range/Units 17:51 11:53 06:38 WBC (4.8-10.8) K/uL RBC (3.80-5.20) Mil/uL Hgb (11.0-16.0) g/dL Hct (34.0-47.0) % MCV (81.0-99.0) fL MCH (27.0-31.0) pg MCHC (33.0-37.0) g/dL RDW (11.5-14.5) % Plt Count (130-400) K/uL MPV (7.2-11.7) fL Neut % (Auto) (50.0-75.0) % Lymph % (Auto) (20.0-40.0) % [place] % (Auto) (0.0-10.0) % Eos % (Auto) (0.0-4.0) % Baso % (Auto) (0.0-2.0) % Neut # (1.8-7.0) K/uL Lymph # (1.0-4.3) K/uL [place] # (0.0-0.8) K/uL Eos # (0.0-0.7) K/uL Baso # (0.0-0.2) K/uL Neutrophils % (Manual) (50-75) % Lymphocytes % (Manual) (20-40) % Monocytes % (Manual) (0-10) % Nucleated RBC % (0-0) % Platelet Estimate (NORMAL) Polychromasia Hypochromasia (manual) Anisocytosis (manual) Macrocytosis (manual) Puncture Site pCO2 (35-45) mm/Hg pO2 (80-100) mm/Hg HCO3 (21-28) mmol/L ABG pH (7.35-7.45) ABG Total CO2 (22-28) mmol/L ABG O2 Saturation (95-98) % ABG Base Excess (-2.0-3.0) mmol/L ABG Hemoglobin (11.7-17.4) g/dL ABG Carboxyhemoglobin (0.5-1.5) % POC ABG HHb (Measured) (0.0-5.0) % ABG Methemoglobin (0.0-3.0) % Jean Test A-a O2 Difference mm/Hg Respiratory Index Hgb O2 Saturation (95.0-98.0) % Vent Mode Mechanical Rate FiO2 % Tidal Volume PEEP Sodium 150 H (132-148) mmol/L Potassium 3.6 (3.6-5.2) mmol/L Chloride 115 H (98-107) mmol/L Carbon Dioxide 22 (22-30) mmol/L Anion Gap 17 (10-20) BUN 138 H* D (7-17) mg/dL Creatinine 3.9 H (0.7-1.2) mg/dL Est GFR ( Amer) 13 Est GFR (Non-Af Amer) 11 POC Glucose (mg/dL) 216 H 104 (65-110) mg/dL Random Glucose 169 H (65-105) mg/dL Calcium 7.2 L (8.6-10.4) mg/dl Phosphorus 5.0 H (2.5-4.5) mg/dL Magnesium 3.2 H (1.6-2.3) mg/dL Total Bilirubin 0.8 (0.2-1.3) mg/dL AST 53 H D (14-36) U/L ALT 84 H (9-52) U/L Alkaline Phosphatase 301 H (38-126) U/L Total Protein 4.5 L (6.3-8.3) g/dL Albumin 2.4 L (3.5-5.0) g/dL Globulin 2.1 L (2.2-3.9) gm/dL Albumin/Globulin Ratio 1.1 (1.0-2.1) 03/19/17 03/19/17 03/19/17 Range/Units 06:38 05:26 05:12 WBC 22.9 H (4.8-10.8) K/uL RBC 3.32 L (3.80-5.20) Mil/uL Hgb 10.5 L (11.0-16.0) g/dL Hct 34.6 (34.0-47.0) % MCV 103.9 H (81.0-99.0) fL MCH 31.6 H (27.0-31.0) pg MCHC 30.4 L (33.0-37.0) g/dL RDW 16.3 H (11.5-14.5) % Plt Count 214 (130-400) K/uL MPV 11.9 H (7.2-11.7) fL Neut % (Auto) 90.2 H (50.0-75.0) % Lymph % (Auto) 4.6 L (20.0-40.0) % [place] % (Auto) 4.5 (0.0-10.0) % Eos % (Auto) 0.5 (0.0-4.0) % Baso % (Auto) 0.2 (0.0-2.0) % Neut # 20.6 H (1.8-7.0) K/uL Lymph # 1.1 (1.0-4.3) K/uL [place] # 1.0 H (0.0-0.8) K/uL Eos # 0.1 (0.0-0.7) K/uL Baso # 0.0 (0.0-0.2) K/uL Neutrophils % (Manual) 90 H (50-75) % Lymphocytes % (Manual) 7 L (20-40) % Monocytes % (Manual) 3 (0-10) % Nucleated RBC % 1 H (0-0) % Platelet Estimate Normal (NORMAL) Polychromasia Slight Hypochromasia (manual) Slight Anisocytosis (manual) Slight Macrocytosis (manual) Slight Puncture Site Rr pCO2 33 L (35-45) mm/Hg pO2 138 H (80-100) mm/Hg HCO3 27.7 (21-28) mmol/L ABG pH 7.51 H (7.35-7.45) ABG Total CO2 27.3 (22-28) mmol/L ABG O2 Saturation 98.7 H (95-98) % ABG Base Excess 3.6 H (-2.0-3.0) mmol/L ABG Hemoglobin 13.5 (11.7-17.4) g/dL ABG Carboxyhemoglobin 1.7 H (0.5-1.5) % POC ABG HHb (Measured) 1.3 (0.0-5.0) % ABG Methemoglobin 0.9 (0.0-3.0) % Jean Test Pos A-a O2 Difference 35.0 mm/Hg Respiratory Index 0.3 Hgb O2 Saturation 96.2 (95.0-98.0) % Vent Mode Prvc Mechanical Rate 16 FiO2 30.0 % Tidal Volume 450 PEEP 5 Sodium (132-148) mmol/L Potassium (3.6-5.2) mmol/L Chloride (98-107) mmol/L Carbon Dioxide (22-30) mmol/L Anion Gap (10-20) BUN (7-17) mg/dL Creatinine (0.7-1.2) mg/dL Est GFR ( Amer) Est GFR (Non-Af Amer) POC Glucose (mg/dL) 172 H (65-110) mg/dL Random Glucose (65-105) mg/dL Calcium (8.6-10.4) mg/dl Phosphorus (2.5-4.5) mg/dL Magnesium (1.6-2.3) mg/dL Total Bilirubin (0.2-1.3) mg/dL AST (14-36) U/L ALT (9-52) U/L Alkaline Phosphatase (38-126) U/L Total Protein (6.3-8.3) g/dL Albumin (3.5-5.0) g/dL Globulin (2.2-3.9) gm/dL Albumin/Globulin Ratio (1.0-2.1) 03/19/17 03/18/17 Range/Units 00:14 17:43 WBC (4.8-10.8) K/uL RBC (3.80-5.20) Mil/uL Hgb (11.0-16.0) g/dL Hct (34.0-47.0) % MCV (81.0-99.0) fL MCH (27.0-31.0) pg MCHC (33.0-37.0) g/dL RDW (11.5-14.5) % Plt Count (130-400) K/uL MPV (7.2-11.7) fL Neut % (Auto) (50.0-75.0) % Lymph % (Auto) (20.0-40.0) % [place] % (Auto) (0.0-10.0) % Eos % (Auto) (0.0-4.0) % Baso % (Auto) (0.0-2.0) % Neut # (1.8-7.0) K/uL Lymph # (1.0-4.3) K/uL [place] # (0.0-0.8) K/uL Eos # (0.0-0.7) K/uL Baso # (0.0-0.2) K/uL Neutrophils % (Manual) (50-75) % Lymphocytes % (Manual) (20-40) % Monocytes % (Manual) (0-10) % Nucleated RBC % (0-0) % Platelet Estimate (NORMAL) Polychromasia Hypochromasia (manual) Anisocytosis (manual) Macrocytosis (manual) Puncture Site pCO2 (35-45) mm/Hg pO2 (80-100) mm/Hg HCO3 (21-28) mmol/L ABG pH (7.35-7.45) ABG Total CO2 (22-28) mmol/L ABG O2 Saturation (95-98) % ABG Base Excess (-2.0-3.0) mmol/L ABG Hemoglobin (11.7-17.4) g/dL ABG Carboxyhemoglobin (0.5-1.5) % POC ABG HHb (Measured) (0.0-5.0) % ABG Methemoglobin (0.0-3.0) % Jean Test A-a O2 Difference mm/Hg Respiratory Index Hgb O2 Saturation (95.0-98.0) % Vent Mode Mechanical Rate FiO2 % Tidal Volume PEEP Sodium (132-148) mmol/L Potassium (3.6-5.2) mmol/L Chloride (98-107) mmol/L Carbon Dioxide (22-30) mmol/L Anion Gap (10-20) BUN (7-17) mg/dL Creatinine (0.7-1.2) mg/dL Est GFR ( Amer) Est GFR (Non-Af Amer) POC Glucose (mg/dL) 268 H 284 H (65-110) mg/dL Random Glucose (65-105) mg/dL Calcium (8.6-10.4) mg/dl Phosphorus (2.5-4.5) mg/dL Magnesium (1.6-2.3) mg/dL Total Bilirubin (0.2-1.3) mg/dL AST (14-36) U/L ALT (9-52) U/L Alkaline Phosphatase (38-126) U/L Total Protein (6.3-8.3) g/dL Albumin (3.5-5.0) g/dL Globulin (2.2-3.9) gm/dL Albumin/Globulin Ratio (1.0-2.1) Laboratory Results - last 24 hr 03/18/17 03/19/17 03/19/17 17:43 00:14 05:12 WBC RBC Hgb Hct MCV MCH MCHC RDW Plt Count MPV Neut % (Auto) Lymph % (Auto) [place] % (Auto) Eos % (Auto) Baso % (Auto) Neut # Lymph # [place] # Eos # Baso # Neutrophils % (Manual) Lymphocytes % (Manual) Monocytes % (Manual) Nucleated RBC % Platelet Estimate Polychromasia Hypochromasia (manual) Anisocytosis (manual) Macrocytosis (manual) Puncture Site Rr pCO2 33 L pO2 138 H HCO3 27.7 ABG pH 7.51 H ABG Total CO2 27.3 ABG O2 Saturation 98.7 H ABG Base Excess 3.6 H ABG Hemoglobin 13.5 ABG Carboxyhemoglobin 1.7 H POC ABG HHb (Measured) 1.3 ABG Methemoglobin 0.9 Jean Test Pos A-a O2 Difference 35.0 Respiratory Index 0.3 Hgb O2 Saturation 96.2 Vent Mode Prvc Mechanical Rate 16 FiO2 30.0 Tidal Volume 450 PEEP 5 Sodium Potassium Chloride Carbon Dioxide Anion Gap BUN Creatinine Est GFR ( Amer) Est GFR (Non-Af Amer) POC Glucose (mg/dL) 284 H 268 H Random Glucose Calcium Phosphorus Magnesium Total Bilirubin AST ALT Alkaline Phosphatase Total Protein Albumin Globulin Albumin/Globulin Ratio 03/19/17 03/19/17 03/19/17 05:26 06:38 06:38 WBC 22.9 H RBC 3.32 L Hgb 10.5 L Hct 34.6 MCV 103.9 H MCH 31.6 H MCHC 30.4 L RDW 16.3 H Plt Count 214 MPV 11.9 H Neut % (Auto) 90.2 H Lymph % (Auto) 4.6 L [place] % (Auto) 4.5 Eos % (Auto) 0.5 Baso % (Auto) 0.2 Neut # 20.6 H Lymph # 1.1 [place] # 1.0 H Eos # 0.1 Baso # 0.0 Neutrophils % (Manual) 90 H Lymphocytes % (Manual) 7 L Monocytes % (Manual) 3 Nucleated RBC % 1 H Platelet Estimate Normal Polychromasia Slight Hypochromasia (manual) Slight Anisocytosis (manual) Slight Macrocytosis (manual) Slight Puncture Site pCO2 pO2 HCO3 ABG pH ABG Total CO2 ABG O2 Saturation ABG Base Excess ABG Hemoglobin ABG Carboxyhemoglobin POC ABG HHb (Measured) ABG Methemoglobin Jean Test A-a O2 Difference Respiratory Index Hgb O2 Saturation Vent Mode Mechanical Rate FiO2 Tidal Volume PEEP Sodium 150 H Potassium 3.6 Chloride 115 H Carbon Dioxide 22 Anion Gap 17 BUN 138 H* D Creatinine 3.9 H Est GFR ( Amer) 13 Est GFR (Non-Af Amer) 11 POC Glucose (mg/dL) 172 H Random Glucose 169 H Calcium 7.2 L Phosphorus 5.0 H Magnesium 3.2 H Total Bilirubin 0.8 AST 53 H D ALT 84 H Alkaline Phosphatase 301 H Total Protein 4.5 L Albumin 2.4 L Globulin 2.1 L Albumin/Globulin Ratio 1.1 03/19/17 03/19/17 11:53 17:51 WBC RBC Hgb Hct MCV MCH MCHC RDW Plt Count MPV Neut % (Auto) Lymph % (Auto) [place] % (Auto) Eos % (Auto) Baso % (Auto) Neut # Lymph # [place] # Eos # Baso # Neutrophils % (Manual) Lymphocytes % (Manual) Monocytes % (Manual) Nucleated RBC % Platelet Estimate Polychromasia Hypochromasia (manual) Anisocytosis (manual) Macrocytosis (manual) Puncture Site pCO2 pO2 HCO3 ABG pH ABG Total CO2 ABG O2 Saturation ABG Base Excess ABG Hemoglobin ABG Carboxyhemoglobin POC ABG HHb (Measured) ABG Methemoglobin Jean Test A-a O2 Difference Respiratory Index Hgb O2 Saturation Vent Mode Mechanical Rate FiO2 Tidal Volume PEEP Sodium Potassium Chloride Carbon Dioxide Anion Gap BUN Creatinine Est GFR ( Amer) Est GFR (Non-Af Amer) POC Glucose (mg/dL) 104 216 H Random Glucose Calcium Phosphorus Magnesium Total Bilirubin AST ALT Alkaline Phosphatase Total Protein Albumin Globulin Albumin/Globulin Ratio Critical Care Progress Note - Nutrition Nutrition: Nutrition Category Date Time Status NPO Diet [DIET] Diets 03/11/17 Dinner Active Attending/Attestation - Attestation I have personally seen and examined this patient.: Yes I have fully participated in the care of the patient.: Yes I have reviewed all pertinent clinical information: Yes Notes (Text): 03/19/17 18:12 Patient seen and examined in the intensive care unit. Case discussed with staff in the morning rounds. Status post craniotomy and evacuation of hematoma No change in mental status On ventilatory support Awaiting family decision
[2017-03-19 08:46] LABS: NEUTROPHIL 90 % (50-75); NUCLEATED RED BLOOD CELL 1 % (0-0); TOTAL CELLS COUNTED 100
--- NOTE | 2017-03-19 09:05 | RAD ---
Chest x-ray single frontal view History: Intubated. Comparison: 03/18/2017 Findings: Lines and tubes in stable position. Hyperinflation suggestive for COPD and or emphysematous changes. Mild venous congestion. Persistent scattered nodular densities throughout both lungs most prominent in the left mid to lower lung zone which may represent prominent confluence of shadows with ribs and vessels. Correlation with chest CT may be helpful at an interval date. Calcification at aortic knob. Degenerative changes in the spine and shoulders. Impression: Lines and tubes in stable position. Hyperinflation suggestive for COPD and or emphysematous changes. Mild venous congestion. Persistent scattered nodular densities throughout both lungs most prominent in the left mid to lower lung zone which may represent prominent confluence of shadows with ribs and vessels. Correlation with chest CT may be helpful at an interval date.
[2017-03-19] MEDS: Pantoprazole 20 mg EC Tab PO SCH (09:32)
[2017-03-19] MEDS: metroNIDAZOLE IV 500 mg/100 ml 500 MG/100 ML BAG IVPB SCH ×2 (09:33→21:57)
--- NOTE | 2017-03-19 09:53 | CP.PCM.PCO ---
Physician Communication Note - Physician Communication Note Physician Communication Note: Family meeting at 2 pm today
[2017-03-19] MEDS: Linezolid 600 mg in D5W 300 ml 600 MG/300 ML BAG IVPB SCH ×2 (11:05→23:18)
--- NOTE | 2017-03-19 12:29 | CP.PCM.CON ---
History of Present Illness - History of Present Illness History of Present Illness: Palliative consult Requested for goals of care discussion Patient is a 81 yo female admitted through ED for left sided weakness. Per report, patient went to pantry closet where she most likely fail and the door locked on its own. The next door friend had to demolish the door to get her out. Patient was verbal at that point. Patient also recalled that she had a headache earlier and was looking for Tylenol. As per her friend, patient had multiple falls in the past due to dizziness. Patient has a known Hx of a Fib. The CT scan was significant for large right , intra cranial hemorrhage and is S /P surgical evacuation . Post Sx patient was admitted to ICU where she stayed intubated on MV support. PMH: Pancreas CA, HTN, A Fib, colonic polyps Soc. Hx: Lives alone, has a close male friend who looks after her, two more sisters, one in [place], ( visiting at present ), one in [place] Fam. Hx: Mother had HTN Review of Systems - Review of Systems All systems: reviewed and no additional remarkable complaints except Review of Systems: ROS obtained from nursing. No acute overnight event Past Patient History - Infectious Disease Hx of Infectious Diseases: None - Past Medical History & Family History Past Medical History?: Yes - Past Social History Smoking Status: Never Smoked Chewing Tobacco Use: No Cigar Use: No Alcohol: None Drugs: Denies Home Situation {Lives}: Alone - CARDIAC Hx Cardia Arrhythmia: Yes (A FIB) Hx Hypertension: Yes - PULMONARY Hx Respiratory Disorders: Yes (H/O LUNG NODULES) - NEUROLOGICAL Hx Neurological Disorder: No - HEENT Hx HEENT Problems: Yes Hx Cataracts: Yes Hx Glaucoma: Yes - RENAL Hx Chronic Kidney Disease: Yes - ENDOCRINE/METABOLIC Hx Hypothyroidism: Yes - HEMATOLOGICAL/ONCOLOGICAL Hx Blood Disorders: Yes Hx Cancer: Yes (L KIDNEY, HEAD OF PANCREAS) - INTEGUMENTARY Hx Dermatological Problems: No - MUSCULOSKELETAL/RHEUMATOLOGICAL Hx Fractures: Yes (LEFT ARM) Hx Osteoporosis: Yes - GASTROINTESTINAL Hx Gall Bladder Disease: Yes Hx Pancreatitis: Yes - GENITOURINARY/GYNECOLOGICAL Hx Genitourinary Disorders: No - PSYCHIATRIC Hx Substance Use: No - SURGICAL HISTORY Hx Cholecystectomy: Yes Other/Comment: Partial left nephrectomy and exision of head of pancreas - ANESTHESIA Hx Anesthesia: Yes Hx Anesthesia Reactions: No Hx Malignant Hyperthermia: No Meds Allergies/Adverse Reactions: Allergies Allergy/AdvReac Type Severity Reaction Status Date / Time ciprofloxacin [From Cipro] Allergy Severe ANAPHYLAXIS Verified 03/11/17 19:59 Sulfa (Sulfonamide Allergy Severe ANAPHYLAXIS Verified 03/11/17 19:59 Antibiotics) - Medications Medications: Current Medications Acetaminophen (Tylenol 650mg/20.3ml Solution Ud) 650 mg PO Q4 PRN PRN Reason: Pain, moderate (4-7) Last Admin: 03/14/17 17:23 Dose: 650 mg Calcium Acetate (Phoslo) 667 mg PO TID [facility] Last Admin: 03/19/17 09:36 Dose: 667 mg Heparin Sodium (Porcine) (Heparin) 5,000 units SC Q12 [facility] Last Admin: 03/19/17 09:32 Dose: 5,000 units Propofol (Diprivan) 1,000 mg in 100 mls @ 1.189 mls/hr IV .Q24H PRN; Protocol; 5 MCG/KG/MIN PRN Reason: TITRATE PER MD ORDER Last Titration: 03/13/17 06:18 Dose: 10 mcg/kg/min, 2.379 mls/hr Metronidazole (Flagyl) 500 mg in 100 mls @ 100 mls/hr IVPB Q12 [facility] Last Admin: 03/19/17 09:33 Dose: 100 mls/hr Linezolid (Zyvox 600mg/300ml D5w) 600 mg in 300 mls @ 200 mls/hr IVPB Q12H [facility] Last Admin: 03/19/17 11:05 Dose: 200 mls/hr Cefepime HCl (Maxipime Iv 1 Gm Premix) 1 gm in 50 mls @ 100 mls/hr IVPB Q24H [facility] Last Admin: 03/18/17 14:30 Dose: Not Given Insulin Human Regular (Novolin R) 0 unit SC Q6 [facility] PRN Reason: Protocol Last Admin: 03/19/17 11:54 Dose: Not Given Levothyroxine Sodium (Synthroid) 25 mcg PO DAILY@0630 [facility] Last Admin: 03/19/17 06:31 Dose: 25 mcg Metoprolol Tartrate (Lopressor) 25 mg PO BID [facility] Last Admin: 03/19/17 09:35 Dose: 25 mg Pantoprazole Sodium (Protonix Ec Tab) 20 mg PO DAILY [facility] Last Admin: 11/07/17 09:32 Dose: 20 mg Physical Exam - Constitutional Appears: In Acute Distress - Head Exam Head Exam: NORMAL INSPECTION, NORMOCEPHALIC Additional comments: Right side dressing, post surg evacuation of hemathoma - Eye Exam Pupil Exam: Fixed - ENT Exam Additional comments: ETT - Neck Exam Neck exam: Positive for: Normal Inspection - Respiratory Exam Additional comments: On MV - Cardiovascular Exam Cardiovascular Exam: Tachycardia, Irregular Rhythm - GI/Abdominal Exam GI & Abdominal Exam: Hypoactive Bowel Sounds - Rectal Exam Rectal Exam: Deferred - Extremities Exam Extremities exam: Positive for: normal inspection - Back Exam Back exam: NORMAL INSPECTION - Neurological Exam Neurological exam: Motor Sensory Deficit - Psychiatric Exam Psychiatric exam: Flat Affect - Skin Skin Exam: Normal Color, Warm Results - Vital Signs Recent Vital Signs: Last Vital Signs Temp 98.8 F 03/19/17 08:00 Pulse 99 H 03/19/17 10:00 Resp 16 03/19/17 10:00 BP 105/64 03/19/17 10:00 Pulse Ox 99 03/19/17 10:00 - Labs Result Diagrams: 03/19/17 06:38 03/19/17 06:38 Labs: Laboratory Results - last 24 hr 03/18/17 03/19/17 03/19/17 17:43 00:14 05:12 WBC RBC Hgb Hct MCV MCH MCHC RDW Plt Count MPV Neut % (Auto) Lymph % (Auto) [place] % (Auto) Eos % (Auto) Baso % (Auto) Neut # Lymph # [place] # Eos # Baso # Neutrophils % (Manual) Lymphocytes % (Manual) Monocytes % (Manual) Nucleated RBC % Platelet Estimate Polychromasia Hypochromasia (manual) Anisocytosis (manual) Macrocytosis (manual) Puncture Site Rr pCO2 33 L pO2 138 H HCO3 27.7 ABG pH 7.51 H ABG Total CO2 27.3 ABG O2 Saturation 98.7 H ABG Base Excess 3.6 H ABG Hemoglobin 13.5 ABG Carboxyhemoglobin 1.7 H POC ABG HHb (Measured) 1.3 ABG Methemoglobin 0.9 Jean Test Pos A-a O2 Difference 35.0 Respiratory Index 0.3 Hgb O2 Saturation 96.2 Vent Mode Prvc Mechanical Rate 16 FiO2 30.0 Tidal Volume 450 PEEP 5 Sodium Potassium Chloride Carbon Dioxide Anion Gap BUN Creatinine Est GFR ( Amer) Est GFR (Non-Af Amer) POC Glucose (mg/dL) 284 H 268 H Random Glucose Calcium Phosphorus Magnesium Total Bilirubin AST ALT Alkaline Phosphatase Total Protein Albumin Globulin Albumin/Globulin Ratio 03/19/17 03/19/17 03/19/17 05:26 06:38 06:38 WBC 22.9 H RBC 3.32 L Hgb 10.5 L Hct 34.6 MCV 103.9 H MCH 31.6 H MCHC 30.4 L RDW 16.3 H Plt Count 214 MPV 11.9 H Neut % (Auto) 90.2 H Lymph % (Auto) 4.6 L [place] % (Auto) 4.5 Eos % (Auto) 0.5 Baso % (Auto) 0.2 Neut # 20.6 H Lymph # 1.1 [place] # 1.0 H Eos # 0.1 Baso # 0.0 Neutrophils % (Manual) 90 H Lymphocytes % (Manual) 7 L Monocytes % (Manual) 3 Nucleated RBC % 1 H Platelet Estimate Normal Polychromasia Slight Hypochromasia (manual) Slight Anisocytosis (manual) Slight Macrocytosis (manual) Slight Puncture Site pCO2 pO2 HCO3 ABG pH ABG Total CO2 ABG O2 Saturation ABG Base Excess ABG Hemoglobin ABG Carboxyhemoglobin POC ABG HHb (Measured) ABG Methemoglobin Jean Test A-a O2 Difference Respiratory Index Hgb O2 Saturation Vent Mode Mechanical Rate FiO2 Tidal Volume PEEP Sodium 150 H Potassium 3.6 Chloride 115 H Carbon Dioxide 22 Anion Gap 17 BUN 138 H* D Creatinine 3.9 H Est GFR ( Amer) 13 Est GFR (Non-Af Amer) 11 POC Glucose (mg/dL) 172 H Random Glucose 169 H Calcium 7.2 L Phosphorus 5.0 H Magnesium 3.2 H Total Bilirubin 0.8 AST 53 H D ALT 84 H Alkaline Phosphatase 301 H Total Protein 4.5 L Albumin 2.4 L Globulin 2.1 L Albumin/Globulin Ratio 1.1 Assessment & Plan - Assessment and Plan (Free Text) Assessment: Palliative consult Code status Unknown; Full Code, PPS 0 % I reviewed medical records, all diagnostic studies, examined patient in the bed and discussed goals of care with her sister. Patient is intubated, on MV, not sedated and unresponsive to stimuli. The pupils are enlarged unresponsive to light. The corneal reflex absent. Patient is not responding to painful stimuli. WBC rebel to 22.9. Flagyl, Zyvox and Maxipime IV on board. The BUN 138, Business Partner 3.9. BP 95/57, HR 97, afebrile. Patient's sister Barbara arrived from [place] to visit. I elicited her knowledge about patient's condition and expectations of care. She admits to high stress level from what happened to her sister and feeling guilty why she had not visited earlier. Kristina admits also being overwhelmed with emotions, and all she wants for sister is to recover and get back to where she was before. I supported her and reassured all of prudent medical interventions being applied. I also reviewed the CT scan results and suggested that at this point we still did not know how would patient respond to care given. Code status discussed. Kristina admitted to difficulties deciding on it and was to talk to her sister in [place] before makes decision. Patient had never before discussed end of life care with her sister. 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 Thank you for consulting Palliative Care
[2017-03-19] MEDS ORDERED: Propofol 10 mg/ml 1,000 MG/100 ML VIAL IV PRN (13:18)
--- NOTE | 2017-03-19 13:53 | CP.PCM.PN ---
Subjective - Date & Time of Evaluation Date of Evaluation: 03/19/17 Time of Evaluation: 13:51 - Subjective Subjective: CLINICALLY REMAINS SAME ON VENT. NOT RESPONDING TO STIMULI ON IV AB ICU MANAGEMENT D/W FAMILY FURTHER CARE Objective - Vital Signs/Intake and Output Vital Signs (last 24 hours): Temp Pulse Resp BP Pulse Ox 97.6 F 101 H 22 133/72 98 03/19/17 12:00 03/19/17 12:00 03/19/17 12:00 03/19/17 12:00 03/19/17 12:00 Intake and Output: 03/19/17 03/19/17 11:59 23:59 Intake Total 580 30 Output Total 365 25 Balance 215 5 - Medications Medications: Current Medications Acetaminophen (Tylenol 650mg/20.3ml Solution Ud) 650 mg PO Q4 PRN PRN Reason: Pain, moderate (4-7) Last Admin: 03/14/17 17:23 Dose: 650 mg Calcium Acetate (Phoslo) 667 mg PO TID [facility] Last Admin: 03/19/17 09:36 Dose: 667 mg Heparin Sodium (Porcine) (Heparin) 5,000 units SC Q12 [facility] Last Admin: 03/19/17 09:32 Dose: 5,000 units Metronidazole (Flagyl) 500 mg in 100 mls @ 100 mls/hr IVPB Q12 [facility] Last Admin: 03/19/17 09:33 Dose: 100 mls/hr Linezolid (Zyvox 600mg/300ml D5w) 600 mg in 300 mls @ 200 mls/hr IVPB Q12H [facility] Last Admin: 03/19/17 11:05 Dose: 200 mls/hr Cefepime HCl (Maxipime Iv 1 Gm Premix) 1 gm in 50 mls @ 100 mls/hr IVPB Q24H [facility] Last Admin: 03/18/17 14:30 Dose: Not Given Propofol (Diprivan) 1,000 mg in 100 mls @ 2.369 mls/hr IV .Q24H PRN; Protocol; 10.3 MCG/KG/MIN PRN Reason: TITRATE PER MD ORDER Insulin Human Regular (Novolin R) 0 unit SC Q6 [facility] PRN Reason: Protocol Last Admin: 03/19/17 11:54 Dose: Not Given Levothyroxine Sodium (Synthroid) 25 mcg PO DAILY@0630 [facility] Last Admin: 03/19/17 06:31 Dose: 25 mcg Metoprolol Tartrate (Lopressor) 25 mg PO BID [facility] Last Admin: 03/19/17 09:35 Dose: 25 mg Pantoprazole Sodium (Protonix Ec Tab) 20 mg PO DAILY [facility] Last Admin: 03/19/17 09:32 Dose: 20 mg - Labs Labs: 03/19/17 06:38 03/19/17 06:38 PT 10.2 SECONDS (9.7-12.2) 03/12/17 06:20 INR 0.9 03/12/17 06:20 APTT 27 SECONDS (21-34) 03/12/17 06:20 Assessment and Plan (1) Intracranial hemorrhage Status: Acute (2) Renal failure Status: Acute (3) Sepsis Status: Acute
[2017-03-19] MEDS: Cefepime IV 1 gm in Dextrose 1 GM/50 ML BAG IVPB SCH (14:02)
--- NOTE | 2017-03-19 15:28 | CP.PCM.PN ---
Subjective - Date & Time of Evaluation Date of Evaluation: 03/19/17 Time of Evaluation: 15:28 - Subjective Subjective: pt is seen and examined, follow up consult is dictated #[id number] Objective - Vital Signs/Intake and Output Vital Signs (last 24 hours): Temp Pulse Resp BP Pulse Ox 97.6 F 107 H 18 112/62 99 03/19/17 12:00 03/19/17 14:00 03/19/17 14:00 03/19/17 14:00 03/19/17 14:00 Intake and Output: 03/19/17 03/19/17 06:59 18:59 Intake Total 730 660 Output Total 390 180 Balance 340 480 - Medications Medications: Current Medications Acetaminophen (Tylenol 650mg/20.3ml Solution Ud) 650 mg PO Q4 PRN PRN Reason: Pain, moderate (4-7) Last Admin: 03/14/17 17:23 Dose: 650 mg Calcium Acetate (Phoslo) 667 mg PO TID [facility] Last Admin: 03/19/17 14:02 Dose: 667 mg Heparin Sodium (Porcine) (Heparin) 5,000 units SC Q12 [facility] Last Admin: 03/19/17 09:32 Dose: 5,000 units Metronidazole (Flagyl) 500 mg in 100 mls @ 100 mls/hr IVPB Q12 [facility] Last Admin: 03/19/17 09:33 Dose: 100 mls/hr Linezolid (Zyvox 600mg/300ml D5w) 600 mg in 300 mls @ 200 mls/hr IVPB Q12H [facility] Last Admin: 03/19/17 11:05 Dose: 200 mls/hr Cefepime HCl (Maxipime Iv 1 Gm Premix) 1 gm in 50 mls @ 100 mls/hr IVPB Q24H [facility] Last Admin: 03/19/17 14:02 Dose: 100 mls/hr Insulin Human Regular (Novolin R) 0 unit SC Q6 [facility] PRN Reason: Protocol Last Admin: 03/19/17 11:54 Dose: Not Given Levothyroxine Sodium (Synthroid) 25 mcg PO DAILY@0630 [facility] Last Admin: 03/19/17 06:31 Dose: 25 mcg Metoprolol Tartrate (Lopressor) 25 mg PO BID [facility] Last Admin: 03/19/17 09:35 Dose: 25 mg Pantoprazole Sodium (Protonix Ec Tab) 20 mg PO DAILY [facility] Last Admin: 03/19/17 09:32 Dose: 20 mg - Labs Labs: 03/19/17 06:38 03/19/17 06:38 PT 10.2 SECONDS (9.7-12.2) 03/12/17 06:20 INR 0.9 03/12/17 06:20 APTT 27 SECONDS (21-34) 03/12/17 06:20
--- NOTE | 2017-03-19 23:36 | CP.PCM.PN ---
Subjective - Date & Time of Evaluation Date of Evaluation: 03/19/17 Time of Evaluation: 23:36 - Subjective Subjective: AFEBRILE. Patient intubated. CLINICALLY REMAINS SAME. POD# 7 . s/p right parietal craniotomy, subtotal evacuation of hematoma. Patient spontaneously opens eyes sometimes. No acute events overnight. Objective - Vital Signs/Intake and Output Vital Signs (last 24 hours): Temp Pulse Resp BP Pulse Ox 98.3 F 112 H 18 91/42 L 99 03/19/17 20:00 03/19/17 22:00 03/19/17 22:00 03/19/17 22:00 03/19/17 22:00 Intake and Output: 03/19/17 03/20/17 18:59 06:59 Intake Total 780 220 Output Total 400 110 Balance 380 110 - Medications Medications: Current Medications Acetaminophen (Tylenol 650mg/20.3ml Solution Ud) 650 mg PO Q4 PRN PRN Reason: Pain, moderate (4-7) Last Admin: 03/14/17 17:23 Dose: 650 mg Calcium Acetate (Phoslo) 667 mg PO TID [facility] Last Admin: 03/19/17 17:49 Dose: 667 mg Heparin Sodium (Porcine) (Heparin) 5,000 units SC Q12 [facility] Last Admin: 03/19/17 21:59 Dose: 5,000 units Metronidazole (Flagyl) 500 mg in 100 mls @ 100 mls/hr IVPB Q12 [facility] Last Admin: 03/19/17 21:57 Dose: 100 mls/hr Linezolid (Zyvox 600mg/300ml D5w) 600 mg in 300 mls @ 200 mls/hr IVPB Q12H [facility] Last Admin: 03/19/17 23:18 Dose: 200 mls/hr Cefepime HCl (Maxipime Iv 1 Gm Premix) 1 gm in 50 mls @ 100 mls/hr IVPB Q24H [facility] Last Admin: 03/19/17 14:02 Dose: 100 mls/hr Insulin Human Regular (Novolin R) 0 unit SC Q6 [facility] PRN Reason: Protocol Last Admin: 03/19/17 18:03 Dose: 2 unit Levothyroxine Sodium (Synthroid) 25 mcg PO DAILY@0630 [facility] Last Admin: 03/19/17 06:31 Dose: 25 mcg Metoprolol Tartrate (Lopressor) 25 mg PO BID [facility] Last Admin: 03/19/17 17:49 Dose: 25 mg Pantoprazole Sodium (Protonix Ec Tab) 20 mg PO DAILY [facility] Last Admin: 03/19/17 09:32 Dose: 20 mg - Labs Labs: 03/19/17 06:38 03/19/17 06:38 PT 10.2 SECONDS (9.7-12.2) 03/12/17 06:20 INR 0.9 03/12/17 06:20 APTT 27 SECONDS (21-34) 03/12/17 06:20 - Constitutional Appears: No Acute Distress, Cachectic - Eye Exam Pupil Exam: Unequal Additional comments: SPONTANEOUSLY OPENS EYES. - ENT Exam ENT Exam: Mucous Membranes Dry - Neck Exam Neck Exam: Normal Inspection - Respiratory Exam Respiratory Exam: Rhonchi - GI/Abdominal Exam GI & Abdominal Exam: Soft, Normal Bowel Sounds - Extremities Exam Extremities Exam: absent: Calf Tenderness, Pedal Edema - Neurological Exam Neurological Exam: Altered - Skin Skin Exam: Dry, Warm Assessment and Plan (1) S/P craniotomy Assessment & Plan: CONTINUE iv CEFEPIME 1 G ONCE A DAY DAILY. 03/13/17. CONTINUE IV ZYVOX 600 MG EVERY 12 HOURLY FOR GRAM-POSITIVE COVERAGE.03/14/17. CONTINUE IV fLAGYL 500 MG iv PIGGYBACK EVERY 12 HOURLY. 03/13/17. SISTER BY HER SIDE. ONGOING MEETINGS NOTED WITH MS ARTEAGA-PALLIATIVE CARE PROGNOSIS GUARDED. Status: Acute (2) SIRS (systemic inflammatory response syndrome) Status: Acute (3) Intracranial hemorrhage Status: Acute (4) Renal failure Status: Acute (5) Diabetes mellitus type 2 in nonobese Status: Acute (6) Hypertension Status: Acute (7) Pancreatic cancer Status: Acute
--- NOTE | 2017-03-20 03:25 | PN ---
FOLLOWUP RENAL CONSULTATION DATE: LOCATION: ICU Bed 8. REQUESTED BY: Jordi Bedolla MD REASON FOR FOLLOWUP: Acute renal failure, chronic kidney disease, hypertension, intracranial bleed, status post craniotomy, evacuation of hematoma on ventilator, hypernatremia. SUBJECTIVE: Ms. Watson is an 81-year-old elderly female from [place], with history of hypertension, chronic kidney disease, cardiac arrhythmia status post intracranial bleed found on the closet locked by the neighbor and with left-sided weakness and subsequently the patient was found with CAT scan, right side intracranial bleed temporoparietal lesion. Subsequently the patient underwent craniotomy. The patient remains intubated since admission. The patient is not responding to verbal stimuli slightly moving right upper extremity, right lower extremity, left lower extremity for the painful stimuli. Remains intubated. PHYSICAL EXAMINATION: GENERAL: Ms. Watson is an 81-year-old elderly female on ventilator not responding to verbal stimuli, slightly moving right lower extremity, right upper extremity and left lower extremity for the painful stimuli. VITAL SIGNS: As follows; blood pressure 118/60, pulse 124, respirations about 17, temperature 97.3. Height 4 feet 10 inches and weight is 84 pounds. HEENT: Conjunctivae pink. Sclerae are anicteric. Pupils are normal. Slight horizontal nystagmus present. Trachea is midline. LUNGS: Symmetric on both sides. Bilateral breath sounds present, no crackles. CARDIOVASCULAR: [place] at the fifth intercostal space, midclavicular line. S1 and S2 audible. No murmur or gallop. ABDOMEN: Normal in appearance, soft, tympanic. No guarding. No rigidity. No hepatosplenomegaly. CENTRAL NERVOUS SYSTEM: The patient is on ventilator, not responding to deep painful stimuli except moving right upper extremity, lower extremity, left lower extremity. Not responding to verbal stimuli. EXTREMITIES: No cyanosis, no clubbing, no edema. CURRENT MEDICATIONS: Include as follows; Flagyl 500 mg IV q. 12 hours, subcutaneous heparin 5000 q. 12 hours, metoprolol 25 mg p.o. b.i.d., Cefepime 1 g q. 24 hours, PhosLo 600 mg p.o. t.i.d., Protonix 20 mg p.o. daily, Synthroid 25 mcg daily, Tylenol and Zyvox 600 mg q. 12 hours. LABORATORY DATA: Include as follows, as of 03/19/2017; WBC 22.1, hemoglobin 10.5, hematocrit 34.6, and platelets 214. Neutrophils 90, lymphs 7, monos 3, and nucleated RBC 1. ABG pH 7.51, PCO2 33, PO2 138, bicarbonate is 27.7, saturation 98.7. Vent settings: AC 16, tidal volume 450, FiO2 of 30%, and PEEP of 5. Sodium 150, potassium 3.6, chloride 115, CO2 of 22, BUN 128, creatinine 3.9, glucose is 172, calcium 7.2, phosphorus is 5, and magnesium 3.2. Total bilirubin 0.8, AST 53, ALT 84, alkaline phosphatase 301, total protein 4.5, albumin is 2.4. Chest x-ray as of 03/19/2017 persistent scattered nodular densities throughout both lungs, most prominent in the left mid to lower lung zones, which may represent prominent confluence of shadows with ribs and vessels. Correlation with chest CT may be helpful at an interval date. Intake and output in the last 24 hours, intake is 880 and output is 740. ASSESSMENT AND PLAN: In summary, Ms. Watson is an 81-year-old elderly female with history of hypertension, chronic kidney disease, atrial fibrillation, who was found in the closet lying by the neighbor and also found to have left-sided weakness and right-sided temporoparietal bleed. Subsequently, the patient underwent craniotomy, on ventilator with increasing BUN and creatinine status post mannitol and hypertonic saline 3%. The patient remains intubated. 1. Acute renal failure on chronic kidney disease secondary to intravascular depletion and cannot rule out acute tubular necrosis secondary to agent mannitol osmotic acute tubular necrosis. 2. Hypertension, blood pressure is on the low side, try to keep the blood pressure around 121 to 130. 3. Status post right temporoparietal craniotomy secondary to intracranial bleed, continue and support. Overall, prognosis is extremely poor. Discussed with the patient's sister at bedside. She preferred to continue her current management. Do not want any DNR at this time as another sister is coming on Saturday and patient's niece is also coming on Saturday. She would like to continue current management at this time. The patient's sister is aware of the poor prognosis. Consider gentle hydration if it is okay with Neurology, consider normal saline at 70 mL per hour. We will follow with you. Thank you for allowing me to participate in your patient's care. Orlando Odom MD
[2017-03-20 06:06] LABS: ABG ALLEN TEST POS; ABG MECHANICAL RATE 16; ARTERIAL BLOOD GAS MODE PRVC; ARTERIAL BLOOD HGB O2 SAT 95.9 % (95.0-98.0); ATERIAL BLOOD GAS PEEP 5; CARBOXYHEMOGLOBIN 1.7 % (0.5-1.5); DRAW SITE RR; HHB 1.3 % (0.0-5.0)
[2017-03-20 06:29] LABS: BASO % 0.2 % (0.0-2.0); EOS # 0.1 K/uL (0.0-0.7); EOS % 0.3 % (0.0-4.0); HEMATOCRIT 30.3 % (34.0-47.0); LYMPH # 0.6 K/uL (1.0-4.3); LYMPH % 2.8 % (20.0-40.0); MEAN CELL VOLUME 104.9 fL (81.0-99.0); MEAN CORPUSCULAR HEMOGLOBIN 31.7 pg (27.0-31.0); MEAN CORPUSCULAR HGB CONC 30.2 g/dL (33.0-37.0); MEAN PLATELET VOLUME 12.5 fL (7.2-11.7); MONO % 4.5 % (0.0-10.0); NRBC % 0.2 % (0.0-2.0); PLATELET COUNT 179 K/uL (130-400); RED CELL DISTRIBUTION WIDTH 16.8 % (11.5-14.5); WHITE BLOOD COUNT 22.8 K/uL (4.8-10.8)
[2017-03-20] MEDS: (Novolin R) Insulin Human Regular 100 units/ml vial SC SCH ×3 (06:45→18:37)
[2017-03-20] MEDS: Levothyroxine 25 MCG TAB PO SCH (06:46)
[2017-03-20 06:52] LABS: ALB/GLOB RATIO 1.2 (1.0-2.1); BILIRUBIN,TOTAL 0.3 mg/dL (0.2-1.3); CALCIUM 7.2 mg/dl (8.6-10.4); MAGNESIUM 3.9 mg/dL (1.6-2.3); PHOSPHOROUS 6.3 mg/dL (2.5-4.5); POTASSIUM 3.8 mmol/L (3.6-5.2); TOTAL PROTEIN 3.3 g/dL (6.3-8.3)
[2017-03-20 08:01] LABS: NEUTROPHIL 94 % (50-75); TOTAL CELLS COUNTED 100
--- NOTE | 2017-03-20 08:28 | RAD ---
Chest x-ray single frontal view History: Intubated. Comparison: 03/19/2017 Findings: Lines and tubes in stable position. Hyperinflation suggestive for COPD and or emphysematous changes. Biapical pleural thickening with upper lobe granulomatous changes. Scattered nodular densities in both lung marcial. No gross focal infiltrate or effusion. Calcification at the aortic knob. Degenerative changes in the spine and shoulders. Impression: Lines and tubes in stable position. Hyperinflation suggestive for COPD and or emphysematous changes. Biapical pleural thickening with upper lobe granulomatous changes. Scattered nodular densities in both lung marcial. No gross focal infiltrate or effusion.
[2017-03-20] MEDS: metroNIDAZOLE IV 500 mg/100 ml 500 MG/100 ML BAG IVPB SCH ×2 (09:49→22:25)
[2017-03-20] MEDS: Pantoprazole 20 mg EC Tab PO SCH (10:07)
--- NOTE | 2017-03-20 10:17 | CP.CCUPN ---
<Rosaura Paz - Last Filed: 03/20/17 13:51> CCU Subjective - Physician Review Subjective (Free Text): Patient seen and examined at bedside. Patient intubated is intubated and therefore ROS unobtainable. POD#8 s/p right parietal craniotomy, subtotal evacuation of hematoma. Patient spontaneously opens eyes. No acute events overnight. No change in patient's clinical status. Patient's sister brought in living will which made her code status: DNR. CCU Objective - Vital Signs / Intake & Output Vital Signs (Last 4 hours): Vital Signs Temp Pulse Resp BP Pulse Ox 03/20/17 09:39 80/46 L 03/20/17 09:00 84 16 80/46 L 100 03/20/17 08:00 97.5 F L 82 16 87/51 L 100 03/20/17 07:00 86 16 91/54 L 100 Intake and Output (Last 8hrs): Intake & Output 03/19/17 03/20/17 03/20/17 22:59 06:59 14:59 Intake Total 340 510 90 Output Total 345 615 50 Balance -5 -105 40 Weight 86 lb 4 oz Intake: Intake, IV Amount 100 300 Right Forearm 100 300 Tube Feeding 240 210 90 Output: Urine 195 165 50 Urethral (Forbes) 195 165 50 Stool 150 450 - Physical Exam Head: Positive for: Normocephalic, Other (dressing in place post craniotomy ) Pupils: Positive for: Sluggish Mouth: Positive for: Dry Respiratory/Chest: Positive for: Good Air Exchange Cardiovascular: Positive for: Normal S1, S2 Lower Extremity: Positive for: Edema Skin: Positive for: Warm Psychiatric: Negative for: Alert, Oriented x 3 - Medications Active Medications: Active Medications Generic Name Dose Route Start Last Admin Trade Name Freq PRN Reason Stop Dose Admin Acetaminophen 650 mg 03/14/17 17:15 03/14/17 17:23 Tylenol 650mg/20.3ml Solution Ud PO 650 mg Q4 PRN Administration Pain, moderate (4-7) Calcium Acetate 667 mg 03/18/17 14:00 03/20/17 09:50 Phoslo PO 667 mg TID HALLE Administration Heparin Sodium (Porcine) 5,000 units 03/15/17 22:00 03/20/17 09:50 Heparin SC 5,000 units Q12 HALLE Administration Metronidazole 500 mg in 100 mls @ 100 mls/hr 03/14/17 10:00 03/20/17 09:49 Flagyl IVPB 100 mls/hr Q12 HALLE Administration Linezolid 600 mg in 300 mls @ 200 mls/hr 03/14/17 23:45 03/19/17 23:18 Zyvox 600mg/300ml D5w IVPB 200 mls/hr Q12H HALLE Administration Cefepime HCl 1 gm in 50 mls @ 100 mls/hr 03/18/17 14:30 03/19/17 14:02 Maxipime Iv 1 Gm Premix IVPB 100 mls/hr Q24H HALLE Administration Insulin Human Regular 0 unit 03/12/17 12:00 03/20/17 06:45 Novolin R SC 3 unit Q6 HALLE Administration Protocol Levothyroxine Sodium 25 mcg 03/17/17 06:30 03/20/17 06:46 Synthroid PO 25 mcg DAILY@0630 HALLE Administration Metoprolol Tartrate 25 mg 03/16/17 10:00 03/20/17 09:39 Lopressor PO Not Given BID HALLE Pantoprazole Sodium 20 mg 03/16/17 10:00 03/20/17 10:07 Protonix Ec Tab PO Not Given DAILY HALLE - Patient Studies Lab Studies: Lab Studies 03/20/17 03/20/17 03/20/17 Range/Units 06:22 06:22 05:27 WBC 22.8 H (4.8-10.8) K/uL RBC 2.89 L (3.80-5.20) Mil/uL Hgb 9.1 L (11.0-16.0) g/dL Hct 30.3 L (34.0-47.0) % MCV 104.9 H (81.0-99.0) fL MCH 31.7 H (27.0-31.0) pg MCHC 30.2 L (33.0-37.0) g/dL RDW 16.8 H (11.5-14.5) % Plt Count 179 (130-400) K/uL MPV 12.5 H (7.2-11.7) fL Neut % (Auto) 92.2 H (50.0-75.0) % Lymph % (Auto) 2.8 L (20.0-40.0) % Lincoln % (Auto) 4.5 (0.0-10.0) % Eos % (Auto) 0.3 (0.0-4.0) % Baso % (Auto) 0.2 (0.0-2.0) % Neut # 21.0 H (1.8-7.0) K/uL Lymph # 0.6 L (1.0-4.3) K/uL Lincoln # 1.0 H (0.0-0.8) K/uL Eos # 0.1 (0.0-0.7) K/uL Baso # 0.0 (0.0-0.2) K/uL Neutrophils % (Manual) 94 H (50-75) % Band Neutrophils % 1 (0-2) % Lymphocytes % (Manual) 3 L (20-40) % Monocytes % (Manual) 2 (0-10) % Platelet Estimate Normal (NORMAL) Polychromasia Slight Hypochromasia (manual) Slight Anisocytosis (manual) Slight Macrocytosis (manual) Slight Ovalocytes Slight Puncture Site Rr pCO2 28 L (35-45) mm/Hg pO2 176 H (80-100) mm/Hg HCO3 22.7 (21-28) mmol/L ABG pH 7.45 (7.35-7.45) ABG Total CO2 20.4 L (22-28) mmol/L ABG O2 Saturation 98.7 H (95-98) % ABG Base Excess -2.7 L (-2.0-3.0) mmol/L ABG Hemoglobin 18.6 H (11.7-17.4) g/dL ABG Carboxyhemoglobin 1.7 H (0.5-1.5) % POC ABG HHb (Measured) 1.3 (0.0-5.0) % ABG Methemoglobin 1.0 (0.0-3.0) % Jean Test Pos A-a O2 Difference 3.0 mm/Hg Respiratory Index 0 Hgb O2 Saturation 95.9 (95.0-98.0) % Vent Mode Prvc Mechanical Rate 16 FiO2 30.0 % Tidal Volume 450 PEEP 5 Sodium 148 (132-148) mmol/L Potassium 3.8 (3.6-5.2) mmol/L Chloride 115 H (98-107) mmol/L Carbon Dioxide 24 (22-30) mmol/L Anion Gap 13 (10-20) BUN 166 H* D (7-17) mg/dL Creatinine 4.6 H (0.7-1.2) mg/dL Est GFR ( Amer) 11 Est GFR (Non-Af Amer) 9 POC Glucose (mg/dL) (65-110) mg/dL Random Glucose 234 H (65-105) mg/dL Calcium 7.2 L (8.6-10.4) mg/dl Phosphorus 6.3 H (2.5-4.5) mg/dL Magnesium 3.9 H (1.6-2.3) mg/dL Total Bilirubin 0.3 (0.2-1.3) mg/dL AST 37 H D (14-36) U/L ALT 64 H D (9-52) U/L Alkaline Phosphatase 186 H D (38-126) U/L Total Protein 3.3 L (6.3-8.3) g/dL Albumin 1.8 L D (3.5-5.0) g/dL Globulin 1.5 L (2.2-3.9) gm/dL Albumin/Globulin Ratio 1.2 (1.0-2.1) 03/20/17 03/19/17 03/19/17 Range/Units 04:58 23:43 17:51 WBC (4.8-10.8) K/uL RBC (3.80-5.20) Mil/uL Hgb (11.0-16.0) g/dL Hct (34.0-47.0) % MCV (81.0-99.0) fL MCH (27.0-31.0) pg MCHC (33.0-37.0) g/dL RDW (11.5-14.5) % Plt Count (130-400) K/uL MPV (7.2-11.7) fL Neut % (Auto) (50.0-75.0) % Lymph % (Auto) (20.0-40.0) % Lincoln % (Auto) (0.0-10.0) % Eos % (Auto) (0.0-4.0) % Baso % (Auto) (0.0-2.0) % Neut # (1.8-7.0) K/uL Lymph # (1.0-4.3) K/uL Lincoln # (0.0-0.8) K/uL Eos # (0.0-0.7) K/uL Baso # (0.0-0.2) K/uL Neutrophils % (Manual) (50-75) % Band Neutrophils % (0-2) % Lymphocytes % (Manual) (20-40) % Monocytes % (Manual) (0-10) % Platelet Estimate (NORMAL) Polychromasia Hypochromasia (manual) Anisocytosis (manual) Macrocytosis (manual) Ovalocytes Puncture Site pCO2 (35-45) mm/Hg pO2 (80-100) mm/Hg HCO3 (21-28) mmol/L ABG pH (7.35-7.45) ABG Total CO2 (22-28) mmol/L ABG O2 Saturation (95-98) % ABG Base Excess (-2.0-3.0) mmol/L ABG Hemoglobin (11.7-17.4) g/dL ABG Carboxyhemoglobin (0.5-1.5) % POC ABG HHb (Measured) (0.0-5.0) % ABG Methemoglobin (0.0-3.0) % Jean Test A-a O2 Difference mm/Hg Respiratory Index Hgb O2 Saturation (95.0-98.0) % Vent Mode Mechanical Rate FiO2 % Tidal Volume PEEP Sodium (132-148) mmol/L Potassium (3.6-5.2) mmol/L Chloride (98-107) mmol/L Carbon Dioxide (22-30) mmol/L Anion Gap (10-20) BUN (7-17) mg/dL Creatinine (0.7-1.2) mg/dL Est GFR ( Amer) Est GFR (Non-Af Amer) POC Glucose (mg/dL) 286 H 223 H 216 H (65-110) mg/dL Random Glucose (65-105) mg/dL Calcium (8.6-10.4) mg/dl Phosphorus (2.5-4.5) mg/dL Magnesium (1.6-2.3) mg/dL Total Bilirubin (0.2-1.3) mg/dL AST (14-36) U/L ALT (9-52) U/L Alkaline Phosphatase (38-126) U/L Total Protein (6.3-8.3) g/dL Albumin (3.5-5.0) g/dL Globulin (2.2-3.9) gm/dL Albumin/Globulin Ratio (1.0-2.1) 03/19/17 Range/Units 11:53 WBC (4.8-10.8) K/uL RBC (3.80-5.20) Mil/uL Hgb (11.0-16.0) g/dL Hct (34.0-47.0) % MCV (81.0-99.0) fL MCH (27.0-31.0) pg MCHC (33.0-37.0) g/dL RDW (11.5-14.5) % Plt Count (130-400) K/uL MPV (7.2-11.7) fL Neut % (Auto) (50.0-75.0) % Lymph % (Auto) (20.0-40.0) % Lincoln % (Auto) (0.0-10.0) % Eos % (Auto) (0.0-4.0) % Baso % (Auto) (0.0-2.0) % Neut # (1.8-7.0) K/uL Lymph # (1.0-4.3) K/uL Lincoln # (0.0-0.8) K/uL Eos # (0.0-0.7) K/uL Baso # (0.0-0.2) K/uL Neutrophils % (Manual) (50-75) % Band Neutrophils % (0-2) % Lymphocytes % (Manual) (20-40) % Monocytes % (Manual) (0-10) % Platelet Estimate (NORMAL) Polychromasia Hypochromasia (manual) Anisocytosis (manual) Macrocytosis (manual) Ovalocytes Puncture Site pCO2 (35-45) mm/Hg pO2 (80-100) mm/Hg HCO3 (21-28) mmol/L ABG pH (7.35-7.45) ABG Total CO2 (22-28) mmol/L ABG O2 Saturation (95-98) % ABG Base Excess (-2.0-3.0) mmol/L ABG Hemoglobin (11.7-17.4) g/dL ABG Carboxyhemoglobin (0.5-1.5) % POC ABG HHb (Measured) (0.0-5.0) % ABG Methemoglobin (0.0-3.0) % Jean Test A-a O2 Difference mm/Hg Respiratory Index Hgb O2 Saturation (95.0-98.0) % Vent Mode Mechanical Rate FiO2 % Tidal Volume PEEP Sodium (132-148) mmol/L Potassium (3.6-5.2) mmol/L Chloride (98-107) mmol/L Carbon Dioxide (22-30) mmol/L Anion Gap (10-20) BUN (7-17) mg/dL Creatinine (0.7-1.2) mg/dL Est GFR ( Amer) Est GFR (Non-Af Amer) POC Glucose (mg/dL) 104 (65-110) mg/dL Random Glucose (65-105) mg/dL Calcium (8.6-10.4) mg/dl Phosphorus (2.5-4.5) mg/dL Magnesium (1.6-2.3) mg/dL Total Bilirubin (0.2-1.3) mg/dL AST (14-36) U/L ALT (9-52) U/L Alkaline Phosphatase (38-126) U/L Total Protein (6.3-8.3) g/dL Albumin (3.5-5.0) g/dL Globulin (2.2-3.9) gm/dL Albumin/Globulin Ratio (1.0-2.1) Laboratory Results - last 24 hr 03/19/17 03/19/17 03/19/17 11:53 17:51 23:43 WBC RBC Hgb Hct MCV MCH MCHC RDW Plt Count MPV Neut % (Auto) Lymph % (Auto) [place] % (Auto) Eos % (Auto) Baso % (Auto) Neut # Lymph # [place] # Eos # Baso # Neutrophils % (Manual) Band Neutrophils % Lymphocytes % (Manual) Monocytes % (Manual) Platelet Estimate Polychromasia Hypochromasia (manual) Anisocytosis (manual) Macrocytosis (manual) Ovalocytes Puncture Site pCO2 pO2 HCO3 ABG pH ABG Total CO2 ABG O2 Saturation ABG Base Excess ABG Hemoglobin ABG Carboxyhemoglobin POC ABG HHb (Measured) ABG Methemoglobin Jean Test A-a O2 Difference Respiratory Index Hgb O2 Saturation Vent Mode Mechanical Rate FiO2 Tidal Volume PEEP Sodium Potassium Chloride Carbon Dioxide Anion Gap BUN Creatinine Est GFR ( Amer) Est GFR (Non-Af Amer) POC Glucose (mg/dL) 104 216 H 223 H Random Glucose Calcium Phosphorus Magnesium Total Bilirubin AST ALT Alkaline Phosphatase Total Protein Albumin Globulin Albumin/Globulin Ratio 03/20/17 03/20/17 03/20/17 04:58 05:27 06:22 WBC 22.8 H RBC 2.89 L Hgb 9.1 L Hct 30.3 L MCV 104.9 H MCH 31.7 H MCHC 30.2 L RDW 16.8 H Plt Count 179 MPV 12.5 H Neut % (Auto) 92.2 H Lymph % (Auto) 2.8 L [place] % (Auto) 4.5 Eos % (Auto) 0.3 Baso % (Auto) 0.2 Neut # 21.0 H Lymph # 0.6 L Lincoln # 1.0 H Eos # 0.1 Baso # 0.0 Neutrophils % (Manual) 94 H Band Neutrophils % 1 Lymphocytes % (Manual) 3 L Monocytes % (Manual) 2 Platelet Estimate Normal Polychromasia Slight Hypochromasia (manual) Slight Anisocytosis (manual) Slight Macrocytosis (manual) Slight Ovalocytes Slight Puncture Site Rr pCO2 28 L pO2 176 H HCO3 22.7 ABG pH 7.45 ABG Total CO2 20.4 L ABG O2 Saturation 98.7 H ABG Base Excess -2.7 L ABG Hemoglobin 18.6 H ABG Carboxyhemoglobin 1.7 H POC ABG HHb (Measured) 1.3 ABG Methemoglobin 1.0 Jean Test Pos A-a O2 Difference 3.0 Respiratory Index 0 Hgb O2 Saturation 95.9 Vent Mode Prvc Mechanical Rate 16 FiO2 30.0 Tidal Volume 450 PEEP 5 Sodium Potassium Chloride Carbon Dioxide Anion Gap BUN Creatinine Est GFR ( Amer) Est GFR (Non-Af Amer) POC Glucose (mg/dL) 286 H Random Glucose Calcium Phosphorus Magnesium Total Bilirubin AST ALT Alkaline Phosphatase Total Protein Albumin Globulin Albumin/Globulin Ratio 03/20/17 06:22 WBC RBC Hgb Hct MCV MCH MCHC RDW Plt Count MPV Neut % (Auto) Lymph % (Auto) [place] % (Auto) Eos % (Auto) Baso % (Auto) Neut # Lymph # [place] # Eos # Baso # Neutrophils % (Manual) Band Neutrophils % Lymphocytes % (Manual) Monocytes % (Manual) Platelet Estimate Polychromasia Hypochromasia (manual) Anisocytosis (manual) Macrocytosis (manual) Ovalocytes Puncture Site pCO2 pO2 HCO3 ABG pH ABG Total CO2 ABG O2 Saturation ABG Base Excess ABG Hemoglobin ABG Carboxyhemoglobin POC ABG HHb (Measured) ABG Methemoglobin Jean Test A-a O2 Difference Respiratory Index Hgb O2 Saturation Vent Mode Mechanical Rate FiO2 Tidal Volume PEEP Sodium 148 Potassium 3.8 Chloride 115 H Carbon Dioxide 24 Anion Gap 13 BUN 166 H* D Creatinine 4.6 H Est GFR ( Amer) 11 Est GFR (Non-Af Amer) 9 POC Glucose (mg/dL) Random Glucose 234 H Calcium 7.2 L Phosphorus 6.3 H Magnesium 3.9 H Total Bilirubin 0.3 AST 37 H D ALT 64 H D Alkaline Phosphatase 186 H D Total Protein 3.3 L Albumin 1.8 L D Globulin 1.5 L Albumin/Globulin Ratio 1.2 Fingerstick Blood Sugar Results: 286 Review of Systems - Review of Systems Systems not reviewed;Unavailable: Intubated Critical Care Progress Note - Nutrition Nutrition: Nutrition Category Date Time Status NPO Diet [DIET] Diets 03/11/ Dinner Active Assessment/Plan - Assessment and Plan (Free Text) Assessment: 81 years old female who lives alone, with hx of Pancreatic Cancer, CKD and DM, brought awake and with left side weakness to the ED by EMS, after being found on the floor in her closet. The Head CT showing a large intracranial bleed with a midline shift to the left. Patient intubated. POD#8 s/p right parietal craniotomy, subtotal evacuation of hematoma. Today's Plan: Sister brought in patient's living will today. Patient's code status: DNR. Neuro: intracranial bleed, POD#8 s/p right parietal craniotomy, subtotal evacuation of hematoma Head CT (03/11): large right temporoparietal parenchymal hemorrhage with white matter vasogenic edema, mass effect and 12 mm midline shift to left, associated subarachnoid and subdural hemorrhage on the right Head CT (03/12): slight increase in size of right temporoparietal occipital acute hemorrhage. Minimal subarachnoid hemorrhage and subdural hemorrhage as on previous exam. Midline shift towards the left slightly increase from prior examination, 11mm. No evidence of downward herniation. 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 Dr. Torres, neurology consulted left dense paralysis Dr. Mckee (neurosurg) performed right parietal craniotomy evacuation of hematoma yesterday Head CT (03/13): s/p right temporoparietal craniotomy with moderate residual intraparenchymal hemorrhage identified at the right temporal lobe predominantly and minimally involving the inferior right parietal lobe. Local edema remains prominent exerting mass effect causing 15mm leftward shift and effacement of the 3rd and right lateral ventricles as well as the right cerebral sulci. Mild to moderate right pneumocephaly identified. Minimal right subdural hematoma. Mild mass effect exerted at the right cerebral peduncle with the brainstem below this level unremarkable As per Dr. Allen, these are expected post op findings Head CT (03/18): little interval change involving in the appearance of large right MCA territory hemorrhagic infarction in the right parietal and temporal lobes with vasogenic edema, significant local and regional mass effect with effacement of the right lateral ventricle and 18mm midline shift from right to left. No evidence of uncal herniation or obstructive hydrocephalus. Stable mixed density right convexity subdural collection. Propofol for intubation Cardio: htn Metoprolol 25mg po BID Pulm: intubated Cxray: 03/20/17: lines and tubes in stable position. hyperinflation suggestive for COPD and or emphysematous changes. Biapical pleural thickening with upper lobe granulomatous changes. Scattered nodular densities in both lung marcial. No gross focal infiltrate or effusion. Endo: hx DMII, hypothyroidism accuchecks HgA1C: 6.3 Lipid panel: Triglycerides; 102, cholesterol 143, LDL 57, HDL 76 R ISS Synthroid 25mcg Renal: PAXTON on CKD, electrolyte imbalance BUN/ Cr: 03/20: 166/4.6, rising Dr. Odom consulted, help appreciated -changed ivf to D5W with 3amp bicarb @ 70 cc/ hr as per Dr. Odom Phos 5.2, phoslo TID Renal u/s: diminutive bilateral kidneys with increased echogenicity of the bilateral renal parenchymal cortices suggestive for medical renal disease. Bilateral renal disease sister consented for dialysis, but will not be performed because of patient's living will which was obtained today Heme: Hx pancreatic cancer ID: bands increased to 16, wbc 32.4 -blood cultures negative -sputum culture (03/13): klebsiella pneumoniae -urine culture (03/13): gram positive cocci -Flagyl 500 mg iv q12h -Cefepime 1gm q24h -Zyvox 600 mg q12h (started 03/14) -Dr. Torres consulted, help appreciated Prophylaxis: DVT: SCDs, Heparin 5000 sc q12h GI: Pepcid 20 mg daily palliative care consulted, help appreciated <Matt Alexis - Last Filed: 03/20/17 16:40> CCU Objective - Vital Signs / Intake & Output Intake and Output (Last 8hrs): Intake & Output 03/20/17 03/20/17 03/20/17 06:59 14:59 22:59 Intake Total 510 90 Output Total 615 50 Balance -105 40 Weight 86 lb 4 oz Intake: Intake, IV Amount 300 Right Forearm 300 Tube Feeding 210 90 Output: Urine 165 50 Urethral (Forbes) 165 50 Stool 450 - Medications Active Medications: Active Medications Generic Name Dose Route Start Last Admin Trade Name Freq PRN Reason Stop Dose Admin Acetaminophen 650 mg 03/14/17 17:15 03/14/17 17:23 Tylenol 650mg/20.3ml Solution Ud PO 650 mg Q4 PRN Administration Pain, moderate (4-7) Calcium Acetate 667 mg 03/18/17 14:00 03/20/17 15:00 Phoslo PO 667 mg TID HALLE Administration Famotidine 20 mg 03/20/17 10:30 03/20/17 10:38 Pepcid PO 20 mg DAILY HALLE Administration Heparin Sodium (Porcine) 5,000 units 03/15/17 22:00 03/20/17 09:50 Heparin SC 5,000 units Q12 HALLE Administration Metronidazole 500 mg in 100 mls @ 100 mls/hr 03/14/17 10:00 03/20/17 09:49 Flagyl IVPB 100 mls/hr Q12 HALLE Administration Linezolid 600 mg in 300 mls @ 200 mls/hr 03/14/17 23:45 03/20/17 11:50 Zyvox 600mg/300ml D5w IVPB 200 mls/hr Q12H HALLE Administration Cefepime HCl 1 gm in 50 mls @ 100 mls/hr 03/18/17 14:30 03/20/17 15:00 Maxipime Iv 1 Gm Premix IVPB 100 mls/hr Q24H HALLE Administration Insulin Human Regular 0 unit 03/12/17 12:00 03/20/17 12:43 Novolin R SC 1 unit Q6 HALLE Administration Protocol Levothyroxine Sodium 25 mcg 03/17/17 06:30 03/20/17 06:46 Synthroid PO 25 mcg DAILY@0630 HALLE Administration Metoprolol Tartrate 25 mg 03/16/17 10:00 03/20/17 09:39 Lopressor PO Not Given BID HALLE - Patient Studies Lab Studies: Lab Studies 03/20/17 03/20/17 03/20/17 Range/Units 12:41 09:38 06:22 WBC (4.8-10.8) K/uL RBC (3.80-5.20) Mil/uL Hgb (11.0-16.0) g/dL Hct (34.0-47.0) % MCV (81.0-99.0) fL MCH (27.0-31.0) pg MCHC (33.0-37.0) g/dL RDW (11.5-14.5) % Plt Count (130-400) K/uL MPV (7.2-11.7) fL Neut % (Auto) (50.0-75.0) % Lymph % (Auto) (20.0-40.0) % [place] % (Auto) (0.0-10.0) % Eos % (Auto) (0.0-4.0) % Baso % (Auto) (0.0-2.0) % Neut # (1.8-7.0) K/uL Lymph # (1.0-4.3) K/uL [place] # (0.0-0.8) K/uL Eos # (0.0-0.7) K/uL Baso # (0.0-0.2) K/uL Neutrophils % (Manual) (50-75) % Band Neutrophils % (0-2) % Lymphocytes % (Manual) (20-40) % Monocytes % (Manual) (0-10) % Platelet Estimate (NORMAL) Polychromasia Hypochromasia (manual) Anisocytosis (manual) Macrocytosis (manual) Ovalocytes Puncture Site pCO2 (35-45) mm/Hg pO2 (80-100) mm/Hg HCO3 (21-28) mmol/L ABG pH (7.35-7.45) ABG Total CO2 (22-28) mmol/L ABG O2 Saturation (95-98) % ABG Base Excess (-2.0-3.0) mmol/L ABG Hemoglobin (11.7-17.4) g/dL ABG Carboxyhemoglobin (0.5-1.5) % POC ABG HHb (Measured) (0.0-5.0) % ABG Methemoglobin (0.0-3.0) % Jean Test A-a O2 Difference mm/Hg Respiratory Index Hgb O2 Saturation (95.0-98.0) % Vent Mode Mechanical Rate FiO2 % Tidal Volume PEEP Sodium 148 (132-148) mmol/L Potassium 3.8 (3.6-5.2) mmol/L Chloride 115 H (98-107) mmol/L Carbon Dioxide 24 (22-30) mmol/L Anion Gap 13 (10-20) BUN 166 H* D (7-17) mg/dL Creatinine 4.6 H (0.7-1.2) mg/dL Est GFR ( Amer) 11 Est GFR (Non-Af Amer) 9 POC Glucose (mg/dL) 159 H (65-110) mg/dL Random Glucose 234 H (65-105) mg/dL Calcium 7.2 L (8.6-10.4) mg/dl Phosphorus 6.3 H (2.5-4.5) mg/dL Magnesium 3.9 H (1.6-2.3) mg/dL Total Bilirubin 0.3 (0.2-1.3) mg/dL AST 37 H D (14-36) U/L ALT 64 H D (9-52) U/L Alkaline Phosphatase 186 H D (38-126) U/L Total Protein 3.3 L (6.3-8.3) g/dL Albumin 1.8 L D (3.5-5.0) g/dL Globulin 1.5 L (2.2-3.9) gm/dL Albumin/Globulin Ratio 1.2 (1.0-2.1) C. difficile Ag & Toxin Negative (NEGATIVE) 03/20/17 03/20/17 03/20/17 Range/Units 06:22 05:27 04:58 WBC 22.8 H (4.8-10.8) K/uL RBC 2.89 L (3.80-5.20) Mil/uL Hgb 9.1 L (11.0-16.0) g/dL Hct 30.3 L (34.0-47.0) % MCV 104.9 H (81.0-99.0) fL MCH 31.7 H (27.0-31.0) pg MCHC 30.2 L (33.0-37.0) g/dL RDW 16.8 H (11.5-14.5) % Plt Count 179 (130-400) K/uL MPV 12.5 H (7.2-11.7) fL Neut % (Auto) 92.2 H (50.0-75.0) % Lymph % (Auto) 2.8 L (20.0-40.0) % [place] % (Auto) 4.5 (0.0-10.0) % Eos % (Auto) 0.3 (0.0-4.0) % Baso % (Auto) 0.2 (0.0-2.0) % Neut # 21.0 H (1.8-7.0) K/uL Lymph # 0.6 L (1.0-4.3) K/uL [place] # 1.0 H (0.0-0.8) K/uL Eos # 0.1 (0.0-0.7) K/uL Baso # 0.0 (0.0-0.2) K/uL Neutrophils % (Manual) 94 H (50-75) % Band Neutrophils % 1 (0-2) % Lymphocytes % (Manual) 3 L (20-40) % Monocytes % (Manual) 2 (0-10) % Platelet Estimate Normal (NORMAL) Polychromasia Slight Hypochromasia (manual) Slight Anisocytosis (manual) Slight Macrocytosis (manual) Slight Ovalocytes Slight Puncture Site Rr pCO2 28 L (35-45) mm/Hg pO2 176 H (80-100) mm/Hg HCO3 22.7 (21-28) mmol/L ABG pH 7.45 (7.35-7.45) ABG Total CO2 20.4 L (22-28) mmol/L ABG O2 Saturation 98.7 H (95-98) % ABG Base Excess -2.7 L (-2.0-3.0) mmol/L ABG Hemoglobin 18.6 H (11.7-17.4) g/dL ABG Carboxyhemoglobin 1.7 H (0.5-1.5) % POC ABG HHb (Measured) 1.3 (0.0-5.0) % ABG Methemoglobin 1.0 (0.0-3.0) % Jean Test Pos A-a O2 Difference 3.0 mm/Hg Respiratory Index 0 Hgb O2 Saturation 95.9 (95.0-98.0) % Vent Mode Prvc Mechanical Rate 16 FiO2 30.0 % Tidal Volume 450 PEEP 5 Sodium (132-148) mmol/L Potassium (3.6-5.2) mmol/L Chloride (98-107) mmol/L Carbon Dioxide (22-30) mmol/L Anion Gap (10-20) BUN (7-17) mg/dL Creatinine (0.7-1.2) mg/dL Est GFR ( Amer) Est GFR (Non-Af Amer) POC Glucose (mg/dL) 286 H (65-110) mg/dL Random Glucose (65-105) mg/dL Calcium (8.6-10.4) mg/dl Phosphorus (2.5-4.5) mg/dL Magnesium (1.6-2.3) mg/dL Total Bilirubin (0.2-1.3) mg/dL AST (14-36) U/L ALT (9-52) U/L Alkaline Phosphatase (38-126) U/L Total Protein (6.3-8.3) g/dL Albumin (3.5-5.0) g/dL Globulin (2.2-3.9) gm/dL Albumin/Globulin Ratio (1.0-2.1) C. difficile Ag & Toxin (NEGATIVE) 03/19/17 03/19/17 Range/Units 23:43 17:51 WBC (4.8-10.8) K/uL RBC (3.80-5.20) Mil/uL Hgb (11.0-16.0) g/dL Hct (34.0-47.0) % MCV (81.0-99.0) fL MCH (27.0-31.0) pg MCHC (33.0-37.0) g/dL RDW (11.5-14.5) % Plt Count (130-400) K/uL MPV (7.2-11.7) fL Neut % (Auto) (50.0-75.0) % Lymph % (Auto) (20.0-40.0) % [place] % (Auto) (0.0-10.0) % Eos % (Auto) (0.0-4.0) % Baso % (Auto) (0.0-2.0) % Neut # (1.8-7.0) K/uL Lymph # (1.0-4.3) K/uL [place] # (0.0-0.8) K/uL Eos # (0.0-0.7) K/uL Baso # (0.0-0.2) K/uL Neutrophils % (Manual) (50-75) % Band Neutrophils % (0-2) % Lymphocytes % (Manual) (20-40) % Monocytes % (Manual) (0-10) % Platelet Estimate (NORMAL) Polychromasia Hypochromasia (manual) Anisocytosis (manual) Macrocytosis (manual) Ovalocytes Puncture Site pCO2 (35-45) mm/Hg pO2 (80-100) mm/Hg HCO3 (21-28) mmol/L ABG pH (7.35-7.45) ABG Total CO2 (22-28) mmol/L ABG O2 Saturation (95-98) % ABG Base Excess (-2.0-3.0) mmol/L ABG Hemoglobin (11.7-17.4) g/dL ABG Carboxyhemoglobin (0.5-1.5) % POC ABG HHb (Measured) (0.0-5.0) % ABG Methemoglobin (0.0-3.0) % Jean Test A-a O2 Difference mm/Hg Respiratory Index Hgb O2 Saturation (95.0-98.0) % Vent Mode Mechanical Rate FiO2 % Tidal Volume PEEP Sodium (132-148) mmol/L Potassium (3.6-5.2) mmol/L Chloride (98-107) mmol/L Carbon Dioxide (22-30) mmol/L Anion Gap (10-20) BUN (7-17) mg/dL Creatinine (0.7-1.2) mg/dL Est GFR ( Amer) Est GFR (Non-Af Amer) POC Glucose (mg/dL) 223 H 216 H (65-110) mg/dL Random Glucose (65-105) mg/dL Calcium (8.6-10.4) mg/dl Phosphorus (2.5-4.5) mg/dL Magnesium (1.6-2.3) mg/dL Total Bilirubin (0.2-1.3) mg/dL AST (14-36) U/L ALT (9-52) U/L Alkaline Phosphatase (38-126) U/L Total Protein (6.3-8.3) g/dL Albumin (3.5-5.0) g/dL Globulin (2.2-3.9) gm/dL Albumin/Globulin Ratio (1.0-2.1) C. difficile Ag & Toxin (NEGATIVE) Laboratory Results - last 24 hr 03/19/17 03/19/17 03/20/17 17:51 23:43 04:58 WBC RBC Hgb Hct MCV MCH MCHC RDW Plt Count MPV Neut % (Auto) Lymph % (Auto) [place] % (Auto) Eos % (Auto) Baso % (Auto) Neut # Lymph # [place] # Eos # Baso # Neutrophils % (Manual) Band Neutrophils % Lymphocytes % (Manual) Monocytes % (Manual) Platelet Estimate Polychromasia Hypochromasia (manual) Anisocytosis (manual) Macrocytosis (manual) Ovalocytes Puncture Site pCO2 pO2 HCO3 ABG pH ABG Total CO2 ABG O2 Saturation ABG Base Excess ABG Hemoglobin ABG Carboxyhemoglobin POC ABG HHb (Measured) ABG Methemoglobin Jean Test A-a O2 Difference Respiratory Index Hgb O2 Saturation Vent Mode Mechanical Rate FiO2 Tidal Volume PEEP Sodium Potassium Chloride Carbon Dioxide Anion Gap BUN Creatinine Est GFR ( Amer) Est GFR (Non-Af Amer) POC Glucose (mg/dL) 216 H 223 H 286 H Random Glucose Calcium Phosphorus Magnesium Total Bilirubin AST ALT Alkaline Phosphatase Total Protein Albumin Globulin Albumin/Globulin Ratio C. difficile Ag & Toxin 03/20/17 03/20/17 03/20/17 05:27 06:22 06:22 WBC 22.8 H RBC 2.89 L Hgb 9.1 L Hct 30.3 L MCV 104.9 H MCH 31.7 H MCHC 30.2 L RDW 16.8 H Plt Count 179 MPV 12.5 H Neut % (Auto) 92.2 H Lymph % (Auto) 2.8 L [place] % (Auto) 4.5 Eos % (Auto) 0.3 Baso % (Auto) 0.2 Neut # 21.0 H Lymph # 0.6 L [place] # 1.0 H Eos # 0.1 Baso # 0.0 Neutrophils % (Manual) 94 H Band Neutrophils % 1 Lymphocytes % (Manual) 3 L Monocytes % (Manual) 2 Platelet Estimate Normal Polychromasia Slight Hypochromasia (manual) Slight Anisocytosis (manual) Slight Macrocytosis (manual) Slight Ovalocytes Slight Puncture Site Rr pCO2 28 L pO2 176 H HCO3 22.7 ABG pH 7.45 ABG Total CO2 20.4 L ABG O2 Saturation 98.7 H ABG Base Excess -2.7 L ABG Hemoglobin 18.6 H ABG Carboxyhemoglobin 1.7 H POC ABG HHb (Measured) 1.3 ABG Methemoglobin 1.0 Jean Test Pos A-a O2 Difference 3.0 Respiratory Index 0 Hgb O2 Saturation 95.9 Vent Mode Prvc Mechanical Rate 16 FiO2 30.0 Tidal Volume 450 PEEP 5 Sodium 148 Potassium 3.8 Chloride 115 H Carbon Dioxide 24 Anion Gap 13 BUN 166 H* D Creatinine 4.6 H Est GFR ( Amer) 11 Est GFR (Non-Af Amer) 9 POC Glucose (mg/dL) Random Glucose 234 H Calcium 7.2 L Phosphorus 6.3 H Magnesium 3.9 H Total Bilirubin 0.3 AST 37 H D ALT 64 H D Alkaline Phosphatase 186 H D Total Protein 3.3 L Albumin 1.8 L D Globulin 1.5 L Albumin/Globulin Ratio 1.2 C. difficile Ag & Toxin 03/20/17 03/20/17 09:38 12:41 WBC RBC Hgb Hct MCV MCH MCHC RDW Plt Count MPV Neut % (Auto) Lymph % (Auto) [place] % (Auto) Eos % (Auto) Baso % (Auto) Neut # Lymph # [place] # Eos # Baso # Neutrophils % (Manual) Band Neutrophils % Lymphocytes % (Manual) Monocytes % (Manual) Platelet Estimate Polychromasia Hypochromasia (manual) Anisocytosis (manual) Macrocytosis (manual) Ovalocytes Puncture Site pCO2 pO2 HCO3 ABG pH ABG Total CO2 ABG O2 Saturation ABG Base Excess ABG Hemoglobin ABG Carboxyhemoglobin POC ABG HHb (Measured) ABG Methemoglobin Jean Test A-a O2 Difference Respiratory Index Hgb O2 Saturation Vent Mode Mechanical Rate FiO2 Tidal Volume PEEP Sodium Potassium Chloride Carbon Dioxide Anion Gap BUN Creatinine Est GFR ( Amer) Est GFR (Non-Af Amer) POC Glucose (mg/dL) 159 H Random Glucose Calcium Phosphorus Magnesium Total Bilirubin AST ALT Alkaline Phosphatase Total Protein Albumin Globulin Albumin/Globulin Ratio C. difficile Ag & Toxin Negative Critical Care Progress Note - Nutrition Nutrition: Nutrition Category Date Time Status NPO Diet [DIET] Diets 03/11/17 Dinner Active Attending/Attestation - Attestation I have personally seen and examined this patient.: Yes I have fully participated in the care of the patient.: Yes I have reviewed all pertinent clinical information: Yes Notes (Text): 03/20/17 16:34 Patient seen and examined in the intensive care unit. Case discussed with house staff in the morning rounds. Remained intubated on ventilatory support without any change in mental status pt has a living will Patient is DNR Worsening renal function noted
[2017-03-20] MEDS: Linezolid 600 mg in D5W 300 ml 600 MG/300 ML BAG IVPB SCH ×2 (11:50→23:35)
--- NOTE | 2017-03-20 13:31 | CP.PCM.PN ---
Subjective - Date & Time of Evaluation Date of Evaluation: 03/20/17 Time of Evaluation: 13:29 - Subjective Subjective: CLINICALLY OPENS EYES FOR DIALYSIS RENAL FUNCTION NOT IMPROVING URINE OUT PUT LOW IV AB , HIGH WBC WITH BANDS CONT ICU MANAGEMENT Objective - Vital Signs/Intake and Output Vital Signs (last 24 hours): Temp Pulse Resp BP Pulse Ox 97.5 F L 84 16 80/46 L 100 03/20/17 08:00 03/20/17 09:00 03/20/17 09:00 03/20/17 09:39 03/20/17 09:00 Intake and Output: 03/20/17 03/20/17 11:59 23:59 Intake Total 390 Output Total 620 Balance -230 - Medications Medications: Current Medications Acetaminophen (Tylenol 650mg/20.3ml Solution Ud) 650 mg PO Q4 PRN PRN Reason: Pain, moderate (4-7) Last Admin: 03/14/17 17:23 Dose: 650 mg Calcium Acetate (Phoslo) 667 mg PO TID [facility] Last Admin: 03/20/17 09:50 Dose: 667 mg Famotidine (Pepcid) 20 mg PO DAILY [facility] Last Admin: 03/20/17 10:38 Dose: 20 mg Heparin Sodium (Porcine) (Heparin) 5,000 units SC Q12 [facility] Last Admin: 03/20/17 09:50 Dose: 5,000 units Metronidazole (Flagyl) 500 mg in 100 mls @ 100 mls/hr IVPB Q12 [facility] Last Admin: 03/20/17 09:49 Dose: 100 mls/hr Linezolid (Zyvox 600mg/300ml D5w) 600 mg in 300 mls @ 200 mls/hr IVPB Q12H [facility] Last Admin: 03/20/17 11:50 Dose: 200 mls/hr Cefepime HCl (Maxipime Iv 1 Gm Premix) 1 gm in 50 mls @ 100 mls/hr IVPB Q24H [facility] Last Admin: 03/19/17 14:02 Dose: 100 mls/hr Insulin Human Regular (Novolin R) 0 unit SC Q6 [facility] PRN Reason: Protocol Last Admin: 03/20/17 12:43 Dose: 1 unit Levothyroxine Sodium (Synthroid) 25 mcg PO DAILY@0630 [facility] Last Admin: 03/20/17 06:46 Dose: 25 mcg Metoprolol Tartrate (Lopressor) 25 mg PO BID [facility] Last Admin: 03/20/17 09:39 Dose: Not Given - Labs Labs: 03/20/17 06:22 03/20/17 06:22 PT 10.2 SECONDS (9.7-12.2) 03/12/17 06:20 INR 0.9 03/12/17 06:20 APTT 27 SECONDS (21-34) 03/12/17 06:20 Assessment and Plan (1) Intracranial hemorrhage Status: Acute (2) Renal failure Status: Acute (3) Sepsis Status: Acute
--- NOTE | 2017-03-20 14:44 | CP.PCM.PN ---
Subjective - Date & Time of Evaluation Date of Evaluation: 03/20/17 Time of Evaluation: 14:29 - Subjective Subjective: Remains unresponsive to stimuli. Objective - Vital Signs/Intake and Output Vital Signs (last 24 hours): Temp Pulse Resp BP Pulse Ox 97.5 F L 84 16 80/46 L 100 03/20/17 08:00 03/20/17 09:00 03/20/17 09:00 03/20/17 09:39 03/20/17 09:00 Intake and Output: 03/20/17 03/20/17 06:59 18:59 Intake Total 730 90 Output Total 725 50 Balance 5 40 - Medications Medications: Current Medications Acetaminophen (Tylenol 650mg/20.3ml Solution Ud) 650 mg PO Q4 PRN PRN Reason: Pain, moderate (4-7) Last Admin: 03/14/17 17:23 Dose: 650 mg Calcium Acetate (Phoslo) 667 mg PO TID [facility] Last Admin: 03/20/17 09:50 Dose: 667 mg Famotidine (Pepcid) 20 mg PO DAILY [facility] Last Admin: 03/20/17 10:38 Dose: 20 mg Heparin Sodium (Porcine) (Heparin) 5,000 units SC Q12 [facility] Last Admin: 03/20/17 09:50 Dose: 5,000 units Metronidazole (Flagyl) 500 mg in 100 mls @ 100 mls/hr IVPB Q12 [facility] Last Admin: 03/20/17 09:49 Dose: 100 mls/hr Linezolid (Zyvox 600mg/300ml D5w) 600 mg in 300 mls @ 200 mls/hr IVPB Q12H [facility] Last Admin: 03/20/17 11:50 Dose: 200 mls/hr Cefepime HCl (Maxipime Iv 1 Gm Premix) 1 gm in 50 mls @ 100 mls/hr IVPB Q24H [facility] Last Admin: 03/19/17 14:02 Dose: 100 mls/hr Insulin Human Regular (Novolin R) 0 unit SC Q6 [facility] PRN Reason: Protocol Last Admin: 03/20/17 12:43 Dose: 1 unit Levothyroxine Sodium (Synthroid) 25 mcg PO DAILY@0630 [facility] Last Admin: 03/20/17 06:46 Dose: 25 mcg Metoprolol Tartrate (Lopressor) 25 mg PO BID [facility] Last Admin: 03/20/17 09:39 Dose: Not Given - Labs Labs: 03/20/17 06:22 03/20/17 06:22 PT 10.2 SECONDS (9.7-12.2) 03/12/17 06:20 INR 0.9 03/12/17 06:20 APTT 27 SECONDS (21-34) 03/12/17 06:20 - Constitutional Appears: In Acute Distress - Head Exam Additional comments: Right head dressing , post surgical evacuation of brain hemathoma - Eye Exam Pupil Exam: Fixed - ENT Exam Additional comments: ETT - Neck Exam Neck Exam: Normal Inspection - Respiratory Exam Additional comments: On MV - Cardiovascular Exam Cardiovascular Exam: Tachycardia - GI/Abdominal Exam GI & Abdominal Exam: Soft, Hypoactive Bowel Sounds - Rectal Exam Rectal Exam: Deferred - Extremities Exam Extremities Exam: Normal Inspection - Back Exam Back Exam: NORMAL INSPECTION - Neurological Exam Neurological Exam: Motor Sensory Deficit Neuro motor strength exam: Left Upper Extremity: 0, Right Upper Extremity: 0, Left Lower Extremity: 0, Right Lower Extremity: 0 - Psychiatric Exam Psychiatric exam: Flat Affect - Skin Skin Exam: Normal Color, Warm Assessment and Plan - Assessment and Plan (Free Text) Assessment: Patient remains in same clinical condition , unresponsive to stimuli/Patient's sister at bed side visiting. The sister has brought in Living Will signed by the patient in the past. The Living Will clearly states that patient would not want any agressive interventions to prolong her life if meaningful recovery was not expected. The sister Barbara admitted she brought the Living Will in just because she did not understand its meaning. After discussed it with nursing she admitted regretting bringing it in , in the first place. She would want all agressive interventions to be kept in place despite patient's wishes. I met with the sister and helped her understand how important it was to respect patient's wishes, and that the existance of the Living Will makes it easier on all of us , especially on her to decide on care. She agreed but continued crying. I offered spiritual support what she accepted. Emergency Nurse Sue was made aware of it. The sister asked for life prolonging measures to be maintained in place until the res of siblings arrives from [place]. I made sister aware that patient's kidneys are not functioning well and for that reason her condition may get worse and will have just to keep patient comfortable as hemodyalisis would be agreessive treatment against her wishes. The sister stated understanding. Impression * Patient remains acutely ill with poor prognosis * The copy of Living Will indicates DNR * Sister Barbara is still having difficult time fallowing patient's wishes and needs a lot of support * The rest of family is arriving from [facility] and sister Barbara is asking for continuation of life support until Saturday Suggestions * Would make patient DNR as per her Living Will * Removal from life support planned for Saturday, once the family from [place] arrives to say final Goodbye
[2017-03-20] MEDS: Cefepime IV 1 gm in Dextrose 1 GM/50 ML BAG IVPB SCH (15:00)
--- NOTE | 2017-03-20 18:46 | CP.PCM.PN ---
Subjective - Date & Time of Evaluation Date of Evaluation: 03/20/17 Time of Evaluation: 18:46 - Subjective Subjective: pt is seen and examined, follow up consult is dictated #[id number] Objective - Vital Signs/Intake and Output Vital Signs (last 24 hours): Temp Pulse Resp BP Pulse Ox 97.5 F L 109 H 17 97/53 L 98 03/20/17 08:00 03/20/17 17:00 03/20/17 17:00 03/20/17 17:18 03/20/17 17:00 Intake and Output: 03/20/17 03/20/17 06:59 18:59 Intake Total 730 810 Output Total 725 390 Balance 5 420 - Medications Medications: Current Medications Acetaminophen (Tylenol 650mg/20.3ml Solution Ud) 650 mg PO Q4 PRN PRN Reason: Pain, moderate (4-7) Last Admin: 03/14/17 17:23 Dose: 650 mg Calcium Acetate (Phoslo) 667 mg PO TID [facility] Last Admin: 03/20/17 17:19 Dose: 667 mg Famotidine (Pepcid) 20 mg PO DAILY [facility] Last Admin: 03/20/17 10:38 Dose: 20 mg Heparin Sodium (Porcine) (Heparin) 5,000 units SC Q12 [facility] Last Admin: 03/20/17 09:50 Dose: 5,000 units Metronidazole (Flagyl) 500 mg in 100 mls @ 100 mls/hr IVPB Q12 [facility] Last Admin: 03/20/17 09:49 Dose: 100 mls/hr Linezolid (Zyvox 600mg/300ml D5w) 600 mg in 300 mls @ 200 mls/hr IVPB Q12H [facility] Last Admin: 03/20/17 11:50 Dose: 200 mls/hr Cefepime HCl (Maxipime Iv 1 Gm Premix) 1 gm in 50 mls @ 100 mls/hr IVPB Q24H [facility] Last Admin: 03/20/17 15:00 Dose: 100 mls/hr Insulin Human Regular (Novolin R) 0 unit SC Q6 [facility] PRN Reason: Protocol Last Admin: 03/20/17 18:37 Dose: 2 unit Levothyroxine Sodium (Synthroid) 25 mcg PO DAILY@0630 [facility] Last Admin: 03/20/17 06:46 Dose: 25 mcg Metoprolol Tartrate (Lopressor) 25 mg PO BID [facility] Last Admin: 03/20/17 17:18 Dose: Not Given - Labs Labs: 03/20/17 06:22 03/20/17 06:22 PT 10.2 SECONDS (9.7-12.2) 03/12/17 06:20 INR 0.9 03/12/17 06:20 APTT 27 SECONDS (21-34) 03/12/17 06:20
[2017-03-20] MEDS: Sodium Chloride 0.9% 1,000 ML IV SCH (20:00)
[2017-03-21] MEDS: (Novolin R) Insulin Human Regular 100 units/ml vial SC SCH ×5 (00:25→23:51)
--- NOTE | 2017-03-21 02:57 | PN ---
DATE: FOLLOWUP RENAL CONSULTATION LOCATION: The patient is located in ICU bed 8. REQUESTING BY: Jordi Bedolla MD REASON FOR FOLLOWUP: Acute renal failure on chronic kidney disease. SUBJECTIVE: Ms. Watson is an 81-year-old elderly female with past medical history significant for hypertension, chronic kidney disease, AFib, osteoporosis, and fracture of the left arm, who was found in the closet lying with door lock and phoned by neighbor and subsequently, the patient was found to have a left-sided weakness with large right temporoparietal bleed and status post craniotomy. Remains intubated with worsening renal function status post hypotonic saline and mannitol infusion. The patient is also being treated for possible sepsis. The patient is on ventilator, not responding to deep painful stimuli or verbal stimuli. CURRENT MEDICATIONS: Include as follows; Flagyl 500 mg q. 12 hours, subcu heparin 5000 units q. 12 hours, metoprolol 25 mg p.o. b.i.d., cefepime 1 g q. 24 hours, Pepcid 20 mg p.o. daily, calcium acetate 667 mg p.o. t.i.d., levothyroxine 25 mcg daily, Tylenol, and Zyvox 600 mg q. 12 hours. PHYSICAL EXAMINATION GENERAL: Ms. Watson is an 81-year-old elderly female, thin built, on ventilator, not in distress, not responding to deep painful stimuli or verbal stimuli. HEENT: Pupils are normal. Conjunctivae pink. Sclerae are anicteric. On ventilator. Trachea is midline. LUNGS: Symmetric on both sides. Bilateral breath sounds present, no crackles. CARDIOVASCULAR SYSTEM: [place] at the fifth intercostal space, midclavicular line. S1 and S2 audible. Slightly tachycardic. No murmur or gallop. ABDOMEN: Normal in appearance, soft, tympanic. No guarding. No rigidity. No hepatosplenomegaly. CENTRAL NERVOUS SYSTEM: On ventilator, not responding to deep painful stimuli. EXTREMITIES: No cyanosis, no clubbing, no edema. LABORATORY DATA: Laboratory data include as follows, as of 03/20/2017, WBC 22.8, hemoglobin 9.1, hematocrit 30.3, and platelets 179. ABG; pH is 7.45, pCO2 is 28, pO2 is 176, bicarbonate is 24.4, and saturation is 98.7. Vent settings: AC 16, tidal volume 450, FiO2 of 30%, and PEEP of 5. Sodium 148, potassium 3.8, chloride 115, CO2 24, BUN 166, creatinine 4.6, glucose 234, calcium 7.2, phosphorus 6.3, and magnesium 3.9. Total bilirubin 0.38, AST 37, ALT 64, alkaline phosphatase 186, total protein 3.3, and albumin is 1.8. Stool for C. diff toxin is negative. ASSESSMENT: In summary, Ms. Watson is an 81-year-old elderly female with thin built with history of hypertension, chronic kidney disease, and atrial fibrillation who was found on the floor by the neighbor with door lock found to have left-sided weakness and right intracranial bleed status post evacuation of the right temporoparietal hematoma on ventilator. 1. Renal failure acute on chronic kidney disease secondary to intravascular depletion and also secondary to dehydration, on hypotonic mannitol. 2. Status post craniotomy for intracranial bleed. 3. Respiratory failure. 4. Hypothyroidism. PLAN: Continue IV fluids, normal saline at 70 mL/hour just started, continue to monitor BMP. Overall prognosis is very poor. Now, the patient is a DNR. The patient has a living will as per the RN this evening. Orlando Odom MD
[2017-03-21] MEDS: Levothyroxine 25 MCG TAB PO SCH (05:35)
[2017-03-21 06:34] LABS: BASO % 0.2 % (0.0-2.0); EOS % 0.1 % (0.0-4.0); HEMATOCRIT 32.3 % (34.0-47.0); LYMPH # 1.1 K/uL (1.0-4.3); LYMPH % 4.7 % (20.0-40.0); MEAN CELL VOLUME 110.7 fL (81.0-99.0); MEAN CORPUSCULAR HEMOGLOBIN 32.2 pg (27.0-31.0); MEAN CORPUSCULAR HGB CONC 29.1 g/dL (33.0-37.0); MEAN PLATELET VOLUME 13.1 fL (7.2-11.7); MONO # 0.7 K/uL (0.0-0.8); MONO % 3.1 % (0.0-10.0); NRBC % 0.4 % (0.0-2.0); PLATELET COUNT 232 K/uL (130-400); RED CELL DISTRIBUTION WIDTH 18.2 % (11.5-14.5); WHITE BLOOD COUNT 22.5 K/uL (4.8-10.8)
[2017-03-21 07:45] LABS: POTASSIUM 4.2 mmol/L (3.6-5.2)
--- NOTE | 2017-03-21 07:45 | CP.CCUPN ---
<Rosaura Paz - Last Filed: 03/21/17 11:34> CCU Subjective - Physician Review Subjective (Free Text): Patient seen and examined at bedside. Patient intubated is intubated and therefore ROS unobtainable. POD#8 s/p right parietal craniotomy, subtotal evacuation of hematoma. Patient spontaneously opens eyes. No acute events overnight. No change in patient's clinical status. CCU Objective - Vital Signs / Intake & Output Vital Signs (Last 4 hours): Vital Signs Temp Pulse Resp BP Pulse Ox 03/21/17 06:01 91 H 20 110/45 L 96 03/21/17 05:01 92 H 19 96/46 L 03/21/17 04:00 97.8 F 103 H 18 90/50 L 98 Intake and Output (Last 8hrs): Intake & Output 03/20/17 03/21/17 03/21/17 22:59 06:59 14:59 Intake Total 890 820 Output Total 290 250 Balance 600 570 Weight 92 lb 2 oz Intake: Intake, IV Amount 240 720 Right Upper arm 240 720 Oral 530 100 Tube Feeding 120 Output: Urine 40 Urethral (Forbes) 40 Stool 250 250 - Physical Exam Head: Positive for: Normocephalic, Other (dressing in place post craniotomy ) Pupils: Positive for: Sluggish Mouth: Positive for: Dry Respiratory/Chest: Positive for: Good Air Exchange Cardiovascular: Positive for: Normal S1, S2 Lower Extremity: Positive for: Edema Skin: Positive for: Warm Psychiatric: Negative for: Alert, Oriented x 3 - Medications Active Medications: Active Medications Generic Name Dose Route Start Last Admin Trade Name Afshin PRN Reason Stop Dose Admin Acetaminophen 650 mg 03/14/17 17:15 03/14/17 17:23 Tylenol 650mg/20.3ml Solution Ud PO 650 mg Q4 PRN Administration Pain, moderate (4-7) Calcium Acetate 667 mg 03/18/17 14:00 03/20/17 17:19 Phoslo PO 667 mg TID HALLE Administration Famotidine 20 mg 03/20/17 10:30 03/20/17 10:38 Pepcid PO 20 mg DAILY HALLE Administration Heparin Sodium (Porcine) 5,000 units 03/15/17 22:00 03/20/17 22:25 Heparin SC 5,000 units Q12 HALLE Administration Metronidazole 500 mg in 100 mls @ 100 mls/hr 03/14/17 10:00 03/20/17 22:25 Flagyl IVPB 100 mls/hr Q12 HALLE Administration Linezolid 600 mg in 300 mls @ 200 mls/hr 03/14/17 23:45 03/20/17 23:35 Zyvox 600mg/300ml D5w IVPB 200 mls/hr Q12H HALLE Administration Cefepime HCl 1 gm in 50 mls @ 100 mls/hr 03/18/17 14:30 03/20/17 15:00 Maxipime Iv 1 Gm Premix IVPB 100 mls/hr Q24H HALLE Administration Sodium Chloride 1,000 mls @ 70 mls/hr 03/20/17 19:00 03/20/17 20:00 Sodium Chloride 0.9% IV 70 mls/hr .[id number] HALLE Administration Insulin Human Regular 0 unit 03/12/17 12:00 03/21/17 05:40 Novolin R SC 2 unit Q6 HALLE Administration Protocol Levothyroxine Sodium 25 mcg 03/17/17 06:30 03/21/17 05:35 Synthroid PO 25 mcg DAILY@0630 HALLE Administration Lorazepam 2 mg 03/20/17 23:25 03/20/17 23:35 Ativan IVP 2 mg Q6H PRN Administration Sedation Metoprolol Tartrate 25 mg 03/16/17 10:00 03/20/17 17:18 Lopressor PO Not Given BID HALLE - Patient Studies Lab Studies: Lab Studies 03/21/17 03/21/17 03/20/17 Range/Units 06:26 05:20 23:32 WBC 22.5 H (4.8-10.8) K/uL RBC 2.92 L (3.80-5.20) Mil/uL Hgb 9.4 L (11.0-16.0) g/dL Hct 32.3 L (34.0-47.0) % MCV 110.7 H D (81.0-99.0) fL MCH 32.2 H (27.0-31.0) pg MCHC 29.1 L (33.0-37.0) g/dL RDW 18.2 H (11.5-14.5) % Plt Count 232 (130-400) K/uL MPV 13.1 H (7.2-11.7) fL Neut % (Auto) 91.9 H (50.0-75.0) % Lymph % (Auto) 4.7 L (20.0-40.0) % Thomas % (Auto) 3.1 (0.0-10.0) % Eos % (Auto) 0.1 (0.0-4.0) % Baso % (Auto) 0.2 (0.0-2.0) % Neut # 20.7 H (1.8-7.0) K/uL Lymph # 1.1 (1.0-4.3) K/uL Thomas # 0.7 (0.0-0.8) K/uL Eos # 0.0 (0.0-0.7) K/uL Baso # 0.0 (0.0-0.2) K/uL Neutrophils % (Manual) (50-75) % Band Neutrophils % (0-2) % Lymphocytes % (Manual) (20-40) % Monocytes % (Manual) (0-10) % Platelet Estimate (NORMAL) Polychromasia Hypochromasia (manual) Anisocytosis (manual) Macrocytosis (manual) Ovalocytes BUN (7-17) mg/dL POC Glucose (mg/dL) 285 H 223 H (65-110) mg/dL C. difficile Ag & Toxin (NEGATIVE) 03/20/17 03/20/17 03/20/17 Range/Units 17:58 12:41 09:38 WBC (4.8-10.8) K/uL RBC (3.80-5.20) Mil/uL Hgb (11.0-16.0) g/dL Hct (34.0-47.0) % MCV (81.0-99.0) fL MCH (27.0-31.0) pg MCHC (33.0-37.0) g/dL RDW (11.5-14.5) % Plt Count (130-400) K/uL MPV (7.2-11.7) fL Neut % (Auto) (50.0-75.0) % Lymph % (Auto) (20.0-40.0) % Thomas % (Auto) (0.0-10.0) % Eos % (Auto) (0.0-4.0) % Baso % (Auto) (0.0-2.0) % Neut # (1.8-7.0) K/uL Lymph # (1.0-4.3) K/uL Thomas # (0.0-0.8) K/uL Eos # (0.0-0.7) K/uL Baso # (0.0-0.2) K/uL Neutrophils % (Manual) (50-75) % Band Neutrophils % (0-2) % Lymphocytes % (Manual) (20-40) % Monocytes % (Manual) (0-10) % Platelet Estimate (NORMAL) Polychromasia Hypochromasia (manual) Anisocytosis (manual) Macrocytosis (manual) Ovalocytes BUN (7-17) mg/dL POC Glucose (mg/dL) 211 H 159 H (65-110) mg/dL C. difficile Ag & Toxin Negative (NEGATIVE) 03/20/17 03/20/17 Range/Units 06:22 06:22 WBC (4.8-10.8) K/uL RBC (3.80-5.20) Mil/uL Hgb (11.0-16.0) g/dL Hct (34.0-47.0) % MCV (81.0-99.0) fL MCH (27.0-31.0) pg MCHC (33.0-37.0) g/dL RDW (11.5-14.5) % Plt Count (130-400) K/uL MPV (7.2-11.7) fL Neut % (Auto) (50.0-75.0) % Lymph % (Auto) (20.0-40.0) % Thomas % (Auto) (0.0-10.0) % Eos % (Auto) (0.0-4.0) % Baso % (Auto) (0.0-2.0) % Neut # (1.8-7.0) K/uL Lymph # (1.0-4.3) K/uL Thomas # (0.0-0.8) K/uL Eos # (0.0-0.7) K/uL Baso # (0.0-0.2) K/uL Neutrophils % (Manual) 94 H (50-75) % Band Neutrophils % 1 (0-2) % Lymphocytes % (Manual) 3 L (20-40) % Monocytes % (Manual) 2 (0-10) % Platelet Estimate Normal (NORMAL) Polychromasia Slight Hypochromasia (manual) Slight Anisocytosis (manual) Slight Macrocytosis (manual) Slight Ovalocytes Slight BUN 166 H* D (7-17) mg/dL POC Glucose (mg/dL) (65-110) mg/dL C. difficile Ag & Toxin (NEGATIVE) Laboratory Results - last 24 hr 03/20/17 03/20/17 03/20/17 06:22 06:22 09:38 WBC RBC Hgb Hct MCV MCH MCHC RDW Plt Count MPV Neut % (Auto) Lymph % (Auto) Thomas % (Auto) Eos % (Auto) Baso % (Auto) Neut # Lymph # Thomas # Eos # Baso # Neutrophils % (Manual) 94 H Band Neutrophils % 1 Lymphocytes % (Manual) 3 L Monocytes % (Manual) 2 Platelet Estimate Normal Polychromasia Slight Hypochromasia (manual) Slight Anisocytosis (manual) Slight Macrocytosis (manual) Slight Ovalocytes Slight BUN 166 H* D POC Glucose (mg/dL) C. difficile Ag & Toxin Negative 03/20/17 03/20/17 03/20/17 12:41 17:58 23:32 WBC RBC Hgb Hct MCV MCH MCHC RDW Plt Count MPV Neut % (Auto) Lymph % (Auto) Thomas % (Auto) Eos % (Auto) Baso % (Auto) Neut # Lymph # Thomas # Eos # Baso # Neutrophils % (Manual) Band Neutrophils % Lymphocytes % (Manual) Monocytes % (Manual) Platelet Estimate Polychromasia Hypochromasia (manual) Anisocytosis (manual) Macrocytosis (manual) Ovalocytes BUN POC Glucose (mg/dL) 159 H 211 H 223 H C. difficile Ag & Toxin 03/21/17 03/21/17 05:20 06:26 WBC 22.5 H RBC 2.92 L Hgb 9.4 L Hct 32.3 L MCV 110.7 H D MCH 32.2 H MCHC 29.1 L RDW 18.2 H Plt Count 232 MPV 13.1 H Neut % (Auto) 91.9 H Lymph % (Auto) 4.7 L Thomas % (Auto) 3.1 Eos % (Auto) 0.1 Baso % (Auto) 0.2 Neut # 20.7 H Lymph # 1.1 Thomas # 0.7 Eos # 0.0 Baso # 0.0 Neutrophils % (Manual) Band Neutrophils % Lymphocytes % (Manual) Monocytes % (Manual) Platelet Estimate Polychromasia Hypochromasia (manual) Anisocytosis (manual) Macrocytosis (manual) Ovalocytes BUN POC Glucose (mg/dL) 285 H C. difficile Ag & Toxin Fingerstick Blood Sugar Results: 285 Review of Systems - Review of Systems Systems not reviewed;Unavailable: Intubated Critical Care Progress Note - Nutrition Nutrition: Nutrition Category Date Time Status NPO Diet [DIET] Diets 03/11/17 Dinner Active Assessment/Plan - Assessment and Plan (Free Text) Assessment: Assessment: 81 years old female who lives alone, with hx of Pancreatic Cancer, CKD and DM, brought awake and with left side weakness to the ED by EMS, after being found on the floor in her closet. The Head CT showing a large intracranial bleed with a midline shift to the left. Patient intubated. POD#9 s/p right parietal craniotomy, subtotal evacuation of hematoma. Today's plan: family meeting for Saturday or sooner whenever all family can get to [place] Plan: Neuro: intracranial bleed, POD#9 s/p right parietal craniotomy, subtotal evacuation of hematoma Head CT (03/11): large right temporoparietal parenchymal hemorrhage with white matter vasogenic edema, mass effect and 12 mm midline shift to left, associated subarachnoid and subdural hemorrhage on the right Head CT (03/12): slight increase in size of right temporoparietal occipital acute hemorrhage. Minimal subarachnoid hemorrhage and subdural hemorrhage as on previous exam. Midline shift towards the left slightly increase from prior examination, 11mm. No evidence of downward herniation. 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 Dr. Torres, neurology consulted left dense paralysis Dr. Mckee (neurosurg) performed right parietal craniotomy evacuation of hematoma yesterday Head CT (03/13): s/p right temporoparietal craniotomy with moderate residual intraparenchymal hemorrhage identified at the right temporal lobe predominantly and minimally involving the inferior right parietal lobe. Local edema remains prominent exerting mass effect causing 15mm leftward shift and effacement of the 3rd and right lateral ventricles as well as the right cerebral sulci. Mild to moderate right pneumocephaly identified. Minimal right subdural hematoma. Mild mass effect exerted at the right cerebral peduncle with the brainstem below this level unremarkable As per Dr. Allen, these are expected post op findings Head CT (03/18): little interval change involving in the appearance of large right MCA territory hemorrhagic infarction in the right parietal and temporal lobes with vasogenic edema, significant local and regional mass effect with effacement of the right lateral ventricle and 18mm midline shift from right to left. No evidence of uncal herniation or obstructive hydrocephalus. Stable mixed density right convexity subdural collection. Cardio: htn Metoprolol 25mg po BID Pulm: intubated Cxray: 03/20/17: lines and tubes in stable position. hyperinflation suggestive for COPD and or emphysematous changes. Biapical pleural thickening with upper lobe granulomatous changes. Scattered nodular densities in both lung marcial. No gross focal infiltrate or effusion. Endo: hx DMII, hypothyroidism accuchecks HgA1C: 6.3 Lipid panel: Triglycerides; 102, cholesterol 143, LDL 5, HDL 76 R ISS Synthroid 25mcg Renal: PAXTON on CKD, electrolyte imbalance BUN/ Cr: 03/20: 166/4.2, BUN decreasing, continue to monitor Dr. Odom consulted, help appreciated -hydration with NS @70 cc/ hr started on 03/20 phoslo TID Renal u/s: diminutive bilateral kidneys with increased echogenicity of the bilateral renal parenchymal cortices suggestive for medical renal disease. Bilateral renal disease Heme: Hx pancreatic cancer ID: bands increased to 16, wbc 32.4 -blood cultures negative -sputum culture (03/13): klebsiella pneumoniae -urine culture (03/13): gram positive cocci -Flagyl 500 mg iv q12h -Cefepime 1gm q24h -Zyvox 600 mg q12h (started 03/14) -Dr. Torres consulted, help appreciated Prophylaxis: DVT: SCDs, Heparin 5000 sc q12h GI: Pepcid 20 mg daily palliative care consulted, help appreciated code status: DNR <LatefTroy M - Last Filed: 03/22/17 09:58> CCU Objective - Vital Signs / Intake & Output Vital Signs (Last 4 hours): Vital Signs Pulse Resp BP Pulse Ox 03/22/17 09:11 96/54 L 03/22/17 07:11 88 15 105/67 100 03/22/17 06:11 90 16 113/56 L 100 03/22/17 06:00 94 H 16 100 Intake and Output (Last 8hrs): Intake & Output 03/21/17 03/22/17 03/22/17 22:59 06:59 14:59 Intake Total 2860 1056 80 Output Total 305 700 Balance 2555 356 80 Weight 96 lb 8 oz Intake: IV 65 16 Intake, IV Amount 2558 940 80 Right Forearm 100 850 70 Right Upper arm 2448 Rt Upper Arm Y-site 10 90 10 Oral 237 Other 100 Output: Urine 55 300 Urethral (Forbes) 55 300 Stool 250 400 - Medications Active Medications: Active Medications Generic Name Dose Route Start Last Admin Trade Name Freq PRN Reason Stop Dose Admin Acetaminophen 650 mg 03/14/17 17:15 03/14/17 17:23 Tylenol 650mg/20.3ml Solution Ud PO 650 mg Q4 PRN Administration Pain, moderate (4-7) Calcium Acetate 667 mg 03/18/17 14:00 03/22/17 09:44 Phoslo PO 667 mg TID HALLE Administration Famotidine 20 mg 03/20/17 10:30 03/22/17 09:44 Pepcid PO 20 mg DAILY HALLE Administration Heparin Sodium (Porcine) 5,000 units 03/15/17 22:00 03/22/17 09:44 Heparin SC 5,000 units Q12 HALLE Administration Hydrocortisone Sodium Succinate 100 mg 03/22/17 17:00 Solu-Cortef IV Q8H HALLE Metronidazole 500 mg in 100 mls @ 100 mls/hr 03/14/17 10:00 03/22/17 09:43 Flagyl IVPB 100 mls/hr Q12 HALLE Administration Linezolid 600 mg in 300 mls @ 200 mls/hr 03/14/17 23:45 03/21/17 23:44 Zyvox 600mg/300ml D5w IVPB 200 mls/hr Q12H HALLE Administration Sodium Chloride 1,000 mls @ 70 mls/hr 03/20/17 19:00 03/21/17 23:43 Sodium Chloride 0.9% IV 70 mls/hr .[id number] HALLE Administration Phenylephrine HCl 30 mg/ 253 mls @ 10.12 mls/hr 03/21/17 20:17 03/21/17 23:42 Sodium Chloride IV 20 mcg/min .Q24H PRN 10.12 mls/hr TITRATE PER MD ORDER Titration Protocol 20 MCG/MIN Meropenem 500 mg/ Dextrose 100 mls @ 100 mls/hr 03/21/17 23:00 03/22/17 05:27 IVPB 100 mls/hr Q8 HALLE Administration Sodium Chloride 1,000 mls @ 1,000 mls/hr 03/22/17 10:00 Sodium Chloride 0.9% IV 03/22/17 10:59 .Q1H ONE Insulin Human Regular 0 unit 03/12/17 12:00 03/22/17 05:26 Novolin R SC Not Given Q6 [facility] Protocol Levothyroxine Sodium 25 mcg 03/17/17 06:30 03/22/17 05:41 Synthroid PO 25 mcg DAILY@0630 HALLE Administration Lorazepam 2 mg 03/20/17 23:25 03/20/17 23:35 Ativan IVP 2 mg Q6H PRN Administration Sedation Metoprolol Tartrate 25 mg 03/16/17 10:00 03/22/17 09:11 Lopressor PO Not Given BID HALLE - Patient Studies Lab Studies: Lab Studies 03/22/17 03/22/17 03/22/17 Range/Units 06:17 06:17 05:21 WBC 18.7 H (4.8-10.8) K/uL RBC 2.57 L (3.80-5.20) Mil/uL Hgb 8.1 L (11.0-16.0) g/dL Hct 26.9 L (34.0-47.0) % MCV 104.6 H D (81.0-99.0) fL MCH 31.7 H (27.0-31.0) pg MCHC 30.3 L (33.0-37.0) g/dL RDW 16.5 H (11.5-14.5) % Plt Count 169 (130-400) K/uL MPV 12.4 H (7.2-11.7) fL Neut % (Auto) 89.0 H (50.0-75.0) % Lymph % (Auto) 7.1 L (20.0-40.0) % Thomas % (Auto) 2.4 (0.0-10.0) % Eos % (Auto) 1.4 (0.0-4.0) % Baso % (Auto) 0.1 (0.0-2.0) % Neut # 16.6 H (1.8-7.0) K/uL Lymph # 1.3 (1.0-4.3) K/uL Thomas # 0.5 (0.0-0.8) K/uL Eos # 0.3 (0.0-0.7) K/uL Baso # 0.0 (0.0-0.2) K/uL Neutrophils % (Manual) 85 H (50-75) % Band Neutrophils % 10 H (0-2) % Lymphocytes % (Manual) 4 L (20-40) % Monocytes % (Manual) TEST NOT PERFORMED Eosinophils % (Manual) 1 (0-4) % Nucleated RBC % 1 H (0-0) % Toxic Granulation Present Platelet Estimate Normal (NORMAL) Large Platelets Present Anisocytosis (manual) Slight Macrocytosis (manual) Moderate Ovalocytes Slight Puncture Site pCO2 (35-45) mm/Hg pO2 (80-100) mm/Hg HCO3 (21-28) mmol/L ABG pH (7.35-7.45) ABG Total CO2 (22-28) mmol/L ABG O2 Saturation (95-98) % ABG Base Excess (-2.0-3.0) mmol/L ABG Hemoglobin (11.7-17.4) g/dL ABG Carboxyhemoglobin (0.5-1.5) % POC ABG HHb (Measured) (0.0-5.0) % ABG Methemoglobin (0.0-3.0) % Jean Test A-a O2 Difference mm/Hg Respiratory Index Hgb O2 Saturation (95.0-98.0) % Vent Mode Mechanical Rate FiO2 % Tidal Volume PEEP Sodium 144 (132-148) mmol/L Potassium 3.5 L (3.6-5.2) mmol/L Chloride 114 H (98-107) mmol/L Carbon Dioxide 16 L (22-30) mmol/L Anion Gap 18 (10-20) BUN 166 H* (7-17) mg/dL Creatinine 3.9 H (0.7-1.2) mg/dL Est GFR ( Amer) 13 Est GFR (Non-Af Amer) 11 POC Glucose (mg/dL) 135 H (65-110) mg/dL Random Glucose 137 H (65-105) mg/dL Calcium 6.7 L (8.6-10.4) mg/dl Phosphorus 6.8 H (2.5-4.5) mg/dL Magnesium 2.8 H (1.6-2.3) mg/dL Total Bilirubin 0.9 (0.2-1.3) mg/dL AST 101 H D (14-36) U/L ALT 93 H D (9-52) U/L Alkaline Phosphatase 109 (38-126) U/L Total Protein 3.7 L (6.3-8.3) g/dL Albumin 2.0 L (3.5-5.0) g/dL Globulin 1.7 L (2.2-3.9) gm/dL Albumin/Globulin Ratio 1.2 (1.0-2.1) Urine Osmolality (300-1000) mosm/kg Ur Random Creatinine mg/dL Ur Random Sodium mmol/L 03/22/17 03/21/17 03/21/17 Range/Units 05:15 23:37 20:28 WBC (4.8-10.8) K/uL RBC (3.80-5.20) Mil/uL Hgb (11.0-16.0) g/dL Hct (34.0-47.0) % MCV (81.0-99.0) fL MCH (27.0-31.0) pg MCHC (33.0-37.0) g/dL RDW (11.5-14.5) % Plt Count (130-400) K/uL MPV (7.2-11.7) fL Neut % (Auto) (50.0-75.0) % Lymph % (Auto) (20.0-40.0) % Thomas % (Auto) (0.0-10.0) % Eos % (Auto) (0.0-4.0) % Baso % (Auto) (0.0-2.0) % Neut # (1.8-7.0) K/uL Lymph # (1.0-4.3) K/uL Thomas # (0.0-0.8) K/uL Eos # (0.0-0.7) K/uL Baso # (0.0-0.2) K/uL Neutrophils % (Manual) (50-75) % Band Neutrophils % (0-2) % Lymphocytes % (Manual) (20-40) % Monocytes % (Manual) Eosinophils % (Manual) (0-4) % Nucleated RBC % (0-0) % Toxic Granulation Platelet Estimate (NORMAL) Large Platelets Anisocytosis (manual) Macrocytosis (manual) Ovalocytes Puncture Site Rr pCO2 24 L (35-45) mm/Hg pO2 109 H (80-100) mm/Hg HCO3 18.8 L (21-28) mmol/L ABG pH 7.42 (7.35-7.45) ABG Total CO2 16.3 L (22-28) mmol/L ABG O2 Saturation 98.6 H (95-98) % ABG Base Excess -7.9 L (-2.0-3.0) mmol/L ABG Hemoglobin 7.6 L (11.7-17.4) g/dL ABG Carboxyhemoglobin 1.8 H (0.5-1.5) % POC ABG HHb (Measured) 1.4 (0.0-5.0) % ABG Methemoglobin 1.1 (0.0-3.0) % Jean Test Pos A-a O2 Difference 75.0 mm/Hg Respiratory Index 0.7 Hgb O2 Saturation 95.8 (95.0-98.0) % Vent Mode Prvc Mechanical Rate 16 FiO2 30.0 % Tidal Volume 450 PEEP 5 Sodium (132-148) mmol/L Potassium (3.6-5.2) mmol/L Chloride (98-107) mmol/L Carbon Dioxide (22-30) mmol/L Anion Gap (10-20) BUN (7-17) mg/dL Creatinine (0.7-1.2) mg/dL Est GFR ( Amer) Est GFR (Non-Af Amer) POC Glucose (mg/dL) 230 H (65-110) mg/dL Random Glucose (65-105) mg/dL Calcium (8.6-10.4) mg/dl Phosphorus (2.5-4.5) mg/dL Magnesium (1.6-2.3) mg/dL Total Bilirubin (0.2-1.3) mg/dL AST (14-36) U/L ALT (9-52) U/L Alkaline Phosphatase (38-126) U/L Total Protein (6.3-8.3) g/dL Albumin (3.5-5.0) g/dL Globulin (2.2-3.9) gm/dL Albumin/Globulin Ratio (1.0-2.1) Urine Osmolality 392 (300-1000) mosm/kg Ur Random Creatinine 66.2 mg/dL Ur Random Sodium 12 mmol/L 03/21/17 03/21/17 Range/Units 17:41 12:03 WBC (4.8-10.8) K/uL RBC (3.80-5.20) Mil/uL Hgb (11.0-16.0) g/dL Hct (34.0-47.0) % MCV (81.0-99.0) fL MCH (27.0-31.0) pg MCHC (33.0-37.0) g/dL RDW (11.5-14.5) % Plt Count (130-400) K/uL MPV (7.2-11.7) fL Neut % (Auto) (50.0-75.0) % Lymph % (Auto) (20.0-40.0) % Thomas % (Auto) (0.0-10.0) % Eos % (Auto) (0.0-4.0) % Baso % (Auto) (0.0-2.0) % Neut # (1.8-7.0) K/uL Lymph # (1.0-4.3) K/uL Thomas # (0.0-0.8) K/uL Eos # (0.0-0.7) K/uL Baso # (0.0-0.2) K/uL Neutrophils % (Manual) (50-75) % Band Neutrophils % (0-2) % Lymphocytes % (Manual) (20-40) % Monocytes % (Manual) Eosinophils % (Manual) (0-4) % Nucleated RBC % (0-0) % Toxic Granulation Platelet Estimate (NORMAL) Large Platelets Anisocytosis (manual) Macrocytosis (manual) Ovalocytes Puncture Site pCO2 (35-45) mm/Hg pO2 (80-100) mm/Hg HCO3 (21-28) mmol/L ABG pH (7.35-7.45) ABG Total CO2 (22-28) mmol/L ABG O2 Saturation (95-98) % ABG Base Excess (-2.0-3.0) mmol/L ABG Hemoglobin (11.7-17.4) g/dL ABG Carboxyhemoglobin (0.5-1.5) % POC ABG HHb (Measured) (0.0-5.0) % ABG Methemoglobin (0.0-3.0) % Jean Test A-a O2 Difference mm/Hg Respiratory Index Hgb O2 Saturation (95.0-98.0) % Vent Mode Mechanical Rate FiO2 % Tidal Volume PEEP Sodium (132-148) mmol/L Potassium (3.6-5.2) mmol/L Chloride (98-107) mmol/L Carbon Dioxide (22-30) mmol/L Anion Gap (10-20) BUN (7-17) mg/dL Creatinine (0.7-1.2) mg/dL Est GFR ( Amer) Est GFR (Non-Af Amer) POC Glucose (mg/dL) 317 H 257 H (65-110) mg/dL Random Glucose (65-105) mg/dL Calcium (8.6-10.4) mg/dl Phosphorus (2.5-4.5) mg/dL Magnesium (1.6-2.3) mg/dL Total Bilirubin (0.2-1.3) mg/dL AST (14-36) U/L ALT (9-52) U/L Alkaline Phosphatase (38-126) U/L Total Protein (6.3-8.3) g/dL Albumin (3.5-5.0) g/dL Globulin (2.2-3.9) gm/dL Albumin/Globulin Ratio (1.0-2.1) Urine Osmolality (300-1000) mosm/kg Ur Random Creatinine mg/dL Ur Random Sodium mmol/L Laboratory Results - last 24 hr 03/21/17 03/21/17 03/21/17 12:03 17:41 20:28 WBC RBC Hgb Hct MCV MCH MCHC RDW Plt Count MPV Neut % (Auto) Lymph % (Auto) Thomas % (Auto) Eos % (Auto) Baso % (Auto) Neut # Lymph # Thomas # Eos # Baso # Neutrophils % (Manual) Band Neutrophils % Lymphocytes % (Manual) Monocytes % (Manual) Eosinophils % (Manual) Nucleated RBC % Toxic Granulation Platelet Estimate Large Platelets Anisocytosis (manual) Macrocytosis (manual) Ovalocytes Puncture Site pCO2 pO2 HCO3 ABG pH ABG Total CO2 ABG O2 Saturation ABG Base Excess ABG Hemoglobin ABG Carboxyhemoglobin POC ABG HHb (Measured) ABG Methemoglobin Jean Test A-a O2 Difference Respiratory Index Hgb O2 Saturation Vent Mode Mechanical Rate FiO2 Tidal Volume PEEP Sodium Potassium Chloride Carbon Dioxide Anion Gap BUN Creatinine Est GFR ( Amer) Est GFR (Non-Af Amer) POC Glucose (mg/dL) 257 H 317 H Random Glucose Calcium Phosphorus Magnesium Total Bilirubin AST ALT Alkaline Phosphatase Total Protein Albumin Globulin Albumin/Globulin Ratio Urine Osmolality 392 Ur Random Creatinine 66.2 Ur Random Sodium 12 03/21/17 03/22/17 03/22/17 23:37 05:15 05:21 WBC RBC Hgb Hct MCV MCH MCHC RDW Plt Count MPV Neut % (Auto) Lymph % (Auto) Thomas % (Auto) Eos % (Auto) Baso % (Auto) Neut # Lymph # Thomas # Eos # Baso # Neutrophils % (Manual) Band Neutrophils % Lymphocytes % (Manual) Monocytes % (Manual) Eosinophils % (Manual) Nucleated RBC % Toxic Granulation Platelet Estimate Large Platelets Anisocytosis (manual) Macrocytosis (manual) Ovalocytes Puncture Site Rr pCO2 24 L pO2 109 H HCO3 18.8 L ABG pH 7.42 ABG Total CO2 16.3 L ABG O2 Saturation 98.6 H ABG Base Excess -7.9 L ABG Hemoglobin 7.6 L ABG Carboxyhemoglobin 1.8 H POC ABG HHb (Measured) 1.4 ABG Methemoglobin 1.1 Jean Test Pos A-a O2 Difference 75.0 Respiratory Index 0.7 Hgb O2 Saturation 95.8 Vent Mode Prvc Mechanical Rate 16 FiO2 30.0 Tidal Volume 450 PEEP 5 Sodium Potassium Chloride Carbon Dioxide Anion Gap BUN Creatinine Est GFR ( Amer) Est GFR (Non-Af Amer) POC Glucose (mg/dL) 230 H 135 H Random Glucose Calcium Phosphorus Magnesium Total Bilirubin AST ALT Alkaline Phosphatase Total Protein Albumin Globulin Albumin/Globulin Ratio Urine Osmolality Ur Random Creatinine Ur Random Sodium 03/22/17 03/22/17 06:17 06:17 WBC 18.7 H RBC 2.57 L Hgb 8.1 L Hct 26.9 L MCV 104.6 H D MCH 31.7 H MCHC 30.3 L RDW 16.5 H Plt Count 169 MPV 12.4 H Neut % (Auto) 89.0 H Lymph % (Auto) 7.1 L Thomas % (Auto) 2.4 Eos % (Auto) 1.4 Baso % (Auto) 0.1 Neut # 16.6 H Lymph # 1.3 Thomas # 0.5 Eos # 0.3 Baso # 0.0 Neutrophils % (Manual) 85 H Band Neutrophils % 10 H Lymphocytes % (Manual) 4 L Monocytes % (Manual) TEST NOT PERFORMED Eosinophils % (Manual) 1 Nucleated RBC % 1 H Toxic Granulation Present Platelet Estimate Normal Large Platelets Present Anisocytosis (manual) Slight Macrocytosis (manual) Moderate Ovalocytes Slight Puncture Site pCO2 pO2 HCO3 ABG pH ABG Total CO2 ABG O2 Saturation ABG Base Excess ABG Hemoglobin ABG Carboxyhemoglobin POC ABG HHb (Measured) ABG Methemoglobin Jean Test A-a O2 Difference Respiratory Index Hgb O2 Saturation Vent Mode Mechanical Rate FiO2 Tidal Volume PEEP Sodium 144 Potassium 3.5 L Chloride 114 H Carbon Dioxide 16 L Anion Gap 18 BUN 166 H* Creatinine 3.9 H Est GFR ( Amer) 13 Est GFR (Non-Af Amer) 11 POC Glucose (mg/dL) Random Glucose 137 H Calcium 6.7 L Phosphorus 6.8 H Magnesium 2.8 H Total Bilirubin 0.9 AST 101 H D ALT 93 H D Alkaline Phosphatase 109 Total Protein 3.7 L Albumin 2.0 L Globulin 1.7 L Albumin/Globulin Ratio 1.2 Urine Osmolality Ur Random Creatinine Ur Random Sodium Critical Care Progress Note - Nutrition Nutrition: Nutrition Category Date Time Status NPO Diet [DIET] Diets 03/11/17 Dinner Active Attending/Attestation - Attestation I have personally seen and examined this patient.: Yes I have fully participated in the care of the patient.: Yes I have reviewed all pertinent clinical information: Yes Notes (Text): Today: March The Patient was seen and examined at the bedside, Medical records reviewed, and management issues were discussed and formulated with the house staff. I have reviewed all the relevant clinical, laboratory, hemodynamic, radiographic data and medications Events reviewed Pain issues, skin care, head of the bed elevation, glycemic control were addressed. Agree with above treatment plans as transcribed in note I concur with resident's assessment and plan of care as transcribed in Dr. Paz note. Discussed with the family in details diagnosis, treatment plans and alternatives , Also went over the HCP with them No neurological improvements, poor prognosis, family considering terminal extubation, Code status: DNR
[2017-03-21 07:47] LABS: BILIRUBIN,TOTAL 0.9 mg/dL (0.2-1.3)
[2017-03-21 07:48] LABS: ALB/GLOB RATIO 1.2 (1.0-2.1); CALCIUM 6.6 mg/dl (8.6-10.4); TOTAL PROTEIN 3.9 g/dL (6.3-8.3)
[2017-03-21 07:49] LABS: MAGNESIUM 3.1 mg/dL (1.6-2.3)
[2017-03-21 08:05] LABS: NEUTROPHIL 91 % (50-75); NUCLEATED RED BLOOD CELL 1 % (0-0); TOTAL CELLS COUNTED 100
--- NOTE | 2017-03-21 08:54 | RAD ---
Chest x-ray single frontal view History: Intubated. Comparison: 03/20/2017 Findings: Lines and tubes stable position. Biapical pleural thickening with some granulomatous changes in the left upper lung zone. Diffuse increased interstitial lung markings. No focal infiltrate or effusion. Scattered nodular densities throughout the left lung. Calcification at the aortic knob. Degenerative changes in the spine and shoulders. Impression: No significant interval change since the prior study.
[2017-03-21] MEDS: metroNIDAZOLE IV 500 mg/100 ml 500 MG/100 ML BAG IVPB SCH ×2 (10:36→21:38)
--- NOTE | 2017-03-21 12:06 | PN ---
NEUROLOGY PROGRESS NOTE SUBJECTIVE: The patient is lying on the bed on a ventilator. PHYSICAL EXAMINATION: VITAL SIGNS: Her blood pressure is 114/62, heart rate is 103 per minute. She is breathing at the rate of 20 per minute. Temperature is 97.5 degree Fahrenheit. HEENT: Normocephalic and atraumatic. NECK: Supple. There are no carotid bruits. LUNGS: Clear to auscultation. ABDOMEN: Soft and nontender. Bowel sounds are minimally present. NEUROLOGIC: Mental status: The patient is comatose. She does not respond to verbal or noxious painful stimuli. Cranial nerve examination: Pupils are 5 mm bilaterally, nonreactive to light. Positive corneal reflex. Minimal gag reflex. Minimal doll's eye movement. There is no withdrawal of extremities to noxious painful stimuli. Plantar has no response. LABORATORY DATA: Lab review shows WBC of 22.5, hemoglobin of 9.4, hematocrit of 32.3, and platelets of 232. Sodium is 143, potassium 4.2, chloride 113, carbon dioxide content of 16, BUN of 171, creatinine 4.2 and glucose of 285. IMPRESSION: 1. Right temporoparietal hemorrhage. 2. Respiratory failure. 3. Sepsis. 4. Renal failure. RECOMMENDATIONS: 1. There is deterioration in patient's mental status with minimal brainstem reflexes. 2. The patient also noted to be septic for which she is on IV antibiotics. The patient has shown no improvement despite being on IV antibiotics for several days. 3. The patient has shown no meaningful improvement in neurologic status. 4. The patient's DNR status is noted now. 5. The patient's prognosis is poor. 6. If family agrees, consider terminal extubation. 7. Please continue support care and other treatment for now. Thank you for the opportunity to participate in the care of this patient. David Torres MD
[2017-03-21] MEDS: Linezolid 600 mg in D5W 300 ml 600 MG/300 ML BAG IVPB SCH ×2 (12:12→23:44)
--- NOTE | 2017-03-21 13:31 | CP.PCM.PN ---
Subjective - Date & Time of Evaluation Date of Evaluation: 03/21/17 Time of Evaluation: 13:29 - Subjective Subjective: PT'S CONDITION SAME UNRESPONSIVE ON VENT RENAL FAILURE PT HAS LIVING WILL FOR DNR SISTER NOT UNDERSTANDING THE IMPLICATION OF WILL AWAITING FAMILY TO MAKE FINAL DECISION FOR EXTUBATION Objective - Vital Signs/Intake and Output Vital Signs (last 24 hours): Temp Pulse Resp BP Pulse Ox 97.5 F L 103 H 21 85/44 L 100 03/21/17 08:00 03/21/17 09:24 03/21/17 09:24 03/21/17 10:39 03/21/17 09:24 Intake and Output: 03/21/17 03/21/17 11:59 23:59 Intake Total 1047 Output Total 250 Balance 797 - Medications Medications: Current Medications Acetaminophen (Tylenol 650mg/20.3ml Solution Ud) 650 mg PO Q4 PRN PRN Reason: Pain, moderate (4-7) Last Admin: 03/14/17 17:23 Dose: 650 mg Calcium Acetate (Phoslo) 667 mg PO TID [facility] Last Admin: 03/21/17 10:36 Dose: 667 mg Famotidine (Pepcid) 20 mg PO DAILY [facility] Last Admin: 03/21/17 10:36 Dose: 20 mg Heparin Sodium (Porcine) (Heparin) 5,000 units SC Q12 [facility] Last Admin: 03/21/17 10:36 Dose: 5,000 units Metronidazole (Flagyl) 500 mg in 100 mls @ 100 mls/hr IVPB Q12 [facility] Last Admin: 03/21/17 10:36 Dose: 100 mls/hr Linezolid (Zyvox 600mg/300ml D5w) 600 mg in 300 mls @ 200 mls/hr IVPB Q12H [facility] Last Admin: 03/21/17 12:12 Dose: 200 mls/hr Cefepime HCl (Maxipime Iv 1 Gm Premix) 1 gm in 50 mls @ 100 mls/hr IVPB Q24H [facility] Last Admin: 03/20/17 15:00 Dose: 100 mls/hr Sodium Chloride (Sodium Chloride 0.9%) 1,000 mls @ 70 mls/hr IV .[id number] [facility] Last Admin: 03/20/17 20:00 Dose: 70 mls/hr Insulin Human Regular (Novolin R) 0 unit SC Q6 [facility] PRN Reason: Protocol Last Admin: 03/21/17 12:15 Dose: 3 unit Levothyroxine Sodium (Synthroid) 25 mcg PO DAILY@0630 [facility] Last Admin: 03/21/17 05:35 Dose: 25 mcg Lorazepam (Ativan) 2 mg IVP Q6H PRN PRN Reason: Sedation Last Admin: 03/20/17 23:35 Dose: 2 mg Metoprolol Tartrate (Lopressor) 25 mg PO BID [facility] Last Admin: 03/21/17 10:39 Dose: Not Given - Labs Labs: 03/21/17 06:26 03/21/17 07:03 PT 10.2 SECONDS (9.7-12.2) 03/12/17 06:20 INR 0.9 03/12/17 06:20 APTT 27 SECONDS (21-34) 03/12/17 06:20 Assessment and Plan (1) Intracranial hemorrhage Status: Acute (2) Renal failure Status: Acute (3) Sepsis Status: Acute
[2017-03-21] MEDS: Cefepime IV 1 gm in Dextrose 1 GM/50 ML BAG IVPB SCH (15:00)
[2017-03-21] MEDS: Sodium Chloride 0.9% 1,000 ML IV SCH ×2 (16:35→23:43)
[2017-03-21] MEDS ORDERED: Sodium Chloride 0.9% 1,000 ML IV ONE ×2 (18:23→18:24)
[2017-03-21] MEDS ORDERED: Albumin Human 25% (12.5 gm/50 ml) IV ONE ×2 (18:28)
--- NOTE | 2017-03-21 19:23 | CP.PCM.PN ---
Subjective - Date & Time of Evaluation Date of Evaluation: 03/21/17 Time of Evaluation: 19:22 - Subjective Subjective: pt is seen and examined, follow up consult is dictated #[id number] pt is DNR, pt has a living will Objective - Vital Signs/Intake and Output Vital Signs (last 24 hours): Temp Pulse Resp BP Pulse Ox 97.5 F L 127 H 16 64/37 L 100 03/21/17 08:00 03/21/17 18:47 03/21/17 18:47 03/21/17 18:47 03/21/17 18:47 Intake and Output: 03/21/17 03/22/17 18:59 06:59 Intake Total 2650 Output Total 370 Balance 2280 - Medications Medications: Current Medications Acetaminophen (Tylenol 650mg/20.3ml Solution Ud) 650 mg PO Q4 PRN PRN Reason: Pain, moderate (4-7) Last Admin: 03/14/17 17:23 Dose: 650 mg Calcium Acetate (Phoslo) 667 mg PO TID [facility] Last Admin: 03/21/17 17:50 Dose: 667 mg Famotidine (Pepcid) 20 mg PO DAILY [facility] Last Admin: 03/21/17 10:36 Dose: 20 mg Heparin Sodium (Porcine) (Heparin) 5,000 units SC Q12 [facility] Last Admin: 03/21/17 10:36 Dose: 5,000 units Metronidazole (Flagyl) 500 mg in 100 mls @ 100 mls/hr IVPB Q12 [facility] Last Admin: 03/21/17 10:36 Dose: 100 mls/hr Linezolid (Zyvox 600mg/300ml D5w) 600 mg in 300 mls @ 200 mls/hr IVPB Q12H [facility] Last Admin: 03/21/17 12:12 Dose: 200 mls/hr Cefepime HCl (Maxipime Iv 1 Gm Premix) 1 gm in 50 mls @ 100 mls/hr IVPB Q24H [facility] Last Admin: 03/21/17 15:00 Dose: 100 mls/hr Sodium Chloride (Sodium Chloride 0.9%) 1,000 mls @ 70 mls/hr IV .[id number] [facility] Last Admin: 03/21/17 16:35 Dose: 70 mls/hr Sodium Chloride (Sodium Chloride 0.9%) 1,000 mls @ 1,000 mls/hr IV .Q1H ONE Stop: 03/21/17 19:23 Last Admin: 03/21/17 19:20 Dose: 1,000 mls/hr Insulin Human Regular (Novolin R) 0 unit SC Q6 [facility] PRN Reason: Protocol Last Admin: 03/21/17 18:44 Dose: 4 unit Levothyroxine Sodium (Synthroid) 25 mcg PO DAILY@0630 [facility] Last Admin: 03/21/17 05:35 Dose: 25 mcg Lorazepam (Ativan) 2 mg IVP Q6H PRN PRN Reason: Sedation Last Admin: 03/20/17 23:35 Dose: 2 mg Metoprolol Tartrate (Lopressor) 25 mg PO BID [facility] Last Admin: 03/21/17 18:29 Dose: Not Given - Labs Labs: 03/21/17 06:26 03/21/17 07:03 PT 10.2 SECONDS (9.7-12.2) 03/12/17 06:20 INR 0.9 03/12/17 06:20 APTT 27 SECONDS (21-34) 03/12/17 06:20
[2017-03-21 20:47] LABS: CREATININE, RANDOM URINE 66.2 mg/dL
[2017-03-21] MEDS: Phenylephrine 30 MG in Sodium Chloride 0.9% 250 ML IV PRN (21:43)
--- NOTE | 2017-03-21 22:13 | CP.PCM.PN ---
Subjective - Date & Time of Evaluation Date of Evaluation: 03/21/17 Time of Evaluation: 22:12 - Subjective Subjective: AFEBRILE. Patient intubated. UNRESPONSIVE CLINICALLY REMAINS SAME. POD# 7 . s/p right parietal craniotomy, subtotal evacuation of hematoma. EVENTS NOTED . LABS REVIEWED. LEUKOCYTOSIS PERSISTS PT ON IV CEFEPIME AND LINEZOLID AND FLAGYL. STOOL C DIFFICILLE -VE 03/20/17 Objective - Vital Signs/Intake and Output Vital Signs (last 24 hours): Temp Pulse Resp BP Pulse Ox 97.3 F L 117 H 16 70/32 L 98 03/21/17 20:00 03/21/17 22:00 03/21/17 22:00 03/21/17 21:43 03/21/17 22:00 Intake and Output: 03/21/17 03/22/17 18:59 06:59 Intake Total 2700 1299 Output Total 370 15 Balance 2330 1284 - Medications Medications: Current Medications Acetaminophen (Tylenol 650mg/20.3ml Solution Ud) 650 mg PO Q4 PRN PRN Reason: Pain, moderate (4-7) Last Admin: 03/14/17 17:23 Dose: 650 mg Calcium Acetate (Phoslo) 667 mg PO TID [facility] Last Admin: 03/21/17 17:50 Dose: 667 mg Famotidine (Pepcid) 20 mg PO DAILY [facility] Last Admin: 03/21/17 10:36 Dose: 20 mg Heparin Sodium (Porcine) (Heparin) 5,000 units SC Q12 [facility] Last Admin: 03/21/17 21:38 Dose: 5,000 units Metronidazole (Flagyl) 500 mg in 100 mls @ 100 mls/hr IVPB Q12 [facility] Last Admin: 03/21/17 21:38 Dose: 100 mls/hr Linezolid (Zyvox 600mg/300ml D5w) 600 mg in 300 mls @ 200 mls/hr IVPB Q12H [facility] Last Admin: 03/21/17 12:12 Dose: 200 mls/hr Cefepime HCl (Maxipime Iv 1 Gm Premix) 1 gm in 50 mls @ 100 mls/hr IVPB Q24H [facility] Last Admin: 03/21/17 15:00 Dose: 100 mls/hr Sodium Chloride (Sodium Chloride 0.9%) 1,000 mls @ 70 mls/hr IV .[id number] [facility] Last Admin: 03/21/17 16:35 Dose: 70 mls/hr Phenylephrine HCl 30 mg/ (Sodium Chloride) 253 mls @ 10.12 mls/hr IV .Q24H PRN ; Protocol; 20 MCG/MIN PRN Reason: TITRATE PER MD ORDER Last Admin: 03/21/17 21:43 Dose: 20 mcg/min, 10.12 mls/hr Insulin Human Regular (Novolin R) 0 unit SC Q6 [facility] PRN Reason: Protocol Last Admin: 03/21/17 18:44 Dose: 4 unit Levothyroxine Sodium (Synthroid) 25 mcg PO DAILY@0630 [facility] Last Admin: 03/21/17 05:35 Dose: 25 mcg Lorazepam (Ativan) 2 mg IVP Q6H PRN PRN Reason: Sedation Last Admin: 03/20/17 23:35 Dose: 2 mg Metoprolol Tartrate (Lopressor) 25 mg PO BID [facility] Last Admin: 03/21/17 18:29 Dose: Not Given - Labs Labs: 03/21/17 06:26 03/21/17 07:03 PT 10.2 SECONDS (9.7-12.2) 03/12/17 06:20 INR 0.9 03/12/17 06:20 APTT 27 SECONDS (21-34) 03/12/17 06:20 - Constitutional Appears: No Acute Distress - Eye Exam Eye Exam: PERRL - ENT Exam ENT Exam: Normal Oropharynx - Neck Exam Neck Exam: Normal Inspection - Respiratory Exam Respiratory Exam: Decreased Breath Sounds - Cardiovascular Exam Cardiovascular Exam: Tachycardia, +S1, +S2 - GI/Abdominal Exam GI & Abdominal Exam: Soft, Normal Bowel Sounds - Extremities Exam Extremities Exam: absent: Calf Tenderness, Pedal Edema - Neurological Exam Neurological Exam: Altered - Skin Skin Exam: Dry, Warm Assessment and Plan (1) Sepsis Assessment & Plan: SOURCE OF SEPSIS UTI / ?ASPIRATIN /NEURO SURGICAL ?INFECTED HEMATOMA. REPEAT BLOOD CULTURE X 2 SETS DC IV CEFEPIME START IV MERREM 500 MG IV Q 12 HRLY 03/21/17 CONTINUE IV ZYVOX 300MG IV Q 12HRLY CONTINUE IV FLAGYL 500MG IV Q 12HRLY. ONGOING MEETINGS NOTED WITH MS ARTEAGA-PALLIATIVE CARE PROGNOSIS GUARDED. Status: Acute (2) S/P craniotomy Status: Acute (3) SIRS (systemic inflammatory response syndrome) Status: Acute (4) Intracranial hemorrhage Status: Acute (5) Renal failure Status: Acute (6) Diabetes mellitus type 2 in nonobese Status: Acute (7) Hypertension Status: Acute (8) Pancreatic cancer Status: Acute
[2017-03-21] MEDS ORDERED: Meropenem 500 MG in Sodium Chloride 0.9% 100 ML IVPB SCH (22:45)
[2017-03-21] MEDS: Meropenem 500 MG in Dextrose 5% In Water 100 ML IVPB SCH (22:53)
--- NOTE | 2017-03-22 01:32 | PN ---
DATE: FOLLOWUP RENAL CONSULTATION LOCATION: The patient is located in ICU bed 8. REQUESTING BY: Jordi Bedolla MD REASON FOR FOLLOWUP: Acute renal failure on chronic kidney disease status post intracranial bleed and craniotomy. SUBJECTIVE: Mrs. Watson is an 81-year-old elderly female with history of longstanding hypertension, coronary artery disease, chronic kidney disease, cardiac arrhythmias and atrial fibrillation, who was found locked in the room and subsequently, the patient was found to have a left-sided weakness and right temporoparietal intracranial bleed in the MCA territory. Subsequently, the patient underwent craniotomy and evacuation of hematoma on ventilator, not responding to deep painful stimuli. She remains intubated and hypotensive. The patient is DNR. The patient's family found health care proxy and now the patient does made DNR. As per the PMD note, the patient's sister does not understand the implication of the health care proxy and do not want to continue current management and awaiting for the rest of the family to come this weekend, not responding to deep painful stimuli. PHYSICAL EXAMINATION GENERAL: Mrs. Watson is an 81-year-old elderly female on ventilator, hypotensive. VITAL SIGNS: As follows: Blood pressure of 70/32, pulse of 95, respirations of 16, temperature of 97.3, and oxygen saturation of 100% HEENT: Pupils are normal. Conjunctivae are pink. On ventilator. LUNGS: Symmetric on both sides. Bilateral breath sounds present and occasion basal crackles. CARDIOVASCULAR SYSTEM: [place] at the fifth intercostal space, midclavicular line. S1 and S2 audible. Slightly tachycardic. Irregularly irregular. ABDOMEN: Normal in appearance, soft, and tympanic. No guarding. No rigidity. No hepatosplenomegaly. No abdominal bruits. CENTRAL NERVOUS SYSTEM: The patient is on ventilator, hypotensive, not responding to verbal stimuli or deep painful stimuli today. EXTREMITIES: No cyanosis, no clubbing, and no edema. CURRENT MEDICATIONS: Include as follows: Ativan 2 mg IV q. 6 hours. p.r.n., Flagyl 500 mg IV q. 12 hours, subcutaneous heparin 5000 q. 12 hours, metoprolol 25 mg p.o. b.i.d., Merrem 500 mg q. 8 hours, Novolin R, Pepcid 20 mg daily, and phenylephrine 20 mcg per minute, calcium acetate 667 mg p.o. t.i.d., IV fluid normal saline at 70 mL/hour, levothyroxine 25 mcg p.o. daily, and Zyvox 600 mg q. 12 hours. LABORATORY DATA: Include as follows: As of 03/21/2017, WBC of 22.5, hemoglobin of 9.4, hematocrit of 32.3, and platelets of 232. Sodium is 143, potassium is 4.2, chloride is 113, CO2 is 16, BUN is 171, and creatinine is 4.2. Glucose is 263, calcium is 6.6, phosphorus is 7.0, and magnesium is 3.1. Total bilirubin is 0.1, AST is 63, ALT is 75, alkaline phosphatase is 182, total protein is 3.9, and albumin is 2.1. ASSESSMENT AND PLAN: In summary, Mrs. Watson is an 81-year-old elderly female with history of hypertension, chronic kidney disease, cardiac arrhythmias and atrial fibrillation who was found on the floor locked in the room in the closet and also with left-sided weakness and found to have right temporoparietal hematoma in middle cerebral artery territory. Subsequently, the patient underwent craniotomy since then the patient remained intubated and not responding to verbal stimuli or deep painful stimuli today with increasing BUN and creatinine. 1. Renal failure, acute on chronic kidney disease secondary to intravascular depletion rule out sepsis. 2. Hypotension continue pressors as needed. 3. Respiratory failure. 4. Status post intracranial bleed and craniotomy. Continue vent support. Overall prognosis is extremely poor. The patient is do not resuscitation and await for the family decision for possible terminal extubation when the patient's family is ready. Overall prognosis is very very poor. Continue antibiotics as per Infectious Diseases recommendations. Orlando Odom MD
[2017-03-22 05:21] LABS: ABG ALLEN TEST POS; ABG MECHANICAL RATE 16; ARTERIAL BLOOD GAS MODE PRVC; ARTERIAL BLOOD HGB O2 SAT 95.8 % (95.0-98.0); ATERIAL BLOOD GAS PEEP 5; CARBOXYHEMOGLOBIN 1.8 % (0.5-1.5); DRAW SITE RR; HHB 1.4 % (0.0-5.0); METHEMOGLOBIN 1.1 % (0.0-3.0)
[2017-03-22] MEDS: (Novolin R) Insulin Human Regular 100 units/ml vial SC SCH ×3 (05:26→18:30)
[2017-03-22] MEDS: Meropenem 500 MG in Dextrose 5% In Water 100 ML IVPB SCH ×3 (05:27→21:34)
[2017-03-22] MEDS: Levothyroxine 25 MCG TAB PO SCH (05:41)
[2017-03-22 06:32] LABS: BASO % 0.1 % (0.0-2.0); EOS # 0.3 K/uL (0.0-0.7); EOS % 1.4 % (0.0-4.0); HEMATOCRIT 26.9 % (34.0-47.0); LYMPH # 1.3 K/uL (1.0-4.3); LYMPH % 7.1 % (20.0-40.0); MEAN CELL VOLUME 104.6 fL (81.0-99.0); MEAN CORPUSCULAR HEMOGLOBIN 31.7 pg (27.0-31.0); MEAN CORPUSCULAR HGB CONC 30.3 g/dL (33.0-37.0); MEAN PLATELET VOLUME 12.4 fL (7.2-11.7); MONO # 0.5 K/uL (0.0-0.8); MONO % 2.4 % (0.0-10.0); NRBC % 0.3 % (0.0-2.0); PLATELET COUNT 169 K/uL (130-400); RED CELL DISTRIBUTION WIDTH 16.5 % (11.5-14.5); WHITE BLOOD COUNT 18.7 K/uL (4.8-10.8)
[2017-03-22 06:42] LABS: POTASSIUM 3.5 mmol/L (3.6-5.2)
[2017-03-22 06:44] LABS: ALB/GLOB RATIO 1.2 (1.0-2.1); BILIRUBIN,TOTAL 0.9 mg/dL (0.2-1.3); PHOSPHOROUS 6.8 mg/dL (2.5-4.5); TOTAL PROTEIN 3.7 g/dL (6.3-8.3)
[2017-03-22 06:45] LABS: CALCIUM 6.7 mg/dl (8.6-10.4); MAGNESIUM 2.8 mg/dL (1.6-2.3)
--- NOTE | 2017-03-22 07:31 | RAD ---
HISTORY: intubated COMPARISON: Portable chest 03/21/2017. FINDINGS: Endo hit tube is unchanged in position as well as nasogastric tube. LUNGS: Trace atelectasis favored over infiltrate at the left base with a right chest clear. PLEURA: No significant pleural effusion identified, no pneumothorax apparent. CARDIOVASCULAR: Normal. OSSEOUS STRUCTURES: No significant abnormalities. VISUALIZED UPPER ABDOMEN: Normal. OTHER FINDINGS: None. IMPRESSION: Limited left basilar airspace disease is seen in the interval. None is seen the right. Stable cardiovascular status. No interval pleural effusion or pneumothorax bilaterally.
[2017-03-22] MEDS ORDERED: Albumin Human 25% (12.5 gm/50 ml) IV ONE ×2 (08:49→09:30)
[2017-03-22] MEDS ORDERED: Sodium Chloride 0.9% 1,000 ML IV ONE ×2 (08:50→10:00)
[2017-03-22 08:52] LABS: EOSINOPHIL 1 % (0-4); NEUTROPHIL 85 % (50-75); NUCLEATED RED BLOOD CELL 1 % (0-0); TOTAL CELLS COUNTED 100
[2017-03-22 08:53] LABS: LARGE PLATELETS PRESENT
[2017-03-22] MEDS ORDERED: DESMOPRESSIN IV ONE (08:53)
[2017-03-22] MEDS ORDERED: SODIUM CHLORIDE 0.9% IV ONE (08:53)
[2017-03-22] MEDS: metroNIDAZOLE IV 500 mg/100 ml 500 MG/100 ML BAG IVPB SCH ×2 (09:43→21:34)
--- NOTE | 2017-03-22 10:57 | CP.PCM.PN ---
Subjective - Date & Time of Evaluation Date of Evaluation: 03/22/17 Time of Evaluation: 10:56 - Subjective Subjective: pt is seen and examined, follow up consult is dictated #[id number] Objective - Vital Signs/Intake and Output Vital Signs (last 24 hours): Temp Pulse Resp BP Pulse Ox 97.8 F 88 15 96/54 L 100 03/22/17 04:00 03/22/17 07:11 03/22/17 07:11 03/22/17 09:11 03/22/17 07:11 Intake and Output: 03/22/17 03/22/17 06:59 18:59 Intake Total 2420 80 Output Total 715 Balance 1705 80 - Medications Medications: Current Medications Acetaminophen (Tylenol 650mg/20.3ml Solution Ud) 650 mg PO Q4 PRN PRN Reason: Pain, moderate (4-7) Last Admin: 03/14/17 17:23 Dose: 650 mg Calcium Acetate (Phoslo) 667 mg PO TID [facility] Last Admin: 03/22/17 09:44 Dose: 667 mg Famotidine (Pepcid) 20 mg PO DAILY [facility] Last Admin: 03/22/17 09:44 Dose: 20 mg Heparin Sodium (Porcine) (Heparin) 5,000 units SC Q12 [facility] Last Admin: 03/22/17 09:44 Dose: 5,000 units Hydrocortisone Sodium Succinate (Solu-Cortef) 100 mg IV Q8H [facility] Metronidazole (Flagyl) 500 mg in 100 mls @ 100 mls/hr IVPB Q12 [facility] Last Admin: 03/22/17 09:43 Dose: 100 mls/hr Linezolid (Zyvox 600mg/300ml D5w) 600 mg in 300 mls @ 200 mls/hr IVPB Q12H [facility] Last Admin: 03/21/17 23:44 Dose: 200 mls/hr Sodium Chloride (Sodium Chloride 0.9%) 1,000 mls @ 70 mls/hr IV .[id number] [facility] Last Admin: 03/21/17 23:43 Dose: 70 mls/hr Phenylephrine HCl 30 mg/ (Sodium Chloride) 253 mls @ 10.12 mls/hr IV .Q24H PRN ; Protocol; 20 MCG/MIN PRN Reason: TITRATE PER MD ORDER Last Titration: 03/21/17 23:42 Dose: 20 mcg/min, 10.12 mls/hr Meropenem 500 mg/ Dextrose 100 mls @ 100 mls/hr IVPB Q8 [facility] Last Admin: 03/22/17 05:27 Dose: 100 mls/hr Sodium Chloride (Sodium Chloride 0.9%) 1,000 mls @ 1,000 mls/hr IV .Q1H ONE Stop: 03/22/17 10:59 Last Admin: 03/22/17 10:06 Dose: 1,000 mls/hr Insulin Human Regular (Novolin R) 0 unit SC Q6 [facility] PRN Reason: Protocol Last Admin: 03/22/17 05:26 Dose: Not Given Levothyroxine Sodium (Synthroid) 25 mcg PO DAILY@0630 [facility] Last Admin: 03/22/17 05:41 Dose: 25 mcg Lorazepam (Ativan) 2 mg IVP Q6H PRN PRN Reason: Sedation Last Admin: 03/20/17 23:35 Dose: 2 mg Metoprolol Tartrate (Lopressor) 25 mg PO BID [facility] Last Admin: 03/22/17 09:11 Dose: Not Given - Labs Labs: 03/22/17 06:17 03/22/17 06:17 PT 10.2 SECONDS (9.7-12.2) 03/12/17 06:20 INR 0.9 03/12/17 06:20 APTT 27 SECONDS (21-34) 03/12/17 06:20
[2017-03-22] MEDS: Linezolid 600 mg in D5W 300 ml 600 MG/300 ML BAG IVPB SCH ×2 (11:16→23:11)
--- NOTE | 2017-03-22 12:09 | CP.CCUPN ---
Addendum entered and electronically signed by Rosaura Paz 03/22/17 15:44 : FENa: .5 - prerenal Original Note: <Rosaura Paz - Last Filed: 03/22/17 13:44> CCU Subjective - Physician Review Subjective (Free Text): Patient seen and examined at bedside. Patient intubated is intubated and therefore ROS unobtainable. POD#9 s/p right parietal craniotomy, subtotal evacuation of hematoma. Patient spontaneously opens eyes. No acute events overnight. No change in patient's clinical status. CCU Objective - Vital Signs / Intake & Output Vital Signs (Last 4 hours): Vital Signs BP 03/22/17 09:11 96/54 L Intake and Output (Last 8hrs): Intake & Output 03/21/17 03/22/17 03/22/17 22:59 06:59 14:59 Intake Total 2860 1056 2709.5 Output Total 305 700 296 Balance 2555 356 2413.5 Weight 96 lb 8 oz Intake: IV 65 16 Intake, IV Amount 2558 940 2709.5 Left Antecubital 100 Right Forearm 137 238 0797 Right Forearm #2 351.5 Right Upper arm 2448 Rt Upper Arm Y-site 10 90 50 Oral 237 Other 100 Output: Urine 55 300 296 Urethral (Forbes) 55 300 296 Stool 250 400 - Physical Exam Head: Positive for: Normocephalic, Other (dressing in place post craniotomy ) Pupils: Positive for: Sluggish Mouth: Positive for: Dry Respiratory/Chest: Positive for: Good Air Exchange Cardiovascular: Positive for: Normal S1, S2 Lower Extremity: Positive for: Edema Skin: Positive for: Warm Psychiatric: Negative for: Alert, Oriented x 3 - Medications Active Medications: Active Medications Generic Name Dose Route Start Last Admin Trade Name Freq PRN Reason Stop Dose Admin Acetaminophen 650 mg 03/14/17 17:15 03/14/17 17:23 Tylenol 650mg/20.3ml Solution Ud PO 650 mg Q4 PRN Administration Pain, moderate (4-7) Calcium Acetate 667 mg 03/18/17 14:00 03/22/17 09:44 Phoslo PO 667 mg TID HALLE Administration Famotidine 20 mg 03/20/17 10:30 03/22/17 09:44 Pepcid PO 20 mg DAILY HALLE Administration Heparin Sodium (Porcine) 5,000 units 03/15/17 22:00 03/22/17 09:44 Heparin SC 5,000 units Q12 HALLE Administration Hydrocortisone Sodium Succinate 100 mg 03/22/17 17:00 Solu-Cortef IV Q8H HALLE Metronidazole 500 mg in 100 mls @ 100 mls/hr 03/14/17 10:00 03/22/17 09:43 Flagyl IVPB 100 mls/hr Q12 HALLE Administration Linezolid 600 mg in 300 mls @ 200 mls/hr 03/14/17 23:45 03/22/17 11:16 Zyvox 600mg/300ml D5w IVPB 200 mls/hr Q12H HALLE Administration Sodium Chloride 1,000 mls @ 70 mls/hr 03/20/17 19:00 03/21/17 23:43 Sodium Chloride 0.9% IV 70 mls/hr .[id number] HALLE Administration Phenylephrine HCl 30 mg/ 253 mls @ 10.12 mls/hr 03/21/17 20:17 03/21/17 23:42 Sodium Chloride IV 20 mcg/min .Q24H PRN 10.12 mls/hr TITRATE PER MD ORDER Titration Protocol 20 MCG/MIN Meropenem 500 mg/ Dextrose 100 mls @ 100 mls/hr 03/21/17 23:00 03/22/17 05:27 IVPB 100 mls/hr Q8 HALLE Administration Insulin Human Regular 0 unit 03/12/17 12:00 03/22/17 05:26 Novolin R SC Not Given Q6 [facility] Protocol Levothyroxine Sodium 25 mcg 03/17/17 06:30 03/22/17 05:41 Synthroid PO 25 mcg DAILY@0630 HALLE Administration Lorazepam 2 mg 03/20/17 23:25 03/20/17 23:35 Ativan IVP 2 mg Q6H PRN Administration Sedation Metoprolol Tartrate 25 mg 03/16/17 10:00 03/22/17 09:11 Lopressor PO Not Given BID HALLE - Patient Studies Lab Studies: Lab Studies 03/22/17 03/22/17 03/22/17 Range/Units 11:47 06:17 06:17 WBC 18.7 H (4.8-10.8) K/uL RBC 2.57 L (3.80-5.20) Mil/uL Hgb 8.1 L (11.0-16.0) g/dL Hct 26.9 L (34.0-47.0) % MCV 104.6 H D (81.0-99.0) fL MCH 31.7 H (27.0-31.0) pg MCHC 30.3 L (33.0-37.0) g/dL RDW 16.5 H (11.5-14.5) % Plt Count 169 (130-400) K/uL MPV 12.4 H (7.2-11.7) fL Neut % (Auto) 89.0 H (50.0-75.0) % Lymph % (Auto) 7.1 L (20.0-40.0) % Hart % (Auto) 2.4 (0.0-10.0) % Eos % (Auto) 1.4 (0.0-4.0) % Baso % (Auto) 0.1 (0.0-2.0) % Neut # 16.6 H (1.8-7.0) K/uL Lymph # 1.3 (1.0-4.3) K/uL Hart # 0.5 (0.0-0.8) K/uL Eos # 0.3 (0.0-0.7) K/uL Baso # 0.0 (0.0-0.2) K/uL Neutrophils % (Manual) 85 H (50-75) % Band Neutrophils % 10 H (0-2) % Lymphocytes % (Manual) 4 L (20-40) % Monocytes % (Manual) TEST NOT PERFORMED Eosinophils % (Manual) 1 (0-4) % Nucleated RBC % 1 H (0-0) % Toxic Granulation Present Platelet Estimate Normal (NORMAL) Large Platelets Present Anisocytosis (manual) Slight Macrocytosis (manual) Moderate Ovalocytes Slight Puncture Site pCO2 (35-45) mm/Hg pO2 (80-100) mm/Hg HCO3 (21-28) mmol/L ABG pH (7.35-7.45) ABG Total CO2 (22-28) mmol/L ABG O2 Saturation (95-98) % ABG Base Excess (-2.0-3.0) mmol/L ABG Hemoglobin (11.7-17.4) g/dL ABG Carboxyhemoglobin (0.5-1.5) % POC ABG HHb (Measured) (0.0-5.0) % ABG Methemoglobin (0.0-3.0) % Jean Test A-a O2 Difference mm/Hg Respiratory Index Hgb O2 Saturation (95.0-98.0) % Vent Mode Mechanical Rate FiO2 % Tidal Volume PEEP Sodium 144 (132-148) mmol/L Potassium 3.5 L (3.6-5.2) mmol/L Chloride 114 H (98-107) mmol/L Carbon Dioxide 16 L (22-30) mmol/L Anion Gap 18 (10-20) BUN 166 H* (7-17) mg/dL Creatinine 3.9 H (0.7-1.2) mg/dL Est GFR ( Amer) 13 Est GFR (Non-Af Amer) 11 POC Glucose (mg/dL) 126 H (65-110) mg/dL Random Glucose 137 H (65-105) mg/dL Calcium 6.7 L (8.6-10.4) mg/dl Phosphorus 6.8 H (2.5-4.5) mg/dL Magnesium 2.8 H (1.6-2.3) mg/dL Total Bilirubin 0.9 (0.2-1.3) mg/dL AST 101 H D (14-36) U/L ALT 93 H D (9-52) U/L Alkaline Phosphatase 109 (38-126) U/L Total Protein 3.7 L (6.3-8.3) g/dL Albumin 2.0 L (3.5-5.0) g/dL Globulin 1.7 L (2.2-3.9) gm/dL Albumin/Globulin Ratio 1.2 (1.0-2.1) Urine Osmolality (300-1000) mosm/kg Ur Random Creatinine mg/dL Ur Random Sodium mmol/L 03/22/17 03/22/17 03/21/17 Range/Units 05:21 05:15 23:37 WBC (4.8-10.8) K/uL RBC (3.80-5.20) Mil/uL Hgb (11.0-16.0) g/dL Hct (34.0-47.0) % MCV (81.0-99.0) fL MCH (27.0-31.0) pg MCHC (33.0-37.0) g/dL RDW (11.5-14.5) % Plt Count (130-400) K/uL MPV (7.2-11.7) fL Neut % (Auto) (50.0-75.0) % Lymph % (Auto) (20.0-40.0) % Hart % (Auto) (0.0-10.0) % Eos % (Auto) (0.0-4.0) % Baso % (Auto) (0.0-2.0) % Neut # (1.8-7.0) K/uL Lymph # (1.0-4.3) K/uL Hart # (0.0-0.8) K/uL Eos # (0.0-0.7) K/uL Baso # (0.0-0.2) K/uL Neutrophils % (Manual) (50-75) % Band Neutrophils % (0-2) % Lymphocytes % (Manual) (20-40) % Monocytes % (Manual) Eosinophils % (Manual) (0-4) % Nucleated RBC % (0-0) % Toxic Granulation Platelet Estimate (NORMAL) Large Platelets Anisocytosis (manual) Macrocytosis (manual) Ovalocytes Puncture Site Rr pCO2 24 L (35-45) mm/Hg pO2 109 H (80-100) mm/Hg HCO3 18.8 L (21-28) mmol/L ABG pH 7.42 (7.35-7.45) ABG Total CO2 16.3 L (22-28) mmol/L ABG O2 Saturation 98.6 H (95-98) % ABG Base Excess -7.9 L (-2.0-3.0) mmol/L ABG Hemoglobin 7.6 L (11.7-17.4) g/dL ABG Carboxyhemoglobin 1.8 H (0.5-1.5) % POC ABG HHb (Measured) 1.4 (0.0-5.0) % ABG Methemoglobin 1.1 (0.0-3.0) % Jean Test Pos A-a O2 Difference 75.0 mm/Hg Respiratory Index 0.7 Hgb O2 Saturation 95.8 (95.0-98.0) % Vent Mode Prvc Mechanical Rate 16 FiO2 30.0 % Tidal Volume 450 PEEP 5 Sodium (132-148) mmol/L Potassium (3.6-5.2) mmol/L Chloride (98-107) mmol/L Carbon Dioxide (22-30) mmol/L Anion Gap (10-20) BUN (7-17) mg/dL Creatinine (0.7-1.2) mg/dL Est GFR ( Amer) Est GFR (Non-Af Amer) POC Glucose (mg/dL) 135 H 230 H (65-110) mg/dL Random Glucose (65-105) mg/dL Calcium (8.6-10.4) mg/dl Phosphorus (2.5-4.5) mg/dL Magnesium (1.6-2.3) mg/dL Total Bilirubin (0.2-1.3) mg/dL AST (14-36) U/L ALT (9-52) U/L Alkaline Phosphatase (38-126) U/L Total Protein (6.3-8.3) g/dL Albumin (3.5-5.0) g/dL Globulin (2.2-3.9) gm/dL Albumin/Globulin Ratio (1.0-2.1) Urine Osmolality (300-1000) mosm/kg Ur Random Creatinine mg/dL Ur Random Sodium mmol/L 03/21/17 03/21/17 03/21/17 Range/Units 20:28 17:41 12:03 WBC (4.8-10.8) K/uL RBC (3.80-5.20) Mil/uL Hgb (11.0-16.0) g/dL Hct (34.0-47.0) % MCV (81.0-99.0) fL MCH (27.0-31.0) pg MCHC (33.0-37.0) g/dL RDW (11.5-14.5) % Plt Count (130-400) K/uL MPV (7.2-11.7) fL Neut % (Auto) (50.0-75.0) % Lymph % (Auto) (20.0-40.0) % Hart % (Auto) (0.0-10.0) % Eos % (Auto) (0.0-4.0) % Baso % (Auto) (0.0-2.0) % Neut # (1.8-7.0) K/uL Lymph # (1.0-4.3) K/uL Hart # (0.0-0.8) K/uL Eos # (0.0-0.7) K/uL Baso # (0.0-0.2) K/uL Neutrophils % (Manual) (50-75) % Band Neutrophils % (0-2) % Lymphocytes % (Manual) (20-40) % Monocytes % (Manual) Eosinophils % (Manual) (0-4) % Nucleated RBC % (0-0) % Toxic Granulation Platelet Estimate (NORMAL) Large Platelets Anisocytosis (manual) Macrocytosis (manual) Ovalocytes Puncture Site pCO2 (35-45) mm/Hg pO2 (80-100) mm/Hg HCO3 (21-28) mmol/L ABG pH (7.35-7.45) ABG Total CO2 (22-28) mmol/L ABG O2 Saturation (95-98) % ABG Base Excess (-2.0-3.0) mmol/L ABG Hemoglobin (11.7-17.4) g/dL ABG Carboxyhemoglobin (0.5-1.5) % POC ABG HHb (Measured) (0.0-5.0) % ABG Methemoglobin (0.0-3.0) % Jean Test A-a O2 Difference mm/Hg Respiratory Index Hgb O2 Saturation (95.0-98.0) % Vent Mode Mechanical Rate FiO2 % Tidal Volume PEEP Sodium (132-148) mmol/L Potassium (3.6-5.2) mmol/L Chloride (98-107) mmol/L Carbon Dioxide (22-30) mmol/L Anion Gap (10-20) BUN (7-17) mg/dL Creatinine (0.7-1.2) mg/dL Est GFR ( Amer) Est GFR (Non-Af Amer) POC Glucose (mg/dL) 317 H 257 H (65-110) mg/dL Random Glucose (65-105) mg/dL Calcium (8.6-10.4) mg/dl Phosphorus (2.5-4.5) mg/dL Magnesium (1.6-2.3) mg/dL Total Bilirubin (0.2-1.3) mg/dL AST (14-36) U/L ALT (9-52) U/L Alkaline Phosphatase (38-126) U/L Total Protein (6.3-8.3) g/dL Albumin (3.5-5.0) g/dL Globulin (2.2-3.9) gm/dL Albumin/Globulin Ratio (1.0-2.1) Urine Osmolality 392 (300-1000) mosm/kg Ur Random Creatinine 66.2 mg/dL Ur Random Sodium 12 mmol/L Laboratory Results - last 24 hr 03/21/17 03/21/17 03/21/17 12:03 17:41 20:28 WBC RBC Hgb Hct MCV MCH MCHC RDW Plt Count MPV Neut % (Auto) Lymph % (Auto) Hart % (Auto) Eos % (Auto) Baso % (Auto) Neut # Lymph # Hart # Eos # Baso # Neutrophils % (Manual) Band Neutrophils % Lymphocytes % (Manual) Monocytes % (Manual) Eosinophils % (Manual) Nucleated RBC % Toxic Granulation Platelet Estimate Large Platelets Anisocytosis (manual) Macrocytosis (manual) Ovalocytes Puncture Site pCO2 pO2 HCO3 ABG pH ABG Total CO2 ABG O2 Saturation ABG Base Excess ABG Hemoglobin ABG Carboxyhemoglobin POC ABG HHb (Measured) ABG Methemoglobin Jean Test A-a O2 Difference Respiratory Index Hgb O2 Saturation Vent Mode Mechanical Rate FiO2 Tidal Volume PEEP Sodium Potassium Chloride Carbon Dioxide Anion Gap BUN Creatinine Est GFR ( Amer) Est GFR (Non-Af Amer) POC Glucose (mg/dL) 257 H 317 H Random Glucose Calcium Phosphorus Magnesium Total Bilirubin AST ALT Alkaline Phosphatase Total Protein Albumin Globulin Albumin/Globulin Ratio Urine Osmolality 392 Ur Random Creatinine 66.2 Ur Random Sodium 12 03/21/17 03/22/17 03/22/17 23:37 05:15 05:21 WBC RBC Hgb Hct MCV MCH MCHC RDW Plt Count MPV Neut % (Auto) Lymph % (Auto) Hart % (Auto) Eos % (Auto) Baso % (Auto) Neut # Lymph # Hart # Eos # Baso # Neutrophils % (Manual) Band Neutrophils % Lymphocytes % (Manual) Monocytes % (Manual) Eosinophils % (Manual) Nucleated RBC % Toxic Granulation Platelet Estimate Large Platelets Anisocytosis (manual) Macrocytosis (manual) Ovalocytes Puncture Site Rr pCO2 24 L pO2 109 H HCO3 18.8 L ABG pH 7.42 ABG Total CO2 16.3 L ABG O2 Saturation 98.6 H ABG Base Excess -7.9 L ABG Hemoglobin 7.6 L ABG Carboxyhemoglobin 1.8 H POC ABG HHb (Measured) 1.4 ABG Methemoglobin 1.1 Jean Test Pos A-a O2 Difference 75.0 Respiratory Index 0.7 Hgb O2 Saturation 95.8 Vent Mode Prvc Mechanical Rate 16 FiO2 30.0 Tidal Volume 450 PEEP 5 Sodium Potassium Chloride Carbon Dioxide Anion Gap BUN Creatinine Est GFR ( Amer) Est GFR (Non-Af Amer) POC Glucose (mg/dL) 230 H 135 H Random Glucose Calcium Phosphorus Magnesium Total Bilirubin AST ALT Alkaline Phosphatase Total Protein Albumin Globulin Albumin/Globulin Ratio Urine Osmolality Ur Random Creatinine Ur Random Sodium 03/22/17 03/22/17 03/22/17 06:17 06:17 11:47 WBC 18.7 H RBC 2.57 L Hgb 8.1 L Hct 26.9 L MCV 104.6 H D MCH 31.7 H MCHC 30.3 L RDW 16.5 H Plt Count 169 MPV 12.4 H Neut % (Auto) 89.0 H Lymph % (Auto) 7.1 L Hart % (Auto) 2.4 Eos % (Auto) 1.4 Baso % (Auto) 0.1 Neut # 16.6 H Lymph # 1.3 Hart # 0.5 Eos # 0.3 Baso # 0.0 Neutrophils % (Manual) 85 H Band Neutrophils % 10 H Lymphocytes % (Manual) 4 L Monocytes % (Manual) TEST NOT PERFORMED Eosinophils % (Manual) 1 Nucleated RBC % 1 H Toxic Granulation Present Platelet Estimate Normal Large Platelets Present Anisocytosis (manual) Slight Macrocytosis (manual) Moderate Ovalocytes Slight Puncture Site pCO2 pO2 HCO3 ABG pH ABG Total CO2 ABG O2 Saturation ABG Base Excess ABG Hemoglobin ABG Carboxyhemoglobin POC ABG HHb (Measured) ABG Methemoglobin Jean Test A-a O2 Difference Respiratory Index Hgb O2 Saturation Vent Mode Mechanical Rate FiO2 Tidal Volume PEEP Sodium 144 Potassium 3.5 L Chloride 114 H Carbon Dioxide 16 L Anion Gap 18 BUN 166 H* Creatinine 3.9 H Est GFR ( Amer) 13 Est GFR (Non-Af Amer) 11 POC Glucose (mg/dL) 126 H Random Glucose 137 H Calcium 6.7 L Phosphorus 6.8 H Magnesium 2.8 H Total Bilirubin 0.9 AST 101 H D ALT 93 H D Alkaline Phosphatase 109 Total Protein 3.7 L Albumin 2.0 L Globulin 1.7 L Albumin/Globulin Ratio 1.2 Urine Osmolality Ur Random Creatinine Ur Random Sodium Fingerstick Blood Sugar Results: 135 Review of Systems - Review of Systems Systems not reviewed;Unavailable: Intubated Critical Care Progress Note - Nutrition Nutrition: Nutrition Category Date Time Status NPO Diet [DIET] Diets 03/11/ Dinner Active Assessment/Plan - Assessment and Plan (Free Text) Assessment: 81 years old female who lives alone, with hx of Pancreatic Cancer, CKD and DM, brought awake and with left side weakness to the ED by EMS, after being found on the floor in her closet. The Head CT showing a large intracranial bleed with a midline shift to the left. Patient intubated. POD#9 s/p right parietal craniotomy, subtotal evacuation of hematoma. Plan: Neuro: intracranial bleed, POD#9 s/p right parietal craniotomy, subtotal evacuation of hematoma Head CT (03/11): large right temporoparietal parenchymal hemorrhage with white matter vasogenic edema, mass effect and 12 mm midline shift to left, associated subarachnoid and subdural hemorrhage on the right Head CT (03/12): slight increase in size of right temporoparietal occipital acute hemorrhage. Minimal subarachnoid hemorrhage and subdural hemorrhage as on previous exam. Midline shift towards the left slightly increase from prior examination, 11mm. No evidence of downward herniation. 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 Dr. Torres, neurology consulted left dense paralysis Dr. Mckee (neurosurg) performed right parietal craniotomy evacuation of hematoma yesterday Head CT (03/13): s/p right temporoparietal craniotomy with moderate residual intraparenchymal hemorrhage identified at the right temporal lobe predominantly and minimally involving the inferior right parietal lobe. Local edema remains prominent exerting mass effect causing 15mm leftward shift and effacement of the 3rd and right lateral ventricles as well as the right cerebral sulci. Mild to moderate right pneumocephaly identified. Minimal right subdural hematoma. Mild mass effect exerted at the right cerebral peduncle with the brainstem below this level unremarkable As per Dr. Allen, these are expected post op findings Head CT (03/18): little interval change involving in the appearance of large right MCA territory hemorrhagic infarction in the right parietal and temporal lobes with vasogenic edema, significant local and regional mass effect with effacement of the right lateral ventricle and 18mm midline shift from right to left. No evidence of uncal herniation or obstructive hydrocephalus. Stable mixed density right convexity subdural collection. Cardio: hypotension Albumin 25% 25gm 2 boluses of NS 1000ml Phenylephrine Hydrocotisone 300 mg stat Hydrocortisone 100mg IV q8h Desmopressin 6mcg given Pulm: intubated Cxray: 03/20/17: lines and tubes in stable position. hyperinflation suggestive for COPD and or emphysematous changes. Biapical pleural thickening with upper lobe granulomatous changes. Scattered nodular densities in both lung marcial. No gross focal infiltrate or effusion. Endo: hx DMII, hypothyroidism accuchecks HgA1C: 6.3 Lipid panel: Triglycerides; 102, cholesterol 143, LDL 5, HDL 76 R ISS Synthroid 25mcg Renal: PAXTON on CKD, electrolyte imbalance BUN/ Cr: 03/20: 166/4.2 BUN/Cr: 03/22: 144/3.5 Dr. Odom consulted, help appreciated -hydration with NS @70 cc/ hr started on 03/20 phoslo TID Renal u/s: diminutive bilateral kidneys with increased echogenicity of the bilateral renal parenchymal cortices suggestive for medical renal disease. Bilateral renal disease Heme: Hx pancreatic cancer ID: wbc 18.7, bands 10 -blood cultures negative -sputum culture (03/13): klebsiella pneumoniae -urine culture (03/13): gram positive cocci -Flagyl 500 mg iv q12h -Cefepime 1gm q24h -Zyvox 600 mg q12h (started 03/14) -Dr. Torres consulted, help appreciated Prophylaxis: DVT: SCDs, Heparin 5000 sc q12h GI: Pepcid 20 mg daily palliative care consulted, help appreciated code status: DNR <Jane Horner M - Last Filed: 03/22/17 17:54> CCU Subjective - Physician Review Events Since Last Encounter (Free Text): Patient seen and examined at bedside. PAtient with severe cerebral dysfunction. Currently hypotensive shock with liekly sepsis (source MRSA/enterococcus) currently on linezolid/jonh. Above resident has documented my physical findings and assessment and plan. I agree with resident's note. Patient's prognosis is very poor. -current management d/w family/sister/neice (recently came from [facility] and another from [place]). -Shock: septic +/-cardiogenic -severe cerebral dynsfunction (unable to recover from her pre-admission mental status). -vitals reviewed -allergies reviewed -medications reviewed -critical care time spent 50 minutes 03/22/17 17:50 Critical Care Time Spent (in minutes): 50 CCU Objective - Vital Signs / Intake & Output Vital Signs (Last 4 hours): Vital Signs Pulse Resp BP Pulse Ox 03/22/17 16:11 101 H 16 69/42 L 98 03/22/17 16:00 100 H 16 80/37 L 98 03/22/17 15:53 96 H 16 80/37 L 98 03/22/17 15:11 106 H 16 83/39 L 87 L 03/22/17 14:12 85 15 102/51 L Intake and Output (Last 8hrs): Intake & Output 03/22/17 03/22/17 03/22/17 06:59 14:59 22:59 Intake Total 1056 3149.5 160 Output Total 700 422 Balance 356 2727.5 160 Weight 96 lb 8 oz Intake: IV 16 Intake, IV Amount 940 3149.5 160 Left Antecubital 100 Right Forearm 850 2418 140 Right Forearm #2 551.5 Rt Upper Arm Y-site 90 80 20 Other 100 Output: Urine 300 422 Urethral (Forbes) 300 422 Stool 400 - Medications Active Medications: Active Medications Generic Name Dose Route Start Last Admin Trade Name Freq PRN Reason Stop Dose Admin Acetaminophen 650 mg 03/14/17 17:15 03/14/17 17:23 Tylenol 650mg/20.3ml Solution Ud PO 650 mg Q4 PRN Administration Pain, moderate (4-7) Calcium Acetate 667 mg 03/18/17 14:00 03/22/17 14:25 Phoslo PO 667 mg TID HALLE Administration Famotidine 20 mg 03/20/17 10:30 03/22/17 09:44 Pepcid PO 20 mg DAILY HALLE Administration Heparin Sodium (Porcine) 5,000 units 03/15/17 22:00 03/22/17 09:44 Heparin SC 5,000 units Q12 HALLE Administration Hydrocortisone Sodium Succinate 100 mg 03/22/17 17:00 Solu-Cortef IV Q8H HALEL Metronidazole 500 mg in 100 mls @ 100 mls/hr 03/14/17 10:00 03/22/17 09:43 Flagyl IVPB 100 mls/hr Q12 HALLE Administration Linezolid 600 mg in 300 mls @ 200 mls/hr 03/14/17 23:45 03/22/17 11:16 Zyvox 600mg/300ml D5w IVPB 200 mls/hr Q12H HALLE Administration Sodium Chloride 1,000 mls @ 70 mls/hr 03/20/17 19:00 03/22/17 14:24 Sodium Chloride 0.9% IV 70 mls/hr .[id number] HALLE Administration Phenylephrine HCl 30 mg/ 253 mls @ 10.12 mls/hr 03/21/17 20:17 03/21/17 23:42 Sodium Chloride IV 20 mcg/min .Q24H PRN 10.12 mls/hr TITRATE PER MD ORDER Titration Protocol 20 MCG/MIN Meropenem 500 mg/ Dextrose 100 mls @ 100 mls/hr 03/21/17 23:00 03/22/17 14:25 IVPB 100 mls/hr Q8 HALLE Administration Insulin Human Regular 0 unit 03/12/17 12:00 03/22/17 12:22 Novolin R SC Not Given Q6 [facility] Protocol Levothyroxine Sodium 25 mcg 03/17/17 06:30 03/22/17 05:41 Synthroid PO 25 mcg DAILY@0630 HALLE Administration Lorazepam 2 mg 03/20/17 23:25 03/20/17 23:35 Ativan IVP 2 mg Q6H PRN Administration Sedation Metoprolol Tartrate 25 mg 03/16/17 10:00 03/22/17 09:11 Lopressor PO Not Given BID HALLE - Patient Studies Lab Studies: Lab Studies 03/22/17 03/22/17 03/22/17 Range/Units 11:47 06:17 06:17 WBC 18.7 H (4.8-10.8) K/uL RBC 2.57 L (3.80-5.20) Mil/uL Hgb 8.1 L (11.0-16.0) g/dL Hct 26.9 L (34.0-47.0) % MCV 104.6 H D (81.0-99.0) fL MCH 31.7 H (27.0-31.0) pg MCHC 30.3 L (33.0-37.0) g/dL RDW 16.5 H (11.5-14.5) % Plt Count 169 (130-400) K/uL MPV 12.4 H (7.2-11.7) fL Neut % (Auto) 89.0 H (50.0-75.0) % Lymph % (Auto) 7.1 L (20.0-40.0) % Hart % (Auto) 2.4 (0.0-10.0) % Eos % (Auto) 1.4 (0.0-4.0) % Baso % (Auto) 0.1 (0.0-2.0) % Neut # 16.6 H (1.8-7.0) K/uL Lymph # 1.3 (1.0-4.3) K/uL Hart # 0.5 (0.0-0.8) K/uL Eos # 0.3 (0.0-0.7) K/uL Baso # 0.0 (0.0-0.2) K/uL Neutrophils % (Manual) 85 H (50-75) % Band Neutrophils % 10 H (0-2) % Lymphocytes % (Manual) 4 L (20-40) % Monocytes % (Manual) TEST NOT PERFORMED Eosinophils % (Manual) 1 (0-4) % Nucleated RBC % 1 H (0-0) % Toxic Granulation Present Platelet Estimate Normal (NORMAL) Large Platelets Present Anisocytosis (manual) Slight Macrocytosis (manual) Moderate Ovalocytes Slight Puncture Site pCO2 (35-45) mm/Hg pO2 (80-100) mm/Hg HCO3 (21-28) mmol/L ABG pH (7.35-7.45) ABG Total CO2 (22-28) mmol/L ABG O2 Saturation (95-98) % ABG Base Excess (-2.0-3.0) mmol/L ABG Hemoglobin (11.7-17.4) g/dL ABG Carboxyhemoglobin (0.5-1.5) % POC ABG HHb (Measured) (0.0-5.0) % ABG Methemoglobin (0.0-3.0) % Jean Test A-a O2 Difference mm/Hg Respiratory Index Hgb O2 Saturation (95.0-98.0) % Vent Mode Mechanical Rate FiO2 % Tidal Volume PEEP Sodium 144 (132-148) mmol/L Potassium 3.5 L (3.6-5.2) mmol/L Chloride 114 H (98-107) mmol/L Carbon Dioxide 16 L (22-30) mmol/L Anion Gap 18 (10-20) BUN 166 H* (7-17) mg/dL Creatinine 3.9 H (0.7-1.2) mg/dL Est GFR ( Amer) 13 Est GFR (Non-Af Amer) 11 POC Glucose (mg/dL) 126 H (65-110) mg/dL Random Glucose 137 H (65-105) mg/dL Calcium 6.7 L (8.6-10.4) mg/dl Phosphorus 6.8 H (2.5-4.5) mg/dL Magnesium 2.8 H (1.6-2.3) mg/dL Total Bilirubin 0.9 (0.2-1.3) mg/dL AST 101 H D (14-36) U/L ALT 93 H D (9-52) U/L Alkaline Phosphatase 109 (38-126) U/L Total Protein 3.7 L (6.3-8.3) g/dL Albumin 2.0 L (3.5-5.0) g/dL Globulin 1.7 L (2.2-3.9) gm/dL Albumin/Globulin Ratio 1.2 (1.0-2.1) Urine Osmolality (300-1000) mosm/kg Ur Random Creatinine mg/dL Ur Random Sodium mmol/L 03/22/17 03/22/17 03/21/17 Range/Units 05:21 05:15 23:37 WBC (4.8-10.8) K/uL RBC (3.80-5.20) Mil/uL Hgb (11.0-16.0) g/dL Hct (34.0-47.0) % MCV (81.0-99.0) fL MCH (27.0-31.0) pg MCHC (33.0-37.0) g/dL RDW (11.5-14.5) % Plt Count (130-400) K/uL MPV (7.2-11.7) fL Neut % (Auto) (50.0-75.0) % Lymph % (Auto) (20.0-40.0) % Hart % (Auto) (0.0-10.0) % Eos % (Auto) (0.0-4.0) % Baso % (Auto) (0.0-2.0) % Neut # (1.8-7.0) K/uL Lymph # (1.0-4.3) K/uL Hart # (0.0-0.8) K/uL Eos # (0.0-0.7) K/uL Baso # (0.0-0.2) K/uL Neutrophils % (Manual) (50-75) % Band Neutrophils % (0-2) % Lymphocytes % (Manual) (20-40) % Monocytes % (Manual) Eosinophils % (Manual) (0-4) % Nucleated RBC % (0-0) % Toxic Granulation Platelet Estimate (NORMAL) Large Platelets Anisocytosis (manual) Macrocytosis (manual) Ovalocytes Puncture Site Rr pCO2 24 L (35-45) mm/Hg pO2 109 H (80-100) mm/Hg HCO3 18.8 L (21-28) mmol/L ABG pH 7.42 (7.35-7.45) ABG Total CO2 16.3 L (22-28) mmol/L ABG O2 Saturation 98.6 H (95-98) % ABG Base Excess -7.9 L (-2.0-3.0) mmol/L ABG Hemoglobin 7.6 L (11.7-17.4) g/dL ABG Carboxyhemoglobin 1.8 H (0.5-1.5) % POC ABG HHb (Measured) 1.4 (0.0-5.0) % ABG Methemoglobin 1.1 (0.0-3.0) % Jean Test Pos A-a O2 Difference 75.0 mm/Hg Respiratory Index 0.7 Hgb O2 Saturation 95.8 (95.0-98.0) % Vent Mode Prvc Mechanical Rate 16 FiO2 30.0 % Tidal Volume 450 PEEP 5 Sodium (132-148) mmol/L Potassium (3.6-5.2) mmol/L Chloride (98-107) mmol/L Carbon Dioxide (22-30) mmol/L Anion Gap (10-20) BUN (7-17) mg/dL Creatinine (0.7-1.2) mg/dL Est GFR ( Amer) Est GFR (Non-Af Amer) POC Glucose (mg/dL) 135 H 230 H (65-110) mg/dL Random Glucose (65-105) mg/dL Calcium (8.6-10.4) mg/dl Phosphorus (2.5-4.5) mg/dL Magnesium (1.6-2.3) mg/dL Total Bilirubin (0.2-1.3) mg/dL AST (14-36) U/L ALT (9-52) U/L Alkaline Phosphatase (38-126) U/L Total Protein (6.3-8.3) g/dL Albumin (3.5-5.0) g/dL Globulin (2.2-3.9) gm/dL Albumin/Globulin Ratio (1.0-2.1) Urine Osmolality (300-1000) mosm/kg Ur Random Creatinine mg/dL Ur Random Sodium mmol/L 03/21/17 03/21/17 Range/Units 20:28 17:41 WBC (4.8-10.8) K/uL RBC (3.80-5.20) Mil/uL Hgb (11.0-16.0) g/dL Hct (34.0-47.0) % MCV (81.0-99.0) fL MCH (27.0-31.0) pg MCHC (33.0-37.0) g/dL RDW (11.5-14.5) % Plt Count (130-400) K/uL MPV (7.2-11.7) fL Neut % (Auto) (50.0-75.0) % Lymph % (Auto) (20.0-40.0) % Hart % (Auto) (0.0-10.0) % Eos % (Auto) (0.0-4.0) % Baso % (Auto) (0.0-2.0) % Neut # (1.8-7.0) K/uL Lymph # (1.0-4.3) K/uL Hart # (0.0-0.8) K/uL Eos # (0.0-0.7) K/uL Baso # (0.0-0.2) K/uL Neutrophils % (Manual) (50-75) % Band Neutrophils % (0-2) % Lymphocytes % (Manual) (20-40) % Monocytes % (Manual) Eosinophils % (Manual) (0-4) % Nucleated RBC % (0-0) % Toxic Granulation Platelet Estimate (NORMAL) Large Platelets Anisocytosis (manual) Macrocytosis (manual) Ovalocytes Puncture Site pCO2 (35-45) mm/Hg pO2 (80-100) mm/Hg HCO3 (21-28) mmol/L ABG pH (7.35-7.45) ABG Total CO2 (22-28) mmol/L ABG O2 Saturation (95-98) % ABG Base Excess (-2.0-3.0) mmol/L ABG Hemoglobin (11.7-17.4) g/dL ABG Carboxyhemoglobin (0.5-1.5) % POC ABG HHb (Measured) (0.0-5.0) % ABG Methemoglobin (0.0-3.0) % Jean Test A-a O2 Difference mm/Hg Respiratory Index Hgb O2 Saturation (95.0-98.0) % Vent Mode Mechanical Rate FiO2 % Tidal Volume PEEP Sodium (132-148) mmol/L Potassium (3.6-5.2) mmol/L Chloride (98-107) mmol/L Carbon Dioxide (22-30) mmol/L Anion Gap (10-20) BUN (7-17) mg/dL Creatinine (0.7-1.2) mg/dL Est GFR ( Amer) Est GFR (Non-Af Amer) POC Glucose (mg/dL) 317 H (65-110) mg/dL Random Glucose (65-105) mg/dL Calcium (8.6-10.4) mg/dl Phosphorus (2.5-4.5) mg/dL Magnesium (1.6-2.3) mg/dL Total Bilirubin (0.2-1.3) mg/dL AST (14-36) U/L ALT (9-52) U/L Alkaline Phosphatase (38-126) U/L Total Protein (6.3-8.3) g/dL Albumin (3.5-5.0) g/dL Globulin (2.2-3.9) gm/dL Albumin/Globulin Ratio (1.0-2.1) Urine Osmolality 392 (300-1000) mosm/kg Ur Random Creatinine 66.2 mg/dL Ur Random Sodium 12 mmol/L Laboratory Results - last 24 hr 03/21/17 03/21/17 03/21/17 17:41 20:28 23:37 WBC RBC Hgb Hct MCV MCH MCHC RDW Plt Count MPV Neut % (Auto) Lymph % (Auto) Hart % (Auto) Eos % (Auto) Baso % (Auto) Neut # Lymph # Hart # Eos # Baso # Neutrophils % (Manual) Band Neutrophils % Lymphocytes % (Manual) Monocytes % (Manual) Eosinophils % (Manual) Nucleated RBC % Toxic Granulation Platelet Estimate Large Platelets Anisocytosis (manual) Macrocytosis (manual) Ovalocytes Puncture Site pCO2 pO2 HCO3 ABG pH ABG Total CO2 ABG O2 Saturation ABG Base Excess ABG Hemoglobin ABG Carboxyhemoglobin POC ABG HHb (Measured) ABG Methemoglobin Jean Test A-a O2 Difference Respiratory Index Hgb O2 Saturation Vent Mode Mechanical Rate FiO2 Tidal Volume PEEP Sodium Potassium Chloride Carbon Dioxide Anion Gap BUN Creatinine Est GFR ( Amer) Est GFR (Non-Af Amer) POC Glucose (mg/dL) 317 H 230 H Random Glucose Calcium Phosphorus Magnesium Total Bilirubin AST ALT Alkaline Phosphatase Total Protein Albumin Globulin Albumin/Globulin Ratio Urine Osmolality 392 Ur Random Creatinine 66.2 Ur Random Sodium 12 03/22/17 03/22/17 03/22/17 05:15 05:21 06:17 WBC 18.7 H RBC 2.57 L Hgb 8.1 L Hct 26.9 L MCV 104.6 H D MCH 31.7 H MCHC 30.3 L RDW 16.5 H Plt Count 169 MPV 12.4 H Neut % (Auto) 89.0 H Lymph % (Auto) 7.1 L Hart % (Auto) 2.4 Eos % (Auto) 1.4 Baso % (Auto) 0.1 Neut # 16.6 H Lymph # 1.3 Hart # 0.5 Eos # 0.3 Baso # 0.0 Neutrophils % (Manual) 85 H Band Neutrophils % 10 H Lymphocytes % (Manual) 4 L Monocytes % (Manual) TEST NOT PERFORMED Eosinophils % (Manual) 1 Nucleated RBC % 1 H Toxic Granulation Present Platelet Estimate Normal Large Platelets Present Anisocytosis (manual) Slight Macrocytosis (manual) Moderate Ovalocytes Slight Puncture Site Rr pCO2 24 L pO2 109 H HCO3 18.8 L ABG pH 7.42 ABG Total CO2 16.3 L ABG O2 Saturation 98.6 H ABG Base Excess -7.9 L ABG Hemoglobin 7.6 L ABG Carboxyhemoglobin 1.8 H POC ABG HHb (Measured) 1.4 ABG Methemoglobin 1.1 Jean Test Pos A-a O2 Difference 75.0 Respiratory Index 0.7 Hgb O2 Saturation 95.8 Vent Mode Prvc Mechanical Rate 16 FiO2 30.0 Tidal Volume 450 PEEP 5 Sodium Potassium Chloride Carbon Dioxide Anion Gap BUN Creatinine Est GFR ( Amer) Est GFR (Non-Af Amer) POC Glucose (mg/dL) 135 H Random Glucose Calcium Phosphorus Magnesium Total Bilirubin AST ALT Alkaline Phosphatase Total Protein Albumin Globulin Albumin/Globulin Ratio Urine Osmolality Ur Random Creatinine Ur Random Sodium 03/22/17 03/22/17 06:17 11:47 WBC RBC Hgb Hct MCV MCH MCHC RDW Plt Count MPV Neut % (Auto) Lymph % (Auto) Hart % (Auto) Eos % (Auto) Baso % (Auto) Neut # Lymph # Hart # Eos # Baso # Neutrophils % (Manual) Band Neutrophils % Lymphocytes % (Manual) Monocytes % (Manual) Eosinophils % (Manual) Nucleated RBC % Toxic Granulation Platelet Estimate Large Platelets Anisocytosis (manual) Macrocytosis (manual) Ovalocytes Puncture Site pCO2 pO2 HCO3 ABG pH ABG Total CO2 ABG O2 Saturation ABG Base Excess ABG Hemoglobin ABG Carboxyhemoglobin POC ABG HHb (Measured) ABG Methemoglobin Jean Test A-a O2 Difference Respiratory Index Hgb O2 Saturation Vent Mode Mechanical Rate FiO2 Tidal Volume PEEP Sodium 144 Potassium 3.5 L Chloride 114 H Carbon Dioxide 16 L Anion Gap 18 BUN 166 H* Creatinine 3.9 H Est GFR ( Amer) 13 Est GFR (Non-Af Amer) 11 POC Glucose (mg/dL) 126 H Random Glucose 137 H Calcium 6.7 L Phosphorus 6.8 H Magnesium 2.8 H Total Bilirubin 0.9 AST 101 H D ALT 93 H D Alkaline Phosphatase 109 Total Protein 3.7 L Albumin 2.0 L Globulin 1.7 L Albumin/Globulin Ratio 1.2 Urine Osmolality Ur Random Creatinine Ur Random Sodium Critical Care Progress Note - Nutrition Nutrition: Nutrition Category Date Time Status NPO Diet [DIET] Diets 03/11/17 Dinner Active
--- NOTE | 2017-03-22 13:40 | CP.PCM.PN ---
Subjective - Date & Time of Evaluation Date of Evaluation: 03/22/17 Time of Evaluation: 13:38 - Subjective Subjective: REMAINS IN RESP. FAILURE WITH SEPSIS AND HYPOTENSIVE IN ACUTE RENAL FAILURE FMLY SIGNED DNR ALL INVASIVE INCLUDING DIALYSIS ON HOLD COMFORT CARE Objective - Vital Signs/Intake and Output Vital Signs (last 24 hours): Temp Pulse Resp BP Pulse Ox 97.8 F 86 16 92/57 L 100 03/22/17 04:00 03/22/17 12:11 03/22/17 12:11 03/22/17 12:11 03/22/17 12:11 Intake and Output: 03/22/17 03/22/17 11:59 23:59 Intake Total 3629.5 Output Total 996 Balance 2633.5 - Medications Medications: Current Medications Acetaminophen (Tylenol 650mg/20.3ml Solution Ud) 650 mg PO Q4 PRN PRN Reason: Pain, moderate (4-7) Last Admin: 03/14/17 17:23 Dose: 650 mg Calcium Acetate (Phoslo) 667 mg PO TID [facility] Last Admin: 03/22/17 09:44 Dose: 667 mg Famotidine (Pepcid) 20 mg PO DAILY [facility] Last Admin: 03/22/17 09:44 Dose: 20 mg Heparin Sodium (Porcine) (Heparin) 5,000 units SC Q12 [facility] Last Admin: 03/22/17 09:44 Dose: 5,000 units Hydrocortisone Sodium Succinate (Solu-Cortef) 100 mg IV Q8H [facility] Metronidazole (Flagyl) 500 mg in 100 mls @ 100 mls/hr IVPB Q12 [facility] Last Admin: 03/22/17 09:43 Dose: 100 mls/hr Linezolid (Zyvox 600mg/300ml D5w) 600 mg in 300 mls @ 200 mls/hr IVPB Q12H [facility] Last Admin: 03/22/17 11:16 Dose: 200 mls/hr Sodium Chloride (Sodium Chloride 0.9%) 1,000 mls @ 70 mls/hr IV .[id number] [facility] Last Admin: 03/21/17 23:43 Dose: 70 mls/hr Phenylephrine HCl 30 mg/ (Sodium Chloride) 253 mls @ 10.12 mls/hr IV .Q24H PRN ; Protocol; 20 MCG/MIN PRN Reason: TITRATE PER MD ORDER Last Titration: 03/21/17 23:42 Dose: 20 mcg/min, 10.12 mls/hr Meropenem 500 mg/ Dextrose 100 mls @ 100 mls/hr IVPB Q8 [facility] Last Admin: 03/22/17 05:27 Dose: 100 mls/hr Insulin Human Regular (Novolin R) 0 unit SC Q6 [facility] PRN Reason: Protocol Last Admin: 03/22/17 12:22 Dose: Not Given Levothyroxine Sodium (Synthroid) 25 mcg PO DAILY@0630 [facility] Last Admin: 03/22/17 05:41 Dose: 25 mcg Lorazepam (Ativan) 2 mg IVP Q6H PRN PRN Reason: Sedation Last Admin: 03/20/17 23:35 Dose: 2 mg Metoprolol Tartrate (Lopressor) 25 mg PO BID [facility] Last Admin: 03/22/17 09:11 Dose: Not Given - Labs Labs: 03/22/17 06:17 03/22/17 06:17 PT 10.2 SECONDS (9.7-12.2) 03/12/17 06:20 INR 0.9 03/12/17 06:20 APTT 27 SECONDS (21-34) 03/12/17 06:20 Assessment and Plan (1) Intracranial hemorrhage Status: Acute (2) Renal failure Status: Acute (3) Sepsis Status: Acute
[2017-03-22] MEDS: Sodium Chloride 0.9% 1,000 ML IV SCH (14:24)
--- NOTE | 2017-03-22 17:43 | PCM.PROC ---
Procedures Attestation:: I certify that I have explained the specified Operation(s) or Procedure(s), risks, benefits and reasonable alternatives to the Patient and/or other person responsible. The opportunity was given to ask questions and all questions answered - Central Line Placement Right Internal Jugular Triple Lumen Catheter Aseptic technique was employed throughout the procedure: Hand Hygiene done prior to procedure, Full sterile barriers (mask, hair cover, sterile gown, sterile gloves), Full body sterile drape, Chloraprep Antiseptic: 30 second prep for IJ or SC sites CVP Time Out Performed: Yes Pt. Placed on Pulse Ox Monitor: Yes Central Line Prep: Chlorhexidine-Alcohol Combination Local Anesthesia Used: Lidocaine 1% Ultrasound Used for Placement: Yes Central Line Lumen Inserted: triple Central Line Length: 16 cm Post Procedure: Sutured in Place, Good Blood Return, All Ports Aspirated, Flushed, Capped, Sterile Dressing Applied Secured by: Suture Post procedure dressing: Chlorhexidine disc (Biopatch) Post Procedure X-Ray: Yes Patient Tolerated Procedure: Well Immediate Complications: None
--- NOTE | 2017-03-22 19:02 | RAD ---
HISTORY: R IJ central line placed COMPARISON: Comparison is made to previous same-day exam. FINDINGS: LUNGS: Interval mild increase in the pulmonary congestion and diffuse hazy opacities in the lungs since the previous study. The ET tube is again seen at appropriate position. PLEURA: No evidence of significant pleural effusion. CARDIOVASCULAR: Normal. OSSEOUS STRUCTURES: No significant abnormalities. VISUALIZED UPPER ABDOMEN: NG tube seen extending to the abdomen. OTHER FINDINGS: Interval insertion of right jugular central line since the previous study seen at appropriate position. IMPRESSION: Appropriate position of the right jugular central line. Interval mild increase in diffuse hazy opacities in the lungs since the previous study.
[2017-03-22] MEDS: Phenylephrine 30 MG in Sodium Chloride 0.9% 250 ML IV PRN (19:10)
--- NOTE | 2017-03-22 23:32 | CP.PCM.PN ---
Subjective - Date & Time of Evaluation Date of Evaluation: 03/22/17 Time of Evaluation: 23:32 - Subjective Subjective: PT'S CONDITION SAME UNRESPONSIVE ON VENT RENAL FAILURE S/P NEW RT.IJ CATHETER. CLINICALLY SAME. HYPOTENSIVE, ON IV ANTIBIOTICS . PT NOW DNR PER NOTED. CONTINUE SUPPORTIVE CARE. Objective - Vital Signs/Intake and Output Vital Signs (last 24 hours): Temp Pulse Resp BP Pulse Ox 97.7 F 133 H 16 95/59 L 97 03/22/17 23:00 03/22/17 23:00 03/22/17 23:00 03/22/17 22:40 03/22/17 23:00 Intake and Output: 03/22/17 03/23/17 18:59 06:59 Intake Total 3399.5 682 Output Total 572 835 Balance 2827.5 -153 - Medications Medications: Current Medications Acetaminophen (Tylenol 650mg/20.3ml Solution Ud) 650 mg PO Q4 PRN PRN Reason: Pain, moderate (4-7) Last Admin: 03/14/17 17:23 Dose: 650 mg Calcium Acetate (Phoslo) 667 mg PO TID [facility] Last Admin: 03/22/17 18:30 Dose: 667 mg Famotidine (Pepcid) 20 mg PO DAILY [facility] Last Admin: 03/22/17 09:44 Dose: 20 mg Heparin Sodium (Porcine) (Heparin) 5,000 units SC Q12 [facility] Last Admin: 03/22/17 21:35 Dose: 5,000 units Hydrocortisone Sodium Succinate (Solu-Cortef) 100 mg IV Q8H [facility] Last Admin: 03/22/17 18:29 Dose: 100 mg Metronidazole (Flagyl) 500 mg in 100 mls @ 100 mls/hr IVPB Q12 [facility] Last Admin: 03/22/17 21:34 Dose: 100 mls/hr Linezolid (Zyvox 600mg/300ml D5w) 600 mg in 300 mls @ 200 mls/hr IVPB Q12H [facility] Last Admin: 03/22/17 23:11 Dose: 200 mls/hr Sodium Chloride (Sodium Chloride 0.9%) 1,000 mls @ 70 mls/hr IV .[id number] [facility] Last Admin: 03/22/17 14:24 Dose: 70 mls/hr Phenylephrine HCl 30 mg/ (Sodium Chloride) 253 mls @ 10.12 mls/hr IV .Q24H PRN ; Protocol; 20 MCG/MIN PRN Reason: TITRATE PER MD ORDER Last Admin: 03/22/17 19:10 Dose: 40 mcg/min, 20.23 mls/hr Meropenem 500 mg/ Dextrose 100 mls @ 100 mls/hr IVPB Q8 [facility] Last Admin: 03/22/17 21:34 Dose: 100 mls/hr Insulin Human Regular (Novolin R) 0 unit SC Q6 [facility] PRN Reason: Protocol Last Admin: 03/22/17 18:30 Dose: 3 unit Levothyroxine Sodium (Synthroid) 25 mcg PO DAILY@0630 [facility] Last Admin: 03/22/17 05:41 Dose: 25 mcg Lorazepam (Ativan) 2 mg IVP Q6H PRN PRN Reason: Sedation Last Admin: 03/20/17 23:35 Dose: 2 mg Metoprolol Tartrate (Lopressor) 25 mg PO BID [facility] Last Admin: 03/22/17 18:20 Dose: Not Given - Labs Labs: 03/22/17 06:17 03/22/17 06:17 PT 10.2 SECONDS (9.7-12.2) 03/12/17 06:20 INR 0.9 03/12/17 06:20 APTT 27 SECONDS (21-34) 03/12/17 06:20 - Constitutional Appears: No Acute Distress, Cachectic - Eye Exam Eye Exam: PERRL - ENT Exam ENT Exam: Mucous Membranes Moist - Neck Exam Neck Exam: Normal Inspection - Respiratory Exam Respiratory Exam: Decreased Breath Sounds - Cardiovascular Exam Cardiovascular Exam: REGULAR RHYTHM, +S1, +S2 - GI/Abdominal Exam GI & Abdominal Exam: Soft, Normal Bowel Sounds - Extremities Exam Extremities Exam: absent: Calf Tenderness, Pedal Edema - Neurological Exam Neurological Exam: Altered - Psychiatric Exam Psychiatric exam: Flat Affect - Skin Skin Exam: Dry, Warm Assessment and Plan (1) Sepsis Assessment & Plan: SOURCE OF SEPSIS UTI / ?ASPIRATIN /NEURO SURGICAL ?INFECTED HEMATOMA. REPEAT BLOOD CULTURE X 2 SETS- P ON IV MERREM 500 MG IV Q 12 HRLY 03/21/17 CONTINUE IV ZYVOX 300MG IV Q 12HRLY CONTINUE IV FLAGYL 500MG IV Q 12HRLY. F/U H/H . Status: Acute (2) S/P craniotomy Status: Acute (3) SIRS (systemic inflammatory response syndrome) Status: Acute (4) Intracranial hemorrhage Status: Acute (5) Renal failure Status: Acute (6) Diabetes mellitus type 2 in nonobese Status: Acute (7) Hypertension Status: Acute (8) Pancreatic cancer Status: Acute
[2017-03-23] MEDS: (Novolin R) Insulin Human Regular 100 units/ml vial SC SCH ×4 (00:23→18:08)
--- NOTE | 2017-03-23 02:38 | PN ---
FOLLOWUP RENAL CONSULTATION DATE: LOCATION: The patient is located in ICU, bed 8. REQUESTED BY: Jordi Bedolla MD REASON FOR FOLLOWUP: Acute renal failure on chronic kidney disease, status post intracranial bleed and status post craniotomy. SUBJECTIVE: Mrs. Watson is an 81-year-old elderly female from [place] with history of hypertension, chronic kidney disease, atrial fibrillation, who was found in on the closet locked by the neighbor and the patient was found to have a left-sided weakness and large right temporoparietal bleed, status post craniotomy and evacuation of hematoma, on ventilator. The patient is not responding to deep painful stimuli or verbal stimuli. PHYSICAL EXAMINATION VITAL SIGNS: This morning, blood pressure 100/50, pulse 82, respirations 16, temperature 97.4 and saturations 98%. Height 4 feet 10 inches and weight is 96 pounds. GENERAL: Mrs. Watson is an 81-year-old elderly female, status post craniotomy, on ventilator. HEENT: Pupils are fixed and dilated to about 3-4 mm in diameter and not reacting to light or accommodation. The patient is on ventilator. Trachea is midline. LUNGS: Symmetric on both sides. Bilateral breath sounds present, occasional basilar crackles present. CARDIOVASCULAR: [place] at the fifth intercostal space, midclavicular line. S1 and S2 audible. No murmur. No gallop. ABDOMEN: Normal in appearance. Soft and tympanic. No guarding. No rigidity. Sluggish bowel sounds. CENTRAL NERVOUS SYSTEM: On ventilator, not responded to deep painful stimuli. Not moving any extremities with a painful stimuli. EXTREMITIES: No cyanosis. No clubbing. No edema. CURRENT MEDICATIONS: Include as follows: Ativan, Flagyl, subcutaneous heparin, Merrem, Pepcid 20 mg daily, phenylephrine, calcium acetate, IV fluid normal saline at 70 mL, Solu-Cortef 100 mg IV q.8 hours, Synthroid 25 mcg daily, and Zyvox 600 mg IV q. 12 hours. LABORATORY DATA: Includes as follows; WBC 18.7, hemoglobin 8.1, hematocrit is 26.9 and platelets 169. PH of 7.42, pCO2 of 24, pO2 is 109, bicarb is 18.8, and saturation 98.6 with a vent settings; AC 16, FiO2 of 30% and tidal volume 450, and PEEP of 5. Sodium 144, potassium 3.5, chloride 114, CO2 of 16, BUN 166, creatinine 3.9, glucose is 137, calcium 6.7, phosphorus 6.8 and magnesium 2.8. Total bili 0.8, AST is 101, ALT is 93, alkaline phosphatase is 109, total protein 3.7 and albumin is 2. As of 03/21/2017, urine osmolality 392, urine creatinine is 66.2, and urine sodium is 12. ASSESSMENT: In summary, Mrs. Watson is an 81-year-old elderly female with a hypertension, atrial fibrillation, chronic kidney disease, status post intracranial bleed with left-sided weakness, and status post craniotomy on ventilator with the pupils dilated to 3-4 mm fixed, not reacting to light and accommodation. 1. Renal failure, acute on chronic kidney disease, stage IV. 2. Status post intracranial bleed and status post craniotomy. 3. Respiratory failure. 4. Sepsis. PLAN: Continue with gentle IV hydration and continue IV antibiotics as per ID recommendation. Prognosis is very poor. The patient is not a candidate for hemodialysis at this time due to her mental status. Orlando Odom MD
[2017-03-23] MEDS: Sodium Chloride 0.9% 1,000 ML IV SCH (03:30)
[2017-03-23] MEDS: Meropenem 500 MG in Dextrose 5% In Water 100 ML IVPB SCH ×3 (05:42→22:28)
[2017-03-23] MEDS: Levothyroxine 25 MCG TAB PO SCH (05:42)
[2017-03-23 05:53] LABS: ABG MECHANICAL RATE 16; ARTERIAL BLOOD GAS MODE PRVC; ARTERIAL BLOOD HGB O2 SAT 81.4 % (95.0-98.0); ATERIAL BLOOD GAS PEEP 5; CARBOXYHEMOGLOBIN 0 % (0.5-1.5); DRAW SITE LB; HHB 18.6 % (0.0-5.0)
[2017-03-23 06:38] LABS: BASO # 0.1 K/uL (0.0-0.2); BASO % 0.3 % (0.0-2.0); MONO # 0.3 K/uL (0.0-0.8); MONO % 0.8 % (0.0-10.0)
[2017-03-23 06:50] LABS: POTASSIUM 4.7 mmol/L (3.6-5.2)
[2017-03-23] MEDS: Phenylephrine 30 MG in Sodium Chloride 0.9% 250 ML IV PRN (06:50)
[2017-03-23 06:52] LABS: ALB/GLOB RATIO 0.9 (1.0-2.1); BILIRUBIN,TOTAL 0.4 mg/dL (0.2-1.3)
[2017-03-23 06:53] LABS: LYMPH # 0.6 K/uL (1.0-4.3); LYMPH % 1.8 % (20.0-40.0); MEAN CELL VOLUME 106.6 fL (81.0-99.0); MEAN CORPUSCULAR HEMOGLOBIN 31.8 pg (27.0-31.0); MEAN CORPUSCULAR HGB CONC 29.9 g/dL (33.0-37.0); MEAN PLATELET VOLUME 13.1 fL (7.2-11.7); NRBC % 0.2 % (0.0-2.0); PLATELET COUNT 194 K/uL (130-400); RED CELL DISTRIBUTION WIDTH 16.1 % (11.5-14.5); WHITE BLOOD COUNT 34.1 K/uL (4.8-10.8)
[2017-03-23 06:53] LABS: CALCIUM 7.1 mg/dl (8.6-10.4); MAGNESIUM 2.7 mg/dL (1.6-2.3)
--- NOTE | 2017-03-23 08:13 | CP.CCUPN ---
CCU Subjective - Physician Review Events Since Last Encounter (Free Text): Patient's FiO2 increased to 100%. Renal function not improved. Patient not triggering the ventilator. Neurology consulted for brain protocol. 03/23/17 08:11 Subjective (Free Text): Over night no acute events. Ventilator settings increased to 100%, no Et tube secretions 03/23/17 08:11 Critical Care Time Spent (in minutes): 35 CCU Objective - Vital Signs / Intake & Output Vital Signs (Last 4 hours): Vital Signs Pulse Resp BP Pulse Ox 03/23/17 06:50 117 H 16 100/47 L 03/23/17 06:00 122 H 16 03/23/17 05:40 117 H 16 100/48 L 03/23/17 05:10 126 H 19 100/55 L 96 03/23/17 05:00 121 H 16 100 03/23/17 04:40 120 H 16 104/60 99 Intake and Output (Last 8hrs): Intake & Output 03/22/17 03/23/17 03/23/17 22:59 06:59 14:59 Intake Total 812 1373 Output Total 985 10 Balance -173 1363 Weight 109 lb 3.2 oz Intake: IV 172 253 Intake, IV Amount 640 1060 Right Forearm 210 Right Medial Port 310 850 Internal Jugular Right Proximal Port 90 210 Internal Jugular Rt Upper Arm Y-site 30 Other 60 Output: Urine 185 10 Urethral (Forbes) 185 10 Stool 800 0 - Physical Exam Physical Exam Limitations: Positive for: Altered Mental Status Head: Positive for: Normocephalic, Other (dressing in place post craniotomy ) Pupils: Positive for: Sluggish, Non-Reactive Mouth: Positive for: Dry Neck: Positive for: Other Respiratory/Chest: Positive for: Good Air Exchange, Rales Cardiovascular: Positive for: Normal S1, S2, Tachycardic Abdomen: Positive for: Distention, Normal Bowel Sounds Upper Extremity: Positive for: Edema Lower Extremity: Positive for: Edema Neurological: Positive for: Other Skin: Positive for: Warm Psychiatric: Negative for: Alert, Oriented x 3 - Medications Active Medications: Active Medications Generic Name Dose Route Start Last Admin Trade Name Freq PRN Reason Stop Dose Admin Acetaminophen 650 mg 03/14/17 17:15 03/14/17 17:23 Tylenol 650mg/20.3ml Solution Ud PO 650 mg Q4 PRN Administration Pain, moderate (4-7) Calcium Acetate 667 mg 03/18/17 14:00 03/22/17 18:30 Phoslo PO 667 mg TID HALLE Administration Famotidine 20 mg 03/20/17 10:30 03/22/17 09:44 Pepcid PO 20 mg DAILY HALLE Administration Heparin Sodium (Porcine) 5,000 units 03/15/17 22:00 03/22/17 21:35 Heparin SC 5,000 units Q12 HALLE Administration Hydrocortisone Sodium Succinate 100 mg 03/22/17 17:00 03/23/17 00:23 Solu-Cortef IV 100 mg Q8H HALLE Administration Metronidazole 500 mg in 100 mls @ 100 mls/hr 03/14/17 10:00 03/22/17 21:34 Flagyl IVPB 100 mls/hr Q12 HALLE Administration Linezolid 600 mg in 300 mls @ 200 mls/hr 03/14/17 23:45 03/22/17 23:11 Zyvox 600mg/300ml D5w IVPB 200 mls/hr Q12H HALLE Administration Phenylephrine HCl 30 mg/ 253 mls @ 10.12 mls/hr 03/21/17 20:17 03/23/17 06:50 Sodium Chloride IV 60 mcg/min .Q24H PRN 30.36 mls/hr TITRATE PER MD ORDER Administration Protocol 20 MCG/MIN Meropenem 500 mg/ Dextrose 100 mls @ 100 mls/hr 03/21/17 23:00 03/23/17 05:42 IVPB 100 mls/hr Q8 HALLE Administration Vasopressin 40 units/ Dextrose 40 mls @ 2.4 mls/hr 03/23/17 08:15 IV .[id number] HALLE Protocol 0.04 UNITS/MIN Insulin Human Regular 0 unit 03/12/17 12:00 03/23/17 05:42 Novolin R SC 2 unit Q6 HALLE Administration Protocol Levothyroxine Sodium 25 mcg 03/17/17 06:30 03/23/17 05:42 Synthroid PO 25 mcg DAILY@0630 HALLE Administration Sodium Bicarbonate 1,300 mg 03/23/17 12:00 Sodium Bicarbonate Tab NG Q6 HALLE - Patient Studies Lab Studies: Lab Studies 03/23/17 03/23/17 03/23/17 Range/Units 06:25 06:23 05:35 WBC 34.1 H D (4.8-10.8) K/uL RBC 2.91 L (3.80-5.20) Mil/uL Hgb 9.3 L (11.0-16.0) g/dL Hct 31.0 L (34.0-47.0) % MCV 106.6 H D (81.0-99.0) fL MCH 31.8 H (27.0-31.0) pg MCHC 29.9 L (33.0-37.0) g/dL RDW 16.1 H (11.5-14.5) % Plt Count 194 (130-400) K/uL MPV 13.1 H (7.2-11.7) fL Neut % (Auto) 97.1 H (50.0-75.0) % Lymph % (Auto) 1.8 L (20.0-40.0) % [place] % (Auto) 0.8 (0.0-10.0) % Eos % (Auto) 0.0 (0.0-4.0) % Baso % (Auto) 0.3 (0.0-2.0) % Neut # 33.1 H (1.8-7.0) K/uL Lymph # 0.6 L (1.0-4.3) K/uL [place] # 0.3 (0.0-0.8) K/uL Eos # 0.0 (0.0-0.7) K/uL Baso # 0.1 (0.0-0.2) K/uL Neutrophils % (Manual) (50-75) % Band Neutrophils % (0-2) % Lymphocytes % (Manual) (20-40) % Monocytes % (Manual) Eosinophils % (Manual) (0-4) % Nucleated RBC % (0-0) % Toxic Granulation Platelet Estimate (NORMAL) Large Platelets Anisocytosis (manual) Macrocytosis (manual) Ovalocytes Puncture Site pCO2 (35-45) mm/Hg pO2 (80-100) mm/Hg HCO3 (21-28) mmol/L ABG pH (7.35-7.45) ABG Total CO2 (22-28) mmol/L ABG O2 Saturation (95-98) % ABG Base Excess (-2.0-3.0) mmol/L ABG Hemoglobin (11.7-17.4) g/dL ABG Carboxyhemoglobin (0.5-1.5) % POC ABG HHb (Measured) (0.0-5.0) % ABG Methemoglobin (0.0-3.0) % Jean Test A-a O2 Difference mm/Hg Respiratory Index Hgb O2 Saturation (95.0-98.0) % Vent Mode Mechanical Rate FiO2 % Tidal Volume PEEP Crit Value Called To Crit Value Called By Crit Value Read Back Blood Gas Notified Time Sodium 142 (132-148) mmol/L Potassium 4.7 (3.6-5.2) mmol/L Chloride 114 H (98-107) mmol/L Carbon Dioxide 11 L* D (22-30) mmol/L Anion Gap 22 H (10-20) BUN 141 H* (7-17) mg/dL Creatinine 3.8 H (0.7-1.2) mg/dL Est GFR ( Amer) 14 Est GFR (Non-Af Amer) 11 POC Glucose (mg/dL) 227 H (65-110) mg/dL Random Glucose 229 H (65-105) mg/dL Calcium 7.1 L (8.6-10.4) mg/dl Phosphorus 9.0 H (2.5-4.5) mg/dL Magnesium 2.7 H (1.6-2.3) mg/dL Total Bilirubin 0.4 (0.2-1.3) mg/dL AST 133 H D (14-36) U/L ALT 125 H D (9-52) U/L Alkaline Phosphatase 142 H D (38-126) U/L Total Protein 5.0 L (6.3-8.3) g/dL Albumin 2.4 L (3.5-5.0) g/dL Globulin 2.6 (2.2-3.9) gm/dL Albumin/Globulin Ratio 0.9 L (1.0-2.1) 03/23/17 03/22/17 03/22/17 Range/Units 05:21 23:56 18:01 WBC (4.8-10.8) K/uL RBC (3.80-5.20) Mil/uL Hgb (11.0-16.0) g/dL Hct (34.0-47.0) % MCV (81.0-99.0) fL MCH (27.0-31.0) pg MCHC (33.0-37.0) g/dL RDW (11.5-14.5) % Plt Count (130-400) K/uL MPV (7.2-11.7) fL Neut % (Auto) (50.0-75.0) % Lymph % (Auto) (20.0-40.0) % [place] % (Auto) (0.0-10.0) % Eos % (Auto) (0.0-4.0) % Baso % (Auto) (0.0-2.0) % Neut # (1.8-7.0) K/uL Lymph # (1.0-4.3) K/uL [place] # (0.0-0.8) K/uL Eos # (0.0-0.7) K/uL Baso # (0.0-0.2) K/uL Neutrophils % (Manual) (50-75) % Band Neutrophils % (0-2) % Lymphocytes % (Manual) (20-40) % Monocytes % (Manual) Eosinophils % (Manual) (0-4) % Nucleated RBC % (0-0) % Toxic Granulation Platelet Estimate (NORMAL) Large Platelets Anisocytosis (manual) Macrocytosis (manual) Ovalocytes Puncture Site Lb pCO2 19 L* (35-45) mm/Hg pO2 47 L (80-100) mm/Hg HCO3 11.3 L (21-28) mmol/L ABG pH 7.25 L (7.35-7.45) ABG Total CO2 8.9 L (22-28) mmol/L ABG O2 Saturation 81.4 L (95-98) % ABG Base Excess -17.2 L (-2.0-3.0) mmol/L ABG Hemoglobin 7.7 L (11.7-17.4) g/dL ABG Carboxyhemoglobin 0 L (0.5-1.5) % POC ABG HHb (Measured) 18.6 H (0.0-5.0) % ABG Methemoglobin 0.0 (0.0-3.0) % Jean Test Na A-a O2 Difference 143.0 mm/Hg Respiratory Index 3.0 Hgb O2 Saturation 81.4 L (95.0-98.0) % Vent Mode Prvc Mechanical Rate 16 FiO2 30.0 % Tidal Volume 450 PEEP 5 Crit Value Called To Ana katz/rn Crit Value Called By Jay isidro/rt Crit Value Read Back Y Blood Gas Notified Time 555 Sodium (132-148) mmol/L Potassium (3.6-5.2) mmol/L Chloride (98-107) mmol/L Carbon Dioxide (22-30) mmol/L Anion Gap (10-20) BUN (7-17) mg/dL Creatinine (0.7-1.2) mg/dL Est GFR ( Amer) Est GFR (Non-Af Amer) POC Glucose (mg/dL) 257 H 279 H (65-110) mg/dL Random Glucose (65-105) mg/dL Calcium (8.6-10.4) mg/dl Phosphorus (2.5-4.5) mg/dL Magnesium (1.6-2.3) mg/dL Total Bilirubin (0.2-1.3) mg/dL AST (14-36) U/L ALT (9-52) U/L Alkaline Phosphatase (38-126) U/L Total Protein (6.3-8.3) g/dL Albumin (3.5-5.0) g/dL Globulin (2.2-3.9) gm/dL Albumin/Globulin Ratio (1.0-2.1) 03/22/17 03/22/17 Range/Units 11:47 06:17 WBC (4.8-10.8) K/uL RBC (3.80-5.20) Mil/uL Hgb (11.0-16.0) g/dL Hct (34.0-47.0) % MCV (81.0-99.0) fL MCH (27.0-31.0) pg MCHC (33.0-37.0) g/dL RDW (11.5-14.5) % Plt Count (130-400) K/uL MPV (7.2-11.7) fL Neut % (Auto) (50.0-75.0) % Lymph % (Auto) (20.0-40.0) % [place] % (Auto) (0.0-10.0) % Eos % (Auto) (0.0-4.0) % Baso % (Auto) (0.0-2.0) % Neut # (1.8-7.0) K/uL Lymph # (1.0-4.3) K/uL [place] # (0.0-0.8) K/uL Eos # (0.0-0.7) K/uL Baso # (0.0-0.2) K/uL Neutrophils % (Manual) 85 H (50-75) % Band Neutrophils % 10 H (0-2) % Lymphocytes % (Manual) 4 L (20-40) % Monocytes % (Manual) TEST NOT PERFORMED Eosinophils % (Manual) 1 (0-4) % Nucleated RBC % 1 H (0-0) % Toxic Granulation Present Platelet Estimate Normal (NORMAL) Large Platelets Present Anisocytosis (manual) Slight Macrocytosis (manual) Moderate Ovalocytes Slight Puncture Site pCO2 (35-45) mm/Hg pO2 (80-100) mm/Hg HCO3 (21-28) mmol/L ABG pH (7.35-7.45) ABG Total CO2 (22-28) mmol/L ABG O2 Saturation (95-98) % ABG Base Excess (-2.0-3.0) mmol/L ABG Hemoglobin (11.7-17.4) g/dL ABG Carboxyhemoglobin (0.5-1.5) % POC ABG HHb (Measured) (0.0-5.0) % ABG Methemoglobin (0.0-3.0) % Jean Test A-a O2 Difference mm/Hg Respiratory Index Hgb O2 Saturation (95.0-98.0) % Vent Mode Mechanical Rate FiO2 % Tidal Volume PEEP Crit Value Called To Crit Value Called By Crit Value Read Back Blood Gas Notified Time Sodium (132-148) mmol/L Potassium (3.6-5.2) mmol/L Chloride (98-107) mmol/L Carbon Dioxide (22-30) mmol/L Anion Gap (10-20) BUN (7-17) mg/dL Creatinine (0.7-1.2) mg/dL Est GFR ( Amer) Est GFR (Non-Af Amer) POC Glucose (mg/dL) 126 H (65-110) mg/dL Random Glucose (65-105) mg/dL Calcium (8.6-10.4) mg/dl Phosphorus (2.5-4.5) mg/dL Magnesium (1.6-2.3) mg/dL Total Bilirubin (0.2-1.3) mg/dL AST (14-36) U/L ALT (9-52) U/L Alkaline Phosphatase (38-126) U/L Total Protein (6.3-8.3) g/dL Albumin (3.5-5.0) g/dL Globulin (2.2-3.9) gm/dL Albumin/Globulin Ratio (1.0-2.1) Laboratory Results - last 24 hr 03/22/17 03/22/17 03/22/17 06:17 11:47 18:01 WBC RBC Hgb Hct MCV MCH MCHC RDW Plt Count MPV Neut % (Auto) Lymph % (Auto) [place] % (Auto) Eos % (Auto) Baso % (Auto) Neut # Lymph # [place] # Eos # Baso # Neutrophils % (Manual) 85 H Band Neutrophils % 10 H Lymphocytes % (Manual) 4 L Monocytes % (Manual) TEST NOT PERFORMED Eosinophils % (Manual) 1 Nucleated RBC % 1 H Toxic Granulation Present Platelet Estimate Normal Large Platelets Present Anisocytosis (manual) Slight Macrocytosis (manual) Moderate Ovalocytes Slight Puncture Site pCO2 pO2 HCO3 ABG pH ABG Total CO2 ABG O2 Saturation ABG Base Excess ABG Hemoglobin ABG Carboxyhemoglobin POC ABG HHb (Measured) ABG Methemoglobin Jean Test A-a O2 Difference Respiratory Index Hgb O2 Saturation Vent Mode Mechanical Rate FiO2 Tidal Volume PEEP Crit Value Called To Crit Value Called By Crit Value Read Back Blood Gas Notified Time Sodium Potassium Chloride Carbon Dioxide Anion Gap BUN Creatinine Est GFR ( Amer) Est GFR (Non-Af Amer) POC Glucose (mg/dL) 126 H 279 H Random Glucose Calcium Phosphorus Magnesium Total Bilirubin AST ALT Alkaline Phosphatase Total Protein Albumin Globulin Albumin/Globulin Ratio 03/22/17 03/23/17 03/23/17 23:56 05:21 05:35 WBC RBC Hgb Hct MCV MCH MCHC RDW Plt Count MPV Neut % (Auto) Lymph % (Auto) [place] % (Auto) Eos % (Auto) Baso % (Auto) Neut # Lymph # [place] # Eos # Baso # Neutrophils % (Manual) Band Neutrophils % Lymphocytes % (Manual) Monocytes % (Manual) Eosinophils % (Manual) Nucleated RBC % Toxic Granulation Platelet Estimate Large Platelets Anisocytosis (manual) Macrocytosis (manual) Ovalocytes Puncture Site Lb pCO2 19 L* pO2 47 L HCO3 11.3 L ABG pH 7.25 L ABG Total CO2 8.9 L ABG O2 Saturation 81.4 L ABG Base Excess -17.2 L ABG Hemoglobin 7.7 L ABG Carboxyhemoglobin 0 L POC ABG HHb (Measured) 18.6 H ABG Methemoglobin 0.0 Jean Test Na A-a O2 Difference 143.0 Respiratory Index 3.0 Hgb O2 Saturation 81.4 L Vent Mode Prvc Mechanical Rate 16 FiO2 30.0 Tidal Volume 450 PEEP 5 Crit Value Called To Ana katz/rn Crit Value Called By Jay isidro/rt Crit Value Read Back Y Blood Gas Notified Time 555 Sodium Potassium Chloride Carbon Dioxide Anion Gap BUN Creatinine Est GFR ( Amer) Est GFR (Non-Af Amer) POC Glucose (mg/dL) 257 H 227 H Random Glucose Calcium Phosphorus Magnesium Total Bilirubin AST ALT Alkaline Phosphatase Total Protein Albumin Globulin Albumin/Globulin Ratio 03/23/17 03/23/17 06:23 06:25 WBC 34.1 H D RBC 2.91 L Hgb 9.3 L Hct 31.0 L MCV 106.6 H D MCH 31.8 H MCHC 29.9 L RDW 16.1 H Plt Count 194 MPV 13.1 H Neut % (Auto) 97.1 H Lymph % (Auto) 1.8 L [place] % (Auto) 0.8 Eos % (Auto) 0.0 Baso % (Auto) 0.3 Neut # 33.1 H Lymph # 0.6 L [place] # 0.3 Eos # 0.0 Baso # 0.1 Neutrophils % (Manual) Band Neutrophils % Lymphocytes % (Manual) Monocytes % (Manual) Eosinophils % (Manual) Nucleated RBC % Toxic Granulation Platelet Estimate Large Platelets Anisocytosis (manual) Macrocytosis (manual) Ovalocytes Puncture Site pCO2 pO2 HCO3 ABG pH ABG Total CO2 ABG O2 Saturation ABG Base Excess ABG Hemoglobin ABG Carboxyhemoglobin POC ABG HHb (Measured) ABG Methemoglobin Jean Test A-a O2 Difference Respiratory Index Hgb O2 Saturation Vent Mode Mechanical Rate FiO2 Tidal Volume PEEP Crit Value Called To Crit Value Called By Crit Value Read Back Blood Gas Notified Time Sodium 142 Potassium 4.7 Chloride 114 H Carbon Dioxide 11 L* D Anion Gap 22 H BUN 141 H* Creatinine 3.8 H Est GFR ( Amer) 14 Est GFR (Non-Af Amer) 11 POC Glucose (mg/dL) Random Glucose 229 H Calcium 7.1 L Phosphorus 9.0 H Magnesium 2.7 H Total Bilirubin 0.4 AST 133 H D ALT 125 H D Alkaline Phosphatase 142 H D Total Protein 5.0 L Albumin 2.4 L Globulin 2.6 Albumin/Globulin Ratio 0.9 L Fingerstick Blood Sugar Results: 227 Review of Systems - Review of Systems Systems not reviewed;Unavailable: Unstable Vital Signs - Constitutional Additional comments: Intubated - EENT Eyes: Other - Cardiovascular Cardiovascular: Leg Edema, Rapid Heart Rate - Respiratory Respiratory: As Per HPI - Gastrointestinal Gastrointestinal: Other Additional comments: NG tube feeds - Genitourinary Additional comments: Forbes, Urine output recorded in EMR Critical Care Progress Note - Ventilator Checklist Daily Assessment of Readiness to Wean: Yes Daily Spontaneous Breathing Trial: No (Patient cannot trigger vent) PUD Prophalyxis: Yes DVT Prophylaxis: Yes Oral Care with Chlorhexidine Gluconate {CHG}: Yes - Vent Settings MODE:: PRVC TIDAL VOLUME:: 400 RESP RATE:: 20 FIO2:: 100 PEEP:: 5 - Extremities/Vascular Does the Patient have a Central Venous Catheter?: Yes (right IJ day 1) Insertion Site: Internal Jugular Vein Does the Patient need a Central Venous Catheter?: Yes Does the Patient have a Forbes Catheter?: Yes ([place], critical) Does the Patient need a Forbes Catheter?: Yes ([place] critical) Catheter Insertion Criteria: Neurogenic bladder - Prophylaxis GI Prophylaxis GI: PPI - Prophylaxis DVT Prophylaxis DVT: Heparin SQ - Nutrition Nutrition: Nutrition Category Date Time Status NPO Diet [DIET] Diets 03/11/17 Dinner Active Assessment/Plan - Assessment and Plan (Free Text) Assessment: 81 years old female with hx of Pancreatic Cancer, CKD and DM, with left side weakness to the ED by EMS. Dx with head CT showing a large intracranial bleed with a midline shift to the left. Patient intubated. POD#10 s/p right parietal craniotomy, subtotal evacuation of hematoma -AMS: cannot trigger ventilator, pupils not reactive, will reqeuste brain protocol, d/c all sedations, request neuro brain protocol -Hypoxic respiratory failure: Continue ventilation to keep Spo2 >92 and PH b/w 7.35-7.45, no secretions from et tube -shockHypotension: likely combination of Septic + neurogenic shock, 2nd central neurological instability 2nd liekly brain dysfunction, continue phenylenphrine to keep MAP >65 and avoid norepi as patient has tachy cardia -Gi: continue NG tube feeds to patient's caloric requirement -Metbaolic acidosis: start oral bicarb tab to keep HCo3 near 18, avoid neprhotoxic drugs, monitor urine output -Septic shock: culture reveals MRSA/Klebsiallea, currently on jonh + linezolid, ID follow up requested -Significant brain dysfunction: will benefit from hydrocortisone replacement, vasopressin replacement -continue DVT ppx -continue PUD ppx -Malnutrition:continue tube feeds Above case discussed with ICU nurse, Respiratory therapist and yesterday family aware of poor prognosis. cc time spent 35 minutes
[2017-03-23] MEDS: Vasopressin 40 UNITS in Dextrose 5% In Water 38 ML IV SCH (08:45)
--- NOTE | 2017-03-23 09:09 | RAD ---
HISTORY: intubated COMPARISON: 03/22/2017 FINDINGS: Endotracheal tube terminates 1.4 cm proximal to the brooke. The nasogastric tube terminates in the stomach. The right IJV line terminates at the cavoatrial junction. LUNGS: There is mild pulmonary venous congestion. No focal consolidation. PLEURA: Layering pleural effusions, larger on the left. No pneumothorax apparent. CARDIOVASCULAR: Normal. OSSEOUS STRUCTURES: No significant abnormalities. VISUALIZED UPPER ABDOMEN: Normal. OTHER FINDINGS: None. IMPRESSION: Stable position of line and tubes. Bilateral layering effusions, worse on the left.
[2017-03-23 09:14] LABS: GIANT PLATELETS PRESENT; LARGE PLATELETS PRESENT; NEUTROPHIL 86 % (50-75); TOTAL CELLS COUNTED 100
[2017-03-23 09:14] LABS: ARTERIAL BLOOD GAS MODE PRVC; ARTERIAL BLOOD HGB O2 SAT 96.6 % (95.0-98.0); ATERIAL BLOOD GAS PEEP 5; CARBOXYHEMOGLOBIN 1.7 % (0.5-1.5); DRAW SITE RBA; HHB 0.5 % (0.0-5.0); METHEMOGLOBIN 1.2 % (0.0-3.0)
[2017-03-23 09:18] LABS: PLATELET CLUMPS PRESENT
[2017-03-23] MEDS: metroNIDAZOLE IV 500 mg/100 ml 500 MG/100 ML BAG IVPB SCH (10:03)
[2017-03-23] MEDS: Linezolid 600 mg in D5W 300 ml 600 MG/300 ML BAG IVPB SCH (11:50)
--- NOTE | 2017-03-23 13:48 | CP.PCM.PN ---
Subjective - Date & Time of Evaluation Date of Evaluation: 03/23/17 Time of Evaluation: 13:47 - Subjective Subjective: NOT MUCH IMPROVEMENT REMAINS COMOTOSE ON VENT DEPENDENT AWAITING FAMILY TO MAKE DECISION Objective - Vital Signs/Intake and Output Vital Signs (last 24 hours): Temp Pulse Resp BP Pulse Ox 97.9 F 111 H 20 111/65 100 03/23/17 04:00 03/23/17 11:10 03/23/17 11:10 03/23/17 11:10 03/23/17 08:11 Intake and Output: 03/23/17 03/23/17 11:59 23:59 Intake Total 1306 Output Total 10 Balance 1296 - Medications Medications: Current Medications Acetaminophen (Tylenol 650mg/20.3ml Solution Ud) 650 mg PO Q4 PRN PRN Reason: Pain, moderate (4-7) Last Admin: 03/14/17 17:23 Dose: 650 mg Calcium Acetate (Phoslo) 667 mg PO TID [facility] Last Admin: 03/23/17 10:03 Dose: 667 mg Famotidine (Pepcid) 20 mg PO DAILY [facility] Last Admin: 03/23/17 10:03 Dose: 20 mg Heparin Sodium (Porcine) (Heparin) 5,000 units SC Q12 [facility] Last Admin: 03/23/17 10:04 Dose: 5,000 units Hydrocortisone Sodium Succinate (Solu-Cortef) 100 mg IV Q8H [facility] Last Admin: 03/23/17 10:03 Dose: 100 mg Metronidazole (Flagyl) 500 mg in 100 mls @ 100 mls/hr IVPB Q12 [facility] Last Admin: 03/23/17 10:03 Dose: 100 mls/hr Linezolid (Zyvox 600mg/300ml D5w) 600 mg in 300 mls @ 200 mls/hr IVPB Q12H [facility] Last Admin: 03/23/17 11:50 Dose: 200 mls/hr Phenylephrine HCl 30 mg/ (Sodium Chloride) 253 mls @ 10.12 mls/hr IV .Q24H PRN ; Protocol; 20 MCG/MIN PRN Reason: TITRATE PER MD ORDER Last Titration: 03/23/17 09:20 Dose: 39.52 mcg/min, 20 mls/hr Meropenem 500 mg/ Dextrose 100 mls @ 100 mls/hr IVPB Q8 [facility] Last Admin: 03/23/17 05:42 Dose: 100 mls/hr Vasopressin 40 units/ Dextrose 40 mls @ 2.4 mls/hr IV .[id number] HALLE; 0.04 UNITS/ MIN PRN Reason: Protocol Last Admin: 03/23/17 08:45 Dose: 0.04 units/min, 2.4 mls/hr Insulin Human Regular (Novolin R) 0 unit SC Q6 HALLE PRN Reason: Protocol Last Admin: 03/23/17 12:10 Dose: 2 unit Levothyroxine Sodium (Synthroid) 25 mcg PO DAILY@0630 [facility] Last Admin: 03/23/17 05:42 Dose: 25 mcg Sodium Bicarbonate (Sodium Bicarbonate Tab) 1,300 mg NG Q6 [facility] Last Admin: 03/23/17 11:52 Dose: 1,300 mg - Labs Labs: 03/23/17 06:23 03/23/17 06:25 PT 10.2 SECONDS (9.7-12.2) 03/12/17 06:20 INR 0.9 03/12/17 06:20 APTT 27 SECONDS (21-34) 03/12/17 06:20 Assessment and Plan (1) Intracranial hemorrhage Status: Acute (2) Renal failure Status: Acute (3) Sepsis Status: Acute
--- NOTE | 2017-03-23 15:06 | NM ---
PROCEDURE: Brain scintigraphy HISTORY: brain COMPARISON: No prior similar study available for comparison. The patient has CT of the head without contrast dated 03/18/2017 demonstrate right-sided intraparenchymal hemorrhage. TECHNIQUE: Brain flow scintigraphy was performed. Skull tourniquet was placed at the patient's head. 21.8 millicurie of technetium 99 DTPA was injected intravenously. Flow study of the neck and head was performed. Delayed anterior, posterior and both lateral views of the head were also obtained. FINDINGS: The flow study demonstrates blood flow in both common carotid arteries to the level of the skullbase.The delayed images demonstrate tracer accumulation in the superior sagittal sinus and in the transverse sinuses as well as in the confluence of the sinuses. There is also activity seen at the floor of the frontal sinus. IMPRESSION: No definite scintigraphic evidence of brain . The study is negative for brain .
--- NOTE | 2017-03-23 15:12 | PN ---
NEUROLOGY PROGRESS NOTE SUBJECTIVE: The patient is lying on the bed on a ventilator. PHYSICAL EXAMINATION: VITAL SIGNS: Her blood pressure is 100/47, the patient is on pressors. Her heart rate is 83 per minute. Breathing at the rate of 12 per minute, being on ventilator is 12 also. Temperature is 97.9 degree Fahrenheit. HEENT: Head is normocephalic. NECK: Supple. There are no carotid bruits. LUNGS: Clear. CVS: S1 and S2 audible. No murmurs. ABDOMEN: Soft and nontender. Bowel sounds are absent. NEUROLOGIC: Mental status: The patient is comatose. She does not respond to verbal or noxious painful stimuli. Her pupils are 5 mm to 6 mm, both nonreactive to light. Absent doll's eye movement. Absent corneal reflex. Absent gag reflex. There is no withdrawal of extremities to noxious painful stimuli. Reflexes are absent. Plantar has no response. Cold water caloric testing was performed and there was no response. IMPRESSION: 1. Right temporoparietal hemorrhage. 2. Absent brainstem reflexes. 3. Respiratory failure. 4. Sepsis. 5. Renal failure. RECOMMENDATIONS: 1. The patient has no brainstem reflexes. We will initiate brain protocol. 2. We will not do apnea test because of unstable blood pressure and the patient is on pressors. 3. The patient's prognosis is poor. Thank you for the opportunity to participate in the care of this patient. David Torres MD
[2017-03-24] MEDS ORDERED: (Novolin R) Insulin Human Regular 100 units/ml vial SC SCH
[2017-03-24] MEDS ORDERED: (Novolog) Insulin Aspart, Recombinant 100 u/ml 10 ml vial IV STA (00:08)
[2017-03-24] MEDS: Linezolid 600 mg in D5W 300 ml 600 MG/300 ML BAG IVPB SCH ×3 (00:22→23:35)
[2017-03-24] MEDS: (Novolog) Insulin Aspart, Recombinant 100 u/ml 10 ml vial IV SCH ×5 (00:28→23:41)
[2017-03-24] MEDS: Vasopressin 40 UNITS in Dextrose 5% In Water 38 ML IV SCH (00:39)
[2017-03-24 05:56] LABS: ABG ALLEN TEST POS; ABG MECHANICAL RATE 20; ARTERIAL BLOOD GAS MODE PRVC; ARTERIAL BLOOD HGB O2 SAT 96.5 % (95.0-98.0); ATERIAL BLOOD GAS PEEP 5; CARBOXYHEMOGLOBIN 1.8 % (0.5-1.5); DRAW SITE R RAD; HHB 0.2 % (0.0-5.0); METHEMOGLOBIN 1.6 % (0.0-3.0)
[2017-03-24] MEDS: Meropenem 500 MG in Dextrose 5% In Water 100 ML IVPB SCH ×3 (06:37→21:29)
[2017-03-24] MEDS: Levothyroxine 25 MCG TAB PO SCH (06:39)
[2017-03-24 06:46] LABS: BASO # 0.1 K/uL (0.0-0.2); BASO % 0.2 % (0.0-2.0); LYMPH # 0.4 K/uL (1.0-4.3); LYMPH % 1.6 % (20.0-40.0); MEAN CELL VOLUME 105.9 fL (81.0-99.0); MEAN CORPUSCULAR HEMOGLOBIN 32.1 pg (27.0-31.0); MEAN CORPUSCULAR HGB CONC 30.3 g/dL (33.0-37.0); MEAN PLATELET VOLUME 12.9 fL (7.2-11.7); MONO # 0.3 K/uL (0.0-0.8); MONO % 1.3 % (0.0-10.0); PLATELET COUNT 119 K/uL (130-400); RED CELL DISTRIBUTION WIDTH 16.2 % (11.5-14.5); WHITE BLOOD COUNT 24.6 K/uL (4.8-10.8)
[2017-03-24 06:52] LABS: POTASSIUM 4.4 mmol/L (3.6-5.2)
[2017-03-24 06:54] LABS: ALB/GLOB RATIO 0.9 (1.0-2.1); BILIRUBIN,TOTAL 0.6 mg/dL (0.2-1.3); TOTAL PROTEIN 4.4 g/dL (6.3-8.3)
[2017-03-24 06:55] LABS: CALCIUM 6.8 mg/dl (8.6-10.4); MAGNESIUM 2.7 mg/dL (1.6-2.3); PHOSPHOROUS 9.8 mg/dL (2.5-4.5)
[2017-03-24 08:30] LABS: NEUTROPHIL 90 % (50-75); NUCLEATED RED BLOOD CELL 1 % (0-0); TOTAL CELLS COUNTED 100
[2017-03-24 08:31] LABS: LARGE PLATELETS PRESENT
--- NOTE | 2017-03-24 10:50 | CP.PCM.PN ---
Subjective - Date & Time of Evaluation Date of Evaluation: 03/24/17 Time of Evaluation: 10:38 - Subjective Subjective: No events, tapered off to only one pressor, vasopresor 0.3mcg, patient unresponsive. Were able to bring down fio2 to 40% spo2 is still 100%. Objective - Vital Signs/Intake and Output Vital Signs (last 24 hours): Temp Pulse Resp BP Pulse Ox 97.5 F L 64 20 98/52 L 100 03/24/17 08:00 03/24/17 10:02 03/24/17 10:02 03/24/17 10:02 03/24/17 10:02 Intake and Output: 03/24/17 03/24/17 06:59 18:59 Intake Total 480.1 227.2 Output Total 410 20 Balance 70.1 207.2 - Medications Medications: Current Medications Acetaminophen (Tylenol 650mg/20.3ml Solution Ud) 650 mg PO Q4 PRN PRN Reason: Pain, moderate (4-7) Last Admin: 03/14/17 17:23 Dose: 650 mg Calcium Acetate (Phoslo) 667 mg PO TID [facility] Last Admin: 03/24/17 09:59 Dose: 667 mg Famotidine (Pepcid) 20 mg PO DAILY [facility] Last Admin: 03/24/17 09:59 Dose: 20 mg Heparin Sodium (Porcine) (Heparin) 5,000 units SC Q12 [facility] Last Admin: 03/24/17 09:59 Dose: 5,000 units Hydrocortisone Sodium Succinate (Solu-Cortef) 100 mg IV Q8H [facility] Last Admin: 03/24/17 09:58 Dose: 100 mg Linezolid (Zyvox 600mg/300ml D5w) 600 mg in 300 mls @ 200 mls/hr IVPB Q12H [facility] Last Admin: 03/24/17 00:22 Dose: 200 mls/hr Phenylephrine HCl 30 mg/ (Sodium Chloride) 253 mls @ 10.12 mls/hr IV .Q24H PRN ; Protocol; 20 MCG/MIN PRN Reason: TITRATE PER MD ORDER Last Titration: 03/24/17 04:00 Dose: 0 mcg/min, 0 mls/hr Meropenem 500 mg/ Dextrose 100 mls @ 100 mls/hr IVPB Q8 [facility] Last Admin: 03/24/17 06:37 Dose: 100 mls/hr Vasopressin 40 units/ Dextrose 40 mls @ 2.4 mls/hr IV .[id number] [facility]; 0.04 UNITS/ MIN PRN Reason: Protocol Last Titration: 03/24/17 07:00 Dose: 0.03 units/min, 1.8 mls/hr Insulin Aspart (Novolog) 0 unit IV Q6H [facility] PRN Reason: Protocol Last Admin: 03/24/17 06:37 Dose: 10 unit Levothyroxine Sodium (Synthroid) 25 mcg PO DAILY@0630 [facility] Last Admin: 03/24/17 06:39 Dose: 25 mcg Sodium Bicarbonate (Sodium Bicarbonate Tab) 1,300 mg NG Q6 [facility] Last Admin: 03/24/17 06:37 Dose: 1,300 mg - Labs Labs: 03/24/17 06:35 03/24/17 04:00 PT 10.2 SECONDS (9.7-12.2) 03/12/17 06:20 INR 0.9 03/12/17 06:20 APTT 27 SECONDS (21-34) 03/12/17 06:20 - Additional Findings Additional findings: * HEENT Right craniotomy, intubated, no pupillary response * Neck supple * Chest air entry b/l * CVS Regular * PA soft, nt bs present * ext 2+ edema all 4 ext * [employer]ER unresponsive off sedation * Assessment and Plan - Assessment and Plan (Free Text) Assessment: * Right intracerebral bleeding, s/p craniotomy sbutotal hematoma evacuation, patient remains unresponsive off sedation, DNR on vent * PAXTON, acidosis started on bicarb tabs, ph 7.33, serum bicarb 10, volume overload, patient not the candidate of HD due to comorbidities, terminal extubation being planned by family * sepsis aspiration, pna, vs urine * H/o pancreatic ca * labile blood glucose Plan: * Terminal extubation being planned for tomorrow * Continue supportive care, abx * Control glucose, spo2 around 90%, avoid volume due to present hypervolemia, unable to diuresis due to hypotension * GI/DVT prophylaxis * See orders for detail.
[2017-03-24] MEDS: Phenylephrine 30 MG in Sodium Chloride 0.9% 250 ML IV PRN (11:55)
--- NOTE | 2017-03-24 15:02 | CP.PCM.PN ---
Subjective - Date & Time of Evaluation Date of Evaluation: 03/24/17 Time of Evaluation: 15:01 - Subjective Subjective: AWAITING FAMILY TO GO FOR EXTUBATION CURRENTLY ANY ATTEMPTS FOR TREATMENT IS FUTILE Objective - Vital Signs/Intake and Output Vital Signs (last 24 hours): Temp Pulse Resp BP Pulse Ox 98 F 70 20 86/43 L 100 03/24/17 12:00 03/24/17 13:02 03/24/17 13:02 03/24/17 13:02 03/24/17 13:02 Intake and Output: 03/24/17 03/24/17 11:59 23:59 Intake Total 639.6 39.8 Output Total 425 305 Balance 214.6 -265.2 - Medications Medications: Current Medications Acetaminophen (Tylenol 650mg/20.3ml Solution Ud) 650 mg PO Q4 PRN PRN Reason: Pain, moderate (4-7) Last Admin: 03/14/17 17:23 Dose: 650 mg Calcium Acetate (Phoslo) 667 mg PO TID [facility] Last Admin: 03/24/17 13:41 Dose: 667 mg Famotidine (Pepcid) 20 mg PO DAILY [facility] Last Admin: 03/24/17 09:59 Dose: 20 mg Heparin Sodium (Porcine) (Heparin) 5,000 units SC Q12 [facility] Last Admin: 03/24/17 09:59 Dose: 5,000 units Hydrocortisone Sodium Succinate (Solu-Cortef) 100 mg IV Q8H [facility] Last Admin: 03/24/17 09:58 Dose: 100 mg Linezolid (Zyvox 600mg/300ml D5w) 600 mg in 300 mls @ 200 mls/hr IVPB Q12H [facility] Last Admin: 03/24/17 11:57 Dose: 200 mls/hr Phenylephrine HCl 30 mg/ (Sodium Chloride) 253 mls @ 10.12 mls/hr IV .Q24H PRN ; Protocol; 20 MCG/MIN PRN Reason: TITRATE PER MD ORDER Last Admin: 03/24/17 11:55 Dose: 10 mcg/min, 5.05 mls/hr Meropenem 500 mg/ Dextrose 100 mls @ 100 mls/hr IVPB Q8 [facility] Last Admin: 03/24/17 13:41 Dose: 100 mls/hr Insulin Aspart (Novolog) 0 unit IV Q6H [facility] PRN Reason: Protocol Last Admin: 03/24/17 11:54 Dose: 12 unit Levothyroxine Sodium (Synthroid) 25 mcg PO DAILY@0630 [facility] Last Admin: 03/24/17 06:39 Dose: 25 mcg Sodium Bicarbonate (Sodium Bicarbonate Tab) 1,300 mg NG Q6 [facility] Last Admin: 03/24/17 11:57 Dose: 1,300 mg - Labs Labs: 03/24/17 06:35 03/24/17 04:00 PT 10.2 SECONDS (9.7-12.2) 03/12/17 06:20 INR 0.9 03/12/17 06:20 APTT 27 SECONDS (21-34) 03/12/17 06:20 Assessment and Plan (1) Intracranial hemorrhage Status: Acute (2) Renal failure Status: Acute (3) Sepsis Status: Acute
[2017-03-24] MEDS ORDERED: (Novolin 70/30) NPH/Regular 70/30 Units/ml 10 ml vial SC STA (18:02)
[2017-03-24] MEDS ORDERED: (Novolin R) Insulin Human Regular 100 units/ml vial IV ONE (23:59)
[2017-03-25 00:34] VITALS: O2SAT 100
[2017-03-25 04:16] VITALS: RESP 20
[2017-03-25] MEDS: Meropenem 500 MG in Dextrose 5% In Water 100 ML IVPB SCH ×2 (05:18→13:49)
[2017-03-25] MEDS: Levothyroxine 25 MCG TAB PO SCH (05:51)
[2017-03-25] MEDS: (Novolog) Insulin Aspart, Recombinant 100 u/ml 10 ml vial IV SCH ×3 (06:09→18:35)
--- NOTE | 2017-03-25 08:12 | CP.CCUPN ---
CCU Subjective - Physician Review Subjective (Free Text): Patient seen and examined at bedside. Patient intubated is intubated and therefore ROS unobtainable. POD#13 s/p right parietal craniotomy, subtotal evacuation of hematoma. Patient spontaneously opens eyes. No acute events overnight. No change in patient's clinical status. 03/25/17 08:00 03/25/17 18:15 CCU Objective - Vital Signs / Intake & Output Vital Signs (Last 4 hours): Vital Signs Pulse Resp BP Pulse Ox 03/25/17 06:15 67 20 100 03/25/17 06:12 67 20 152/77 H 100 03/25/17 06:00 66 20 100 03/25/17 05:58 68 20 156/81 H 100 03/25/17 05:45 73 20 100 03/25/17 05:43 68 20 145/74 100 03/25/17 05:30 68 20 100 03/25/17 05:28 70 20 151/73 H 100 03/25/17 05:15 66 20 100 03/25/17 05:12 67 20 156/75 H 100 03/25/17 05:00 73 20 100 03/25/17 04:57 70 20 150/72 100 03/25/17 04:45 67 20 100 03/25/17 04:42 68 20 157/73 H 100 03/25/17 04:30 66 20 100 03/25/17 04:27 70 20 148/73 100 03/25/17 04:15 68 20 100 03/25/17 04:12 68 20 151/83 H 100 03/25/17 04:11 68 20 144/76 100 Intake and Output (Last 8hrs): Intake & Output 03/24/17 03/25/17 03/25/17 22:59 06:59 14:59 Intake Total 704.4 552 Output Total 10 165 Balance 694.4 387 Weight 125 lb 6.4 oz Intake: IV 83 Intake, IV Amount 561.4 452 Right Medial Port 61 52 Internal Jugular Right Proximal Port 400 Internal Jugular Right Proximal Port 100.4 400 Internal Jugular #2 Tube Feeding 60 100 Output: Urine 10 15 Urethral ([place]) 10 15 Stool 150 - Physical Exam Head: Positive for: Normocephalic, Other (dressing in place post craniotomy ) Pupils: Positive for: Sluggish, Non-Reactive Mouth: Positive for: Dry Neck: Positive for: Other Respiratory/Chest: Positive for: Good Air Exchange, Rales Cardiovascular: Positive for: Normal S1, S2, Tachycardic Abdomen: Positive for: Distention, Normal Bowel Sounds Upper Extremity: Positive for: Edema Lower Extremity: Positive for: Edema Neurological: Positive for: Other Skin: Positive for: Warm Psychiatric: Negative for: Alert, Oriented x 3 - Medications Active Medications: Active Medications Generic Name Dose Route Start Last Admin Trade Name Freq PRN Reason Stop Dose Admin Acetaminophen 650 mg 03/14/17 17:15 03/14/17 17:23 Tylenol 650mg/20.3ml Solution Ud PO 650 mg Q4 PRN Administration Pain, moderate (4-7) Calcium Acetate 667 mg 03/18/17 14:00 03/24/17 18:25 Phoslo PO 667 mg TID [facility] Administration Famotidine 20 mg 03/20/17 10:30 03/24/17 09:59 Pepcid PO 20 mg DAILY [facility] Administration Heparin Sodium (Porcine) 5,000 units 03/15/17 22:00 03/24/17 21:28 Heparin SC 5,000 units Q12 [facility] Administration Hydrocortisone Sodium Succinate 25 mg 03/24/17 18:17 03/25/17 01:28 Solu-Cortef IV 25 mg Q8H [facility] Administration Linezolid 600 mg in 300 mls @ 200 mls/hr 03/14/17 23:45 03/24/17 23:35 Zyvox 600mg/300ml D5w IVPB 200 mls/hr Q12H [facility] Administration Phenylephrine HCl 30 mg/ 253 mls @ 10.12 mls/hr 03/21/17 20:17 03/24/17 21:29 Sodium Chloride IV 10 mcg/min .Q24H PRN 5.05 mls/hr TITRATE PER MD ORDER Titration Protocol 20 MCG/MIN Meropenem 500 mg/ Dextrose 100 mls @ 100 mls/hr 03/21/17 23:00 03/25/17 05:18 IVPB 100 mls/hr Q8 [facility] Administration Insulin Aspart 0 unit 03/24/17 00:15 03/25/17 06:09 Novolog IV 10 unit Q6H [facility] Administration Protocol Levothyroxine Sodium 25 mcg 03/17/17 06:30 03/25/17 05:51 Synthroid PO 25 mcg DAILY@0630 [facility] Administration Sodium Bicarbonate 1,300 mg 03/23/17 12:00 03/25/17 06:12 Sodium Bicarbonate Tab NG 1,300 mg Q6 [facility] Administration - Patient Studies Lab Studies: Microbiology Studies 03/21/17 23:00 Blood Culture - Preliminary Blood-Thru Central Line NO GROWTH AFTER 48 HOURS 03/21/17 22:30 Blood Culture - Preliminary Blood-Thru Central Line NO GROWTH AFTER 48 HOURS Lab Studies 03/25/17 03/24/17 03/24/17 Range/Units 06:04 23:35 17:59 Neutrophils % (Manual) (50-75) % Band Neutrophils % (0-2) % Lymphocytes % (Manual) (20-40) % Monocytes % (Manual) (0-10) % Nucleated RBC % (0-0) % Hypersegmented Polys Platelet Estimate (NORMAL) Large Platelets Polychromasia Hypochromasia (manual) Poikilocytosis (manual Anisocytosis (manual) Macrocytosis (manual) Tear Drop Cells Ovalocytes [place] Cells POC Glucose (mg/dL) 355 H 419 H* 485 H* (65-110) mg/dL 03/24/17 03/24/17 Range/Units 11:24 06:35 Neutrophils % (Manual) 90 H (50-75) % Band Neutrophils % 3 H (0-2) % Lymphocytes % (Manual) 5 L (20-40) % Monocytes % (Manual) 2 (0-10) % Nucleated RBC % 1 H (0-0) % Hypersegmented Polys Present Platelet Estimate Slightly decreased L (NORMAL) Large Platelets Present Polychromasia Slight Hypochromasia (manual) Slight Poikilocytosis (manual Slight Anisocytosis (manual) Slight Macrocytosis (manual) Moderate Tear Drop Cells Slight Ovalocytes Slight [place] Cells Slight POC Glucose (mg/dL) 464 H* (65-110) mg/dL Laboratory Results - last 24 hr 03/24/17 03/24/17 03/24/17 06:35 11:24 17:59 Neutrophils % (Manual) 90 H Band Neutrophils % 3 H Lymphocytes % (Manual) 5 L Monocytes % (Manual) 2 Nucleated RBC % 1 H Hypersegmented Polys Present Platelet Estimate Slightly decreased L Large Platelets Present Polychromasia Slight Hypochromasia (manual) Slight Poikilocytosis (manual Slight Anisocytosis (manual) Slight Macrocytosis (manual) Moderate Tear Drop Cells Slight Ovalocytes Slight [place] Cells Slight POC Glucose (mg/dL) 464 H* 485 H* 03/24/17 03/25/17 23:35 06:04 Neutrophils % (Manual) Band Neutrophils % Lymphocytes % (Manual) Monocytes % (Manual) Nucleated RBC % Hypersegmented Polys Platelet Estimate Large Platelets Polychromasia Hypochromasia (manual) Poikilocytosis (manual Anisocytosis (manual) Macrocytosis (manual) Tear Drop Cells Ovalocytes [place] Cells POC Glucose (mg/dL) 419 H* 355 H Fingerstick Blood Sugar Results: 355 Review of Systems - Review of Systems Systems not reviewed;Unavailable: Intubated Critical Care Progress Note - Nutrition Nutrition: Nutrition Category Date Time Status NPO Diet [DIET] Diets 03/11/17 Dinner Active Assessment/Plan - Assessment and Plan (Free Text) Assessment: 81 years old female who lives alone, with hx of Pancreatic Cancer, CKD and DM, brought awake and with left side weakness to the ED by EMS, after being found on the floor in her closet. The Head CT showing a large intracranial bleed with a midline shift to the left. Patient intubated. POD#13 s/p right parietal craniotomy, subtotal evacuation of hematoma. Plan: Neuro: intracranial bleed, POD#13 s/p right parietal craniotomy, subtotal evacuation of hematoma Head CT (03/11): large right temporoparietal parenchymal hemorrhage with white matter vasogenic edema, mass effect and 12 mm midline shift to left, associated subarachnoid and subdural hemorrhage on the right Head CT (03/12): slight increase in size of right temporoparietal occipital acute hemorrhage. Minimal subarachnoid hemorrhage and subdural hemorrhage as on previous exam. Midline shift towards the left slightly increase from prior examination, 11mm. No evidence of downward herniation. 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 Dr. Torres, neurology consulted left dense paralysis Dr. Mckee (neurosurg) performed right parietal craniotomy evacuation of hematoma yesterday Head CT (03/13): s/p right temporoparietal craniotomy with moderate residual intraparenchymal hemorrhage identified at the right temporal lobe predominantly and minimally involving the inferior right parietal lobe. Local edema remains prominent exerting mass effect causing 15mm leftward shift and effacement of the 3rd and right lateral ventricles as well as the right cerebral sulci. Mild to moderate right pneumocephaly identified. Minimal right subdural hematoma. Mild mass effect exerted at the right cerebral peduncle with the brainstem below this level unremarkable As per Dr. Allen, these are expected post op findings Head CT (03/18): little interval change involving in the appearance of large right MCA territory hemorrhagic infarction in the right parietal and temporal lobes with vasogenic edema, significant local and regional mass effect with effacement of the right lateral ventricle and 18mm midline shift from right to left. No evidence of uncal herniation or obstructive hydrocephalus. Stable mixed density right convexity subdural collection. Cardio: hypotension Phenylephrine Hydrocortisone 25 mg q8h Pulm: intubated Cxray: 03/20/17: lines and tubes in stable position. hyperinflation suggestive for COPD and or emphysematous changes. Biapical pleural thickening with upper lobe granulomatous changes. Scattered nodular densities in both lung marcial. No gross focal infiltrate or effusion. Endo: hx DMII, hypothyroidism accuchecks HgA1C: 6.3 Lipid panel: Triglycerides; 102, cholesterol 143, LDL 5, HDL 76 R ISS Synthroid 25mcg Renal: PAXTON on CKD, electrolyte imbalance BUN/ Cr: 03/20: 166/4.2 BUN/Cr: 03/22: 144/3.5 Dr. Odom consulted, help appreciated -hydration with NS @70 cc/ hr started on 03/20 phoslo TID Renal u/s: diminutive bilateral kidneys with increased echogenicity of the bilateral renal parenchymal cortices suggestive for medical renal disease. Bilateral renal disease Sodium bicarb 1,300 mg q6h Heme: Hx pancreatic cancer ID: wbc 24.6, bands 3 -blood cultures negative -sputum culture (03/13): klebsiella pneumoniae -urine culture (03/13): gram positive cocci -Merrem 500mg q8h -Zyvox 600 mg q12h (started 03/14) -Dr. Torres consulted, help appreciated Prophylaxis: DVT: SCDs, Heparin 5000 sc q12h GI: Pepcid 20 mg daily palliative care consulted, help appreciated code status: DNR
[2017-03-25] MEDS: Linezolid 600 mg in D5W 300 ml 600 MG/300 ML BAG IVPB SCH ×2 (11:48→23:00)
--- NOTE | 2017-03-25 13:45 | CP.PCM.PN ---
Subjective - Date & Time of Evaluation Date of Evaluation: 03/25/17 Time of Evaluation: 13:44 - Subjective Subjective: CLINICALLY SAME ON VENT,COMATOSED ,RENAL FAILURE AND SHOCK AWAITING FAMILY MEETING Objective - Vital Signs/Intake and Output Vital Signs (last 24 hours): Temp Pulse Resp BP Pulse Ox 97.2 F L 75 20 105/67 100 03/25/17 08:00 03/25/17 12:29 03/25/17 12:29 03/25/17 12:29 03/25/17 12:29 Intake and Output: 03/25/17 03/25/17 11:59 23:59 Intake Total 579 212 Output Total 195 Balance 384 212 - Medications Medications: Current Medications Acetaminophen (Tylenol 650mg/20.3ml Solution Ud) 650 mg PO Q4 PRN PRN Reason: Pain, moderate (4-7) Last Admin: 03/14/17 17:23 Dose: 650 mg Calcium Acetate (Phoslo) 667 mg PO TID [facility] Last Admin: 03/25/17 09:43 Dose: 667 mg Famotidine (Pepcid) 20 mg PO DAILY [facility] Last Admin: 03/25/17 09:43 Dose: 20 mg Heparin Sodium (Porcine) (Heparin) 5,000 units SC Q12 [facility] Last Admin: 03/25/17 09:43 Dose: 5,000 units Hydrocortisone Sodium Succinate (Solu-Cortef) 25 mg IV Q8H [facility] Last Admin: 03/25/17 09:50 Dose: 25 mg Linezolid (Zyvox 600mg/300ml D5w) 600 mg in 300 mls @ 200 mls/hr IVPB Q12H [facility] Last Admin: 03/25/17 11:48 Dose: 200 mls/hr Phenylephrine HCl 30 mg/ (Sodium Chloride) 253 mls @ 10.12 mls/hr IV .Q24H PRN ; Protocol; 20 MCG/MIN PRN Reason: TITRATE PER MD ORDER Last Titration: 03/25/17 12:02 Dose: 11.85 mcg/min, 6 mls/hr Meropenem 500 mg/ Dextrose 100 mls @ 100 mls/hr IVPB Q8 [facility] Last Admin: 03/25/17 05:18 Dose: 100 mls/hr Insulin Aspart (Novolog) 0 unit IV Q6H [facility] PRN Reason: Protocol Last Admin: 03/25/17 11:46 Dose: 10 unit Levothyroxine Sodium (Synthroid) 25 mcg PO DAILY@0630 [facility] Last Admin: 03/25/17 05:51 Dose: 25 mcg Sodium Bicarbonate (Sodium Bicarbonate Tab) 1,300 mg NG Q6 [facility] Last Admin: 03/25/17 11:46 Dose: 1,300 mg - Labs Labs: 03/24/17 06:35 03/24/17 04:00 PT 10.2 SECONDS (9.7-12.2) 03/12/17 06:20 INR 0.9 03/12/17 06:20 APTT 27 SECONDS (21-34) 03/12/17 06:20 Assessment and Plan (1) Intracranial hemorrhage Status: Acute (2) Renal failure Status: Acute (3) Sepsis Status: Acute
--- NOTE | 2017-03-25 19:34 | CP.PCM.PN ---
Subjective - Date & Time of Evaluation Date of Evaluation: 03/25/17 Time of Evaluation: 19:33 - Subjective Subjective: pt is seen and examined, d/w pt's family at bed side follow up consult is dictated #[id number] Objective - Vital Signs/Intake and Output Vital Signs (last 24 hours): Temp Pulse Resp BP Pulse Ox 97.6 F 74 20 141/79 100 03/25/17 16:00 03/25/17 15:29 03/25/17 15:29 03/25/17 15:29 03/25/17 15:29 Intake and Output: 03/25/17 03/26/17 18:59 06:59 Intake Total 620 Output Total 55 Balance 565 - Medications Medications: Current Medications Acetaminophen (Tylenol 650mg/20.3ml Solution Ud) 650 mg PO Q4 PRN PRN Reason: Pain, moderate (4-7) Last Admin: 03/14/17 17:23 Dose: 650 mg Calcium Acetate (Phoslo) 667 mg PO TID [facility] Last Admin: 03/25/17 18:35 Dose: 667 mg Famotidine (Pepcid) 20 mg PO DAILY [facility] Last Admin: 03/25/17 09:43 Dose: 20 mg Heparin Sodium (Porcine) (Heparin) 5,000 units SC Q12 [facility] Last Admin: 03/25/17 09:43 Dose: 5,000 units Hydrocortisone Sodium Succinate (Solu-Cortef) 25 mg IV Q8H [facility] Last Admin: 03/25/17 18:35 Dose: 25 mg Linezolid (Zyvox 600mg/300ml D5w) 600 mg in 300 mls @ 200 mls/hr IVPB Q12H [facility] Last Admin: 03/25/17 11:48 Dose: 200 mls/hr Phenylephrine HCl 30 mg/ (Sodium Chloride) 253 mls @ 10.12 mls/hr IV .Q24H PRN ; Protocol; 20 MCG/MIN PRN Reason: TITRATE PER MD ORDER Last Titration: 03/25/17 12:02 Dose: 11.85 mcg/min, 6 mls/hr Meropenem 500 mg/ Sodium (Chloride) 100 mls @ 100 mls/hr IVPB Q8 [facility] Insulin Aspart (Novolog) 0 unit IV Q6H [facility] PRN Reason: Protocol Last Admin: 03/25/17 18:35 Dose: 6 unit Levothyroxine Sodium (Synthroid) 25 mcg PO DAILY@0630 [facility] Last Admin: 03/25/17 05:51 Dose: 25 mcg Sodium Bicarbonate (Sodium Bicarbonate Tab) 1,300 mg NG Q6 [facility] Last Admin: 03/25/17 19:33 Dose: 1,300 mg - Labs Labs: 03/24/17 06:35 03/24/17 04:00 PT 10.2 SECONDS (9.7-12.2) 03/12/17 06:20 INR 0.9 03/12/17 06:20 APTT 27 SECONDS (21-34) 03/12/17 06:20
[2017-03-25 20:18] VITALS: BP 111/63
--- NOTE | 2017-03-25 21:46 | CP.PCM.PN ---
Subjective - Date & Time of Evaluation Date of Evaluation: 03/25/17 Time of Evaluation: 21:39 - Subjective Subjective: CCM Pt had palliative extubation as per wishes of family. Pt was DNR. Pt without pulse or resp. was pronounced .Pt at 21:39. Family at bedside. Objective - Vital Signs/Intake and Output Vital Signs (last 24 hours): Temp Pulse Resp BP Pulse Ox 97.6 F 66 20 111/63 100 03/25/17 16:00 03/25/17 19:29 03/25/17 19:29 03/25/17 19:29 03/25/17 19:29 Intake and Output: 03/25/17 03/26/17 18:59 06:59 Intake Total 832 6 Output Total 150 Balance 682 6 - Medications Medications: Current Medications Acetaminophen (Tylenol 650mg/20.3ml Solution Ud) 650 mg PO Q4 PRN PRN Reason: Pain, moderate (4-7) Last Admin: 03/14/17 17:23 Dose: 650 mg Calcium Acetate (Phoslo) 667 mg PO TID [facility] Last Admin: 03/25/17 18:35 Dose: 667 mg Famotidine (Pepcid) 20 mg PO DAILY [facility] Last Admin: 03/25/17 09:43 Dose: 20 mg Heparin Sodium (Porcine) (Heparin) 5,000 units SC Q12 [facility] Last Admin: 03/25/17 09:43 Dose: 5,000 units Hydrocortisone Sodium Succinate (Solu-Cortef) 25 mg IV Q8H [facility] Last Admin: 03/25/17 18:35 Dose: 25 mg Linezolid (Zyvox 600mg/300ml D5w) 600 mg in 300 mls @ 200 mls/hr IVPB Q12H [facility] Last Admin: 03/25/17 11:48 Dose: 200 mls/hr Phenylephrine HCl 30 mg/ (Sodium Chloride) 253 mls @ 10.12 mls/hr IV .Q24H PRN ; Protocol; 20 MCG/MIN PRN Reason: TITRATE PER MD ORDER Last Titration: 03/25/17 12:02 Dose: 11.85 mcg/min, 6 mls/hr Meropenem 500 mg/ Sodium (Chloride) 100 mls @ 100 mls/hr IVPB Q8 [facility] Insulin Aspart (Novolog) 0 unit IV Q6H [facility] PRN Reason: Protocol Last Admin: 03/25/17 18:35 Dose: 6 unit Levothyroxine Sodium (Synthroid) 25 mcg PO DAILY@0630 [facility] Last Admin: 03/25/17 05:51 Dose: 25 mcg Sodium Bicarbonate (Sodium Bicarbonate Tab) 1,300 mg NG Q6 [facility] Last Admin: 03/25/17 19:33 Dose: 1,300 mg - Labs Labs: 03/24/17 06:35 03/24/17 04:00 PT 10.2 SECONDS (9.7-12.2) 03/12/17 06:20 INR 0.9 03/12/17 06:20 APTT 27 SECONDS (21-34) 03/12/17 06:20
[2017-03-25] MEDS ORDERED: Meropenem 500 MG in Sodium Chloride 0.9% 100 ML IVPB SCH (22:00)
--- NOTE | 2017-03-25 22:05 | CP.PCM.PRO ---
Pronouncement of Note - Clinical Findings Physical Exam: No Response Verbal/Painful Stimuli, Absent Peripheral Pulses{ Carotid & Femoral}, Absent Heart & Breath Sounds, No Pupillary Light Reflex, No Corneal Reflex, Pupils Fixed & Dilated, Absence of Vital Signs - Pronouncement Time Time of Pronouncement of : 21:39 - Notifications Pronouncement Notifications: Family Notified, Atending Notified Book Trimmer Notified: No - [place] [id number]
[2017-03-26 01:48] VITALS: PULSE 68; TEMP 96
--- NOTE | 2017-03-26 05:52 | PN ---
DATE: LOCATION: The patient is located in the ICU, bed 8. REQUESTED BY: Jordi Bedolla MD REASON FOR FOLLOWUP: Acute renal failure, chronic kidney disease, intracranial bleed, status post craniotomy, on ventilator. SUBJECTIVE: Mrs. Watson is an 81-year-old elderly female with a past medical history significant for hypertension, Afib, chronic kidney disease, was found in the house in the closet with left-sided weakness, and found to have a large right temporoparietal bleed and subsequently, the patient underwent craniotomy without significant improvement on ventilator and not responding to deep painful stimuli or deep pain or verbal stimuli. PHYSICAL EXAMINATION: HEENT: Pupils are dilated, not reacting to light. Conjunctivae pink. Trachea is midline. On ventilator. LUNGS: Symmetric on both sides. Bilateral breath sounds present. Occasional basilar crackles present. CARDIOVASCULAR: [place] at the fifth intercostal space, midclavicular line. S1 and S2 audible. No murmur. No gallop. ABDOMEN: Soft and tympanic. Sluggish bowel sounds. CENTRAL NERVOUS SYSTEM: On ventilator, not responding to deep painful stimuli. EXTREMITIES: No cyanosis. No clubbing. No edema. CURRENT MEDICATIONS: Include as follows; subcutaneous heparin 4000 q. 12 hours, Merrem 500 mg IV q.8 hours, NovoLog per sliding scale, Pepcid 20 mg daily, phenylephrine 20 mcg per minute, PhosLo 667 mg p.o. t.i.d., sodium bicarbonate 650 mg 2 tablets q.6 hours, hydrocortisone 25 mg IV q.8 hours, levothyroxine 25 mcg daily, and Zyvox 600 mg q.12 hours. I's and O's, intake is 1610 and output is 505. LABORATORY DATA: No new labs are available for today and as of 03/24/2017, WBC 24.6, hemoglobin 7.6, hematocrit 25, , MCV 105.9 and platelets 119. PH of 7.33, pCO2 of 18, pO2 542, bicarb 13, and saturation 99.8 with vent settings AC 20, tidal volume 450, FiO2 of 100%, and PEEP of 5. Sodium 139, potassium 4.4, chloride 111, CO2 of 10, BUN 157, creatinine 4.7, glucose 443, calcium 6.8, phosphorus 9.9 and magnesium 2.7. Total bilirubin 0.6, AST is 391, ALT 135, alkaline phosphatase is 209, total protein 4.4 and albumin is 2.1. As of 03/21/2017, blood culture x2 negative day 3. Brain flow nuclear medicine test as of 03/23/2017; findings on the study demonstrated blood flow in both common carotid arteries to the level of the skull base. The delayed images demonstrate trace accumulation in the superior sagittal sinus and in the transverse sinus as well as in the confluence of sinuses. There is also activity seen in the floor of the frontal sinuses. No definite scintigraphic evidence of brain in the studies, negative for brain . ASSESSMENT AND PLAN: In summary, Mrs. Watson is an 81-year-old elderly female with history of hypertension, atrial fibrillation, chronic kidney disease and was found with left-sided weakness, subsequently a large intracranial bleed on the right side, status post craniotomy with no significant improvement in the patient's condition on ventilator, with worsening renal function and anemia. 1. Renal failure, [id number] kidney disease. 2. Anemia. 3. Status post craniotomy for a right temporoparietal intracranial bleed. 4. Respiratory failure. Overall prognosis is extremely poor. Continue supportive care at this time. The patient is not a candidate for dialysis. Orlando Odom MD
--- NOTE | 2017-03-27 13:31 | CP.PCM.DIS ---
Provider - Provider Date of Admission: 03/11/17 20:44 Attending physician: Jordi Bedolla MD Time Spent in preparation of Discharge (in minutes): 45 Diagnosis - Discharge Diagnosis (1) Intracranial hemorrhage Status: Acute (2) Renal failure Status: Acute (3) Sepsis Status: Acute Hospital Course - Lab Results Lab Results: Micro Results 03/21/17 23:00 Blood-Thru Central Line Blood Culture - Final NO GROWTH AFTER 5 DAYS 03/21/17 23:00 Blood-Thru Central Line Gram Stain - Final TEST NOT PERFORMED 03/21/17 22:30 Blood-Thru Central Line Blood Culture - Final NO GROWTH AFTER 5 DAYS 03/21/17 22:30 Blood-Thru Central Line Gram Stain - Final TEST NOT PERFORMED 03/13/17 09:30 Blood-Venous Blood Culture - Final NO GROWTH AFTER 5 DAYS 03/13/17 09:30 Blood-Venous Gram Stain - Final TEST NOT PERFORMED 03/13/17 09:00 Blood-Venous Blood Culture - Final NO GROWTH AFTER 5 DAYS 03/13/17 09:00 Blood-Venous Gram Stain - Final TEST NOT PERFORMED 03/13/17 11:30 Urine Urine Culture - Final Enterococcus Faecalis 03/14/17 08:00 Naris MRSA Culture (Admit) - Final MRSA NOT DETECTED 03/13/17 11:30 Trachasp Gram Stain - Final 03/13/17 11:30 Trachasp Sputum Culture - Final Klebsiella Pneumoniae Ssp Pneu 03/12/17 00:34 Naris MRSA Culture (Admit) - Final MRSA NOT DETECTED Most Recent Lab Values WBC 24.6 K/uL (4.8-10.8) H 03/24/17 06:35 RBC 2.36 Mil/uL (3.80-5.20) L 03/24/17 06:35 Hgb 7.6 g/dL (11.0-16.0) L 03/24/17 06:35 Hct 25.0 % (34.0-47.0) L 03/24/17 06:35 MCV 105.9 fL (81.0-99.0) H 03/24/17 06:35 MCH 32.1 pg (27.0-31.0) H 03/24/17 06:35 MCHC 30.3 g/dL (33.0-37.0) L 03/24/17 06:35 RDW 16.2 % (11.5-14.5) H 03/24/17 06:35 Plt Count 119 K/uL (130-400) L D 03/24/17 06:35 MPV 12.9 fL (7.2-11.7) H 03/24/17 06:35 Neut % (Auto) 96.9 % (50.0-75.0) H 03/24/17 06:35 Lymph % (Auto) 1.6 % (20.0-40.0) L 03/24/17 06:35 [place] % (Auto) 1.3 % (0.0-10.0) 03/24/17 06:35 Eos % (Auto) 0.0 % (0.0-4.0) 03/24/17 06:35 Baso % (Auto) 0.2 % (0.0-2.0) 03/24/17 06:35 Neut # 23.8 K/uL (1.8-7.0) H 03/24/17 06:35 Lymph # 0.4 K/uL (1.0-4.3) L 03/24/17 06:35 [place] # 0.3 K/uL (0.0-0.8) 03/24/17 06:35 Eos # 0.0 K/uL (0.0-0.7) 03/24/17 06:35 Baso # 0.1 K/uL (0.0-0.2) 03/24/17 06:35 Neutrophils % (Manual) 90 % (50-75) H 03/24/17 06:35 Band Neutrophils % 3 % (0-2) H 03/24/17 06:35 Lymphocytes % (Manual) 5 % (20-40) L 03/24/17 06:35 Reactive Lymphs % 5 % (0-0) H 03/11/17 20:16 Monocytes % (Manual) 2 % (0-10) 03/24/17 06:35 Eosinophils % (Manual) 1 % (0-4) 03/22/17 06:17 Nucleated RBC % 1 % (0-0) H 03/24/17 06:35 Hypersegmented Polys Present 03/24/17 06:35 Toxic Granulation Present 03/23/17 06:23 Platelet Estimate Slightly decreased (NORMAL) L 03/24/17 06:35 Plt Clumps, EDTA Present 03/23/17 06:23 Large Platelets Present 03/24/17 06:35 Giant Platelets Present 03/23/17 06:23 Polychromasia Slight 03/24/17 06:35 Hypochromasia (manual) Slight 03/24/17 06:35 Poikilocytosis (manual Slight 03/24/17 06:35 Anisocytosis (manual) Slight 03/24/17 06:35 Macrocytosis (manual) Moderate 03/24/17 06:35 Tear Drop Cells Slight 03/24/17 06:35 Ovalocytes Slight 03/24/17 06:35 [place] Cells Slight 03/24/17 06:35 [place]aux Slight 03/18/17 06:13 ESR 89 mm/hr (0-20) H 03/14/17 05:43 PT 10.2 SECONDS (9.7-12.2) 03/12/17 06:20 INR 0.9 03/12/17 06:20 APTT 27 SECONDS (21-34) 03/12/17 06:20 Puncture Site R rad 03/24/17 05:16 pCO2 18 mm/Hg (35-45) L* 03/24/17 05:16 pO2 542 mm/Hg (80-100) H 03/24/17 05:16 HCO3 13.3 mmol/L (21-28) L 03/24/17 05:16 ABG pH 7.33 (7.35-7.45) L 03/24/17 05:16 ABG Total CO2 10.1 mmol/L (22-28) L 03/24/17 05:16 ABG O2 Saturation 99.8 % (95-98) H 03/24/17 05:16 ABG Base Excess -14.9 mmol/L (-2.0-3.0) L 03/24/17 05:16 ABG Hemoglobin 7.3 g/dL (11.7-17.4) L 03/24/17 05:16 ABG Carboxyhemoglobin 1.8 % (0.5-1.5) H 03/24/17 05:16 POC ABG HHb (Measured) 0.2 % (0.0-5.0) 03/24/17 05:16 ABG Methemoglobin 1.6 % (0.0-3.0) 03/24/17 05:16 Jean Test Pos 03/24/17 05:16 ABG Potassium 4.3 mmol/L (3.6-5.2) 03/14/17 05:54 VBG pH 7.36 (7.32-7.43) 03/13/17 11:55 VBG pCO2 31 mmHg (40-60) L 03/13/17 11:55 VBG HCO3 18.1 mmol/L 03/13/17 11:55 VBG Total CO2 18.5 mmol/L (22-28) L 03/13/17 11:55 VBG O2 Sat (Calc) 42.3 % (40-65) 03/13/17 11:55 VBG Base Excess -6.8 mmol/L (0.0-2.0) L 03/13/17 11:55 VBG Potassium 3.8 mmol/L (3.6-5.2) 03/13/17 11:55 A-a O2 Difference 149.0 mm/Hg 03/24/17 05:16 Respiratory Index 0.3 03/24/17 05:16 Hgb O2 Saturation 96.5 % (95.0-98.0) 03/24/17 05:16 Sodium 144.0 mmol/l (132-148) 03/14/17 05:54 Chloride 114.0 mmol/L (98-107) H 03/14/17 05:54 Glucose 140 mg/dl (65-105) H 03/14/17 05:54 Lactate 1.3 mmol/L (0.7-2.1) 03/14/17 05:54 Vent Mode Prvc 03/24/17 05:16 Mechanical Rate 20 03/24/17 05:16 FiO2 100.0 % 03/24/17 05:16 Tidal Volume 450 03/24/17 05:16 PEEP 5 03/24/17 05:16 Crit Value Called To Melissa giron agricultural equipment salesperson 03/24/17 05:16 Crit Value Called By Bhavya stratton rt 03/24/17 05:16 Crit Value Read Back Y 03/24/17 05:16 Blood Gas Notified Time 556 03/24/17 05:16 Sodium 139 mmol/L (132-148) 03/24/17 04:00 Potassium 4.4 mmol/L (3.6-5.2) 03/24/17 04:00 Chloride 111 mmol/L (98-107) H 03/24/17 04:00 Carbon Dioxide 10 mmol/L (22-30) L* 03/24/17 04:00 Anion Gap 22 (10-20) H 03/24/17 04:00 BUN 157 mg/dL (7-17) H* 03/24/17 04:00 Creatinine 4.7 mg/dL (0.7-1.2) H 03/24/17 04:00 Est GFR ( Amer) 11 03/24/17 04:00 Est GFR (Non-Af Amer) 9 03/24/17 04:00 POC Glucose (mg/dL) 255 mg/dL (65-110) H 03/25/17 18:04 Random Glucose 443 mg/dL (65-105) H* D 03/24/17 04:00 Hemoglobin A1c 6.3 % (4.2-6.5) 03/12/17 06:20 Serum Osmolality 381 mosm/kg (272-300) H 03/16/17 18:09 Lactic Acid 1.4 mmol/L (0.7-2.1) 03/14/17 05:43 Calcium 6.8 mg/dl (8.6-10.4) L 03/24/17 04:00 Phosphorus 9.8 mg/dL (2.5-4.5) H 03/24/17 04:00 Magnesium 2.7 mg/dL (1.6-2.3) H 03/24/17 04:00 Total Bilirubin 0.6 mg/dL (0.2-1.3) 03/24/17 04:00 Direct Bilirubin 0.6 mg/dL (0.0-0.4) H 03/14/17 05:43 AST 391 U/L (14-36) H D 03/24/17 04:00 ALT 135 U/L (9-52) H 03/24/17 04:00 Alkaline Phosphatase 209 U/L (38-126) H D 03/24/17 04:00 Total Creatine Kinase 174 U/L (30-135) H 03/14/17 05:43 Troponin I 0.0550 ng/mL (0.00-0.120) 03/11/17 20:16 C-React Prot High Sens > 15.00 mg/L (1.00-3.00) H 03/14/17 05:43 NT-Pro-B Natriuret Pep 3690 pg/mL (0-900) H 03/11/17 20:16 Total Protein 4.4 g/dL (6.3-8.3) L 03/24/17 04:00 Albumin 2.1 g/dL (3.5-5.0) L 03/24/17 04:00 Globulin 2.4 gm/dL (2.2-3.9) 03/24/17 04:00 Albumin/Globulin Ratio 0.9 (1.0-2.1) L 03/24/17 04:00 Triglycerides 102 mg/dL (0-149) 03/11/17 20:16 Cholesterol 143 mg/dL (0-199) 03/11/17 20:16 LDL Cholesterol Direct 57 mg/dL (0-129) 03/11/17 20:16 HDL Cholesterol 76 mg/dL (30-70) H 03/11/17 20:16 TSH 3rd Generation 4.34 mIU/L (0.46-4.68) 03/12/17 06:20 Arterial Blood Potassium 4.3 mmol/L (3.6-5.2) 03/14/17 05:54 Venous Blood Potassium 3.8 mmol/L (3.6-5.2) 03/13/17 11:55 Urine Color Yellow (YELLOW) 03/13/17 11:20 Urine Clarity Hazy (Clear) 03/13/17 11:20 Urine pH 5.0 (5.0-8.0) 03/13/17 11:20 Ur Specific [place] 1.030 (1.003-1.030) 03/13/17 11:20 Urine Protein 3+ mg/dL (NEGATIVE) H 03/13/17 11:20 Urine Glucose (UA) 1+ mg/dL (Normal) 03/13/17 11:20 Urine Ketones Negative mg/dL (NEGATIVE) 03/13/17 11:20 Urine Blood 2+ (NEGATIVE) H 03/13/17 11:20 Urine Nitrate Negative (NEGATIVE) 03/13/17 11:20 Urine Bilirubin Negative (NEGATIVE) 03/13/17 11:20 Urine Urobilinogen Normal mg/dL (0.2-1.0) 03/13/17 11:20 Ur Leukocyte Esterase Neg Peter/uL (Negative) 03/13/17 11:20 Urine WBC (Auto) 103 /hpf (0-5) H 03/13/17 11:20 Urine RBC (Auto) 8 /hpf (0-3) H 03/13/17 11:20 Urine WBC Clumps (Auto) Few /hpf (NONE) H 03/13/17 11:20 Ur Squamous Epith Cells 1 /hpf (0-5) 03/13/17 11:20 Urine Bacteria Rare (<OCC) 03/13/17 11:20 Urine Osmolality 392 mosm/kg (300-1000) 03/21/17 20:28 Ur Random Creatinine 66.2 mg/dL 03/21/17 20:28 Ur Random Sodium 12 mmol/L 03/21/17 20:28 Ur Random Potassium 28.0 mmol/L 03/17/17 15:23 Urine Chloride 29 mmol/L (32-290) L 03/13/17 08:00 Random Vancomycin 12.79 ug/mL 03/15/17 06:39 C. difficile Ag & Toxin Negative (NEGATIVE) 03/20/17 09:38 Blood Type B POSITIVE 03/11/17 20:16 Antibody Screen Negative 03/11/17 20:16 - Hospital Course Hospital Course: 81 /yo female hx of pancreatic cancer and HTN (?), brought in by EMS awake with left sided weakness. As per patient her last known well time was yesterday morning after she got up for breakfast. Patient then recalled having a headache and falling, but was found in her closet at home. As per neighbor, patient was found lock in her closet door with the closet door having to be removed. Patient presents to the ER awake and speaking but with left sided weakness. Head CT shows a large parietal bleed on the right side with midline shift. Dr. Mckee contacted and recommends admitting the patient to ICU. Patient reports Right sided headache NEXT DAY REPEAT CT HEAD SHOWED MORE BLEEDING WITH INCREASED ICP , INSPITE OF MANNITOL NEUROSRGERY WAS CONSULTED PT HAD LEFT CRANIOTOMY WIT PARTIAL EVACUATION OF BLOOD CLOT POST OP PT NEVER REGAINED CONSCIOUSNESS AND WENT IN RENAL FAILURE AND SEPSIS AFTER PROLOGED ICU MANAGEMENT FURTHER TREAT APPEARED FUTILE THIS WAS CONFIRMED WITH ALL THE TREATING PHYSICIAN FAMILY SIGNED DNR AND PT WAS EXTUBATED PER ADVANCED WISHES OF PT, ON 03/25 Discharge Exam - Head Exam Head Exam: NORMAL INSPECTION, NORMOCEPHALIC Discharge Plan - Follow Up Plan Condition: CRITICAL Disposition: WITH WITHOUT AUTOPSY
== END 2017-03-25 23:30 | DRG 23 ==
LOC: C.ER 19:42 → C.9E 20:44 → C.9I 21:19
PROVIDERS: ADMIT Internal Medicine Cardiovascular Disease; ATTEND Internal Medicine Cardiovascular Disease
PROC: 5A1955Z Respiratory Ventilation, Greater than 96 Consecutive Hours (ICD-10-PCS; principal; 2017-03-11)
PROC: 00C70ZZ Extirpation of Matter from Cerebral Hemisphere, Open Approach (ICD-10-PCS; 2017-03-12)
PROC: 0W310ZZ Control Bleeding in Cranial Cavity, Open Approach (ICD-10-PCS; 2017-03-12)
DX: I61.1 Nontraumatic intracerebral hemorrhage in hemisphere, cortical (principal); G93.6 Cerebral edema; A41.02 Sepsis due to Methicillin resistant Staphylococcus aureus; J96.91 Respiratory failure, unspecified with hypoxia; E46 Unspecified protein-calorie malnutrition; R57.8 Other shock; G92 Toxic encephalopathy; R64 Cachexia; I48.91 Unspecified atrial fibrillation; Z99.11 Dependence on respirator [ventilator] status; N17.9 Acute kidney failure, unspecified; N18.4 Chronic kidney disease, stage 4 (severe); G81.94 Hemiplegia, unspecified affecting left nondominant side; E87.4 Mixed disorder of acid-base balance; N39.0 Urinary tract infection, site not specified; E86.0 Dehydration; I25.10 Atherosclerotic heart disease of native coronary artery without angina pectoris; I12.9 Hypertensive chronic kidney disease with stage 1 through stage 4 chronic kidney disease, or unspecified chronic kidney disease; Z86.010 Personal history of colon polyps; Z87.891 Personal history of nicotine dependence; Z85.528 Personal history of other malignant neoplasm of kidney; Z51.5 Encounter for palliative care; Z66 Do not resuscitate; Z85.07 Personal history of malignant neoplasm of pancreas; D64.9 Anemia, unspecified; E03.9 Hypothyroidism, unspecified; E11.22 Type 2 diabetes mellitus with diabetic chronic kidney disease; D63.8 Anemia in other chronic diseases classified elsewhere; H40.9 Unspecified glaucoma